=== PATIENT | female | born 1945 | race Caucasian/White ===

== ENCOUNTER 2016-11-23 17:45 | Emergency (ER) | payer MEDICARE ==
[2016-11-23 19:00] VITALS: BP 160/61
--- NOTE | 2016-11-23 19:31 | UC ---
Respiratory Complaint HPI - HPI Summary HPI Summary: The patient comes in today for: 1. Lung congestion: Onset: 4-5 days. Palliative/provocative: Laying back onto the back makes it better. Quality: Back pain is ache. Region: Posterior lower, bilateral back Severity: 3/10 Time: Constant. Associated symptoms: History of asthma and lung nodules: She was told that if she has chest congestion to "go see someone." She saw specialist in [facility] for her lung nodule about July of 2016. She sees Dr. Mckay for her lung nodule. Fever: None. Cough production: Present--thick and yellow. No hemoptysis. Lower posterior back pain: This is not made worse with coughing. Previous treatment: Mucinex D, albuterol puffer and nebulizer. Asthma: She last used her nebulizer (before this time) 2 years ago. Last CXR ;one month ago. Dyspena: None at this time. She wants an antibiotic that she had last time and no CXR at this time. Her antibiotic was cefuroxime 500 mg bid. * - History of Current Complaint Chief Complaint: UCGeneralIllness Stated Complaint: CHEST CONGESTION/BACK PAIN Time Seen by Provider: 11/23/16 19:20 Hx Obtained From: Patient, Family/Sales Correspondence Clerk ?: No - Allergies/Home Medications Allergies/Adverse Reactions: Allergies Allergy/AdvReac Type Severity Reaction Status Date / Time Levofloxacin [From Levaquin] Allergy Intermediate Wheezing Verified 11/23/16 19: 01 Amoxicillin Allergy Mild stomachache Verified 11/23/16 19:01 Ciprofloxacin [From Cipro] Allergy Mild Nausea Verified 11/23/16 19:01 Latex Allergy Mild Rash Verified 11/23/16 19:01 Metronidazole [From Flagyl] Allergy Mild Rash Verified 11/23/16 19:01 Nitrofurantoin Allergy Mild Abdominal Verified 11/23/16 19:01 [From Macrobid] Pain Sulfa Drugs Allergy Unknown Unknown Verified 11/23/16 19:01 Reaction Details Ampicillin Allergy GI Upset Verified 11/23/16 19:01 Azithromycin Allergy See Comment Verified 11/23/16 19:02 Dicyclomine [From Bentyl] Allergy Unknown Verified 11/23/16 19:01 Reaction Details Iodinated Diagnostic Agents Allergy Itching Verified 11/23/16 19:01 Milk Protein Extract Allergy Unknown Verified 11/23/16 19:01 Reaction Details Nabumetone [From Relafen] Allergy Rash Verified 11/23/16 19:01 Oxycodone Allergy GI Upset Verified 11/23/16 19:01 Hydrocodone [From Vicodin] AdvReac Mild Abdominal Verified 11/23/16 19:01 Pain relefen Allergy Mild Rash Uncoded 11/23/16 19:01 Home Medications: Home Medications Albuterol 2.5MG/3ML (0.083%)* [Ventolin 2.5 MG/3 ML NEB.YASHIRA*] 2.5 mg INH Q6H PRN 11/23/16 [History Confirmed 11/23/16] Cyclosporine 0.05% OPHTH (NF) [Restasis 0.05% OPHTH] 1 drop BOTH EYES BID [History Confirmed 11/23/16] Multiple Vitamin [Multi Vitamin] 1 tab PO DAILY 11/23/16 [History Confirmed ] Pseudoephedrine-Guaifenesin [Mucinex D Maximum Strengt 120-1200 mg] 1 tab PO Q12H PRN 11/23/16 [History Confirmed 11/23/16] PMH/Surg Hx/FS Hx/Imm Hx Previously Healthy: No - Dry eyes. Endocrine History Of: Denies: Diabetes, Thyroid Disease, Hyperthyroidism, Hypothyroidism, Dyslipidemia Cardiovascular History Of: Denies: Cardiac Disorders, Hypertension, Pacemaker/ICD, Myocardial Infarction , Congestive Heart Failure, Atrial Fibrillation, Deep Vein Thrombosis, Bleeding Disorders Respiratory History Of: Reports: Asthma, Bronchitis Denies: COPD, Pneumonia, Pulmonary Embolism GI/ History Of: Reports: Gastroesophageal Reflux Denies: Ulcer, Gastrointestinal Bleed, Gall Bladder Disease, Kidney Stones, Diverticulitis, Renal Disease, Urosepsis Neurological History Of: Reports: Migraine - 20 YEARS AGO Denies: TIA, CVA, Dementia, Seizures Psychological History Of: Reports: Depression - DAUGHTER Denies: Anxiety, Bipolar Disorder, Schizophrenia, Post Traumatic Stress Disorder Cancer History Of: Denies: Lung Cancer, Colorectal Cancer, Breast Cancer, Prostate Cancer, Cervical Cancer Other History Of: Negative For: HIV, Hepatitis B, Hepatitis C, Anticoagulant Therapy - Surgical History Surgical History: Yes Surgery Procedure, Year, and Place: hysterectomy 1988 Rt Oopharectomy. TONSILECTOMY, 1950S. NASAL POLYP REMOVED WITH SEPTOPLASTY - Family History Known Family History: Positive: Hypertension Negative: Cardiac Disease, Diabetes - Social History Occupation: Retired Alcohol Use: Occasionally Alcohol Amount: ONE PER MONTH Substance Use Type: None Smoking Status (MU): Former Smoker Amount Used/How Often: PACK A DAY Length of Time of Smoking/Using Tobacco: QUIT 1988 Have You Smoked in the Last Year: No When Did the Patient Quit Smoking/Using Tobacco: 1988 Review of Systems Constitutional: Negative Skin: Negative Eyes: Negative ENT: Negative, Sore Throat - Only with coughing. Respiratory: Cough Cardiovascular: Negative Gastrointestinal: Negative Genitourinary: Negative All Other Systems Reviewed And Are Negative: Yes Physical Exam Triage Information Reviewed: Yes Appearance: Well-Appearing, No Pain Distress, Well-Nourished Vital Signs: Initial Vital Signs Pulse 78 11/23/16 18:49 Resp 20 11/23/16 18:49 BP 160/61 11/23/16 18:49 Pulse Ox 100 11/23/16 18:49 Vital Signs Reviewed: Yes Eyes: Positive: Conjunctiva Clear. Negative: Discharge ENT: Positive: Hearing grossly normal. Negative: Pharyngeal erythema, Nasal congestion, Nasal drainage, TM bulging, TM dull, TM red, Tonsillar swelling, Tonsillar exudate Dental: Negative: Gross Decay/Caries @, Dental Fracture @ Neck: Positive: Supple, Nontender Respiratory: Positive: Lungs clear, No respiratory distress, No accessory muscle use. Negative: Crackles, Wheezing Cardiovascular: Positive: RRR, No Murmur Abdomen Description: Positive: Nontender, No Organomegaly, Soft. Negative: Distended, Guarding Musculoskeletal: Positive: Strength Intact, ROM Intact, No Edema Neurological: Positive: Alert, Muscle Tone Normal Psychological: Positive: Age Appropriate Behavior, Decreased Age Appropriate Behavior Skin: Negative: rashes, breakdown UC Diagnostic Evaluation - Laboratory O2 Sat by Pulse Oximetry: 100 Respiratory Course/Dx - Course Course Of Treatment: Patient was told of her treatment options. Nonetheless, she states that she was told when she has "congestion" to "go see someone as soon as you can." She wants the cefuroxime as her treatment. - Differential Dx/Diagnosis Provider Diagnoses: Bronchitis. Sinusitis. High blood pressure. Discharge - Discharge Plan Condition: Stable Disposition: HOME Patient Education Materials: Acute Bronchitis (ED), Sinusitis (ED) Referrals: Rodney Jones MD [Primary Care Provider] - 1 Week (See your primary care provider early next week to see how you are doing and to have your blood pressure evaluated. )
== END 2016-11-23 20:07 | disposition home or self-care (01) ==
LOC: UCCORT 17:45
DX: J40 Bronchitis, not specified as acute or chronic (principal); J32.9 Chronic sinusitis, unspecified; R03.0 Elevated blood-pressure reading, without diagnosis of hypertension; Z88.1 Allergy status to other antibiotic agents; Z88.5 Allergy status to narcotic agent; Z88.2 Allergy status to sulfonamides; Z87.891 Personal history of nicotine dependence
CPT/HCPCS: 99212; G0463

== ENCOUNTER 2017-08-02 07:07 | Emergency (ER) | payer MEDICARE ==
[2017-08-02 07:21] VITALS: BP 145/67
--- NOTE | 2017-08-02 07:53 | UC ---
Throat Pain/Nasal Jose HPI - HPI Summary HPI Summary: Patient presents to with chief complaint of sinus pressure and nasal congestion. She reports dry intermittent cough, worse last evening. She has a history of asthma, but denies wheezing, chest pain, or shortness of breath. Patient reports worsening symptoms despite mucinex, and inhaler use. She reports using neb treatments 6 times in jose alejandro past 3 days. She denies f/c/sn/v/or abdominal pain or bowel irregularities. She is sp sinus surgery "several years ago". She is a nonsmoker. SHe is using flonase once daily. - History of Current Complaint Chief Complaint: UCRespiratory Stated Complaint: CONGESTION, HISTORY OF ASTHMA Time Seen by Provider: 08/02/17 07:32 Hx Obtained From: Patient - Allergies/Home Medications Allergies/Adverse Reactions: Allergies Allergy/AdvReac Type Severity Reaction Status Date / Time Levofloxacin [From Levaquin] Allergy Intermediate Wheezing Verified 08/02/17 07: 16 Amoxicillin Allergy Mild stomachache Verified 08/02/17 07:16 Ciprofloxacin [From Cipro] Allergy Mild Nausea Verified 08/02/17 07:16 Latex Allergy Mild Rash Verified 08/02/17 07:16 Metronidazole [From Flagyl] Allergy Mild Rash Verified 08/02/17 07:16 Nitrofurantoin Allergy Mild Abdominal Verified 08/02/17 07:16 [From Macrobid] Pain Sulfa Drugs Allergy Unknown Unknown Verified 08/02/17 07:16 Reaction Details Ampicillin Allergy GI Upset Verified 08/02/17 07:16 Azithromycin Allergy See Comment Verified 08/02/17 07:16 Dicyclomine [From Bentyl] Allergy Unknown Verified 08/02/17 07:16 Reaction Details Iodinated Diagnostic Agents Allergy Itching Verified 08/02/17 07:16 Milk Protein Extract Allergy Unknown Verified 08/02/17 07:16 Reaction Details Nabumetone [From Relafen] Allergy Rash Verified 08/02/17 07:16 Oxycodone Allergy GI Upset Verified 08/02/17 07:16 Hydrocodone [From Vicodin] AdvReac Mild Abdominal Verified 08/02/17 07:16 Pain relefen Allergy Mild Rash Uncoded 08/02/17 07:16 Home Medications: Home Medications Fluticasone NASAL SPRAY 50MCG* [Flonase NASAL SPRAY 50MCG*] 2 spray BOTH NARES DAILY 08/02/17 [History Confirmed 08/02/17] PMH/Surg Hx/FS Hx/Imm Hx Previously Healthy: Yes Respiratory History: Asthma Other History Of: Negative For: HIV, Hepatitis B, Hepatitis C, Anticoagulant Therapy - Surgical History Surgical History: Yes Surgery Procedure, Year, and Place: hysterectomy 1988 Rt Oopharectomy. TONSILECTOMY, 1950S. NASAL POLYP REMOVED WITH SEPTOPLASTY - Family History Known Family History: Positive: Hypertension Negative: Cardiac Disease, Diabetes - Social History Alcohol Use: Occasionally Alcohol Amount: ONE PER MONTH Substance Use Type: None Smoking Status (MU): Former Smoker Amount Used/How Often: PACK A DAY Length of Time of Smoking/Using Tobacco: 1 PPD x 20 Years Have You Smoked in the Last Year: No When Did the Patient Quit Smoking/Using Tobacco: 1988 - Immunization History Most Recent Influenza Vaccination: May 2017 Review of Systems Constitutional: Negative Skin: Negative Eyes: Negative ENT: Negative All Other Systems Reviewed And Are Negative: Yes Physical Exam Triage Information Reviewed: Yes Appearance: Well-Appearing Vital Signs: Initial Vital Signs Temp 97.9 F 08/02/17 07:13 Pulse 76 08/02/17 07:13 Resp 16 08/02/17 07:13 BP 145/67 08/02/17 07:13 Pulse Ox 100 08/02/17 07:13 Vital Signs Reviewed: Yes Eyes: Positive: Conjunctiva Clear ENT: Positive: Pharyngeal erythema, Nasal congestion, TMs normal, Hoarse voice, Sinus tenderness - Frontal, maxillary bilaterally, Uvula midline Dental Exam: Normal Neck exam: Normal Neck: Positive: Supple Respiratory: Positive: Chest non-tender, Lungs clear, Normal breath sounds, No respiratory distress, No accessory muscle use Cardiovascular Exam: Normal Abdominal Exam: Normal Abdomen Description: Positive: Soft Musculoskeletal Exam: Normal Skin Exam: Normal Throat Pain/Nasal Course/Dx - Course Assessment/Plan: Acute bacterial sinusitis - Differential Dx/Diagnosis Provider Diagnoses: Acute bacterial sinusitis Discharge - Discharge Plan Condition: Stable Disposition: HOME Prescriptions: ceFUROXime TAB(*) [Ceftin TAB 250 MG(*)] 250 mg PO BID 7 Days #14 tab Patient Education Materials: Sinusitis (ED) Referrals: Rodney Jones MD [Primary Care Provider] - 5 Days Additional Instructions: I have sent medications to your local pharmacy. Please warp picker and take with food and water until completion. Please continue breathing treatments, mucinex as needed, and flonase - but increase to twice daily. Please begin a daily over the counter allergy medication as well until symptoms improve. Please stay hydrated, and follow up with your PCP in 5-7 days. Please return to UC if your symptoms worsen in the next several days despite above treatment plan.
== END 2017-08-02 08:04 | disposition home or self-care (01) ==
LOC: UCCORT 07:07
DX: J01.90 Acute sinusitis, unspecified (principal); J45.909 Unspecified asthma, uncomplicated; Z90.710 Acquired absence of both cervix and uterus; Z90.721 Acquired absence of ovaries, unilateral; Z88.5 Allergy status to narcotic agent; Z88.2 Allergy status to sulfonamides; Z88.1 Allergy status to other antibiotic agents; Z91.041 Radiographic dye allergy status; Z91.040 Latex allergy status; Z87.891 Personal history of nicotine dependence
CPT/HCPCS: 99212; G0463

== ENCOUNTER 2017-12-24 09:10 | Emergency (ER) | payer MEDICARE ==
--- OUTSIDE RECORDS SUMMARY | 2017-12-24 09:25 | XMS REPORT ---
:1945 External Reference #:[id number] Author Organization [facility] Address [address] [address] Phone [phone] Care Team Providers Name Role Phone Rodney Jones III, MD Primary Care Physician Unavailable Payers Type Date Identification Numbers Payment Subscriber Provider Health Maintenance Effective: Policy Number: Medicare Blue Noelle Mayorga Nik[employer] Organization (O) 09/03/2012 [id number] [facility] Group Number: [id number] [address] [address] PayID: [id number] [place] [address] Advance Directives Type Date Description Status Comment Other Directive 12/13/2016 Health Care Proxy Current and Verified Other Directive 12/13/2016 Living Will Current and Verified Problems Date Description Provider Status Onset: 05/04/2011 Asthma without status asthmaticus Rodney Jones M.D. Active Onset: 05/04/2011 Impaired fasting glycaemia Rodney Jones M.D. Active Onset: 05/04/2011 Pure hypercholesterolemia Rodney Jones M.D. Active Onset: 09/29/2011 Left lower quadrant pain Rodney Jones M.D. Active Onset: 03/19/2012 Osteochondropathy Rodney Jones M.D. Active Onset: 08/02/2015 Chronic rhinitis Steve Wilson M.D. Active Onset: 08/02/2015 Chronic maxillary sinusitis Steve Wilson M.D. Active Onset: 08/02/2015 Tinnitus, left ear Steve Wilson M.D. Active Onset: 08/30/2015 Sudden hearing loss Steve Wilson M.D. Active Onset: 08/30/2015 Acute upper respiratory infection, Steve Wilson M.D. Active unspecified Onset: 05/04/2016 Disorder of bone Rodney Jones M.D. Active Onset: 12/07/2017 Peripheral vascular disease Rodney Jones M.D. Active Onset: 05/08/2017 Gastroesophageal reflux disease Rodney Jones M.D. Active Onset: 08/10/2016 Closed fracture of surgical neck of Radha Murphy MD Active humerus Family History Date Family Member(s) Problem(s) Comments General Lung Cancer General Rheumatoid Arthritis Father due to Cancer, Lung () - age 62; (+) smoker. Mother due to Natural Causes () - age 81; (+) CVA in her 30s perioperatively. Siblings 3 Siblings Sister has thyroid problems First Sister due to Cancer, Lung () Social History Type Date Description Comments Marital Status Lives With Occupation Retired Cigarette Use Former Cigarette Smoker 1 ppd; began age 16, quit 1988 ETOH Use Occasionally consumes alcohol Exercise Type/Frequency Exercises regularly Exercise Type/Frequency walks, cardio workouts prior to her L leg pain sx Allergies, Adverse Reactions, Alerts Date Description Reaction Status Severity Comments 09/30/2007 Levaquin active broncho spasms 09/30/2007 Sulfa active 09/30/2007 Latex active rash 09/30/2007 hair dye active 09/30/2007 Macrodantin active 09/30/2007 Flagyl active 05/04/2011 Vicodin active 05/04/2011 Macrobid nausea, stomach pain active 02/19/2014 Amoxicillin active 02/19/2014 Ciprofloxacin active 02/19/2014 Ampicillin Nausea and Vomiting active 05/03/2015 Milk-related Compounds active 05/03/2015 Estrace active 02/01/2016 Oxycodone active 02/01/2016 Dicyclomine active 10/22/2017 NSAIDS active rash 11/26/2017 Nabumetone active Medications Medication Date Status Form Strength Qnty SIG Indications Ordering Provider Atorvastatin 12/07 Active Tablets 10mg 90tab take 1 I73.9 Rodney Serra /2018 s tablet at Karen, bedtime Iqra Ventolin HFA 05/17 Active Aerosol 108(90Bas 18uni Inhale Rodney E. /2014 e) ts Two Puffs Karen, mcg/Act By Mouth M.D. Four Times A Day Aerochamber Plus 04/09 Active Misc 1unit Use as Trav /2014 s directed OSMAN Mak with puffer Nebulizer 08/31 Active Kit 1unit use as J45.909 Trav Compressor/Dualfi s needed OSMAN Mak lter/ for Tubing/Aerosol symptoms T/Mthpiece of sob Nebulizer 08/31 Active Kit 1unit use as J45.909 Trav Kit/Tubing/Mouthp s needed OSMAN Mak iece for symptoms sob Albuterol Sulfate 08/31 Active Nebulizer (2.5mg/3M 10uni use one J45.909 Rodney E. /2013 L) 0.083% ts ampual Karen, via M.D. nebulizer as needed sob Fluticasone 08/11 Active Suspension 50mcg/Act 16uni Instill 1 Steve Propionate ts Ranger In [facility], Each M.D. Nostril Every Morning prn Calcium 500 +D 06/09 Active Tablets 500-400mg 30tab 2 pills a Rodney E. /2013 -Unit s day Iqra Jones Restasis 09/29 Active Emulsion 0.05% 2tray one gtts Rodney E. /2011 s ou bid Iqra Jones Flovent HFA 09/13 Active Aerosol 110mcg/Ac 12uni Inhale Rodney E. /2010 t ts Two Puffs Karen, By Mouth M.D. Twice A Day, Rinse And Gargle After Use Spiriva 02/09 Active Capsules 18mcg 30cap Inhale Rodney E. Handihaler /2007 s The Karen, Contents M.D. Of One Capsule By Mouth Every Morning Probiotic Active Capsules 1 po qd Unknown /0000 Multivitamins 00 Active Tablets 90tab 1 po qd Unknown /0000 s Vitamin D3 Super Active Tablets 2000Unit 1 by Unknown Strength /0000 mouth every day Clopidogrel Active Tablets 75mg once Unknown Bisulfate / daily Pantoprazole Active Tablets DR 40mg once [place], Sodium / daily MD Dougie Aspir-[address] 81mg 1 by Unknown /0000 mouth every day Azithromycin 11/26 Hx Tablets 500mg 5tabs one by J32.0 Steve mouth Rup[place]lia, - once per M.D. Meloxicam 09/25 Hx Tablets 15mg 30tab 1 by s mouth William, - every day M.D. 11/19 Meloxicam 09/24 Hx Tablets 7.5mg 45tab take one s tab twice William, - daily as M.D. 09/25 needed for pain, avoid other nsaids Tramadol HCL 08/04 Hx Tablets 50mg 60tab take 1-2 s tablets [place], - by mouth M.D. 08/13 every hours if needed for pain . Duloxetine HCL 02/[address] 30mg 30cap take 1 M54.89 Rodney Pak Part s capsule Karen, - by mouth M.D. 08/13 morning for 1 week, then 2 tabs daily Tessalon Perlfoster 02/03 Hx Capsules 100mg 20cap 1-2 by Rodney Pak s mouth Karen, - three M.D. 05/07 times day as needed Prednisone 02/03 Hx Tablets 20mg 5tabs 1 by Rodney Pak mouth Karen, - every day M.D. 05/04 Zithromax 08/30 Hx Tablets 500mg 5tabs one by Babatunde.0 Steve mouth one Ruparbertha, - per day M.D. 10/11 Prednisone 08/30 Hx Tablets 20mg 7tabs one by J32.0 Steve mouth [place]lia, - once a M.D. 10/11 day in the morning x7 days Pulmicort 08/02 Hx Suspension 0.5mg/2ML 30uni one J32.0 Steve /2014 ts reespule Rubilly, - per day M.D. 05/07 to add soultion Azithromycin 05/21 Hx Tablets 250mg 6tabs 2 tabs by 465.8 Trav /2014 mouth on Mak, RARE/ENDANGERED SPECIES SPECIALIST - day one 08/02 by 1 tab daily for the last 4 days Methylprednisolon 05/21 Hx Tablets 4mg 21tab take 6 465.8 Trav gold (Simon) s tabs on Obdulio, RARE/ENDANGERED SPECIES SPECIALIST - day 1, 5 08/02 tabs day 2, 4 tabs on day 3, 3 tabs on day 4, 2 tabs on day 5, 1 tab on day 6 Cheratussin ac 05/21 Hx Syrup 100-10mg/ 180un 1 465.8 Trav 5ML its teaspoon Obdulio, RARE/ENDANGERED SPECIES SPECIALIST - every 4-6 08/02 hours mouth as needed for cough Diflucan 01/14 Hx Tablets 100mg 2tabs 2 tablets Rodney Pak x 1 dose Karen, - M.DMonica 08/13 Zithromax 01/04 Hx Tablets 500mg 5tabs one by 473.0 Steve mouth one [place], - per day M.D. 05/03 Diflucan 12/29 Hx Tablets 200mg 1tabs 1 by Rodney Pak mouth x 1 Karen, - M.D. 01/14 Singulair 10/21 Hx Tablets 10mg 30tab 1 by 786.2 Rodney Pak s mouth Karen, - every day M.D. 01/04 Prednisone 08/11 Hx Tablets 10mg 26tab 5 tabs x2 493.92 Karlee s day, 4 Rick, - tabs x N.P. 10/21 2day, tabs x 1 day, 2 tabs x1day, 1 tab x 1day Zithromax 08/03 Hx Tablets 500mg 5tabs 1 every Other day x 5 Ordering - Provider 07/31 Nexium 08/[address] 40mg 1 by Trav mouth Obdulio, RARE/ENDANGERED SPECIES SPECIALIST - every day 07/10 Prednisone 07/28 Hx Tablets 20mg 7tabs 1 by Rodney Pak mouth Karen, - every day M.D. 08/03 Diflucan 06/29 Hx Tablets 200mg 1tabs 1 by Rodney Pak mouth x Karen, - one dose M.D. 10/21 Zithromax 04/27 Hx Tablets 500mg 5tabs one po one per Ruparelia, - day M.D. 04/30 Astepro 04/27 Hx Solution 0.15% 3unit one puff s both Ruparelia, - sides M.D. 07/24 once per day Cyclobenzaprine 03/30 Hx Tablets 10mg 30tab one by Rodney Pak s mouth Karen, - three M.D. 04/30 times a day as needed spasm Luxiq 02/19 Hx Foam 0.12% 50gm as needed Rodney Pak Karen, - M.D. 04/30 Pulmicort 02/02 Hx Suspension 0.5mg/2ML 30uni one 471.0 ts reespule Rubilly, - per day M.D. 01/04 to add to soultion Diflucan 01/31 Hx Tablets 200mg 1tabs 1 dose Iqra Saucedo - 02/19 Prednisone 01/12 Hx Tablets 20mg 10day not 471.0 s taking Ruparbertha, - one by M.DMonica 04/30 mouth once a day in in the morning x10 days Oxycodone-Acetami 12/31 Hx Tablets 5-325mg 30tab take 1 po Steve s q 4 h prn Ruparbertha, - pain M.D. 02/19 Nitrostat 11/19 Hx Tablets Sub 0.4mg 25tab one sl 786.50 Rodney Monica s q5min up Karen, - to 3 M.D. 04/30 doses needed Prednisone 11/10 Hx Tablets 20mg 10day one p.o. 473.0 s once a Ruparelia, - day in M.D. 11/27 a.m. x10 days Diflucan 10/16 Hx Tablets 150mg 1tabs take 1 po Rodney Monica x 1 dose Karen, - M.D. 11/27 Ventolin HFA 09/01 Hx Aerosol 108(90Bas 18uni Inhale Vahid e) ts Two Puffs Mayra Lancaster, - mcg/Act By Mouth M.DMonica,FACP 01/04 Times A Day Azithromycin 03/24 Hx Tablets 250mg 6tabs take 2 tab on Sarita, - day 1 M.D. 09/01 then tab daily x 4 days Premarin 01/08 Hx Cream 0.625mg/G 1unit once a 627.3 Lila M s week for Sarita, - 4-6 wks M.D. 12/16 Flonase 01/01 Hx Suspension 50mcg/Act 16uni Ranger 1 Rodney E. ts Ranger In Karen, - Each M.D. 12/16 Nostril Every Morning Prednisone 12/19 Hx Tablets 20mg 7tabs 1 po qd Rodney EMonica Rosemary Jones.DMonica 02/10 Mucinex Chest 12/10 Hx Tablets 1-2 daily Rodney EMonica & prn Alejandro Jones M.DMonica 11/27 Zithromax Z-Simon 12/10 Hx Tablets 250mg 1Pack as per 466.0 Rodney E. direction Rosemary Jones s M.DMonica 02/10 Benzonatate 12/10 Hx Capsules 100mg 30cap 1-2 tab 466.0 Rodney E. s po tid Karen, - prn M.DMonica 02/19 Premarin 03/05 Hx Cream 0.625mg/G 1unit once a 627.3 Lila M s week for Sarita, - 4-6 wks M.D. 06/03 Amoxicillin/Potas 07/20 Hx Tablets 500-125mg 20tab 1 po bid Rodney Pak sium Clavulanate s Rosemary Jones M.D. 09/29 Diflucan 05/04 Hx Tablets 200mg 1tabs i po x Rodney EMonica one dose Rosemary Jones M.D. 07/20 Keflex 03/27 Hx Capsules 500mg 14cap 1 tab q Vahid /2010 s 12 hrs D. Tonny, - for 7 M.D.,FACP . Claritin-D 12 03/17 Hx Tablets ER 5-120mg 60tab 1 po bid VahidAnne-Marie Randall 12HR s Rosemary Mcguire M.D.,FACP 05/04 Omeprazole 09/[address] 20mg 60cap take one . s capsule Rosemary Jones by mouth Mukesh.Mayra 02/02 twice a day Nexium 07/[address] 20mg 90cap 1 po qd Rodney EMonica s Rosemary Jones M.D. 09/13 Omeprazole 01/[address] 20mg 60cap 1 po qd Rdoney E. s -bid Rosemary Jones M.D. 07/22 Xfaxan 12/09 Hx 20mg. 1 po tid Noel once a MD Dougie - month for 01/04 4 days Tessalon Perlfoster 11/19 Hx Capsules 100mg 30cap 1-2 po Rodeny EMonica s tid prn Rosemary Jones M.D. 12/09 Zithromax Z-Simon 08/05 Hx Tablets 250mg 1Pack as per Rodney Pak Rosemary Rouse M.D. 11/19 Fluticasone 04/27 Hx Suspension 50mcg/Act 1unit 1 spray Rodney EMonica Rosemary Alaniz nostril Iqra 02/19 in Zithromax Z-Simon 12/03 Hx Tablets 250mg 1Pack as per Rodney Pak Rosemary Rouse M.D. 02/05 Ketoconazole 10/30 Hx Shampoo 2% 8oz use 2 x Rodney Pak weekly Rosemary Jones for 4 M.D. with at least 3 days between shampoos, then prn to maintain control Ketoconazole 10/28 Hx Shampoo 2% 4Oz 1 po qd Rodney Pak Rosemary Jones M.D. 10/30 Spiriva 00 Hx Capsules 18mcg 1Mont 1 Rodney EMonica Handihaler /0000 h inhalatio Rosemary Jones n qam Iqra 02/09 Flovent 00/ Hx Aerosol 110mcg/Ac 3unit 2 po puff Rodney E. /0000 t s Rosemary Hudson M.D. 09/13 Flonase /00 Hx Suspension 50mcg/Act 1Bott 1 Rodney E. /0000 le intranRosemary Parnell pujuana to Iqra 04/27 nostril daily Accolate / Hx Tablets 20mg 30tab 1 po qd Rodney E. /0000 s Rosemary Jones M.D. 12/12 Protonix /[address] 40mg 90tab 1 po qd Rodney E. /0000 Rosemary Grover M.D. 01/04 generic ly Albuterol HFA Hx Aerosol 90mcg/Act 1unit 2 po Vahid /0000 s Puffs qid Rosemary Mcguire M.D.,FACP 09/01 Restasis Hx Emulsion 0.05% 3mon One gtts OU bid Physician - Practices 01/04 Xifaxan Hx Tablets 200mg 180ta take 2 Rodney E. / bs tablets Rosemary Jones by mouth Iqra 12/12 times a day Z Pack Hx Tablets 250mg as Unknown /0000 directed. - 03/17 Ceftin / Hx Tablets 500mg 14tab po bid Unknown /0000 s - 05/04 Prednisone Hx Tablets 20mg 10tab 2 po qd Unknown /0000 s - 05/04 Multivitamins / Hx Capsules QS 1 capsule Unknown /0000 crystal;y - 09/29 Mucinex D 00/00 Hx Tablets ER 20tab 1 po bid Unknown /0000 12HR s - 09/29 Ibuprofen 00/00 Hx Capsules 200mg prn Unknown /0000 - 09/29 Finacea Hx Gel 15% 50gm apply Unknown /0000 twice - daily to 04/30 area Astepro 00/ Hx Solution 0.15% 90uni 1 Unknown /0000 ts intranasa - l every Amoxicillin 00/00 Hx Tablets 500mg 30tab 1 po tid Unknown /0000 s for 10 - days 03/19 Ciprofloxacin HCL 00/00 Hx Tablets 500mg 20tab 1 po bid Unknown /0000 s - 12/10 Aspirin 00/[address] 81mg 1 by Unknown /0000 mouth - every day 12/16 Nexium /[address] 40mg 30cap 2 by Unknown /0000 s mouth - every day 06/19 Claritin-D 12 00 Hx Tablets ER 5-120mg 1 by Unknown Hour /0000 12HR mouth - twice a Omeprazole [address] 40mg 30cap 2 by Unknown /0000 s mouth - every day 10/21 Dexilant 00/ Hx 1 po Unknown /0000 daily - 01/04 Carafate Hx Tablets 1gm take one Unknown /0000 (1) - tablet(s) 01/04 by mouth every six (6) hours as needed Omeprazole [address] 40mg 2 by Unknown /0000 mouth - every day 12/07 Mucinex D 00 Hx Tablets ER 120-1200m Unknown /0000 12HR g - 05/07 Vitamin B12 TR Hx Tablets ER 1000mcg 1 by Unknown /0000 mouth - every day 11/05 Aspirin Adult Low Hx Tablets DR 81mg 1 by Unknown Dose /0000 mouth - every day 11/12 Medications Administered in Office Medication Date Status Form Strength Qnty SIG Indications Ordering Provider Technetium TC Administered Injection Jose Luis Busch [id number] Yuridia Gibson M.D., [facility], Per Unit Dose FASNC Up To 40 Millicuries Immunizations CPT Code Status Date Vaccine Lot # [id number] Given 05/08/2017 Influenza Virus Vaccine, Quadrivalent, Split, [id number] Preservative Free 66495 Given 06/19/2016 Influenza Virus Vaccine, Quadrivalent, Split [id number] Virus, [place] [address] Given 06/16/2015 Influenza Virus Vaccine, Quadrivalent, Split, [id number] Preservative Free 81590 Given 05/03/2015 Pneumococcal Conjugate Vaccine 13 Valent For [id number] Intramuscular Use 65172 Given 06/11/2014 Influenza Virus Vaccine, Quadrivalent, Split, [id number] Preservative Free 51244 Given 06/10/2013 Flu Vaccine Split Virus Preservative Free For [id number] Indiv 3Yr Older 46215 Given 08/23/2012 Zoster (Zostavax) [id number] Given 08/06/2012 Fluvirin Im 3Yrs And Older [id number] 30284 Given 03/19/2012 Pneumonia Vaccine [id number] 14572 Given 06/10/2010 Influenza Virus 3Yrs & Over 36819 Given 07/19/2009 Influenza Virus Vaccine, Pandemic Formulation 69152 Given 07/19/2009 Administration Swine Flu Shot 82110 Given 02/06/2008 Tdap - Tetanus/Diptheria/Acellular Pertussis [id number] 29720 Given 09/03/1999 Pneumovax (History By Patient) [id number] 87798 Given 09/03/1997 Td (History By Patient) Vital Signs Date Vital Result Comment 12/17/2017 Height 67 inches 5'7" Heart Rate 80 /min BP Systolic Sitting 132 mmHg BP Diastolic Sitting 64 mmHg Respiratory Rate 14 /min Pain Level 1 12/07/2017 Weight 170.00 lb Heart Rate 83 /min BP Systolic Sitting 128 mmHg 129/76 pt's machine BP Diastolic Sitting 68 mmHg 129/76 pt's machine O2 % BldC Oximetry 97 % 11/26/2017 Height 67 inches 5'7" Weight 169.00 lb Heart Rate 72 /min BP Systolic Sitting 132 mmHg BP Diastolic Sitting 70 mmHg Respiratory Rate 12 /min Pain Level 8 BMI (Body Mass Index) 26.5 kg/m2 09/18/2017 Height 67 inches 5'7" Weight 185.00 lb Heart Rate 71 /min BP Systolic Sitting 141 mmHg BP Diastolic Sitting 74 mmHg Respiratory Rate 14 /min Pain Level 7 BMI (Body Mass Index) 29.0 kg/m2 08/28/2017 Height 67 inches 5'7" Weight 189.00 lb Heart Rate 71 /min BP Systolic Sitting 158 mmHg BP Diastolic Sitting 72 mmHg Respiratory Rate 14 /min BMI (Body Mass Index) 29.6 kg/m2 05/08/2017 Height 67 inches 5'7" Weight 166.25 lb Heart Rate 66 /min BP Systolic Sitting 146 mmHg BP Diastolic Sitting 62 mmHg Body Temperature 98.5 F O2 % BldC Oximetry 98 % BMI (Body Mass Index) 26.0 kg/m2 12/12/2016 Height 66 inches 5'6" Weight 157.00 lb Heart Rate 55 /min BP Systolic 128 mmHg BP Diastolic 58 mmHg Respiratory Rate 16 /min Body Temperature 98.6 F Pain Level 1 BMI (Body Mass Index) 25.3 kg/m2 10/12/2016 Height 66 inches 5'6" Weight 167.00 lb Heart Rate 60 /min Respiratory Rate 16 /min Pain Level 0 BMI (Body Mass Index) 27.0 kg/m2 09/12/2016 Height 66 inches 5'6" Weight 167.00 lb Respiratory Rate 16 /min Pain Level 2 BMI (Body Mass Index) 27.0 kg/m2 08/22/2016 Height 66 inches 5'6" Weight 167.00 lb Heart Rate 60 /min BP Systolic 150 mmHg BP Diastolic 80 mmHg Respiratory Rate 16 /min Pain Level 1 BMI (Body Mass Index) 27.0 kg/m2 08/10/2016 Height 66 inches 5'6" Weight 167.00 lb Heart Rate 64 /min BP Systolic Sitting 144 mmHg BP Diastolic Sitting 70 mmHg Respiratory Rate 16 /min Pain Level 5 BMI (Body Mass Index) 27.0 kg/m2 05/04/2016 Height 66 inches 5'6" Weight 167.25 lb Heart Rate 70 /min BP Systolic 120 mmHg BP Diastolic 60 mmHg Body Temperature 98.1 F O2 % BldC Oximetry 98 % BMI (Body Mass Index) 27.0 kg/m2 02/18/2016 Height 66 inches 5'6" Weight 167.00 lb Heart Rate 72 /min BP Systolic Sitting 106 mmHg BP Diastolic Sitting 70 mmHg Pain Level 5 L leg BMI (Body Mass Index) 27.0 kg/m2 02/01/2016 Weight 169.00 lb Heart Rate 87 /min BP Systolic Sitting 145 mmHg BP Diastolic Sitting 67 mmHg Body Temperature 100.9 F 10/11/2015 Heart Rate 76 /min BP Systolic Sitting 124 mmHg BP Diastolic Sitting 82 mmHg 08/30/2015 Heart Rate 78 /min BP Systolic Sitting 126 mmHg BP Diastolic Sitting 82 mmHg 08/02/2015 Heart Rate 74 /min BP Systolic Sitting 128 mmHg BP Diastolic Sitting 82 mmHg 05/21/2015 Weight 173.00 lb Heart Rate 72 /min BP Systolic Sitting 142 mmHg BP Diastolic Sitting 70 mmHg Respiratory Rate 16 /min Body Temperature 98.4 F O2 % BldC Oximetry 98 % 05/03/2015 Height 66 inches 5'6" Weight 173.25 lb Heart Rate 73 /min BP Systolic Sitting 130 mmHg BP Diastolic Sitting 64 mmHg Body Temperature 97.7 F O2 % BldC Oximetry 98 % BMI (Body Mass Index) 28.0 kg/m2 01/04/2015 Heart Rate 82 /min BP Systolic Sitting 128 mmHg BP Diastolic Sitting 88 mmHg Body Temperature 99.4 F 10/21/2014 Weight 174.00 lb Heart Rate 75 /min BP Systolic Sitting 126 mmHg BP Diastolic Sitting 68 mmHg Respiratory Rate 16 /min Body Temperature 98.0 F O2 % BldC Oximetry 97 % 08/31/2014 Weight 174.00 lb Heart Rate 78 /min BP Systolic Sitting 126 mmHg BP Diastolic Sitting 60 mmHg Body Temperature 97.9 F 08/24/2014 Heart Rate 75 /min 08/11/2014 Weight 173.75 lb Heart Rate 75 /min BP Systolic Sitting 134 mmHg BP Diastolic Sitting 76 mmHg Body Temperature 97.9 F O2 % BldC Oximetry 97 % 08/03/2014 Weight 172.00 lb Heart Rate 69 /min BP Systolic Sitting 141 mmHg BP Diastolic Sitting 77 mmHg Body Temperature 97.7 F O2 % BldC Oximetry 98 % 07/06/2014 Heart Rate 78 /min BP Systolic Sitting 122 mmHg BP Diastolic Sitting 80 mmHg 05/11/2014 Heart Rate 78 /min BP Systolic Sitting 124 mmHg BP Diastolic Sitting 80 mmHg 05/05/2014 Heart Rate 78 /min BP Systolic Sitting 124 mmHg BP Diastolic Sitting 86 mmHg 04/30/2014 Height 67 inches 5'7" Weight 173.00 lb Heart Rate 80 /min BP Systolic Sitting 146 mmHg BP Diastolic Sitting 78 mmHg Body Temperature 98.1 F BMI (Body Mass Index) 27.1 kg/m2 02/19/2014 Weight 177.00 lb Heart Rate 82 /min BP Systolic Sitting 130 mmHg BP Diastolic Sitting 78 mmHg Body Temperature 98.2 F 01/12/2014 Heart Rate 80 /min BP Systolic Sitting 130 mmHg BP Diastolic Sitting 82 mmHg Body Temperature 99.8 F 01/05/2014 Heart Rate 78 /min BP Systolic Sitting 130 mmHg BP Diastolic Sitting 82 mmHg 12/22/2013 Weight 178.00 lb BP Systolic Sitting 110 mmHg BP Diastolic Sitting 60 mmHg 12/16/2013 Height 66.5 inches 5'6.50" Weight 173.50 lb Heart Rate 80 /min BP Systolic Sitting 126 mmHg BP Diastolic Sitting 58 mmHg Body Temperature 98.1 F BMI (Body Mass Index) 27.6 kg/m2 11/19/2013 Height 67.25 inches 5'7.25" Weight 174.00 lb Heart Rate 77 /min BP Systolic Sitting 136 mmHg BP Diastolic Sitting 82 mmHg Body Temperature 98.1 F O2 % BldC Oximetry 97 % BMI (Body Mass Index) 27.0 kg/m2 11/10/2013 Heart Rate 80 /min BP Systolic Sitting 124 mmHg BP Diastolic Sitting 80 mmHg 02/10/2013 Weight 172.00 lb Heart Rate 73 /min BP Systolic Sitting 110 mmHg BP Diastolic Sitting 62 mmHg 12/10/2012 Height 66.5 inches 5'6.50" Weight 172.50 lb Heart Rate 80 /min BP Systolic Sitting 118 mmHg BP Diastolic Sitting 64 mmHg Body Temperature 99.0 F O2 % BldC Oximetry 96 % BMI (Body Mass Index) 27.4 kg/m2 06/03/2012 Height 66.5 inches 5'6.50" Weight 175.00 lb Heart Rate 80 /min BP Systolic Sitting 132 mmHg BP Diastolic Sitting 72 mmHg Body Temperature 98.3 F BMI (Body Mass Index) 27.8 kg/m2 03/19/2012 Height 66.5 inches 5'6.50" Weight 174.75 lb Heart Rate 80 /min BP Systolic Sitting 104 mmHg BP Diastolic Sitting 62 mmHg BMI (Body Mass Index) 27.8 kg/m2 03/05/2012 Height 66.5 inches 5'6.50" Weight 177.00 lb Heart Rate 74 /min BP Systolic Sitting 12 mmHg L BP Diastolic Sitting 80 mmHg L BMI (Body Mass Index) 28.1 kg/m2 09/29/2011 Height 66.5 inches 5'6.50" Weight 173.50 lb Heart Rate 72 /min BP Systolic Sitting 142 mmHg BP Diastolic Sitting 76 mmHg BMI (Body Mass Index) 27.6 kg/m2 07/20/2011 Height 66.5 inches 5'6.50" Weight 174.00 lb Heart Rate 84 /min BP Systolic Sitting 140 mmHg BP Diastolic Sitting 70 mmHg Body Temperature 98.4 F BMI (Body Mass Index) 27.7 kg/m2 05/04/2011 Height 66.5 inches 5'6.50" Weight 170.00 lb Heart Rate 72 /min BP Systolic Sitting 130 mmHg L BP Diastolic Sitting 68 mmHg L BMI (Body Mass Index) 27.0 kg/m2 03/17/2011 Weight 175.00 lb Heart Rate 74 /min BP Systolic Sitting 110 mmHg BP Diastolic Sitting 52 mmHg 01/04/2011 Weight 177.00 lb Heart Rate 92 /min BP Systolic Sitting 132 mmHg BP Diastolic Sitting 80 mmHg 09/13/2010 Weight 181.00 lb Heart Rate 78 /min BP Systolic Sitting 144 mmHg BP Diastolic Sitting 74 mmHg 12/09/2009 Weight 184.00 lb Heart Rate 68 /min BP Systolic Sitting 142 mmHg BP Diastolic Sitting 80 mmHg 08/25/2009 Heart Rate 72 /min BP Systolic Sitting 132 mmHg BP Diastolic Sitting 68 mmHg 06/28/2009 Heart Rate 64 /min BP Systolic Sitting 154 mmHg BP Diastolic Sitting 76 mmHg 11/19/2008 Height 66.5 inches 5'6.50" Weight 179.00 lb Heart Rate 88 /min BP Systolic Sitting 126 mmHg BP Diastolic Sitting 68 mmHg BMI (Body Mass Index) 28.5 kg/m2 08/05/2008 Height 66.5 inches 5'6.50" Weight 182.00 lb Heart Rate 74 /min BP Systolic Sitting 120 mmHg BP Diastolic Sitting 80 mmHg BMI (Body Mass Index) 28.9 kg/m2 04/27/2008 Height 66.5 inches 5'6.50" Weight 184.00 lb Heart Rate 72 /min BP Systolic Sitting 174 mmHg BP Diastolic Sitting 84 mmHg BMI (Body Mass Index) 29.3 kg/m2 02/06/2008 Height 66.5 inches 5'6.50" Heart Rate 80 /min BP Systolic Sitting 122 mmHg BP Diastolic Sitting 74 mmHg 01/30/2008 Height 66.5 inches 5'6.50" Weight 180.00 lb Heart Rate 72 /min BP Systolic Sitting 130 mmHg BP Diastolic Sitting 70 mmHg BMI (Body Mass Index) 28.6 kg/m2 12/04/2007 Height 66.5 inches 5'6.50" Heart Rate 84 /min BP Systolic Sitting 110 mmHg BP Diastolic Sitting 70 mmHg BP Systolic Standing 84 mmHg Body Temperature 99.6 F 10/28/2007 Height 66.5 inches 5'6.50" Weight 177.00 lb Heart Rate 80 /min BP Systolic Sitting 128 mmHg Own Luppxwj=210/82 BP Diastolic Sitting 78 mmHg Own Twruygz=662/82 BMI (Body Mass Index) 28.1 kg/m2 09/30/2007 Height 66.5 inches 5'6.50" Weight 186.00 lb Heart Rate 76 /min BP Systolic Sitting 164 mmHg BP Diastolic Sitting 82 mmHg BMI (Body Mass Index) 29.6 kg/m2 Results Test Date Test Result H/L Range Note Laboratory test 10/04/2017 Cytology Non-Ocean [employer]ishing Guide SEE RESULT 1 finding BELOW Laboratory test 08/28/2017 Nuclear AB (Keshia) By <1:80 2 finding Ifa Igg (Negative) Scleroderma AB 08/28/2017 Scleroderma Ab <0.2 U 3 (SCL70) Laboratory test 08/28/2017 C Reactive Protein 2.52 mg/L < 5.00 4 finding Erythrocyte Sed Rate 10 mm/Hr 0-40 Rheumatoid Factor <15 IU/mL <15 5 Hla B27 08/28/2017 Hla B27 Negative 6 Hla B27 Interp See Comment 7 Celiac Hla 08/28/2017 Hla-Dqa1 SEE BELOW 8 Hla-DQB1 SEE BELOW 9 Celiac Gene Pairs Present? Yes Celiac Gene Interpretation See Comment 10 Laboratory test finding 08/28/2017 Complement C3 108 mg/dL 75 - 175 11 Complement C4 24 mg/dL 14 - 40 12 Complement Total CH50 60 U/mL 30 - 75 13 Immunoglobulin G (Igg) 1060 mg/dL 767 - 1590 14 Creatine Kinase(CK) 51 U/L 10-223 Thyroperoxidase AB 48.63 IU/mL High <9 Vitamin D, 1,25 Dihydroxy 65 pg/mL 18-78 15 Laboratory test finding 08/28/2017 Tumor Necrosis Factor 1.14 pg/mL 0.56- 1.40 16 Ssa/SSB Abs Igg 08/28/2017 SS-A/Ro Antibody <0.2 U 17 SS-B/La Antibody <0.2 U 18 Laboratory test finding 07/11/2017 TSH (Thyroid Stim Horm) 2.38 mcIU/mL 0.34-5.60 Free T4 (Free Thyroxine) 1.02 ng/dL 0.61-1.12 CBC Auto Diff 05/08/2017 White Blood Count 10.9 10^3/uL High 3.5-10.8 Red Blood Count 4.42 10^6/uL 4.0-5.4 Hemoglobin 13.1 g/dL 12.0-16.0 Hematocrit 40 % 35-47 Mean Corpuscular Volume 90 fL 80-97 Mean Corpuscular Hemoglobin 30 pg 27-31 Mean Corpuscular HGB Conc 33 g/dL 31-36 Red Cell Distribution Width 14 % 10.5-15 Platelet Count 203 10^3/uL 150-450 Mean Platelet Volume 9 um3 7.4-10.4 Abs Neutrophils 7.0 10^3/uL 1.5-7.7 Abs Lymphocytes 2.8 10^3/uL 1.0-4.8 Abs Monocytes 0.7 10^3/uL 0-0.8 Abs Eosinophils 0.3 10^3/uL 0-0.6 Abs Basophils 0.1 10^3/uL 0-0.2 Abs Nucleated RBC 0 10^3/uL Granulocyte % 64.2 % 38-83 Lymphocyte % 25.2 % 25-47 Monocyte % 6.3 % 1-9 Eosinophil % 3.2 % 0-6 Basophil % 1.1 % 0-2 Nucleated Red Blood Cells % 0 Iron & Iron Binding Capacity 05/08/2017 Iron 65 g/dL 50-212 Unsaturated Iron Binding 271 g/dL Total Iron Binding Capacity 336 g/dL 250-450 % Iron Saturation 19 % 15-55 Laboratory test finding 05/08/2017 Magnesium 2.1 mg/dL 1.9-2.7 Vitamin B12 And Folate Serum 05/08/2017 Vitamin B12 759 pg/mL 180-914 19 Folic Acid (Folate) > 20.00 ng/mL >3.99 Laboratory test finding 05/08/2017 Hepatitis C Antibody Nonreactive Nonreactive Lipid Profile 05/04/2017 Triglycerides 119 mg/dL 20 (Trig/Chol/HDL) Cholesterol 197 mg/dL 21 HDL Cholesterol 60.9 mg/dL 22 LDL Cholesterol 112 mg/dL 23 Laboratory test finding 05/04/2017 Glucose 102 mg/dL High 70-100 24 Laboratory test finding 04/26/2016 Glucose 83 mg/dL 70-100 Lipid Profile (Trig/Chol/HDL) 04/26/2016 Triglycerides 127 mg/dL 25 Cholesterol 195 mg/dL 26 HDL Cholesterol 55.6 mg/dL 27 LDL Cholesterol 114 mg/dL 28 Laboratory test finding 02/02/2016 Erythrocyte Sed Rate 16 mm/Hr 0-40 Comp Metabolic Panel 02/02/2016 Sodium 136 mmol/L 133-145 Potassium 3.7 mmol/L 3.5-5.0 Chloride 106 mmol/L 101-111 Co2 Carbon Dioxide 23 mmol/L 22-32 Anion Gap 7 mmol/L 2-11 Glucose 119 mg/dL High 70-100 Blood Urea Nitrogen 9 mg/dL 6-24 Creatinine 0.78 mg/dL 0.51-0.95 BUN/Creatinine Ratio 11.5 8-20 Calcium 9.2 mg/dL 8.6-10.3 Total Protein 6.2 g/dL Low 6.4-8.9 Albumin 3.9 g/dL 3.2-5.2 Globulin 2.3 g/dL 2-4 Albumin/Globulin Ratio 1.7 1-3 Total Bilirubin 0.40 mg/dL 0.2-1.0 Alkaline Phosphatase 75 U/L 34-104 Alt 10 U/L 7-52 Ast 16 U/L 13-39 Egfr Non- 72.8 >60 Egfr 93.6 >60 29 CBC Auto Diff 02/02/2016 White Blood Count 8.8 10^3/uL 3.5-10.8 Red Blood Count 4.42 10^6/uL 4.0-5.4 Hemoglobin 12.8 g/dL 12.0-16.0 Hematocrit 39 % 35-47 Mean Corpuscular Volume 89 fL 80-97 Mean Corpuscular Hemoglobin 29 pg 27-31 Mean Corpuscular HGB Conc 33 g/dL 31-36 Red Cell Distribution Width 14 % 10.5-15 Platelet Count 176 10^3/uL 150-450 Mean Platelet Volume 9 um3 7.4-10.4 Abs Neutrophils 5.2 10^3/uL 1.5-7.7 Abs Lymphocytes 2.1 10^3/uL 1.0-4.8 Abs Monocytes 1.1 10^3/uL High 0-0.8 Abs Eosinophils 0.3 10^3/uL 0-0.6 Abs Basophils 0.1 10^3/uL 0-0.2 Abs Nucleated RBC 0.01 10^3/uL Granulocyte % 59.3 % 38-83 Lymphocyte % 24.1 % Low 25-47 Monocyte % 12.3 % High 1-9 Eosinophil % 3.0 % 0-6 Basophil % 1.3 % 0-2 Nucleated Red Blood Cells % 0.1 Urinalysis Profile 02/02/2016 Urine Color Yellow Urine Appearance Clear Urine Specific [place] 1.009 Low 1.010-1.030 Urine pH 6.0 5-9 Urine Urobilinogen Negative Negative Urine Ketones Negative Negative Urine Protein Negative Negative Urine Leukocytes Negative Negative Urine Blood Negative Negative Urine Nitrite Negative Negative Urine Bilirubin Negative Negative Urine Glucose Negative Negative Basic Metabolic Panel 04/27/2015 Sodium 138 mmol/L 133-145 Potassium 4.4 mmol/L 3.5-5.0 Chloride 103 mmol/L 101-111 Co2 Carbon Dioxide 26 mmol/L 22-32 Anion Gap 9 mmol/L 2-11 Glucose 91 mg/dL 70-100 Blood Urea Nitrogen 13 mg/dL 6-24 Creatinine 0.87 mg/dL 0.51-0.95 BUN/Creatinine Ratio 14.9 8-20 Calcium 9.4 mg/dL 8.6-10.3 Egfr Non- 64.4 >60 Egfr 82.8 >60 30 Lipid Profile (Trig/Chol/HDL) 04/27/2015 Triglycerides 140 mg/dL 31 Cholesterol 189 mg/dL 32 HDL Cholesterol 55.9 mg/dL 33 LDL Cholesterol 105 mg/dL 34 Lipid Panel 02/24/2014 Triglycerides 146 mg/dL 35 Cholesterol 193 mg/dL 36 HDL Cholesterol 51.6 mg/dL 37 LDL Cholesterol 112 mg/dL 38 Laboratory test finding 02/24/2014 Glucose 99 mg/dL 70-100 Urine Culture And 02/10/2013 Urine Culture (SEE NOTE) 39 Sensitivities Laboratory test finding 02/10/2013 Affirm Vaginal Dna (SEE NOTE) 40 Probe Ua Routine 02/10/2013 Ua Specific [place] 1.005 Ua PH 7 Ua Color yellow Ua Appera clear Ua WBC trace Ua Protein neg Ua Glucose neg Ua Ketones neg Ua Bilirubin neg Ua Urobilinogen neg Ua Nitrite neg Ua Occult Blood neg Urinalysis 07/06/2012 Urine Color Yellow Urine Appearance Clear Urine Specific [place] 1.008 Low 1.010-1.030 Urine Esterase Trace Negative Urine Nitrate Negative Negative Urine Urobilinogen Negative Negative Urine Protein Negative Negative Urine pH 7.5 5-9 Urine Blood Negative Negative Urine Ketones Negative Negative Urine Bilirubin Negative Negative Urine Glucose Negative Negative Urine Microscopic 07/06/2012 Urine WBC 1+ (<10 /hpf) None Seen Urine RBC None Seen None Seen Urine Epithelial Cells 1+ Squamous /hpf None Seen Bacteria Urine 1+ None Seen CBC Auto Diff 07/06/2012 White Blood Count 9.6 10^3/uL 4.8-10.8 Red Blood Count 4.70 10^6/uL 4.0-5.4 Hemoglobin 14.4 g/dL 12.0-16.0 Hematocrit 43 % 35-47 Mean Corpuscular Volume 91 fL 80-97 Mean Corpuscular Hemoglobin 31 pg 27-31 Mean Corpuscular HGB Conc 34 g/dL 31-36 Red Cell Distribution Width 13 % 10.5-15 Platelet Count 194 10^3/uL 150-450 Mean Platelet Volume 9 um3 7.4-10.4 Abs Neutrophils 5.9 10^3/uL 1.5-7.7 Abs Lymphocytes 2.7 10^3/uL 1.0-4.8 Abs Monocytes 0.6 10^3/uL 0-0.8 Abs Eosinophils 0.3 10^3/uL 0-0.6 Abs Basophils 0.1 10^3/uL 0-0.2 Abs Nucleated RBC 0.01 10^3/uL Granulocyte % 60.9 % 38-83 Lymphocyte % 28.3 % 25-47 Monocyte % 5.9 % 1-9 Eosinophil % 3.6 % 0-6 Basophil % 1.3 % 0-2 Nucleated Red Blood Cells % 0.1 Comp Metabolic Panel 07/06/2012 Sodium 137 mmol/L 133-145 Potassium 4.5 mmol/L 3.5-5.0 Chloride 105 mmol/L 101-111 Co2 Carbon Dioxide 26.0 mmol/L 22-32 Anion Gap 6.0 mmol/L 2-11 Glucose 97 mg/dL 70-100 Blood Urea Nitrogen 13 mg/dL 6-24 Creatinine 0.70 mg/dL 0.50-1.40 BUN/Creatinine Ratio 18.6 8-20 Calcium 9.5 mg/dL 8.1-9.9 Total Protein 7.3 GM/DL 6.2-8.1 Albumin 4.2 GM/DL 3.2-5.2 Globulin 3.1 GM/DL 2-4 Albumin/Globulin Ratio 1.4 1-3 Total Bilirubin 0.8 mg/dL 0.1-1.0 41 Alkaline Phosphatase 85 U/L 30-110 Alt 17 U/L 14-54 Ast 22 U/L 12-42 Egfr Non- 83.5 >60 Egfr 107.3 >60 42 Laboratory test finding 07/06/2012 Amylase 37 U/L 20-120 Lipase 29 U/L 22-51 C Reactive Protein 0.6 mg/dL High Less Than 0.5 Urine Culture & Sensitivi 06/03/2012 Urine Culture (SEE NOTE) 43 Ua Routine 06/03/2012 Ua Specific [place] 1.005 Ua PH 6 Ua Color light yellow Ua Appera clear Ua WBC trace Ua Protein negative Ua Glucose negative Ua Ketones negative Ua Bilirubin negative Ua Urobilinogen negative Ua Nitrite negative Ua Occult Blood negative Laboratory test finding 06/02/2012 Amylase 37 U/L 20-120 44 Lipase 30 U/L 22-51 Liver Function Panel 06/02/2012 Total Protein 6.5 GM/DL 6.2-8.1 Albumin 4.3 GM/DL 3.2-5.2 Globulin 2.2 GM/DL 2-4 Albumin/Globulin Ratio 2.0 1-3 Bilirubin Total 0.9 mg/dL 0.4-1.5 45 Bilirubin Direct 0.1 mg/dL 0.1-0.5 Indirect Bilirubin 0.8 mg/dL 0.3-1.0 46 Alkaline Phosphatase 82 U/L 30-110 Alt (SGPT) 15 U/L 14-54 Ast (Sgot) 21 U/L 12-42 CBC No Diff 06/02/2012 White Blood Count 8.5 CUMM 4.8-10.8 Red Cell Count 4.64 CUMM 4.2-5.4 Hemoglobin 14.2 g/dL 12.0-16.0 Hematocrit 43 % 35-47 Mean Corpuscular Volume 92 um3 79-97 Mean Corpuscular Hemoglob 31 pg 27-31 Mean Corpuscular HGB Cone 33 g/dL 32-36 Redcell Distribution WDTH 13 % 10.5-15 Platelet Count 205 CUMM 150-450 Mean Platelet Volume 9.3 um3 7.4-10.4 Vitamin D, 25 Hydroxy 03/19/2012 25-Hydroxy Vitamin D2 <4.0 ng/mL () 25-Hydroxy Vitamin D3 27 ng/mL () 25-Hydroxy Vitamin D Total 27 ng/mL () 47 Comp Metabolic Panel 02/12/2012 Sodium 135 mmol/L 135-145 Potassium 4.2 mmol/L 3.5-5.0 Chloride 105 mmol/L 101-111 Co2 (Carbon Dioxide) 26.0 mmol/L 22-32 Anion Gap 4.0 mmol/L 2-11 48 Glucose 99 mg/dL 70-100 BUN 12 mg/dL 6-24 Creatinine 0.7 mg/dL 0.50-1.40 One Over Creatinine 1.42 BUN/Creatinine Ratio 17.1 8-20 Calcium 9.2 mg/dL 8.1-9.9 Total Protein 6.1 GM/DL Low 6.2-8.1 Albumin 3.9 GM/DL 3.2-5.2 Globulin 2.2 GM/DL 2-4 Albumin/Globulin Ratio 1.8 1-3 Bilirubin Total 0.7 mg/dL 0.4-1.5 49 Alkaline Phosphatase 83 U/L 30-110 Alt (SGPT) 15 U/L 14-54 Ast (Sgot) 19 U/L 12-42 eGFR Non- 83.5 > 60 eGFR 107.3 > 60 50 Lipid Profile (Trig/Chol/HDL) 02/12/2012 Triglyceride 122 mg/dL 40-200 Cholesterol 186 mg/dL Less Than 200 51 High Density Lipoprotein 50 mg/dL 40-60 52 Cholesterol/HDL Ratio 3.72 AVERAGE 1-4.44 Low Density Lipoprotein 112 mg/dL High Less Than 100 53 Urinalysis W/Microscopic 09/29/2011 Ua Color YELLOW Yellow Appearance-Urine CLEAR Clear Specific [place]-Ur 1.013 1.010-1.030 Esterase-Urine TRACE Negative Nitrite NEGATIVE Negative [id number] NEGATIVE Negative Protein-Urine NEGATIVE Negative PH-Urine 6.0 5-9 Blood-Urine NEGATIVE Negative Ketones-Urine NEGATIVE Negative Bilirubin-Ur NEGATIVE Negative Glucose-Urine NEGATIVE Negative WBC-Urine RARE 0-5 RBC-Urine NONE SEEN 0-2 Epith Cells-Ur NONE SEEN None Comp Metabolic Panel 09/29/2011 Sodium 140 mmol/L 135-145 Potassium 4.4 mmol/L 3.5-5.0 Chloride 106 mmol/L 101-111 Co2 (Carbon Dioxide) 27.0 mmol/L 22-32 Anion Gap 7.0 mmol/L 2-11 54 Glucose 83 mg/dL 70-100 BUN 13 mg/dL 6-24 Creatinine 0.9 mg/dL 0.50-1.40 One Over Creatinine 1.11 BUN/Creatinine Ratio 14.4 8-20 Calcium 9.9 mg/dL 8.1-9.9 Total Protein 6.9 GM/DL 6.2-8.1 Albumin 4.4 GM/DL 3.2-5.2 Globulin 2.5 GM/DL 2-4 Albumin/Globulin Ratio 1.8 1-3 Bilirubin Total 0.9 mg/dL 0.4-1.5 55 Alkaline Phosphatase 85 U/L 30-110 Alt (SGPT) 13 U/L Low 14-54 Ast (Sgot) 22 U/L 12-42 eGFR Non- 62.6 > 60 eGFR 80.6 > 60 56 Laboratory test finding 09/29/2011 Erythrocyte Sed Rate 1 MM/HR 0-40 CBC Auto Diff 09/29/2011 White Blood Count 11.6 CUMM High 4.8-10.8 Red Cell Count 4.63 CUMM 4.2-5.4 Hemoglobin 14.5 g/dL 12.0-16.0 Hematocrit 42 % 35-47 Mean Corpuscular Volume 91 um3 79-97 Mean Corpuscular Hemoglob 31 pg 27-31 Mean Corpuscular HGB Cone 34 g/dL 32-36 Redcell Distribution WDTH 13 % 10.5-15 Platelet Count 198 CUMM 150-450 Mean Platelet Volume 10.1 um3 7.4-10.4 Gran % 57.8 % 38-83 Lymph % 32.4 % 25-47 Mononuclear % 5.3 % 1-9 Eosinophil % 3.7 % 0-6 Basophil % 0.8 % 0-2 Abs Lymphs 3.8 1.0-4.8 Abs Mononuclear 0.6 0-0.8 Absolute Neutrophil Count 6.7 1.5-7.7 Abs Eosinophils 0.4 0-0.6 Abs Basophils 0.1 0-0.2 Culture Urine 03/24/2011 Urine Culture Sensitivi ESCHERICHIA COLI 57 Urine Culture Sensitivi ENTEROBACTER EDDY <SEE NOTE> 58 Sensitivities For Urine Culture 2 03/24/2011 Amikacin <=2 Ciprofloxacin <=0.25 Ceftriaxone >=64 Cefazolin >=64 Nitrofurantoin 128 Gentamicin <=1 Imipenem <=1 Levofloxacin <=0.12 Trimeth-Sulfa <=20 Ceftazidime >=64 Tigecycline 1 Piperacillin/Tazobactam >=128 Piperacillin/Tazobactam KB 16 Ua W/Microscopic 03/24/2011 Ua Color YELLOW Yellow Appearance-Urine CLEAR Clear Specific [place]-Ur 1.006 Low 1.010-1.030 Esterase-Urine NEGATIVE Negative Nitrite NEGATIVE Negative Rpzbcioenlsm-Jn-BWG NEGATIVE Negative Protein-Urine NEGATIVE Negative PH-Urine 5.5 5-9 Blood-Urine NEGATIVE Negative Ketones-Urine NEGATIVE Negative Bilirubin-Ur NEGATIVE Negative Glucose-Urine NEGATIVE Negative WBC-Urine 0-2 0-5 RBC-Urine 0-2 0-2 Epith Cells-Ur FEW None Culture Genital 03/09/2011 Genital Culture ESCHERICHIA COLI 59 Genital Culture NORMAL JANETH 60 Sensitivities For Gen Culture 03/09/2011 Ampicillin 4 Amikacin <=2 Ciprofloxacin <=0.25 Ceftriaxone <=1 Cefazolin <=4 Gentamicin <=1 Imipenem <=1 Levofloxacin <=0.12 Trimeth-Sulfa <=20 Ceftazidime <=1 Tigecycline <=0.5 Piperacillin/Tazobactam KB 27 Urine Culture 03/09/2011 Urine Culture ENTEROBACTERIACE <SEE 61 & Sensitivi Sensitivi NOTE> DR [facility] 08/06/2010 TSH 1.65 MIU/ML 0.34-5.6 Panel 0 Comp Metabolic 08/06/2010 Sodium 137 mmol/L 135-145 Panel Potassium 4.3 mmol/L 3.5-5.0 Chloride 106 mmol/L 101-111 Co2 (Carbon Dioxide) 23.0 mmol/L 22-32 Anion Gap 8.0 mmol/L 2-11 62 Glucose 102 mg/dL High 70-100 63 BUN 14 mg/dL 6-24 Creatinine 0.70 mg/dL 0.50-1.40 One Over Creatinine 1.40 BUN/Creatinine Ratio 20.0 8-20 Calcium 9.3 mg/dL 8.1-9.9 Total Protein 6.4 GM/DL 6.2-8.1 Albumin 4.2 GM/DL 3.2-5.2 Globulin 2.2 GM/DL 2-4 Albumin/Globulin Ratio 1.9 1-3 Bilirubin Total 0.8 mg/dL 0.4-1.5 64 Alkaline Phosphatase 86 U/L 30-110 Alt (SGPT) 18 U/L 14-54 Ast (Sgot) 21 U/L 12-42 eGFR Non- 89.3 > 60 eGFR 108.0 > 60 65 Lipid Profile (Trig/Chol/HDL) 08/06/2010 Triglyceride 151 mg/dL 40-200 Cholesterol 217 mg/dL High Less Than 200 66 High Density Lipoprotein 48 mg/dL 40-60 67 Cholesterol/HDL Ratio 4.52 AVERAGE High 1-4.44 Low Density Lipoprotein 139 mg/dL High Less Than 100 68 CBC With Electronic Diff 08/06/2010 White Blood Count 11.3 CUMM High 4.8- 10.8 Red Cell Count 4.73 CUMM 4.2-5.4 Hemoglobin 14.5 g/dL 12.0-16.0 Hematocrit 43 % 35-47 Mean Corpuscular Volume 90 um3 79-97 Mean Corpuscular Hemoglob 31 pg 27-31 Mean Corpuscular HGB Cone 34 g/dL 32-36 Redcell Distribution WDTH 14 % 10.5-15 Platelet Count 212 CUMM 150-450 Mean Platelet Volume 8.3 um3 7.4-10.4 69 Manual Differential 08/06/2010 Polysegmented Neutrophil 64 % 38-83 Lymphocyte 24 % Low 25-47 Monocyte 10 % 0-13 Basophil 1 % 0-2 Atypical Lymph 1 % 0-6 Absolute Neutrophil Count 7.2 RBC Morphology NORMAL Surgical Pathology 10/20/2008 Surgical Pathology <SEE 70 NOTE> Laboratory test 06/15/2008 Clotest N^NEGATIVE^EDDY finding Basic Metabolic 06/08/2008 Sodium 140 mmol/L 135-145 Panel Potassium 3.8 mmol/L 3.5-5.0 Chloride 109 mmol/L 101-111 Co2 (Carbon Dioxide) 24.0 mmol/L 22-32 Anion Gap 7.0 mmol/L 2-11 71 Glucose 91 mg/dL 70-100 72 BUN 14 mg/dL 6-24 Creatinine 0.9 mg/dL 0.5-1.4 One Over Creatinine 1.11 BUN/Creatinine Ratio 15.6 8-20 Calcium 9.6 mg/dL 8.1-9.9 73 CBC With Electronic Diff 11/30/2007 White Blood Count 8.6 CUMM 4.8-10.8 Abs Basophils 0.1 0-0.2 Abs Eosinophils 0.4 0-0.6 Absolute Neutrophil Count 5.0 1.5-7.7 Abs Lymphs 2.5 1.0-4.8 Abs Mononuclear 0.7 0-0.8 Basophil % 0.8 % 0-2 Hematocrit 41 % 35-47 Hemoglobin 14.1 g/dL 12.0-16.0 Eosinophil % 4.1 % 0-6 Gran % 58.4 % 38-83 Lymph % 29.1 % 20-45 Mean Corpuscular HGB Cone 34 g/dL 32-36 Mean Corpuscular Hemoglob 30 pg 27-31 Mean Corpuscular Volume 87 um3 79-97 Mean Platelet Volume 9.6 um3 7.4-10.4 Mononuclear % 7.6 % 1-9 Platelet Count 157 CUMM 150-450 Red Cell Count 4.72 CUMM 4.2-5.4 Redcell Distribution WDTH 13 % 10.5-15 Comp Metabolic Panel 11/30/2007 One Over Creatinine 1.25 Anion Gap 0 mmol/L Low 2-11 74 Albumin/Globulin Ratio 1.3 1-3 Albumin 3.8 GM/DL 3.2-5.2 Alkaline Phosphatase 95 U/L 30-110 Alt (SGPT) 21 U/L 14-54 Ast (Sgot) 25 U/L 12-42 BUN 15 mg/dL 6-24 Calcium 8.7 mg/dL 8.7-10.2 Chloride 114 mmol/L High 101-111 Co2 (Carbon Dioxide) 23.0 mmol/L 22-32 Globulin 2.9 GM/DL 2-4 Glucose 98 mg/dL 70-105 Potassium 4.4 mmol/L 3.5-5.0 Sodium 137 mmol/L 135-145 Bilirubin Total 0.6 mg/dL 0.4-1.5 Total Protein 6.7 GM/DL 6.2-8.1 BUN/Creatinine Ratio 18.8 8-20 Creatinine 0.8 mg/dL 0.5-1.4 Laboratory test finding 11/30/2007 TSH 1.53 MIU/ML 0.34-5.60 Lipid Profile 11/30/2007 Cholesterol/HDL Ratio 4.26 AVERAGE 1-4.44 (Trig/Chol/HDL) Cholesterol 196 mg/dL Less Than 200 75 Triglyceride 100 mg/dL 40-200 High Density Lipoprotein 46 mg/dL 40-60 76 Low Density Lipoprotein 130 mg/dL High Less Than 100 77 1 SEE RESULT BELOW Name: NOELLE EL : [address]: Riaz Beckford MD Acct: [id number] Unit: [id number] AGE: 72 Location: THYROID Re10/04/17 SEX: F Status: REG REF SPEC: [id number] NIYA: 10/04/[address]: Riaz Beckford MD REQ: [id number] RECD: 10/04/17 STATUS: JF LORENZO DR: Elías Cerda MD _ ORDERED: FNA-IMG GUID BX, CYTO ADEQ-1ST P FINAL DIAGNOSIS Thyroid, left, ultrasound-guided fine needle aspiration: --Benign thyroid nodule- colloid/hyperplastic type (Citronelle Class II). The specimen demonstrates moderate watery colloid, a moderate amount of benign appearing follicular epithelium arranged in uniform sheets, medium sized follicles and only occasional small groups. No features of papillary carcinoma are seen. In this clinical setting the risk of malignancy is less than 3%. Clinical management of this thyroid nodule should be based on clinical and radiographic features as well as the above. THYROID LEFT - US GUIDED FINE NEEDLE ASPIRATION CLINICAL HISTORY Left thyroid nodule 1.1 x 0.7 x 0.9cm IMMEDIATE INTERPRETATION Pass 1-adequate CONTINUED ON NEXT PAGE * ML=Testing performed at Main Lab DEPARTMENT OF PATHOLOGY, [address] [place] [address] Maximo Lainez M.D. Director [facility] # [id number] RUN DATE: 10/04/17 [facility] LAB LIVE PAGE 2 Patient: NOELLE EL [id number] (Continued) GROSS DESCRIPTION (Continued) GROSS DESCRIPTION 1 - alcohol fixed slide(s) 1- passes Signed (signature on file) Chante Canada MD 09/20 0952 END OF REPORT * ML=Testing performed at Main Lab DEPARTMENT OF PATHOLOGY, [address] [place] [address] Maximo Lainez M.D. Director [facility] # [id number] 2 <1:80 (Negative) REFERENCE VALUE <1:80 (Negative) Test Performed by: [facility] - [address] [address] 3 REFERENCE VALUE <1.0 (Negative) Test Performed by: [facility] [place] [address] 4 Acute inflammation: >10.00 5 Test Performed by: [facility] [place] [address] 6 REFERENCE VALUE Not Applicable 7 RESULT: HLA-B27 antigen was not detected. ADDITIONAL INFORMATION Method: Flow Cytometry Performing Laboratory CLIA# [id number] Test Performed by: [facility] - [place] [id number] RESULT: 03,05:01 REFERENCE VALUE Not Applicable 9 RESULT: 02:01,03:01 DQ Serologic Equivalent: 2,7 REFERENCE VALUE Not Applicable 10 These genes are permissive for celiac disease. The absence of HLA celiac permissive genes would make the presence of celiac disease unlikely. However, these genes can also be present in the normal population. ADDITIONAL INFORMATION Method: Molecular typing of HLA antigens performed using reverse SSOP and/or SSP methods, reported as serological equivalents and low to medium resolution molecular values. Performing Laboratory CLIA# [id number] Test Performed by: [place] [address] 11 Test Performed by: [place] [id number] Test Performed by: [facility] - [address] [address] 13 Test Performed by: [facility] - [address] [address] 14 Test Performed by: [facility] - [address] [address] 15 ADDITIONAL INFORMATION This test was developed and its performance characteristics determined by [facility] in a manner consistent with CLIA requirements. This test has not been cleared or approved by the U.S. Food and Drug Administration. Test Performed by: [facility] - [place] [id number] [place] [address] 16 TNF-alpha is not to be used as a diagnostic procedure without confirmation of the diagnosis by another established product or procedure. The reference range is intended to be used for blood samples only. Reference ranges for body fluids other than blood have not been established. This test was performed using a kit that has not been cleared or approved by the FDA. The analytical performance characteristics of this test have been determined by [facility]: turn off the lights [facility]. This test should not be used for diagnosis without confirmation by other medically established means. Test Performed by: [employer]: turn off the lights/[facility] [address] [place] [address] 17 REFERENCE VALUE <1.0 (Negative) 18 REFERENCE VALUE <1.0 (Negative) Test Performed by: [facility] - [address] [address] 19 Normal Range 180 to 914 Indeterminate Range 145 to 180 Deficient Range <145 20 Desirable <150 Borderline high 150-199 High 200-499 Very High >500 21 Desirable <200 Borderline high 200-239 High >239 22 Low <40 Desirable: 40-60 High: >60 23 Desirable: <100 mg/dL Near Optimal: 100-129 mg/dL Borderline High: 130-159 mg/dL High: 160-189 mg/dL Very High: >189 mg/dL 24 FASTING 10 HOUR 25 Desirable <150 Borderline high 150-199 High 200-499 Very High >500 26 Desirable <200 Borderline high 200-239 High >239 27 Low <40 Desirable: 40-60 High: >60 28 Desirable: <100 mg/dL Near Optimal: 100-129 mg/dL Borderline High: 130-159 mg/dL High: 160-189 mg/dL Very High: >189 mg/dL 29 Because ethnic data is not always readily available, this report includes an eGFR for both -Americans and non- Americans. The National Kidney Disease Education Program (NKDEP) does not endorse the use of the MDRD equation for patients that are not between the ages of 18 and 70, are , have extremes of body size, muscle mass, or nutritional status, or are non- or non-. According to the National Kidney Foundation, irrespective of diagnosis, the stage of the disease is based on the level of kidney function: Stage Description GFR(mL/min/1.73 m(2)) 1 Kidney damage with normal or decreased GFR 90 2 Kidney damage with mild decrease in GFR 60-89 3 Moderate decrease in GFR 30-59 4 Severe decrease in GFR 15-29 5 Kidney failure <15 (or dialysis) 30 Because ethnic data is not always readily available, this report includes an eGFR for both -Americans and non- Americans. The National Kidney Disease Education Program (NKDEP) does not endorse the use of the MDRD equation for patients that are not between the ages of 18 and 70, are , have extremes of body size, muscle mass, or nutritional status, or are non- or non-. According to the National Kidney Foundation, irrespective of diagnosis, the stage of the disease is based on the level of kidney function: Stage Description GFR(mL/min/1.73 m(2)) 1 Kidney damage with normal or decreased GFR 90 2 Kidney damage with mild decrease in GFR 60-89 3 Moderate decrease in GFR 30-59 4 Severe decrease in GFR 15-29 5 Kidney failure <15 (or dialysis) 31 Desirable <150 Borderline high 150-199 High 200-499 Very High >500 32 Desirable <200 Borderline high 200-239 High >239 33 Low <40 Desirable: 40-60 High: >60 34 Desirable: <100 mg/dL Near Optimal: 100-129 mg/dL Borderline High: 130-159 mg/dL High: 160-189 mg/dL Very High: >189 mg/dL 35 Desirable <150 Borderline high 150-199 High 200-499 Very High >500 36 Desirable <200 Borderline high 200-239 High >239 37 Low <40 Desirable: 40-60 High: >60 38 Desirable <100 Near Optimal 100-129 Borderline high 130-159 High 160-189 Very High >189 39 RUN DATE: 02/12/13 [facility] LAB LIVE PAGE 1 RUN TIME: [address] [place] [id number] Specimen Inquiry Name: NOELLE EL : [address]: Lila Stein MD Acct: [id number] Unit: [id number] AGE: 68 Location: [facility] Re02/10/13 SEX: F Status: REG REF SPEC: [id number] NIYA: 02/10/13-1235 [facility] DR: Lila Stein MD REQ: [id number] RECD: 02/10/13 STATUS: COMP _ SOURCE: URINE SPDESC: ORDERED: Urine Culture QUERIES: Medent Number [id number] Procedure Result Verified Site Urine Culture Final 02/12/13- 920 ML Organism 1 NORMAL JANETH [place] Count 25-50,000 (Moderate) CFU/ML END OF REPORT * ML=Testing performed at Main Lab DEPARTMENT OF PATHOLOGY, [facility] [employer] [place], [place] [address] Maximo Lainez M.D. Director [facility] Permit #[id number] RUN DATE: 02/11/13 [facility] LAB LIVE PAGE 1 RUN TIME: 1022 [facility] [employer] [place], [place] [address] Specimen Inquiry Name: NOELLE EL : [address]: Lila Stein MD Acct: [id number] Unit: [id number] AGE: 68 Location: [facility] Re02/10/13 SEX: F Status: REG REF SPEC: [id number] NIYA: 02/10/13-[address]: Lila Stein MD REQ: [id number] RECD: 02/10/13 STATUS: COMP _ SOURCE: VAGINAL SPDESC: ORDERED: Affirm QUERIES: Medent Number [id number] Procedure Result Verified Site Affirm Vaginal DNA Probe Final 02/11/13- 1022 ML Trichomonas Negative Gardnerella Negative Criss Negative The presence of G. vaginalis, although suggestive, is not diagnostic for bacterial vaginosis. Results should be interpreted in conjunction with other clinical and laboratory data available. Women with vaginal discharge should be evaluated for risk factors of cervicitis and pelvic inflammatory disease, toxic shock syndrome (S.aureus), and if present, evaluated for organisms not included in this assay such as N. gonorrhoeae, C. trachomatis, Mobiluncus, Mycoplasma and/or Prevotella. Mixed infections may occur. The performance of this test on patient specimens collected during or immediately after antimicrobial therapy is unknown. The presence or absence of Criss species, G. vaginalis or T. vaginalis cannot be used as a test for therapeutic success or failure. END OF REPORT * ML=Testing performed at Main Lab DEPARTMENT OF PATHOLOGY, [address] [place] [address] Maximo Lainez M.D. Director [facility] Permit #[id number] 41 A metabolite of Naproxen, O-desmethylnaproxen, has been shown to interfere with the Jendrassik-Kimberly method for measuring total bilirubin. Samples from patients who have taken Naproxen have shown spurious elevation in total bilirubin levels. 42 Because ethnic data is not always readily available, this report includes an eGFR for both -Americans and non- Americans. The National Kidney Disease Education Program (NKDEP) does not endorse the use of the MDRD equation for patients that are not between the ages of 18 and 70, are , have extremes of body size, muscle mass, or nutritional status, or are non- or non-. According to the National Kidney Foundation, irrespective of diagnosis, the stage of the disease is based on the level of kidney function: Stage Description GFR(mL/min/1.73 m(2)) 1 Kidney damage with normal or decreased GFR 90 2 Kidney damage with mild decrease in GFR 60-89 3 Moderate decrease in GFR 30-59 4 Severe decrease in GFR 15-29 5 Kidney failure <15 (or dialysis) 43 RUN DATE: 06/05/12 [facility] LAB LIVE PAGE 1 RUN TIME: 1482 7[address] [place], [place] [address] Specimen Inquiry Name: NOELLE EL : [address]: Rodney Jones III, MD Acct: [id number] Unit: [id number] AGE: 67 Location: [facility] Re06/03/12 SEX: F Status: REG REF SPEC: [id number] NIYA: 06/03/[address]: Rodney Jones III, MD REQ: [id number] RECD: 06/03/12 STATUS: COMP _ SOURCE: URINE SPDESC: ORDERED: Urine Culture QUERIES: Medent Number [id number] Procedure Result Verified Site Urine Culture Final 06/05/12- 1147 ML No Growth Day 2 (<1,000 CFU/mL) END OF REPORT * ML=Testing performed at Main Lab DEPARTMENT OF PATHOLOGY, [address] [place] [address] Maximo Lainez M.D. Director [facility] Permit #[id number] PLEASE NOTE NEW REFERENCE RANGE. 45 A metabolite of Naproxen, O-desmethylnaproxen, has been shown to interfere with the Jendrassik-Kimberly method for measuring total bilirubin. Samples from patients who have taken Naproxen have shown spurious elevation in total bilirubin levels. 46 Please note updated reference range, effective 03/24/10 47 -- REFERENCE VALUE -- 25-HYDROXY D TOTAL (D2+D3) Optimum levels in the normal population are 25-80 Test Performed by: [address] [address] Car Dropper: Oswaldo Farias III, M.D. 48 Anion gap measurement may be of limited value in the presence of any alkalosis, especially in a combined acid base disorder. . 49 A metabolite of Naproxen, O-desmethylnaproxen, has been shown to interfere with the Jendrassik-Kimberly method for measuring total bilirubin. Samples from patients who have taken Naproxen have shown spurious elevation in total bilirubin levels. 50 Because ethnic data is not always readily available, this report includes an eGFR for both -Americans and non- Americans. The National Kidney Disease Education Program (NKDEP) does not endorse the use of the MDRD equation for patients that are not between the ages of 18 and 70, are , have extremes of body size, muscle mass, or nutritional status, or are non- or non-. According to the National Kidney Foundation, irrespective of diagnosis, the stage of the disease is based on the level of kidney function: Stage Description GFR(mL/min/1.73 m(2)) 1 Kidney damage with normal or decreased GFR 90 2 Kidney damage with mild decrease in GFR 60-89 3 Moderate decrease in GFR 30-59 4 Severe decrease in GFR 15-29 5 Kidney failure <15 (or dialysis) 51 CHOLESTEROL INTERPRETATION: Desirable: Less than 200 MG/DL Borderline-High Risk: 200-239 MG/DL High-Risk: 240 MG/DL and over 52 HDL INTERPRETATION: Undesirable: High Risk: Less than 40 MG/DL Desirable: Low Risk: Greater than 60 MG/DL 53 LDL INTERPRETATION: Low Risk Optimal Level: LDL Less than 100 MG/DL Near or Above Optimal: LDL 100-129 MG/DL Borderline High Risk: LDL 130-159 MG/DL High Risk: LDL 160-189 MG/DL Very High Risk: LDL Greater than 189 MG/DL 54 Anion gap measurement may be of limited value in the presence of any alkalosis, especially in a combined acid base disorder. . 55 A metabolite of Naproxen, O-desmethylnaproxen, has been shown to interfere with the Jendrassik-Kimberly method for measuring total bilirubin. Samples from patients who have taken Naproxen have shown spurious elevation in total bilirubin levels. 56 Because ethnic data is not always readily available, this report includes an eGFR for both -Americans and non- Americans. The National Kidney Disease Education Program (NKDEP) does not endorse the use of the MDRD equation for patients that are not between the ages of 18 and 70, are , have extremes of body size, muscle mass, or nutritional status, or are non- or non-. According to the National Kidney Foundation, irrespective of diagnosis, the stage of the disease is based on the level of kidney function: Stage Description GFR(mL/min/1.73 m(2)) 1 Kidney damage with normal or decreased GFR 90 2 Kidney damage with mild decrease in GFR 60-89 3 Moderate decrease in GFR 30-59 4 Severe decrease in GFR 15-29 5 Kidney failure <15 (or dialysis) 57 CORRECTED RESULT! WRONG RESULT WAS E.COLI VERBAL TO ASAD PEREZ/ELFEGO BY LRU at 1150 on 03/27/11. 58 ENTEROBACTER CLOACAE 50^25-50,000 ORGANISMS/ML (MODERATE)^CCU 59 F^FEW^QTY 60 F^FEW^QTY 61 ENTEROBACTERIACEAE 10^1-10,000 ORGANISMS/ML (FEW)^CCU Small quantity of enterobacteriaciae typically suggestive of fecal contamination. Suggest resubmission. Isolates will be saved for one week. Please call the Microbiology Laboratory if further identification and/or susceptibility testing is needed. 62 Anion gap measurement may be of limited value in the presence of any alkalosis, especially in a combined acid base disorder. . 63 Note change in reference range as of 04/23/08. The change was based on recommendations from the Citizen Of [place] Diabetes Association. 64 A metabolite of Naproxen, O-desmethylnaproxen, has been shown to interfere with the Jendrassik-Kimberly method for measuring total bilirubin. Samples from patients who have taken Naproxen have shown spurious elevation in total bilirubin levels. 65 Because ethnic data is not always readily available, this report includes an eGFR for both -Americans and non- Americans. The National Kidney Disease Education Program (NKDEP) does not endorse the use of the MDRD equation for patients that are not between the ages of 18 and 70, are , have extremes of body size, muscle mass, or nutritional status, or are non- or non-. According to the National Kidney Foundation, irrespective of diagnosis, the stage of the disease is based on the level of kidney function: Stage Description GFR(mL/min/1.73 m(2)) 1 Kidney damage with normal or decreased GFR 90 2 Kidney damage with mild decrease in GFR 60-89 3 Moderate decrease in GFR 30-59 4 Severe decrease in GFR 15-29 5 Kidney failure <15 (or dialysis) 66 CHOLESTEROL INTERPRETATION: Desirable: Less than 200 MG/DL Borderline-High Risk: 200-239 MG/DL High-Risk: 240 MG/DL and over 67 HDL INTERPRETATION: Undesirable: High Risk: Less than 40 MG/DL Desirable: Low Risk: Greater than 60 MG/DL 68 LDL INTERPRETATION: Low Risk Optimal Level: LDL Less than 100 MG/DL Near or Above Optimal: LDL 100-129 MG/DL Borderline High Risk: LDL 130-159 MG/DL High Risk: LDL 160-189 MG/DL Very High Risk: LDL Greater than 189 MG/DL 69 Basophilia % 70 ---- RUN DATE: 10/22/08 [facility] NMI LIVE PAGE 1 RUN TIME: 1215 Specimen Inquiry RUN USER: INTERFACE -- Name: NOELLE EL Status: REG REF Re10/20/08 Age/Sex: 63/F Unit#: [id number] Location: [facility] : [birth year] -- Specimen: [id number] Spec Date: 10/20/[address]: Dougie gould MD Spec Type: SURGICAL P Received: 10/21/08 Copies to: Rodney Jones III, MD SPECIMEN BIOPSY COLON POLYP AT 70 CM. HISTORY CLINICAL INFORMATION: Abdominal pain, right side pain, diarrhea; screenin g GROSS DESCRIPTION The specimen is received in formalin labelled Noelle El, Biopsy Colon Polyp at 70 cm., and consists of a linares, soft tissue fragment measuring 0.4 x 0.3 x 0.2 cm. Submitted entirely, one cassette. DIAGNOSIS Colon, 70 cm., biopsy: A) Tubular adenoma. B) No high grade dysplasia or malignancy identified. Signed Electronically by: MAXIMO LAINEZ MD 10/22/08 1215 -- -- DEPARTMENT OF PATHOLOGY, [address] [place] [address] [facility] Permit #[id number] Maximo Lainez M.D. Director Senia Gomez M.D. Director Of Psychiatry Dir roland -- 71 Anion gap measurement may be of limited value in the presence of any alkalosis, especially in a combined acid base disorder. . 72 Note change in reference range as of 04/23/08. The change was based on recommendations from the Citizen Of [place] Diabetes Association. 73 Please note change in reference range effective 08 . 74 Anion gap measurement may be of limited value in the presence of any alkalosis, especially in a combined acid base disorder. . 75 CHOLESTEROL INTERPRETATION: Desirable: Less than 200 MG/DL Borderline-High Risk: 200-239 MG/DL High-Risk: 240 MG/DL and over 76 HDL INTERPRETATION: Undesirable: High Risk: Less than 40 MG/DL Desirable: Low Risk: Greater than 60 MG/DL 77 LDL INTERPRETATION: Low Risk Optimal Level: LDL Less than 100 MG/DL Near or Above Optimal: LDL 100-129 MG/DL Borderline High Risk: LDL 130-159 MG/DL High Risk: LDL 160-189 MG/DL Very High Risk: LDL Greater than 189 MG/DL Procedures Date CPT Code Description Status Comment 07/03/2017 Mammogram Completed 08/10/2016 84351 Closed trtmt prox humeral fx Completed 06/13/2016 Bone Mineral Density Test Completed 06/12/2016 Mammogram Completed 08/30/2015 69715 Nasal Endoscopy, Diagnostic Completed 08/02/2015 24452 Tympanometry Completed 06/09/2015 Mammogram Completed 08/11/2014 74292 Pulmonary Completed Function><Bronchodil 06/08/2014 Colonoscopy Completed 06/08/2014 Bone Mineral Density Test Completed 06/08/2014 Mammogram Completed 05/05/2014 37742 Nasal Endoscopy, Diagnostic Completed 04/06/2014 60493 Nasal Endoscopy, Diagnostic Completed 01/12/2014 30424 Nasal Endoscopy, Diagnostic Completed 12/31/2013 35066 N/Endoscopy/Max Antrostomy Completed 12/31/2013 23884 Nasal Completed Endoscopy/Ethmoidectomy/Total 11/28/2013 63392 Stress Test Completed 11/28/2013 66245 Myocardial Perfusion Imaging Completed Tomographic (Spect) Multiple Studies 11/22/2013 Colonoscopy Completed 11/19/2013 77084 EKG Tracing & Completed Interpretation 03/08/2012 Mammogram Completed 03/08/2012 Bone Mineral Density Test Completed 03/24/2011 Mammogram Completed 10/22/2008 Colonoscopy Completed 09/03/2001 Bone Mineral Density Test Completed normal ( has had DJD of back) Encounters Type Date Location Provider CPT E/M Dx Office Visit 11/26/2017 1:45p [facility], 05170 J31.0 [facility] J32.0 Office Visit 09/18/2017 1:40p [facility] Elías Thomas, 14866 M54.5 [facility] Iqra E06.1 I70.212 M16.9 Office Visit 08/28/2017 10:00a [facility] Elías Thomas, 40856 H91.90 Of Elfego Escalona M54.5 M25.559 H93.13 R20.8 M79.1 M54.2 Office Visit 05/08/2017 10:40a [facility] Internal Medicine Rodney Jones 14345 Z00.00 - Oli Escalona J45.909 K21.9 E78.00 M85.9 M54.5 Z11.59 R91.8 Z23 Office Visit 12/12/2016 11:00a [place] [address] S42.212D Of [facility] Office Visit 08/22/2016 2:20p [facility] Internal Medicine Rodney Jones 39128 S42.212D - Oli Escalona R91.8 Office Visit 02/18/2016 9:40a [facility] Internal Medicine Rodney Jones 50619 M54.2 - Inocencia Escalona M54.89 M54.5 Office Visit 02/01/2016 4:20p [facility] Internal Medicine Rodney Jones 08434 J06.9 - Inocencia Escalona Office Visit 10/11/2015 2:45p [facility] 63688 [facility] 08/30/2015 2:00p [facility], 37134 J31.0 [facility] H93.12 J32.0 J06.9 J45.909 H91.22 Office Visit 08/02/2015 2:15p [facility], 48564 J31.0 [facility] H93.12 J32.0 Office Visit 05/21/2015 11:30a [facility] [place] [address] 465.8 [place] 491.21 Office Visit 01/04/2015 2:00p [facility], 53207 473.0 [facility] 477.9 471.0 Office Visit 10/21/2014 11:00a [facility] Internal Medicine Rodney Jones, 34776 786.2 - [facility] Office Visit 08/31/2014 2:00p [facility] [place] [address] 493.90 - [place] Office Visit 08/24/2014 3:00p [facility], 15262 493.92 [facility] 477.9 Office Visit 08/11/2014 10:40a [facility] Internal Medicine Karlee Cabrera, N.P. 04030 493.92 - [place] 381.81 Office Visit 08/03/2014 1:30p [facility] [place] [address] 493.92 - [place] Office Visit 07/06/2014 2:45p [facility], 47415 478.0 [facility] 477.9 Office Visit 05/25/2014 3:15p [facility], 03352 478.0 [facility] 477.9 473.0 Office Visit 05/11/2014 3:15p [facility], 48967 477.9 [facility] 473.0 471.0 Office Visit 04/06/2014 1:15p [facility], 72864 473.0 [facility] 471.0 473.2 478.0 Office Visit 02/19/2014 9:40a [facility] Internal Medicine Rodney Jones, 84867 719.45 - [place] M.D. Office Visit 02/02/2014 2:00p [facility], 82608 473.0 [facility] 471.0 Office Visit 01/05/2014 2:00p [facility], 62214 473.0 [facility] 473.2 Office Visit 12/22/2013 2:15p [facility], 28535 473.0 [facility] 473.2 Office Visit 12/16/2013 9:20a [facility] Internal Medicine Rodney Jones, 56796 786.50 - [place] M.D. Office Visit 11/19/2013 11:00a [facility] Internal Medicine Rodney Jones, 94070 V72.84 - [place] M.D. 786.50 Office Visit 11/10/2013 2:45p [facility], 79608 473.0 [facility] 473.2 Office Visit 02/10/2013 12:10p [facility] Internal Medicine Lila Stein M.D. 72568 788.1 - [place] 627.3 789.09 Office Visit 12/10/2012 1:20p [facility] Internal Medicine Rodney Jones, 36671 466.0 - [place] M.D. Office Visit 06/03/2012 1:00p [facility] Internal Medicine Rodney Jones, 16415 789.01 - [place] M.D. Office Visit 03/19/2012 9:40a [facility] Internal Medicine Rodney Jones, 51921 733.90 - [place] M.DMonica 493.90 V03.82 Office Visit 03/18/2012 9:45a [facility], 13594 473.0 [facility] 472.0 473.2 Office Visit 03/11/2012 11:30a [facility], 61666 473.0 [facility] 472.0 Office Visit 03/05/2012 9:00a [facility] Assistant Internal Medicine Lila Stein, 25983 V72.31 - Inocencia Escalona 493.90 473.0 781.91 627.3 611.9 v70.0 Office Visit 09/29/2011 11:20a Religious Assistant Internal Medicine [facility], 08216 789.04 - Inocencia Escalona Office Visit 07/20/2011 3:40p DO Not Use Religious Assistant At [facility], 31044 473.0 [facility] M.D. Office Visit 05/04/2011 2:20p DO Not Use Religious Assistant At [facility], 92146 493.90 [place] M.DMonica 790.21 272.0 616.10 Office Visit 03/17/2011 4:15p DO Not Use Religious Assistant At [facility] 43620 599.0 [place] V76.10 388.30 Office Visit 01/04/2011 9:40a DO Not Use [facility] Assistant At [facility], 66668 382.9 [place] M.D. Office Visit 09/13/2010 1:00p DO Not Use [facility] Assistant At [facility], 10411 472.0 [place] M.D. 493.90 530.81 796.2 272.0 790.21 Office Visit 12/09/2009 9:20a DO Not Use Religious Assistant At [facility], 87330 472.0 [place] M.D. 530.81 493.90 Office Visit 08/25/2009 1:45p DO Not Use Religious Assistant At [facility], 65648 388.70 [place] M.D. Office Visit 06/28/2009 10:45a DO Not Use Religious Assistant At [facility], 81069 465.9 [place] M.D. Office Visit 11/19/2008 2:15p [facility], 17378 465.9 [facility] M.D. Office Visit 08/05/2008 3:00p [facility], 46902 465.9 [facility] M.D. Office Visit 04/27/2008 10:30a [facility], 43191 789.00 [facility] M.D. 796.2 530.81 Office Visit 02/06/2008 11:15a [facility], 40861 923.21 [facility] M.D. Office Visit 01/30/2008 3:00p [facility], 10061 380.22 [facility] M.D. 465.9 Office Visit 12/04/2007 3:00p [facility], 03137 461.9 [facility] M.D. Office Visit 10/28/2007 3:15p [facility], 29225 796.2 [facility] M.D. Office Visit 09/30/2007 3:00p [facility], 49302 493.90 [facility] M.D. 796.2 530.81 Plan of Care Future Appointment(s):06/18/2018 9:40 am - Elías Thomas M.D. at [facility]05/22/2018 2:20 pm - Rodney Jones M.D. at [facility] Internal Medicine - Ikjeldsmv13/16/2018 - Elías Thomas M.D.I73.9 Peripheral vascular disease, grhdwpyznjnC97.9 Osteoarthritis of hip, unspecifiedFollow up:Follow up in 6-9 months or sooner if needed
--- OUTSIDE RECORDS SUMMARY | 2017-12-24 09:26 | XMS REPORT ---
:1945 External Reference #:[id number] Author Organization [facility] Address [address] [address] Phone [phone] Care Team Providers Name Role Phone Rodney Jones III, MD Primary Care Physician Unavailable Payers Type Date Identification Numbers Payment Subscriber Provider Health Maintenance Effective: Policy Number: Medicare Blue Noelle Mayorga Nikko Organization (O) 09/03/2012 [id number] o Group Number: [id number] [address] [address] PayID: [id number] SHERIN Manjarrez [address] Medigap Part B Onset: 07/28/2016 Policy Number: [place] [employer] Jose Heaton [id number] Group Name: Homeowners Ins [address] PayID: [id number] [place] [address] Health Maintenance Effective: Policy Number: [facility] Medicare Noelle Mayorga Nikko Organization (O) 09/03/2010 [id number] Solutions Expires: 09/02/2011 Group Number: [id number] [address] [address] PayID: [id number] [place] [address] Health Maintenance Effective: [facility] Noelle M Nikko Organization (O) 02/22/2007 [id number] Expires: 10/03/2009 PayID: [id number] [address] [address] SHERIN Manjarrez [id number] Commercial Expires: 09/02/2010 Policy Number: Sam Prog/Todays Noelle Mukesh El [id number] Options PayID: [id number] [address] [address] Attn: [place] [address] Health Maintenance Effective: Policy Number: Medicare Sandeep El Organization (O) 09/03/2011 [id number] Ppo Expires: 09/02/2012 PayID: [id number] [address] [address] SHERIN Manjarrez [address] Advance Directives Type Date Description Status Comment [...] of bone Rodney Jones M.D. Active Onset: 05/08/2017 Gastroesophageal [...] () Social History Type Date Description Comments Lives With Occupation Retired Cigarette Use Former Cigarette Smoker 1 ppd; began age 16, quit 1988 ETOH Use Occasionally consumes alcohol Smoking Patient is a former smoker Quit 1988 Smoking She started at age 16-1988 Exercise Type/Frequency Exercises regularly Exercise Type/Frequency walks, cardio workouts Allergies, Adverse Reactions, Alerts Date Description Reaction [...] Tablets 10mg 90tab take 1 I73.9 Rodney E. Calcium /2017 s tablet at Karen, bedtime M.D. Ventolin HFA 05/17 Active Aerosol 108(90Bas 18uni Inhale Rodney E. /2014 e) ts Two Puffs Karen, mcg/Act By Mouth M.D. Four Times A Day Aerochamber Plus 04/09 Active Misc 1unit Use as Trav /2014 s directed OSMAN Mak with puffer Nebulizer 08/31 Active Kit 1unit use as J45.909 Trav Compressor/Dualfi s needed OSMAN Mak lter/' for Tubing/Aerosol symptoms T/Mthpiece of sob Nebulizer 08/31 Active Kit 1unit use as J45.909 Trav Kit/Tubing/Mouthp /2013 s needed OSMAN Mak iece for symptoms sob Albuterol Sulfate 08/31 Active Nebulizer (2.5mg/3M 10uni use one J45.909 Rodney E. /2013 L) 0.083% ts ampual Karen, via M.D. nebulizer as needed sob Fluticasone 08/11 Active Suspension 50mcg/Act 16uni Instill 1 Steve Propionate ts [place] In [place], Each M.D. Nostril Every Morning prn Calcium 500 +D 06/09 Active Tablets 500-400mg 30tab 2 pills a Rodney Pak -Unit s day Iqra Jones Restasis 09/29 Active Emulsion 0.05% 2tray one gtts Rodney Pak s ou bid Iqra Jones Flovent HFA 09/13 Active Aerosol 110mcg/Ac 12uni Inhale Rodney E. t ts Two Puffs Karen, By Mouth M.D. Twice A Day, Rinse And Gargle After Use Spiriva 02/09 Active Capsules 18mcg 30cap Inhale Rodney EMonica Handihaler s The Karen, Contents M.D. Of One Capsule By Mouth Every Morning Probiotic Active Capsules 1 po qd Unknown /0000 Multivitamins Active Tablets 90tab 1 po qd Unknown /0000 s Vitamin D3 Super Active Tablets 2000Unit 1 by Unknown Strength /0000 mouth every day Clopidogrel Active Tablets 75mg once Unknown Bisulfate /0000 daily Pantoprazole Active Tablets DR 40mg once [place], Sodium /0000 daily MD Dougie Azithromycin 11/26 Hx Tablets 500mg 5tabs one by J32.0 Steve mouth [facility], - once per M.D. Meloxicam 09/25 Hx Tablets 15mg 30tab 1 by s mouth William, - every day M.D. 11/19 Meloxicam 09/24 Hx Tablets 7.5mg 45tab take one s tab twice William, - daily as M.D. 09/25 for pain, avoid other nsaids Tramadol HCL 08/04 Hx Tablets 50mg 60tab take 1-2 s tablets [place], - by mouth M.D. 08/13 every hours if needed for pain . Duloxetine HCL 02/[address] 30mg 30cap take 1 M54.89 Monica Part s capsule Karen, - by mouth M.D. 08/13 morning for 1 week, then 2 tabs daily Tessalon Perles 02/03 Hx Capsules 100mg 20cap 1-2 by Rodney Pak s mouth Karen, - three M.D. 05/07 times day as needed Prednisone 02/03 Hx Tablets 20mg 5tabs 1 by Rodney Pak mouth Karen, - every day M.D. 05/04 Zithromax 08/30 Hx Tablets 500mg 5tabs one by J32.0 Steve mouth one [place], - per day M.D. 10/11 Prednisone 08/30 Hx Tablets 20mg 7tabs one by J32.0 Steve mouth [place], - once a M.D. 10/11 day in the morning x7 days Pulmicort 08/02 Hx Suspension 0.5mg/2ML 30uni one Rosa M32.0 Steve ts reespule Steve, - per day M.D. 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 08/13 Zithromax 01/04 Hx Tablets 500mg 5tabs one by 473.0 Steve mouth one Ruparbertha, - per day M.D. 05/03 Diflucan 12/29 [...] Capsules DR 40mg 1 by Trav mouth Mka, HOT CELL TECHNICIAN - every day 07/10 Prednisone 07/28 Hx Tablets 20mg 7tabs 1 by Rodney Pak mouth Karen, - every day M.D. 08/03 Diflucan 06/29 Hx Tablets 200mg 1tabs 1 by Rodney Pak mouth x Karen, - one dose M.D. 10/21 Zithromax 04/27 Hx Tablets 500mg 5tabs one po one per [facility], - day M.D. 04/30 Astepro 04/27 Hx Solution 0.15% 3unit one puff [facility] sides M.[facility]. 07/24 once per day Cyclobenzaprine 03/30 Hx Tablets 10mg 30tab one by Rodney Pak s mouth Karen, - three M.D. 04/30 times day as needed spasm Luxiq 02/19 Hx Foam 0.12% 50gm as needed Rodney Pak Karen, - M.D. 04/30 Pulmicort 02/02 Hx Suspension 0.5mg/2ML 30uni one 471.0 ts reespule Rubilly, - per day M.D. 01/04 to add soultion Diflucan 01/31 Hx Tablets 200mg 1tabs 1 dose Endo, M.D. - 02/19 Prednisone 01/12 Hx Tablets 20mg 10day not 471.0 s taking [place], - one by Iqra 04/30 once a day in in the morning x10 days Oxycodone-Acetami 12/31 Hx Tablets 5-325mg 30tab take 1 po Steve nop s q 4 h prn Steve, - pain M.D. 02/19 Nitrostat 11/19 Hx Tablets Sub 0.4mg 25tab one sl 786.50 Rodney E. s q5min up Karen, - to 3 M.D. 04/30 doses needed Prednisone 11/10 Hx Tablets 20mg 10day one p.o. 473.0 Steve s once a [place], - day in M.D. 11/27 a.m. x1 days Diflucan 10/16 Hx Tablets 150mg 1tabs take 1 po Rodney E. x 1 dose Karen - Mukesh.DMonica 11/27 Ventolin HFA 09/01 Hx Aerosol 108(90Bas 18uni Inhale Vahid e) ts Two Puffs Mayra Lancaster, - mcg/Act By Mouth M.DMonica,FACP 01/04 Times A Day Azithromycin 03/24 Hx Tablets 250mg 6tabs take 2 tab on Stein, - day 1 M.D. 09/01 then tab daily x 4 days Premarin 01/08 Hx Cream 0.625mg/G 1unit once a 627.3 Lila M s week for Stein, - 4-6 wks M.D. 12/16 Flonase 01/01 Hx Suspension 50mcg/Act 16uni [place] 1 Rodney E. ts [place] In Karen, - Each M.D. 12/16 Nostril Every Morning Prednisone 12/19 Hx Tablets 20mg 7tabs 1 po qd Rodney E. Rosemary Jones M.DMonica 02/10 Mucinex Chest 12/10 Hx Tablets 1-2 daily Rodney E. & prn Alejandro Jones - M.DMonica 11/27 Zithromax Z-Simon 12/10 Hx Tablets 250mg 1Pack as per 466.0 Rodney E. Rosemary Rouse M.D. 02/10 Benzonatate 12/10 Hx Capsules 100mg 30cap 1-2 tab 466.0 Rodney E. s po tid Rosemary Jones M.D. 02/19 Premarin 03/05 Hx Cream 0.625mg/G 1unit once a 627.3 Lila /2011 M s week for Sarita, - 4-6 wks MKyle 06/03 Amoxicillin/Potas 07/20 Hx Tablets 500-125mg 20tab 1 po bid Rodney Pak sium Clavulanate Rosemary Rodriguez M.D. 09/29 Diflucan 05/04 Hx Tablets 200mg 1tabs i po x Rodney EMonica one dose Rosemary Jones M.D. 07/20 Keflex 03/27 Hx Capsules 500mg 14cap 1 tab q Vahid s 12 hrs Rosemary Mcguire for 7 MKyle,FAC . Claritin-D 12 03/17 Hx Tablets ER 5-120mg 60tab 1 po bid Vahid 12HR s Rosemary Mcguire M.D.,FAC 05/04 Omeprazole 09/[address] 20mg 60cap take one . s Rosemary Lund by mouth M.Mayra 02/02 twice a day Nexium 07/[address] 20mg 90cap 1 po qd Rodney Pak Rosemary Rodriguez M.D. 09/13 Omeprazole 01/[address] 20mg 60cap 1 po qd Rodney EMonica s -bid Rosemary Jones M.D. 07/22 Xfaxan 12/09 Hx 20mg. 1 po tid Noel, once a MD Dougie - month for 01/04 4 days /2009 Tessalon Perles 11/19 Hx Capsules 100mg 30cap 1-2 po Rodney Pak s tid prn Rosemary Jones M.D. 12/09 Zithromax Z-Simon 08/05 Hx Tablets 250mg 1Pack as per Rodney Pak Rosemary Rouse M.D. 11/19 Fluticasone 04/27 Hx Suspension 50mcg/Act 1unit 1 spray Rodney EMonica s meka Jones, - nostril M.Mayra 02/19 in Zithromax Z-Simon 12/03 Hx Tablets 250mg 1Pack as per . direction Karen - s M.DMonica 02/05 Ketoconazole 10/30 Hx Shampoo 2% 8oz use 2 x Rodney E. weekly Karen, - for 4 M.DMonica with at least 3 days between shampoos, then prn to maintain control Ketoconazole 10/28 Hx Shampoo 2% 4Oz 1 po qd Rodney Rosemary Jones M.D. 10/30 Spiriva Hx Capsules 18mcg 1Mont 1 Rodney E. Handihaler / h inhalatio Rosemary Jones n qam Iqra 02/09 Flovent Hx Aerosol 110mcg/Ac 3unit 2 po puff Rodney E. / t s qd Rosemary Jones M.D. 09/13 Flonase Hx Suspension 50mcg/Act 1Bott 1 Rodney E. / le intranasa Karen, - l puff to M.Mayra 04/27 nostril daily Accolate Hx Tablets 20mg 30tab 1 po qd Rodney E. / s Rosemary Jones M.D. 12/[address] 40mg 90tab 1 po qd Rodney E. / Rosemary Grover M.D. 01/04 generic ly Albuterol HFA Hx Aerosol 90mcg/Act 1unit 2 po Vahid /0000 s Puffs qid Mayra Lancaster - prn Iqra,FACP 09/01 Restasis Hx Emulsion 0.05% 3mon One gtts Other /0000 OU bid Physician - Practices 01/04 Xifaxan Hx Tablets 200mg 180ta take 2 Rodney E. / bs tablets Karen, - by mouth M.DMonica 12/12 times a day Z Pack Hx Tablets 250mg as Unknown /0000 directed. - 03/17 Ceftin 00/ Hx Tablets 500mg 14tab po bid Unknown /0000 s - 05/04 Prednisone 00/ Hx Tablets 20mg 10tab 2 po qd Unknown /0000 s - 05/04 Multivitamins / Hx Capsules QS 1 capsule Unknown /0000 crystal;y - 09/29 Mucinex D 00/00 Hx Tablets ER 20tab 1 po bid Unknown /0000 12HR s - 09/29 Ibuprofen / Hx Capsules 200mg prn Unknown /0000 - 09/29 Finacea Hx Gel 15% 50gm apply Unknown /0000 twice - daily to 04/30 area Astepro Hx Solution 0.15% 90uni 1 Unknown /0000 ts intranasa - l every Amoxicillin / Hx Tablets 500mg 30tab 1 po tid Unknown /0000 s for 10 - days 03/19 Ciprofloxacin HCL 00/ Hx Tablets 500mg 20tab 1 po bid Unknown /0000 s - 12/10 Aspirin 00/[address] 81mg 1 by Unknown /0000 mouth - every day 12/16 Nexium /[address] 40mg 30cap 2 by Unknown /0000 s mouth - every day 06/19 Claritin-D 12 00 Hx Tablets ER 5-120mg 1 by Unknown Hour /0000 12HR mouth - twice a Omeprazole /[address] 40mg 30cap 2 by Unknown /0000 s mouth - every day 10/21 Dexilant 00/00 Hx 1 po Unknown /0000 daily - 01/04 Carafate 00/00 Hx Tablets 1gm take one Unknown /0000 (1) - tablet(s) 01/04 by mouth every six (6) hours as needed Omeprazole 00/[address] 40mg 2 by Unknown /0000 mouth - every day 12/07 Mucinex D 00/00 Hx Tablets ER 120-1200m Unknown /0000 12HR g - 05/07 Vitamin B12 TR 00 Hx Tablets ER 1000mcg 1 by Unknown /0000 mouth - every day 11/05 Aspirin Adult Low Hx Tablets DR 81mg 1 by Unknown Dose /0000 mouth - every day 11/12 Medications Administered in Office Medication Date Status Form Strength Qnty SIG Indications Ordering Provider Technetium TC Administered Injection Jose Luis Busch 99M 014 Yuridia Gibson M.D., [facility], Per Unit Dose FASNC Up To 40 Millicuries Immunizations CPT Code Status Date Vaccine Lot # [id number] Given 05/08/2017 Influenza Virus Vaccine, Quadrivalent, Split, [id number] Preservative Free 47994 Given 06/19/2016 Influenza Virus Vaccine, Quadrivalent, Split [id number] Virus, [place] Use 32866 Given 06/16/2015 Influenza Virus Vaccine, Quadrivalent, Split, [id number] Preservative Free 81224 Given 05/03/2015 Pneumococcal Conjugate Vaccine 13 Valent For [id number] Intramuscular Use 55130 Given 06/11/2014 Influenza Virus Vaccine, Quadrivalent, Split, [id number] Preservative Free 93859 Given 06/10/2013 Flu Vaccine Split Virus Preservative Free For [id number] Indiv 3Yr Older 32597 Given 08/23/2012 Zoster (Zostavax) [id number] Q2037 Given 08/06/2012 Fluvirin Im 3Yrs And Older [id number] 49729 Given 03/19/2012 Pneumonia Vaccine [id number] 19614 Given 06/10/2010 Influenza Virus 3Yrs & Over 99394 Given 07/19/2009 Influenza Virus Vaccine, Pandemic Formulation 19451 Given 07/19/2009 Administration Swine Flu Shot 69350 Given 02/06/2008 Tdap - Tetanus/Diptheria/Acellular Pertussis [id number] 38490 Given 09/03/1999 Pneumovax (History By Patient) 138iu 50933 Given 09/03/1997 Td (History By Patient) Vital Signs Date Vital Result Comment 12/07/2017 Weight 170.00 lb Heart Rate 83 [...] /min BP Systolic Sitting 128 mmHg Own Nllggff=668/82 BP Diastolic Sitting 78 mmHg Own Xfkplbn=251/82 BMI (Body Mass Index) 28.1 kg/m2 09/30/2007 Height 66.5 inches 5'6.50" Weight 186.00 lb Heart Rate 76 /min BP Systolic Sitting 164 mmHg BP Diastolic Sitting 82 mmHg BMI (Body Mass Index) 29.6 kg/m2 Results Test Date Test Result H/L Range Note Laboratory test 10/04/2017 Cytology Non-Procedures Analyst SEE RESULT 1 finding BELOW Laboratory test [...] Color Yellow Urine Appearance Clear Urine Specific [place] 1.009 Low 1.010-1.030 Urine pH 6.0 5-9 [...] 40 Probe Ua Routine 02/10/2013 Ua Specific [place] 1.005 Ua PH 7 Ua Color yellow Ua Appera clear Ua WBC trace Ua Protein neg Ua Glucose neg Ua Ketones neg Ua Bilirubin neg Ua Urobilinogen neg Ua Nitrite neg Ua Occult Blood neg Urinalysis 07/06/2012 Urine Color Yellow Urine Appearance Clear Urine Specific [place] 1.008 Low 1.010-1.030 Urine Esterase Trace Negative [...] NOTE) 43 Ua Routine 06/03/2012 Ua Specific [place] 1.005 Ua PH 6 Ua Color light [...] Color YELLOW Yellow Appearance-Urine CLEAR Clear Specific [place]-Ur 1.013 1.010-1.030 Esterase-Urine TRACE Negative Nitrite NEGATIVE Negative Wvdhinajoawx-Ed-DWG NEGATIVE Negative Protein-Urine NEGATIVE Negative PH-Urine 6.0 [...] Color YELLOW Yellow Appearance-Urine CLEAR Clear Specific [place]-Ur 1.006 Low 1.010-1.030 Esterase-Urine NEGATIVE Negative Nitrite NEGATIVE Negative Gwpohmkawjzq-Gm-EKC NEGATIVE Negative Protein-Urine NEGATIVE Negative PH-Urine 5.5 [...] [address]: Riaz Beckford MD Acct: [id number] Unit: [id number] AGE: 72 Location: THYROID Re10/04/17 SEX: F Status: REG REF SPEC: [id number] NIYA: 10/04/[address] [facility] [address]: Riaz Beckford MD REQ: [id number] RECD: 10/04/17 STATUS: JF LORENZO DR: Elías Cerda MD _ ORDERED: FNA-IMG GUID BX, CYTO ADEQ-1ST P FINAL DIAGNOSIS Thyroid, left, ultrasound-guided fine needle aspiration: --Benign thyroid nodule- colloid/hyperplastic type ([place] Class II). The specimen demonstrates moderate watery [...] performed at Main Lab DEPARTMENT OF PATHOLOGY, [address] [place] [address] Maximo Lainez M.D. Director [facility] # [id number] RUN DATE: 10/04/17 [facility] LAB LIVE PAGE 2 Patient: NOELLE EL [id number] (Continued) GROSS DESCRIPTION (Continued) GROSS DESCRIPTION 1 - alcohol fixed slide(s) 1- passes Signed (signature on file) Chanet Canada MD 09/20 0952 END OF REPORT * ML=Testing performed at Main Lab DEPARTMENT OF PATHOLOGY, [address] [place] [address] Maximo Lainez M.D. Director [facility] # [id number] 2 <1:80 (Negative) REFERENCE VALUE <1:80 (Negative) Test Performed by: [place] [address] 3 REFERENCE VALUE <1.0 (Negative) Test Performed by: [place] [address] 4 Acute inflammation: >10.00 5 Test Performed by: [place] [address] 6 REFERENCE VALUE Not Applicable 7 RESULT: HLA-B27 antigen was not detected. ADDITIONAL INFORMATION Method: Flow Cytometry Performing Laboratory CLIA# [id number] Test Performed by: [place] [address] 8 RESULT: 03,05:01 REFERENCE VALUE Not Applicable [...] medium resolution molecular values. Performing Laboratory CLIA# [id number] Test Performed by: [place] [address] 11 Test Performed by: [place] [address] 12 Test Performed by: [place] [address] 13 Test Performed by: [place] [address] 14 Test Performed by: [place] [address] 15 ADDITIONAL INFORMATION This test was developed and its performance characteristics determined by [facility] in a manner consistent with CLIA requirements. This test has not been cleared or approved by the U.S. Food and Drug Administration. Test Performed by: [facility] [address] [place] [address] 16 TNF-alpha is not to be used [...] of this test have been determined by [facility]. This test should not be used for diagnosis without confirmation by other medically established means. Test Performed by: [facility] [place] [address] [place] [address] 17 REFERENCE VALUE <1.0 (Negative) 18 REFERENCE VALUE <1.0 (Negative) Test Performed by: [address] [address] 19 Normal Range 180 to 914 Indeterminate [...] Very High >189 39 RUN DATE: 02/12/13 [facility] LAB LIVE PAGE 1 RUN TIME: [address] [place] [address] Specimen Inquiry Name: NOELLE EL : [address]: Lila Stein MD Acct: [id number] Unit: [id number] AGE: 68 Location: [facility] Re02/10/13 SEX: F Status: REG REF SPEC: [id number] NIYA: 02/10/13-[address] [facility] [address]: Lila Stein MD REQ: [id number] RECD: 02/10/13 STATUS: COMP _ SOURCE: URINE SPDESC: ORDERED: Urine Culture QUERIES: Medent Number [id number] Procedure Result Verified Site Urine Culture Final 02/12/13- 920 ML Organism 1 NORMAL JANETH [place] Count 25-50,000 (Moderate) CFU/ML END OF REPORT * ML=Testing performed at Main Lab DEPARTMENT OF PATHOLOGY, [facility] [place], [place] [address] Maximo Lainez M.D. Director [facility] Permit #[id number] RUN DATE: 02/11/13 [facility] LAB LIVE PAGE 1 RUN TIME: 1022 [facility] [place], [place] [address] Specimen Inquiry Name: NOELLE EL : [address]: Lila Stein MD Acct: [id number] Unit: [id number] AGE: 68 Location: [facility] Re02/10/13 SEX: F Status: REG REF SPEC: [id number] NIYA: 02/10/13-[address] [facility] [address]: Lila Stein MD REQ: [id number] RECD: 02/10/131606 STATUS: COMP _ SOURCE: VAGINAL [facility]: ORDERED: Affirm QUERIES: Medent Number [id number] Procedure Result Verified Site Affirm Vaginal DNA [...] performed at Main Lab DEPARTMENT OF PATHOLOGY, [address] [place] [address] Maximo Lainez M.D. Director [facility] Permit #[id number] 41 A metabolite of Naproxen, O-desmethylnaproxen, has been shown to interfere with the Jendrassik-Stover method for measuring total bilirubin. Samples from [...] <15 (or dialysis) 43 RUN DATE: 06/05/12 [facility] LAB LIVE PAGE 1 RUN TIME: [address] [place], [place] [address] Specimen Inquiry Name: NOELLE EL : [address]: Rodney Jones III, MD Acct: [id number] Unit: [id number] AGE: 67 Location: [facility] Re06/03/12 SEX: F Status: REG REF SPEC: [id number] NIYA: 06/03/[address]: Rodney Jones III, MD: [id number] RECD: 06/03/12 STATUS: COMP _ SOURCE: URINE SPDESC: ORDERED: Urine Culture QUERIES: Medent Number [id number] Procedure Result Verified Site Urine Culture Final 06/05/12- 1147 ML No Growth Day 2 (<1,000 CFU/mL) END OF REPORT * ML=Testing performed at Main Lab DEPARTMENT OF PATHOLOGY, [address] [place] [address] Maximo Lainez M.D. Director [facility] Permit #[id number] 44 PLEASE NOTE NEW REFERENCE RANGE. 45 A metabolite of Naproxen, O-desmethylnaproxen, has been shown to interfere with the Jendrassik-Stover method for measuring total bilirubin. Samples from patients who have taken Naproxen have shown spurious elevation in total bilirubin levels. 46 Please note updated reference range, effective 03/24/10 47 -- REFERENCE VALUE -- 25-HYDROXY D TOTAL (D2+D3) Optimum levels in the normal population are 25-80 Test Performed by: [place] [address] Development Rep: Oswaldo Farias III, M.D. 48 Anion gap measurement may be of limited value in the presence of any alkalosis, especially in a combined acid base disorder. . 49 A metabolite of Naproxen, O-desmethylnaproxen, has been shown to interfere with the Jendrassik-Stover method for measuring total bilirubin. Samples from [...] has been shown to interfere with the Jendrassik-Stover method for measuring total bilirubin. Samples from [...] Note change in reference range as of 08/21/08. The change was based on recommendations from the [place] [employer]. 64 A metabolite of Naproxen, O-desmethylnaproxen, has been shown to interfere with the Jendrassik-Stover method for measuring total bilirubin. Samples from [...] Basophilia % 70 ---- RUN DATE: 10/22/08 [facility] NMI LIVE PAGE 1 RUN TIME: 1215 Specimen Inquiry RUN USER: INTERFACE -- Name: NOELLE EL [facility]#: [id number] Status: REG REF Re10/20/08 Age/Sex: 63/F Unit#: [id number] Location: [address] [place] [address]. : 45 -- Specimen: [id number] [facility] Spec Date: 10/20/[address]: Dougie gould MD Spec Type: SURGICAL P Received: 10/21/088077 Copies to: Rodney Jones III, MD SPECIMEN BIOPSY COLON POLYP AT 70 CM. HISTORY CLINICAL INFORMATION: Abdominal pain, right side pain, diarrhea; screenin g GROSS DESCRIPTION The specimen is received in formalin labelled Noelle MukeshMonica El, Biopsy Colon Polyp at 70 cm., and consists of a linares, soft tissue fragment measuring 0.4 x 0.3 x 0.2 cm. Submitted entirely, one cassette. DIAGNOSIS Colon, 70 cm., biopsy: A) Tubular adenoma. B) No high grade dysplasia or malignancy identified. Signed Electronically by: MAXIMO LAINEZ MD 10/22/08 1215 -- -- DEPARTMENT OF PATHOLOGY, [address] [place] [address] [facility] Permit #[id number] Maximo Lainez M.D. Director Senia Gomez M.D. Private Equity Associate Dir roland -- 71 Anion gap measurement may be of limited value in the presence of any alkalosis, especially in a combined acid base disorder. . 72 Note change in reference range as of 04/23/08. The change was based on recommendations from the [place] [employer]. 73 Please note change in [...] Description Status Comment 07/03/2017 Mammogram Completed 08/10/2016 44337 Closed trtmt prox humeral fx Completed 06/13/2016 Bone Mineral Density Test Completed 06/12/2016 Mammogram Completed 08/30/2015 08671 Nasal Endoscopy, Diagnostic Completed 08/02/2015 39398 Tympanometry Completed 06/09/2015 Mammogram Completed 08/11/2014 10372 Pulmonary Completed Function><Bronchodil 06/08/2014 Colonoscopy Completed 06/08/2014 Bone Mineral Density Test Completed 06/08/2014 Mammogram Completed 05/05/2014 37449 Nasal Endoscopy, Diagnostic Completed 04/06/2014 89914 Nasal Endoscopy, Diagnostic Completed 01/12/2014 28970 Nasal Endoscopy, Diagnostic Completed 12/31/2013 34173 N/Endoscopy/Max Antrostomy Completed 12/31/2013 03108 Nasal Completed Endoscopy/Ethmoidectomy/Total 11/28/2013 62507 Stress Test Completed 11/28/2013 36978 Myocardial Perfusion Imaging Completed Tomographic (Spect) Multiple Studies 11/22/2013 Colonoscopy Completed 11/19/2013 26582 EKG Tracing & Completed Interpretation 03/08/2012 Mammogram Completed 03/08/2012 Bone Mineral Density Test Completed 03/24/2011 Mammogram Completed 10/22/2008 Colonoscopy Completed 09/03/2001 Bone Mineral Density Test Completed normal ( has had DJD of back) Encounters Type Date Location Provider CPT E/M Dx Office Visit 11/26/2017 1:45p [facility] 31482 J31.0 C[facility] At [facility] J32.0 Office Visit 09/18/2017 1:40p [facility], 26633 M54.5 Elfego Escalona E06.1 I70.212 M16.9 Office Visit 08/28/2017 10:00a [facility] El[facility] Thomas, 34051 H91.90 Of Elfego Escalona M54.5 M25.559 H93.13 R20.8 M79.1 M54.2 Office Visit 05/08/2017 10:40a [facility] Internal Medicine Rodney Jones, 89337 Z00.00 - Oli Escalona J45.909 K21.9 E78.00 M85.9 M54.5 Z11.59 R91.8 Z23 Office Visit 12/12/2016 11:00[place] [address] S42.212D Of C.M.A. Office Visit 08/22/2016 2:20p [facility] Internal Medicine Rodney Jones, 46309 S42.212D - Arrowfelix Escalona R91.8 Office Visit 02/18/2016 9:40a [facility] Internal Medicine Rodney Jones, 81505 M54.2 - Inocencia Escalona M54.89 M54.5 Office Visit 02/01/2016 4:20p [facility] Internal Medicine Rodney Jones, 82077 J06.9 - Inocencia Escalona Office Visit 10/11/2015 2:45p [facility] Steve Wilson, 06632 J31.0 At [facility] J32.0 Office Visit 08/30/2015 2:00p [facility] Of Steve Manciathaddeusbertha, 57120 J31.0 C.M.A. At [facility] H93.12 J32.0 J06.9 J45.909 H91.22 Office Visit 08/02/2015 2:15p [facility] Steve Manciathaddeusbertha, 21645 J31.0 C.M.A. At [facility] H93.12 J32.0 Office Visit 05/21/2015 11:30a [facility] [place] [address] 465.8 [place] 491.21 Office Visit 01/04/2015 2:00p [facility] Of Stevedeuce Hearnbertha, 05087 473.0 C.M.A. At [facility] 477.9 471.0 Office Visit 10/21/2014 11:00a [facility] Internal Medicine Rodney Jones, 63906 786.2 [facility]2014 2:00p [facility] [place] [address] 493.90 - [place] Office Visit 08/24/2014 3:00p [facility] Steve Manciathaddeusbertha, 73180 493.92 C.M.A. At [facility] 477.9 Office Visit 08/11/2014 10:40a [facility] Internal Medicine Karlee Cabrera, N.P. 60384 493.92 - [place] 381.81 Office Visit 08/03/2014 1:30p [facility] Internal Medicine Trav Mak, OSMAN 55968 493.92 - [place] Office Visit 07/06/2014 2:45p [facility] Steve Wilson, 02657 478.0 C.M[facility]A. At [facility] 477.9 Office Visit 05/25/2014 3:15p [facility] Steve Wilson, 19343 478.0 C.M[facility]A. At [facility] 477.9 473.0 Office Visit 05/11/2014 3:15p [facility] Steve Wilson, 16789 477.9 C[facility] At [facility] 473.0 471.0 Office Visit 04/06/2014 1:15p [facility] Steve Wilson, 40891 473.0 C[facility] At [facility] 471.0 473.2 478.0 Office Visit 02/19/2014 9:40a [facility] Internal Medicine Rodney Jones, 25692 719.45 - [place] M.DMonica Office Visit 02/02/2014 2:00p [facility] Steve Wilson, 58161 473.0 C[facility] At [facility] 471.0 Office Visit 01/05/2014 2:00p [facility] Steve Wilson, 21678 473.0 C.M[facility]A. At [facility] 473.2 Office Visit 12/22/2013 2:15p [facility] Steve Wilson, 21050 473.0 C[facility] At [facility] 473.2 Office Visit 12/16/2013 9:20a [facility] Internal Medicine Rodney Jones, 79249 786.50 - [place] M.DMonica Office Visit 11/19/2013 11:00a [facility] Internal Medicine Rodney Jones, 87027 V72.84 - [place] M.DMonica 786.50 Office Visit 11/10/2013 2:45p [facility] Steve Wilson, 79286 473.0 C.M[facility]A. At [facility] 473.2 Office Visit 02/10/2013 12:10p [facility] Internal Medicine Lila Stein M.D. 65092 788.1 - [place] 627.3 789.09 Office Visit 12/10/2012 1:20p [facility] Internal Medicine Rodney Jones, 31725 466.0 - Inocencia Escalona Office Visit 06/03/2012 1:00p [facility] Internal Medicine Rodney Jones, 51340 789.01 - Inocencia Mayorga.Mayra Office Visit 03/19/2012 9:40a [facility] Internal Medicine Rodney Jones, 02090 733.90 - Inocencia Escalona 493.90 V03.82 Office Visit 03/18/2012 9:45a [facility] Steve Wilson, 53332 473.0 C[facility] At [facility] 472.0 473.2 Office Visit 03/11/2012 11:30a [facility] Steve Wilson, 47245 473.0 C.M[facility]A. At [facility] 472.0 Office Visit 03/05/2012 9:00a [facility] Internal Medicine Lilalola Stein, 65834 V72.31 - [place] 493.90 473.0 781.91 627.3 611.9 v70.0 Office Visit 09/29/2011 11:20a [facility] Internal Medicine Rodney Jones, 87240 789.04 - Inocencia Escalona Office Visit 07/20/2011 3:40p DO Not Use Transplant Case Manager At Rodney Jones 58207 473.0 Erin Mayorga.Mayra Office Visit 05/04/2011 2:20p DO Not Use Transplant Case Manager At Rodney Jones, 40010 493.90 Byroncal Mayorga.Mayra 790.21 272.0 616.10 Office Visit 03/17/2011 4:15p DO Not Use Transplant Case Manager At Karleebeverley Cabrera, N.P. 93108 599.0 Byroncal V76.10 388.30 Office Visit 01/04/2011 9:40a DO Not Use Transplant Case Manager At [facility], 45001 382.9 [facility].D. Office Visit 09/13/2010 1:00p DO Not Use Transplant Case Manager At [facility], 76111 472.0 [facility].D. 493.90 530.81 796.2 272.0 790.21 Office Visit 12/09/2009 9:20a DO Not Use Transplant Case Manager At [facility], 72403 472.0 [facility].D 530.81 493.90 Office Visit 08/25/2009 1:45p DO Not Use Transplant Case Manager At [facility], 77356 388.70 [facility].D. Office Visit 06/28/2009 10:45a DO Not Use Transplant Case Manager At [facility], 23077 465.9 [facility].D. Office Visit 11/19/2008 2:15p [facility], 31680 465.9 [facility] M.D. Office Visit 08/05/2008 3:00p [facility], 52253 465.9 [facility] M.D. Office Visit 04/27/2008 10:30a [facility], 45391 789.00 [facility].D. 796.2 530.81 Office Visit 02/06/2008 11:15a [facility], 37880 923.21 [facility] M.D. Office Visit 01/30/2008 3:00p [facility], 13823 380.22 [facility] M.D. 465.9 Office Visit 12/04/2007 3:00p [facility], 58367 461.9 [facility] M.D. Office Visit 10/28/2007 3:15p [facility], 01043 796.2 [facility] M.D. Office Visit 09/30/2007 3:00p [facility], 56237 493.90 [facility] M.D. 796.2 530.81 Plan of Care Future Appointment(s):05/22/2018 2:20 pm - Rodney Jones M.D. at [facility] Internal Medicine - [email or web address]/09/2018 11:40 am - Rodney Jones M.D. at [facility] Internal Medicine - [email or web address]/16/2018 10:20 am - Elías Thomas M.D. at [facility]12/07/2017 - Rodney Jones M.D.I73.9 Peripheral vascular disease, unspecifiedNew Medication:Atorvastatin Calcium 10 mgNew Labs: Lipid Profile (Trig/Chol/HDL)Ast (Sgot)AltComments:? elevated BPs noted with pt' s recent hospital eval, but no mention in discharge summary. BP today ok; lifestyle Rx advised along with occ home BP checks. Pt's cardiac risk score in statin Rx range but pt previously declined drug Rx. In view of her knoen peripheral vascualr disease, Rx again discussed and advised. Pt agrees to begin Rx; Atorvastatin 10 mg daily sent in. Recheck labs after 6-8 weeks of Rx.Follow up:wellness exam in May or prn
[2017-12-24 09:31] VITALS: BP 148/72
--- NOTE | 2017-12-24 09:56 | ED ---
Lower Extremity - HPI Summary HPI Summary: 72 yr old female with the complaint of right great toe redness over area she has trimmed nail. redness better now, but she is complaining of pain in the right groin area post entry of her femoral artery for angioplasty on the left leg. This was done at [facility] earlier this month. She complains of pain to the right groin and into right thigh and right calf area. Moderate intensity. - History of Current Complaint Chief Complaint: UCLowerExtremity Stated Complaint: RIGHT BIG TOE COMPLAINT Time Seen by Provider: 12/24/17 09:32 Pain Intensity: 4 - Allergies/Home Medications Allergies/Adverse Reactions: Allergies Allergy/AdvReac Type Severity Reaction Status Date / Time acetaminophen [From Vicodin] Allergy Abdominal Verified 12/24/17 09:39 Pain amoxicillin Allergy Stomach Verified 12/24/17 09:39 Cramps ampicillin Allergy GI Upset Verified 12/24/17 09:39 azithromycin Allergy Unknown Verified 12/24/17 09:39 Reaction Details ciprofloxacin [From Cipro] Allergy Nausea Verified 12/24/17 09:39 dicyclomine Allergy Unknown Verified 12/24/17 09:39 Reaction Details hydrocodone [From Vicodin] Allergy Abdominal Verified 12/24/17 09:39 Pain Iodinated Contrast- Oral and Allergy Itching Verified 12/24/17 09:39 IV Dye latex Allergy Rash Verified 12/24/17 09:39 levofloxacin [From Levaquin] Allergy Wheezing Verified 12/24/17 09:39 metronidazole [From Flagyl] Allergy Rash Verified 12/24/17 09:39 nabumetone Allergy Rash Verified 12/24/17 09:39 nitrofurantoin Allergy Abdominal Verified 12/24/17 09:39 [From Macrobid] Pain oxycodone Allergy GI Upset Verified 12/24/17 09:39 Sulfa (Sulfonamide Allergy Unknown Verified 12/24/17 09:39 Antibiotics) Reaction Details Home Medications: Home Medications Aspirin EC TAB* [Ecotrin EC Low Dose 81 MG*] 81 mg PO DAILY 12/24/17 [History Confirmed 12/24/17] Clopidogrel TAB* [Plavix TAB*] 75 mg PO DAILY 12/24/17 [History Confirmed ] Pantoprazole TAB (NF) [Protonix TAB (NF)] 40 mg PO DAILY 12/24/17 [History Confirmed 12/24/17] PMH/Surg Hx/FS Hx/Imm Hx Endocrine/Hematology History: Denies: Hx Anticoagulant Therapy, Hx Diabetes, Hx Thyroid Disease, Hx Anemia Cardiovascular History: Reports: Hx Rheumatic Fever - A CHILD Denies: Hx Congestive Heart Failure, Hx Deep Vein Thrombosis, Hx Hypertension , Hx Myocardial Infarction, Hx Pacemaker/ICD, Other Cardiovascular Problems/ Disorders Respiratory History: Reports: Hx Asthma Denies: Hx Chronic Obstructive Pulmonary Disease (COPD), Hx Lung Cancer, Hx Pneumonia, Hx Pulmonary Embolism GI History: Reports: Hx Gastroesophageal Reflux Disease - POSSIBLE, Hx Irritable Bowel Denies: Hx Gall Bladder Disease, Hx Gastrointestinal Bleed, Hx Jaundice, Hx Ulcer, Hx Urosepsis History: Denies: Hx Dialysis, Hx Kidney Stones, Hx Renal Disease Musculoskeletal History: Denies: Hx Osteoporosis, Hx Scoliosis Sensory History: Denies: Hx Contacts or Glasses, Hx Hearing Aid Opthamlomology History: Denies: Hx Contacts or Glasses Neurological History: Reports: Hx Migraine - 20 YEARS AGO Denies: Hx Dementia, Hx Headaches, Hx Seizures, Hx Transient Ischemic Attacks (TIA) Psychiatric History: Reports: Hx Depression - DAUGHTER Denies: Hx Anxiety, Hx Panic Disorder, Hx Schizophrenia, Hx Bipolar Disorder - Cancer History Hx Chemotherapy: No Hx Radiation Therapy: No - Surgical History Surgery Procedure, Year, and Place: hysterectomy 1988 Rt Oopharectomy. TONSILECTOMY, 1950S. NASAL POLYP REMOVED WITH SEPTOPLASTY. vascular surgery Hx Anesthesia Reactions: No Infectious Disease History: No Infectious Disease History: Denies: Traveled Outside the [place] in Last 30 Days - Family History Known Family History: Positive: Hypertension Negative: Cardiac Disease, Diabetes - Social History Alcohol Use: Occasionally Alcohol Amount: ONE PER MONTH Substance Use Type: Reports: None Smoking Status (MU): Former Smoker Amount Used/How Often: PACK A DAY Length of Time of Smoking/Using Tobacco: 1 PPD x 20 Years Have You Smoked in the Last Year: No Review of Systems Constitutional: Negative Eyes: Negative Positive: Other - right leg pain All Other Systems Reviewed And Are Negative: Yes Physical Exam Triage Information Reviewed: Yes Vital Signs On Initial Exam: Initial Vitals Temp Pulse Resp BP Pulse Ox 97.8 F 65 20 148/72 99 12/24/17 09:22 12/24/17 09:22 12/24/17 09:22 12/24/17 09:22 12/24/17 09:22 Vital Signs Reviewed: Yes Appearance: Positive: Well-Appearing, No Pain Distress Skin: Positive: Warm, Skin Color Reflects Adequate Perfusion Head/Face: Positive: Normal Head/Face Inspection Eyes: Positive: EOMI ENT: Positive: Normal ENT inspection, Pharynx normal Neck: Positive: Nontender Respiratory/Lung Sounds: Positive: Clear to Auscultation, Breath Sounds Present Cardiovascular: Positive: RRR. Negative: Murmur Abdomen Description: Positive: Nontender Musculoskeletal: Positive: Other - she has intact DP pulses symmetric both lower extremities. PT pulses are present but not as strong as the DP pulses in her feet. There is no redness to the right great toe. She has no obvious swelling of the right leg or groin compared to the left side. Neurological: Positive: Sensory/Motor Intact, Alert, Oriented to Person Place, Time, CN Intact II-III Psychiatric: Positive: Normal - Pam Coma Scale Best Eye Response: 4 - Spontaneous Best Motor Response: 6 - Obeys Commands Best Verbal Response: 5 - Oriented Coma Scale Total: 15 Diagnostics - Vital Signs Vital Signs Temp Pulse Resp BP Pulse Ox 12/24/17 09:22 97.8 F 65 20 148/72 99 - Laboratory Lab Statement: Any lab studies that have been ordered have been reviewed, and results considered in the medical decision making process. - Additional Comments Diagnostic Additional Comments: The venous doppler of the right leg read as neg by radiology; the arterial study for pseudoaneursym also negative per radiology. Lower Extremity Course/Dx - Course Course Of Treatment: 72 yr old without evidence of infection to the right leg, no redness, no paronychia and with negative US studies will DC to home, and recommend she follow up with her podiatry appointment she already has, and also her vascular surgeon at [email or web address] this week. - Diagnoses Provider Diagnoses: Right leg pain Discharge - Sign-Out/Discharge Documenting (check all that apply): Discharge/Admit/Transfer - Discharge Plan Condition: Good Disposition: HOME Patient Education Materials: Hypertension (ED), Leg Pain (ED) Referrals: Rodney Jones MD [Primary Care Provider] - 1 Day Additional Instructions: Please be sure to follow up with [facility] [[email or web address] Vascular surgery as soon as possible this week for reevaluation. - Billing Disposition and Condition Condition: GOOD Disposition: HOME
--- NOTE | 2017-12-24 10:17 | RAD ---
HISTORY: Status post right groin catheterization COMPARISONS: None relevant TECHNIQUE: Multiple transverse and longitudinal ultrasound images were obtained of the right lower extremity from the level of the common femoral vein inferiorly through to the infrapopliteal veins using grayscale, color Doppler, and spectral Doppler imaging with and without compression and with augmentation. Comparison images were obtained of the contralateral common femoral vein. FINDINGS: VEINS: The venous system of the right lower extremity is compressible throughout its course, with normal flow on color Doppler imaging and normal response to augmentation on spectral Doppler imaging. SOFT TISSUES: Unremarkable. OTHER FINDINGS: None. IMPRESSION: NO RIGHT LOWER EXTREMITY DEEP VEIN THROMBOSIS
--- NOTE | 2017-12-24 10:22 | RAD ---
Indication: Post cardiac catheterization December 04, 2017. Assess for RIGHT groin pseudoaneurysm. Comparison: RIGHT lower extremity venous Doppler of the same date. October 31, 2017 CT angiogram runoff. Technique: Ultrasound with Doppler RIGHT common femoral, profunda femoral, and proximal and mid segments of the superficial femoral arteries as well as the corresponding veins. Report: Patent RIGHT common femoral, profunda femoral, and proximal and mid segments of the superficial femoral artery documented. Pain, femoral, profunda femoral, great saphenous at the saphenous femoral junction, and proximal segment of the superficial femoral vein documented. Normal venous waveforms throughout without arterialization to suggest AV fistula. Normal augmentation documented at the visualized venous segments. No pseudoaneurysm or loculated perivascular hematoma evident. IMPRESSION: 1. Negative for RIGHT groin pseudoaneurysm. 2. Negative for loculated hematoma. 3. Negative for regional arterial or venous occlusion/ thrombosis.
== END 2017-12-24 11:28 | disposition home or self-care (01) ==
LOC: UCCORT 09:10
DX: M79.604 Pain in right leg (principal); Z98.62 Peripheral vascular angioplasty status; Z87.891 Personal history of nicotine dependence; Z88.5 Allergy status to narcotic agent; Z88.2 Allergy status to sulfonamides; Z88.8 Allergy status to other drugs, medicaments and biological substances; Z88.6 Allergy status to analgesic agent; Z88.3 Allergy status to other anti-infective agents; Z91.041 Radiographic dye allergy status
CPT/HCPCS: 99212; G0463

== ENCOUNTER 2018-03-11 13:26 | Emergency (ER) | payer MEDICARE ==
[2018-03-11 13:37] VITALS: BP 147/59
--- OUTSIDE RECORDS SUMMARY | 2018-03-11 13:46 | XMS REPORT ---
:1945 External Reference #:[id number] Author Organization [facility] Address [address] [place] [address] Phone [phone] Care Team Providers Name Role Phone Rodney Jones III, MD Primary Care Physician Unavailable Payers Type Date Identification Numbers Payment Subscriber Provider Health Maintenance Effective: Policy Number: Medicare Blue Noelle Mayorga [employer] Organization (O) 09/03/2012 [id number] o Group Number: [id number] [address] [address] PayID: [id number] [place] [address] Advance Directives Type Date Description Status Comment [...] Form Strength Qnty SIG Indications Ordering Provider Cefuroxime Axetil 02/20 Active Tablets 250mg 20tab 1 by R51 Rodney Pak /Luiza s mouth Karen, twice a M.D. day for 10 days Pravachol 02/01 Active Tablets 20mg 30tab 1 tablet Rodney E. s by mouth Karen, once M.D. daily at bedtime(s tart qod for a month and then increase to daily if no issues) Ventolin HFA 05/17 Active Aerosol 108(90Bas 18uni Inhale Rodney E. e) ts Two Puffs Karen, mcg/Act By Mouth M.D. Four Times A Day Aerochamber Plus 04/09 Active Misc 1unit Use as Trav /2014 s directed OSMAN Mak with puffer Nebulizer 08/31 Active Kit 1unit use as J45.909 Trav Compressor/Dualfi s needed OSMAN Mak lt/ for Tubing/Aerosol symptoms T/Mthpiece of sob Nebulizer 08/31 Active Kit 1unit use as J45.909 Trav Kit/Tubing/Mouthp s needed OSMAN Mak iece for symptoms sob Albuterol Sulfate 08/31 Active Nebulizer (2.5mg/3M 10uni use one J45.909 Rodney E. L) 0.083% ts ampual Karen, via M.D. nebulizer as needed sob Fluticasone 08/11 Active Suspension 50mcg/Act 16uni Instill 1 Steve Propionate ts Alpine In [facility], Each M.D. Nostril Every Morning prn Calcium 500 +D 06/09 Active Tablets 500-400mg 30tab 2 pills a Rodney E. -Unit s day Iqra Jones Restasis 09/29 Active Emulsion 0.05% 2tray one gtts Rodney E. s ou bid Iqra Jones Flovent HFA 09/13 Active Aerosol 110mcg/Ac 12uni Inhale Rodney E. t ts Two Puffs Karen, By Mouth M.D. Twice A Day, Rinse And Gargle After Use Spiriva 02/09 Active Capsules 18mcg 30cap Inhale Rodney E. Handihale s The Karen, Contents M.D. Of One Capsule By Mouth Every Morning Probiotic Active Capsules 1 po qd Unknown / Multivitamins Active Tablets 90tab 1 po qd Unknown / s Vitamin D3 Super Active Tablets 2000Unit 1 by Unknown Strength /0000 mouth every day Pantoprazole Active Tablets DR 40mg once Zeferinoberg, Sodium /0000 daily MD Dougie Aspir-[address] 81mg 1 by Unknown /0000 mouth every day Atorvastatin 12/07 Hx Tablets 10mg 90tab take 1 I73.9 Rodney Pak s tablet at Karen, - bedtime M.D. 02/01 Azithromycin 11/26 Hx Tablets 500mg 5tabs one by J32.0 Steve mouth Ruparelia, - once per M.D. Meloxicam 09/25 Hx Tablets 15mg 30tab 1 by Elías s mouth William, - every day M.D. 11/19 Meloxicam 09/24 Hx Tablets 7.5mg 45tab take one s tab twice William, - daily as M.D. 09/25 for pain, avoid other nsaids Tramadol HCL 08/04 Hx Tablets 50mg 60tab take 1-2 s tablets [place], - by mouth M.D. 08/13 every hours [...] 08/30 Hx Tablets 20mg 7tabs one by Babatunde.0 Steve mouth Ruparelia, - once a M.D. 10/11 day in the morning x7 days Pulmicort 08/02 Hx Suspension 0.5mg/2ML 30uni one J32.0 ts reespule Steve, - per day M.D. 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 08/13 Zithromax 01/04 Hx Tablets 500mg 5tabs one by 473.0 Steve mouth one Steve, - per day M.D. 05/03 Diflucan 12/29 Hx Tablets 200mg 1tabs 1 by Rodney Pak mouth x 1 Karen - M.D. 01/14 Singulair 10/21 Hx Tablets 10mg 30tab 1 by 786.2 Rodney Pak s mouth Karen, - every day M.D. 01/04 Prednisone 08/11 Hx Tablets 10mg 26tab 5 tabs x2 493.92 Karlee /2013 s day, 4 Rick, - tabs x N.P. 10/21 2day, tabs x 1 day, 2 tabs x1day, 1 tab x 1day Zithromax 08/03 Hx Tablets 500mg 5tabs 1 every Other day x 5 Ordering - Provider 07/31 Nexium 08/[address] 40mg 1 by Trav mouth Obdulio, DRIVER/MERCHANDISER - every day 07/10 Prednisone 11/25 Hx Tablets 20mg 7tabs 1 by Rodney [...] 02/19 Hx Foam 0.12% 50gm as needed Rodnye Pak Karen, - M.D. 04/30 Pulmicort 02/02 Hx Suspension 0.5mg/2ML 30uni one 471.0 ts reespule [facility], - per day M.D. 01/04 to add soultion Diflucan 01/31 Hx Tablets 200mg 1tabs 1 dose Endo, M.D. - 02/19 Prednisone 01/12 Hx Tablets 20mg 10day not 471.0 s taking Ruparelia, - one by M.DMonica 04/30 once a day in in the morning x10 days Oxycodone-Acetami 12/31 Hx Tablets 5-325mg 30tab take 1 po Steve nop s q 4 h prn Ruparelia, - pain M.D. 02/19 Nitrostat 11/19 Hx [...] Rodney E. x 1 dose Karen - M.DMonica 11/27 Ventolin HFA 09/01 Hx Aerosol 108(90Bas 18uni Inhale e) ts Two Puffs Mayra Lancaster, - mcg/Act By Mouth M.Mayra,FACP 01/04 Times A Day Azithromycin 03/24 Hx Tablets 250mg 6tabs take 2 tab on Sarita, - day 1 M.D. 09/01 then tab daily x 4 days Premarin 01/08 Hx Cream 0.625mg/G 1unit once a 627.3 Lila s week for Sarita, - 4-6 wks M.D. 12/16 Flonase 01/01 Hx Suspension 50mcg/Act 16uni Alpine 1 Rodney E. ts Alpine In Karen, - Each M.DMonica 12/16 Nostril Every Morning Prednisone 12/19 Hx Tablets 20mg 7tabs 1 po qd Rodney E. /2012 Rosemary Jones M.DMonica 02/10 Mucinex Chest 12/10 Hx Tablets 1-2 daily Rodney Pak Congestion & Cold prn Rosemary Jones M.DMonica 11/27 Zithromax Z-Simon 12/10 Hx Tablets 250mg 1Pack as per 466.0 Rodney E. /2012 direction Karen - s M.DMonica 02/10 Benzonatate 12/10 Hx Capsules 100mg 30cap 1-2 tab 466.0 Rodney E. /2012 s po tid Karen, - prn M.DMonica 02/19 Premarin 03/05 Hx Cream 0.625mg/G 1unit once a 627.3 Lila M s week for Stein, - 4-6 wks M.D. 06/03 Amoxicillin/Potas 07/20 Hx Tablets 500-125mg 20tab 1 po bid Rodney EMonica sium Clavulanate /2010 s Rosemary Jones.DMonica 09/29 Diflucan 05/04 Hx Tablets 200mg 1tabs i po x Rodney E. /2011 one dose Rosemary Jones M.D. 07/20 Keflex 03/27 Hx Capsules 500mg 14cap 1 tab q s 12 hrs Mayra Lancaster, Rosemary for 7 M.DMonica,[facility] 05/04 days Claritin-D 12 03/17 Hx Tablets ER 5-120mg 60tab 1 po bid 12HR s Rosemary Mcguire M.D.,[facility] 05/04 Omeprazole 09/[address] 20mg 60cap take one s capsule Rosemary Jones by mouth M.Mayra 02/02 twice a day Nexium 07/[address] 20mg 90cap 1 po qd Rodney EMonica s Rosemary Jones M.D. 09/13 Omeprazole 01/[address] 20mg 60cap 1 po qd Rodney EMonica s -bid Rosemary Jones M.D. 07/22 Xfaxan 12/09 Hx 20mg. 1 po tid Noel once a MD Dougie - month for 01/04 4 days Tessalon Perles 11/19 Hx Capsules 100mg 30cap 1-2 po Rodney EMonica s tid prn Rosemary Jones M.D. 12/09 Zithromax Z-Simon 08/05 Hx Tablets 250mg 1Pack as per Rodney EMonica Rosemary Rouse M.D. 11/19 Fluticasone 04/27 Hx Suspension 50mcg/Act 1unit 1 spray Rodney EMonica s Rosemary Melvin nostril Iqra 02/19 in Zithromax Z-Simon 12/03 Hx Tablets 250mg 1Pack as per Rodney EMonica Rosemary Rouse M.D. 02/05 Ketoconazole 10/30 Hx Shampoo 2% 8oz use 2 x Rodney E. weekly Rosemary Jones for 4 M.D. , with at least 3 days between shampoos, then prn to maintain control Ketoconazole 10/28 Hx Shampoo 2% 4Oz 1 po qd Rodney E. Rosemary Jones M.D. 10/30 Spiriva Hx Capsules 18mcg 1Mont 1 Rodney E. Handihaler h inhalatio Rosemary Jones n qam Iqra 02/09 Flovent 00 Hx Aerosol 110mcg/Ac 3unit 2 po puff Rodney E. t s Rosemary Hudson M.D. 09/13 Flonase Hx Suspension 50mcg/Act 1Bott 1 Rodney E. le intranasa Rosemary Jones l puff to Iqra 04/27 nostril daily Accolate Hx Tablets 20mg 30tab 1 po qd Rodney E. / s Rosemary Jones M.D. 12/[address] 40mg 90tab 1 po qd Rodney E. / Rosemary Grover M.D. 01/04 ly Albuterol HFA Hx Aerosol 90mcg/Act 1unit 2 po Vahid s Puffs qid Rosemary Mcguiren Iqra,FACP 09/01 Restasis Hx Emulsion 0.05% 3mon One gtts OU bid Physician - Practices 01/04 Xifaxan Hx Tablets 200mg 180ta take 2 Rodney E. bs tablets Rosemary Jones by mouth Mukesh.Mayra 12/12 times a day Z Pack Hx Tablets 250mg as Unknown / directed. - 03/17 Ceftin Hx Tablets 500mg 14tab po bid Unknown /0000 s - 05/04 Prednisone Hx Tablets 20mg 10tab 2 po qd Unknown / s - 05/04 Multivitamins Hx Capsules QS 1 capsule Unknown / crystal;y - 09/29 Mucinex D Hx Tablets ER 20tab 1 po bid Unknown /0000 12HR s - 09/29 Ibuprofen 00 Hx Capsules 200mg prn Unknown /0000 - [...] /0000 mouth - every day 12/16 Nexium 00/[address] 40mg 30cap 2 by Unknown /0000 s mouth - every day 06/19 Claritin-D 12 00 Hx Tablets ER 5-120mg 1 by Unknown Hour /0000 12HR mouth - twice a Omeprazole 00/[address] 40mg 30cap 2 by [...] - every day 11/05 Aspirin Adult Low [address] 81mg 1 by Unknown Dose /0000 mouth - every day 11/12 Clopidogrel 00 Hx Tablets 75mg once Unknown Bisulfate /0000 daily - 02/19 Medications Administered in Office Medication Date Status Form Strength Qnty SIG Indications Ordering Provider Technetium TC Administered Injection Jose Luis Busch 99M 014 [facility] Gibson [facility] Per Unit Dose FASNC Up To 40 Millicuries Immunizations CPT Code Status Date Vaccine Lot # [id number] Given 05/08/2017 Influenza Virus Vaccine, Quadrivalent, Split, [id number] Preservative Free 58826 Given 06/19/2016 Influenza Virus Vaccine, Quadrivalent, Split [id number] Virus, [place] Use 9[address] Given 06/16/2015 Influenza Virus Vaccine, Quadrivalent, Split, [id number] Preservative Free 28604 Given 05/03/2015 Pneumococcal Conjugate Vaccine 13 Valent For [id number] Intramuscular Use 37732 Given 06/11/2014 Influenza Virus Vaccine, Quadrivalent, Split, [id number] Preservative Free 53224 Given 06/10/2013 Flu Vaccine Split Virus Preservative Free For [id number] Indiv 3Yr Older 51945 Given 08/23/2012 Zoster (Zostavax) [id number] Q2037 Given 08/06/2012 Fluvirin Im 3Yrs And Older [id number] 34337 Given 03/19/2012 Pneumonia Vaccine [id number] 95022 Given 06/10/2010 Influenza Virus 3Yrs & Over 06697 Given 07/19/2009 Influenza Virus Vaccine, Pandemic Formulation 14633 Given 07/19/2009 Administration Swine Flu Shot 99305 Given 02/06/2008 Tdap - Tetanus/Diptheria/Acellular Pertussis [id number] 17759 Given 09/03/1999 Pneumovax (History By Patient) 138iu 85497 Given 09/03/1997 Td (History By Patient) Vital Signs Date Vital Result Comment 02/20/2018 Height 67 inches 5'7" Weight 170.00 lb Heart Rate 68 /min BP Systolic Sitting 140 mmHg BP Diastolic Sitting 70 mmHg Body Temperature 98.3 F O2 % BldC Oximetry 97 % BMI (Body Mass Index) 26.6 kg/m2 12/17/2017 Height 67 inches 5'7" Heart Rate [...] /min BP Systolic Sitting 128 mmHg Own Cykkebd=630/82 BP Diastolic Sitting 78 mmHg Own Oztobov=235/82 BMI (Body Mass Index) 28.1 kg/m2 09/30/2007 Height 66.5 inches 5'6.50" Weight 186.00 lb Heart Rate 76 /min BP Systolic Sitting 164 mmHg BP Diastolic Sitting 82 mmHg BMI (Body Mass Index) 29.6 kg/m2 Results Test Date Test Result H/L Range Note Laboratory test 10/04/2017 Cytology Non-Emergency Management System Director SEE RESULT BELOW 1 finding Laboratory test 08/28/2017 Nuclear AB (Keshia) By <1:80 (Negative) 2 finding Ifa Igg Scleroderma AB 08/28/2017 Scleroderma Ab <0.2 U [...] Color Yellow Urine Appearance Clear Urine Specific [employer] 1.009 Low 1.010-1.030 Urine pH 6.0 5-9 [...] 40 Probe Ua Routine 02/10/2013 Ua Specific [employer] 1.005 Ua PH 7 Ua Color yellow Ua Appera clear Ua WBC trace Ua Protein neg Ua Glucose neg Ua Ketones neg Ua Bilirubin neg Ua Urobilinogen neg Ua Nitrite neg Ua Occult Blood neg Urinalysis 07/06/2012 Urine Color Yellow Urine Appearance Clear Urine Specific [employer] 1.008 Low 1.010-1.030 Urine Esterase Trace Negative [...] NOTE) 43 Ua Routine 06/03/2012 Ua Specific [employer] 1.005 Ua PH 6 Ua Color light [...] Color YELLOW Yellow Appearance-Urine CLEAR Clear Specific [employer]-Ur 1.013 1.010-1.030 Esterase-Urine TRACE Negative Nitrite NEGATIVE Negative Yqzcpcmlqxrs-Sd-ALL NEGATIVE Negative Protein-Urine NEGATIVE Negative PH-Urine 6.0 [...] Color YELLOW Yellow Appearance-Urine CLEAR Clear Specific [employer]-Ur 1.006 Low 1.010-1.030 Esterase-Urine NEGATIVE Negative Nitrite NEGATIVE Negative Lonibsfvzqtf-Pz-POF NEGATIVE Negative Protein-Urine NEGATIVE Negative PH-Urine 5.5 [...] Tigecycline <=0.5 Piperacillin/Tazobactam KB 27 Urine Culture & 03/09/2011 Urine Culture ENTEROBACTERIACE <SEE 61 Sensitivi Sensitivi NOTE> [facility] 08/06/2010 [...] [address]: Riaz Beckford MD Acct: [id number] Unit: [id number] AGE: 72 Location: THYROID Re10/04/17 SEX: F Status: REG REF SPEC: [id number] NIYA: 10/04/[address]: Riaz Beckford MD REQ: [id number] RECD: 10/04/17 STATUS: JF LORENZO DR: Elías Cerda MD _ ORDERED: FNA-IMG GUID BX, CYTO ADEQ-1ST P FINAL DIAGNOSIS Thyroid, left, ultrasound-guided fine needle aspiration: --Benign thyroid nodule- colloid/hyperplastic type ([place] Class II). The specimen demonstrates moderate watery [...] performed at Main Lab DEPARTMENT OF PATHOLOGY, [address] [place] [address] Maximo Lainez M.D. Director [facility] # [id number] RUN DATE: 10/04/17 [facility] LAB LIVE PAGE 2 Patient: NOELLE EL Mukesh [id number] (Continued) GROSS DESCRIPTION (Continued) GROSS DESCRIPTION 1 - alcohol fixed slide(s) 1- passes Signed (signature on file) Chante Canada MD 09/20 0952 END OF REPORT * ML=Testing performed at Main Lab DEPARTMENT OF PATHOLOGY, [address] [place] [address] Maximo Lainez M.D. Director [facility] # [id number] 2 <1:80 (Negative) REFERENCE VALUE <1:80 (Negative) Test Performed by: [address] [address] 3 REFERENCE VALUE <1.0 (Negative) Test Performed by: [address] [address] 4 Acute inflammation: >10.00 5 Test Performed by: [address] [address] 6 REFERENCE VALUE Not Applicable 7 RESULT: HLA-B27 antigen was not detected. ADDITIONAL INFORMATION Method: Flow Cytometry Performing Laboratory CLIA# [id number] Test Performed by: [address] [address] 8 RESULT: 03,05:01 REFERENCE VALUE Not Applicable [...] medium resolution molecular values. Performing Laboratory CLIA# [id number] Test Performed by: [facility] - [address] [address] 11 Test Performed by: [place] [address] 12 Test Performed by: [facility] - [address] [address] 13 Test Performed by: [place] [address] 14 Test Performed by: [place] [address] 15 ADDITIONAL INFORMATION This test was developed and its performance characteristics determined by [facility] in a manner consistent with CLIA requirements. This test has not been cleared or approved by the U.S. Food and Drug Administration. Test Performed by: [address] [place] [address] 16 TNF-alpha is not to be used [...] of this test have been determined by [facility]. This test should not be used for diagnosis without confirmation by other medically established means. Test Performed by: [facility] [address] [place] [address] 17 REFERENCE VALUE <1.0 (Negative) 18 REFERENCE VALUE <1.0 (Negative) Test Performed by: [address] [address] 19 Normal Range 180 to 914 Indeterminate [...] Very High >189 39 RUN DATE: 02/12/13 [facility] LAB LIVE PAGE 1 RUN TIME: [address] [place] [address] Specimen Inquiry Name: NOELLE EL : [address]: Lila Stein MD Acct: [id number] Unit: [id number] AGE: 68 Location: [facility] Re02/10/13 SEX: F Status: REG REF SPEC: [id number] NIYA: 02/10/13-[address] [facility] [address]: Lila Stein MD REQ: [id number] RECD: 02/10/131606 STATUS: COMP _ SOURCE: URINE SPDESC: ORDERED: Urine Culture QUERIES: Medent Number [id number] Procedure Result Verified Site Urine Culture Final 02/12/13- 920 ML Organism 1 NORMAL JANETH Stewart Count 25-50,000 (Moderate) CFU/ML END OF REPORT * ML=Testing performed at Main Lab DEPARTMENT OF PATHOLOGY, [facility] [address] [place], [place] [address] Maximo Lainez M.D. Director [facility] Permit #[id number] RUN DATE: 02/11/13 [facility] LAB LIVE PAGE 1 RUN TIME: [address] [place], [place] [address] Specimen Inquiry Name: NOELLE EL Mukesh : [address]: Lila Stein MD Acct: [id number] Unit: [id number] AGE: 68 Location: [facility] Re02/10/13 SEX: F Status: REG REF SPEC: [id number] NIYA: 02/10/13-[address] [facility] [address]: Lila Stein MD REQ: [id number] RECD: 02/10/13 STATUS: COMP _ SOURCE: VAGINAL SPDESC: ORDERED: Affirm QUERIES: Medent Number [id number] Procedure Result Verified Site Affirm Vaginal DNA [...] performed at Main Lab DEPARTMENT OF PATHOLOGY, [address] [place] [address] Maximo Lainez M.D. Director [facility] Permit #[id number] 41 A metabolite of Naproxen, O-desmethylnaproxen, has [...] <15 (or dialysis) 43 RUN DATE: 06/05/12 [facility] LAB LIVE PAGE 1 RUN TIME: [address] [place], [place] [address] Specimen Inquiry Name: NOELLE EL : [address]: Rodney Jones III, MD Acct: [id number] Unit: [id number] AGE: 67 Location: [facility] Re06/03/12 SEX: F Status: REG REF SPEC: [id number] NIYA: 06/03/[address] [facility] [address]: Rodney Jones III, MD REQ: [id number] RECD: 06/03/12 STATUS: COMP _ SOURCE: URINE SPDESC: ORDERED: Urine Culture QUERIES: Medent Number [id number] Procedure Result Verified Site Urine Culture Final 06/05/12- 1147 ML No Growth Day 2 (<1,000 CFU/mL) END OF REPORT * ML=Testing performed at Main Lab DEPARTMENT OF PATHOLOGY, [address] [place] [address] Maximo Lainez M.D. Director [facility] Permit #[id number] 44 PLEASE NOTE NEW REFERENCE RANGE. 45 [...] normal population are 25-80 Test Performed by: [place] [address] Crew Member: Oswaldo Farias III, M.D. 48 Anion gap measurement may be of limited value in the presence of any alkalosis, especially in a combined acid base disorder. . 49 A metabolite of Naproxen, O-desmethylnaproxen, has been shown to interfere with the [place] method for measuring total bilirubin. Samples from [...] has been shown to interfere with the [place] method for measuring total bilirubin. Samples from [...] change was based on recommendations from the [employer]. 64 A metabolite of Naproxen, O-desmethylnaproxen, has been shown to interfere with the [place] method for measuring total bilirubin. Samples from [...] Basophilia % 70 ---- RUN DATE: 10/22/08 [facility] NMI LIVE PAGE 1 RUN TIME: 1215 Specimen Inquiry RUN USER: INTERFACE -- Name: NOELLE EL Status: REG REF Re10/20/08 Age/Sex: 63/F Unit#: [id number] Location[facility] : 45 -- Specimen: [id number] [id number] Spec Date: 10/20/[address]: Dougie gould MD Spec Type: SURGICAL P Received: 10/21/0807 Copies to: Rodney Jones III, MD SPECIMEN [...] 10/22/08 1215 -- -- DEPARTMENT OF PATHOLOGY, [address] [place] [address] [facility] Permit #[id number] Maximo Lainez M.D. Director Senia Gomez M.D. Motor Vehicle Representative roland -- 71 Anion gap measurement may be of limited value in the presence of any alkalosis, especially in a combined acid base disorder. . 72 Note change in reference range as of 04/23/08. The change was based on recommendations from the [employer]. 73 Please note change in [...] Procedures Date CPT Code Description Status Comment 12/24/2017 Diabetic Foot Exam Completed 12/18/2017 Diabetic Foot Exam Completed 07/03/2017 Mammogram Completed 08/10/2016 69847 Closed trtmt prox humeral fx Completed 06/13/2016 Bone Mineral Density Test Completed 06/12/2016 Mammogram Completed 08/30/2015 06334 Nasal Endoscopy, Diagnostic Completed 08/02/2015 11898 Tympanometry Completed 06/09/2015 Mammogram Completed 08/11/2014 66729 Pulmonary Function><Bronchodil Completed 06/08/2014 Colonoscopy Completed 06/08/2014 Mammogram Completed 06/08/2014 Bone Mineral Density Test Completed 05/05/2014 18216 Nasal Endoscopy, Diagnostic Completed 04/06/2014 98103 Nasal Endoscopy, Diagnostic Completed 01/12/2014 67771 Nasal Endoscopy, Diagnostic Completed 12/31/2013 75678 Nasal Completed Endoscopy/Ethmoidectomy/Total 12/31/2013 25146 N/Endoscopy/Max Antrostomy Completed 11/28/2013 42704 Myocardial Perfusion Imaging Completed Tomographic (Spect) Multiple Studies 11/28/2013 35669 Stress Test Completed 11/22/2013 Colonoscopy Completed 11/19/2013 52330 EKG Tracing & Interpretation Completed 03/08/2012 Bone Mineral Density Test Completed 03/08/2012 Mammogram Completed 03/24/2011 Mammogram Completed 10/22/2008 Colonoscopy Completed 09/03/2001 Bone Mineral Density Test Completed normal ( has had DJD of back) Encounters Type Date Location Provider CPT E/M Dx Office Visit 12/17/2017 Rheumatology Services Elías Thomas M.D. 92292 I73.9 10:20a Of Elfego M16.9 Office Visit 12/07/2017 10:00a [facility] Internal Medicine Rodney Jones, 09145 I73.9 - Oli Escalona Office Visit 11/26/2017 1:45p [facility]va Wilson[facility] [address] [facility] 09/18/2017 1:40p Rheumatology Services Of Elías Thomas, 63922 M54.5 Elfego Escalona E06.1 I70.212 M16.9 Office Visit 08/28/2017 10:00a Rheumatology Services Elías Thomas, 723[address] H91.90 Of Elfego Escalona M54.5 M25.559 H93.13 R20.8 M79.1 M54.2 Office Visit 05/08/2017 10:40a [facility] Internal Medicine Rodney Jones, 21695 Z00.00 - Oli Escalona J45.909 K21.9 E78.00 M85.9 M54.5 Z11.59 R91.8 Z23 Office Visit 12/12/2016 11:00a [place] [address] S42.212D Of Genoveva Office Visit 08/22/2016 2:20p [facility] Internal Medicine Rodney Jones 51581 S42.212D - Oli Escalona R91.8 Office Visit 02/18/2016 9:40a [facility] Internal Ronaldo Jones 40515 M54.2 - Inocencia Escalona M54.89 M54.5 Office Visit 02/01/2016 4:20p [facility] Internal Ronaldo Jones 85143 J06.9 - Inocencia Escalona Office Visit 10/11/2015 2:45p [facility] Steve Wilson, 7[address] J31.0 AT [facility] J32.0 Office Visit 08/30/2015 2:00p [facility] Services Of Steve Wilson, 22832 J31.0 [facility] H93.12 J32.0 J06.9 J45.909 H91.22 Office Visit 08/02/2015 2:15p [facility] Of Steve Wilson, 66826 J31.0 [facility] H93.12 J32.0 Office Visit 05/21/2015 11:30a [facility] [place] [address] 465.8 [place] 491.21 Office Visit 01/04/2015 2:00p [facility] Services Of Steve Wilson, 77223 473.0 [facility] 477.9 471.0 Office Visit 10/21/2014 11:00a [facility] Internal Medicine Rodney Jones, 19895 786.2 - [facility]. Office Visit 08/31/2014 2:00p [facility] Internal Medicine Trav Mak, OSMAN 15175 493.90 - [place] Office Visit 08/24/2014 3:00p [facility] Of Steve Wilson, 92454 493.92 [facility] 477.9 Office Visit 08/11/2014 10:40a [facility] Internal Medicine Karlee Cabrera, N.P. 06489 493.92 - [place] 381.81 Office Visit 08/03/2014 1:30p [facility] [place] [address] 493.92 - [place] Office Visit 07/06/2014 2:45p [facility] Of Steve Wilson, 08451 478.0 [facility] 477.9 Office Visit 05/25/2014 3:15p [facility] Of Steve Wilson, 36269 478.0 [facility] 477.9 473.0 Office Visit 05/11/2014 3:15p [facility] Of Steve Wilson, 78124 477.9 [facility] 473.0 471.0 Office Visit 04/06/2014 1:15p ENT Services Of tSeve Wilson, 31281 473.0 [facility] 471.0 473.2 478.0 Office Visit 02/19/2014 9:40a [facility] Rodney Jones, 73977 719.45 - [place] M.D. Office Visit 02/02/2014 2:00p [facility], 73089 473.0 C.M.A. AT [facility] 471.0 Office Visit 01/05/2014 2:00p [facility], 65057 473.0 C.M.A. AT [facility] 473.2 Office Visit 12/22/2013 2:15p [facility], 13507 473.0 C.M.A. AT [facility] 473.2 Office Visit 12/16/2013 9:20a [facility] Rodney Jones, 10757 786.50 - [place] M.DMonica Office Visit 11/19/2013 11:00a [facility] Rodney Jones, 52628 V72.84 - [place] M.DMonica 786.50 Office Visit 11/10/2013 2:45p [facility], 71264 473.0 C.M.A. AT [facility] 473.2 Office Visit 02/10/2013 12:10p [facility] Lila Stein M.D. 41290 788.1 - [place] 627.3 789.09 Office Visit 12/10/2012 1:20p [facility] Rodney Jones, 14120 466.0 - [place] M.DMonica Office Visit 06/03/2012 1:00p [facility] Rodney Jones, 49759 789.01 - [place] M.Mayra Office Visit 03/19/2012 9:40a [facility] Rodney Jones, 31626 733.90 - [facility].Mayra 493.90 V03.82 Office Visit 03/18/2012 9:45a [facility], 45793 473.0 C.M.A. AT [facility] 472.0 473.2 Office Visit 03/11/2012 11:30a [facility], 93043 473.0 C.M.A. AT [facility] 472.0 Office Visit 03/05/2012 9:00a [facility] Lila Stein, 53641 V72.31 - [facility].Mayra 493.90 473.0 781.91 627.3 611.9 v70.0 Office Visit 09/29/2011 11:20a [facility] Rodney Monica Karen, 82182 789.04 - Inoc[place] Escalona Office Visit 07/20/2011 3:40p DO Not Use [facility], 86022 473.0 [place] M.D. Office Visit 05/04/2011 2:20p DO Not Use [facility], 72930 493.90 [place] M.DMonica 790.21 272.0 616.10 Office Visit 03/17/2011 4:15p DO Not Use [facility] Special[facility] AT [facility] 47463 599.0 [facility] V76.10 388.30 Office Visit 01/04/2011 9:40a DO Not Use [facility], 35730 382.9 [place] M.D. Office Visit 09/13/2010 1:00p DO Not Use [facility], 75003 472.0 [place] M.D. 493.90 530.81 796.2 272.0 790.21 Office Visit 12/09/2009 9:20a DO Not Use [facility], 79119 472.0 [place] M.D. 530.81 493.90 Office Visit 08/25/2009 1:45p DO Not Use [facility], 25907 388.70 [place] M.D. Office Visit 06/28/2009 10:45a DO Not Use [facility], 36020 465.9 [facility] M.D. Office Visit 11/19/2008 2:15p [facility], 97829 465.9 [facility].D. Office Visit 08/05/2008 3:00p [facility], 22093 465.9 [facility] M.D. Office Visit 04/27/2008 10:30a [facility], 26604 789.00 [facility].D. 796.2 530.81 Office Visit 02/06/2008 11:15a [facility], 99093 923.21 [facility].D. Office Visit 01/30/2008 3:00p [facility], 28511 380.22 [facility].D. 465.9 Office Visit 12/04/2007 3:00p [facility], 23142 461.9 [facility].D. Office Visit 10/28/2007 3:15p [facility], 67082 796.2 [facility].D. Office Visit 09/30/2007 3:00p [facility], 22115 493.90 [facility].D. 796.2 530.81 Plan of Care Future Appointment(s):06/18/2018 9:40 am - Elías Thomas M.D. at [facility]05/22/2018 2:20 pm - Rodney Jones M.D. at [facility] - Zjrvjpqnd12/20/2018 - Rodney Jones M.D.R51 HeadacheNew Medication:Cefuroxime Axetil 250 mgR41.82 Altered mental status, unspecified
--- NOTE | 2018-03-11 15:35 | ED ---
Lower Extremity - HPI Summary HPI Summary: Patient 73-year-old female presenting to the ED with a complaint of right lateral malleolar pain, swelling and redness over the past week. She states she contused the ankle approximately 2 weeks ago, however the pain is been worsening and now has developed redness and swelling. There is no warmth to the area. She also endorses radiation of the pain from the lateral malleolus up the lateral side of the lower extremity. Denies any knee pain. Recent arterial study due to atherosclerosis in the lower extremities today which showed normal HERVE. She denies any fevers, sweats, chills. States she is feeling otherwise well. Symptoms are aggravated with plantarflexion and dorsiflexion as well as ambulation. Symptoms are completely alleviated with rest and elevation. No history of gout. Endorses a good diet. Nonsmoker. - History of Current Complaint Chief Complaint: EDExtremityLower Stated Complaint: RT ANKLE INJURY Time Seen by Provider: 03/11/18 14:53 Hx Obtained From: Patient Mechanism Of Injury: Blunt Trauma Onset of Pain: Days Onset/Duration: Weeks Severity Initially: Moderate Severity Currently: Moderate Pain Intensity: 7 Pain Scale Used: 0-10 Numeric Timing: Constant Location: Is Discrete @ - LEFT LATERAL ANKLE PAIN Associated Signs And Symptoms: Positive: Redness Aggravating Factor(s): Standing, Ambulation Alleviating Factor(s): Rest Able to Bear Weight: Yes - Risk Factors Gout Risk Factors: Age Over 40, Peripherial Vascular Disease DVT Risk Factors: Negative Septic Arthritis Risk Factor: Negative - Allergies/Home Medications Allergies/Adverse Reactions: Allergies Allergy/AdvReac Type Severity Reaction Status Date / Time azithromycin Allergy Unknown Verified 03/11/18 13:35 Reaction Details dicyclomine Allergy Unknown Verified 03/11/18 13:35 Reaction Details Iodinated Contrast- Oral and Allergy Itching Verified 03/11/18 13:35 IV Dye latex Allergy Rash Verified 03/11/18 13:35 levofloxacin [From Levaquin] Allergy Wheezing Verified 03/11/18 13:35 metronidazole [From Flagyl] Allergy Rash Verified 03/11/18 13:35 milk Allergy Shortness Verified 03/11/18 13:37 of Breath nabumetone Allergy Rash Verified 03/11/18 13:35 Sulfa (Sulfonamide Allergy Unknown Verified 03/11/18 13:35 Antibiotics) Reaction Details amoxicillin AdvReac Stomach Verified 03/11/18 13:35 Cramps ampicillin AdvReac GI Upset Verified 03/11/18 13:35 ciprofloxacin [From Cipro] AdvReac Nausea Verified 03/11/18 13:35 hydrocodone [From Vicodin] AdvReac Abdominal Verified 03/11/18 13:35 Pain nitrofurantoin AdvReac Abdominal Verified 03/11/18 13:35 [From Macrobid] Pain oxycodone AdvReac GI Upset Verified 03/11/18 13:35 relefin Allergy Rash Uncoded 03/11/18 13:37 PMH/Surg Hx/FS Hx/Imm Hx Previously Healthy: Yes Endocrine/Hematology History: Denies: Hx Anticoagulant Therapy, Hx Diabetes, Hx Thyroid Disease, Hx Anemia Cardiovascular History: Reports: Hx Rheumatic Fever - A CHILD Denies: Hx Congestive Heart Failure, Hx Deep Vein Thrombosis, Hx Hypertension , Hx Myocardial Infarction, Hx Pacemaker/ICD, Other Cardiovascular Problems/ Disorders Respiratory History: Reports: Hx Asthma Denies: Hx Chronic Obstructive Pulmonary Disease (COPD), Hx Lung Cancer, Hx Pneumonia, Hx Pulmonary Embolism GI History: Reports: Hx Gastroesophageal Reflux Disease - POSSIBLE, Hx Irritable Bowel Denies: Hx Gall Bladder Disease, Hx Gastrointestinal Bleed, Hx Jaundice, Hx Ulcer, Hx Urosepsis History: Denies: Hx Dialysis, Hx Kidney Stones, Hx Renal Disease Musculoskeletal History: Denies: Hx Osteoporosis, Hx Scoliosis Sensory History: Denies: Hx Contacts or Glasses, Hx Hearing Aid Opthamlomology History: Denies: Hx Contacts or Glasses Neurological History: Reports: Hx Migraine - 20 YEARS AGO Denies: Hx Dementia, Hx Headaches, Hx Seizures, Hx Transient Ischemic Attacks (TIA) Psychiatric History: Reports: Hx Depression - DAUGHTER Denies: Hx Anxiety, Hx Panic Disorder, Hx Schizophrenia, Hx Bipolar Disorder - Cancer History Hx Chemotherapy: No Hx Radiation Therapy: No - Surgical History Surgery Procedure, Year, and Place: hysterectomy 1988 Rt Oopharectomy. TONSILECTOMY, 1950S. NASAL POLYP REMOVED WITH SEPTOPLASTY. vascular surgery Hx Anesthesia Reactions: No - Immunization History Hx Pertussis Vaccination: No Immunizations Up to Date: Unable to Obtain/Confirm Infectious Disease History: No Infectious Disease History: Denies: Traveled Outside the [place] in Last 30 Days - Family History Known Family History: Positive: Hypertension Negative: Cardiac Disease, Diabetes - Social History Occupation: Unemployed, Retired Lives: With Family Alcohol Use: Occasionally Alcohol Amount: ONE PER MONTH Hx Substance Use: No Substance Use Type: Reports: None Hx Tobacco Use: Yes Smoking Status (MU): Former Smoker Amount Used/How Often: PACK A DAY Length of Time of Smoking/Using Tobacco: 1 PPD x 20 Years Have You Smoked in the Last Year: No Review of Systems Constitutional: Negative Negative: Fever, Chills, Fatigue, Skin Diaphoresis Negative: Palpitations, Chest Pain Negative: Shortness Of Breath, Cough Gastrointestinal: Negative Negative: Abdominal Pain, Vomiting, Diarrhea, Nausea Positive: Arthralgia Positive: Other - erythema and swelling without warmth Neurological: Negative All Other Systems Reviewed And Are Negative: Yes Physical Exam Triage Information Reviewed: Yes Vital Signs On Initial Exam: Initial Vitals Temp Pulse Resp BP Pulse Ox 98.0 F 79 19 147/59 97 03/11/18 13:31 03/11/18 13:31 03/11/18 13:31 03/11/18 13:31 03/11/18 13:31 Vital Signs Reviewed: Yes Appearance: Positive: Well-Appearing, Well-Nourished Skin: Positive: Skin Color Reflects Adequate Perfusion Head/Face: Positive: Normal Head/Face Inspection Eyes: Positive: EOMI, ISIDORO, Conjunctiva Clear Neck: Positive: Nontender, No Lymphadenopathy Respiratory/Lung Sounds: Positive: Clear to Auscultation, Breath Sounds Present Cardiovascular: Positive: RRR, Pulses are Symmetrical in both Upper and Lower Extremities Musculoskeletal: Positive: Pain @ - left lateral ankle pain - worse with movement, better with rest Neurological: Positive: Speech Normal Psychiatric: Positive: Normal, Affect/Mood Appropriate Diagnostics - Vital Signs Vital Signs Temp Pulse Resp BP Pulse Ox 03/11/18 13:31 98.0 F 79 19 147/59 97 - Laboratory Result Diagrams: 03/11/18 15:37 Lab Statement: Any lab studies that have been ordered have been reviewed, and results considered in the medical decision making process. Lower Extremity Course/Dx - Course Course Of Treatment: On physical examination there is slight swelling, erythema with no warmth to the right lateral malleolus. She remains ambulatory, however with plantarflexion, dorsiflexion and ambulation, symptoms worsen. She is asymptomatic when extremity is elevated and at rest. Labs obtained to assess for any signs of infection. WBC 12.1. Other labs are unremarkable. X-ray obtained which shows some mild soft tissue swelling to the lateral side. Likely tendinitis/tendinopathy, however unable to eliminate infection at this time. Higher risk with atherosclerotic disease. Patient will be placed on antibiotic Keflex. She is allergic to penicillins, however she is allergic to multiple antibiotics and I discussed this with patient. Due to allergic reaction being a GI upset, we will attempt to try Keflex as her first line for and abx. She will also keep the extremity elevated with some ice. She understands to return for any worsening or changing symptoms. Return percussions were explained to the patient. - Diagnoses Differential Diagnosis/HQI/PQRI: Positive: Fracture (Closed), Infection, Sprain , Strain, Tendonitis Provider Diagnoses: Ankle injury Discharge - Sign-Out/Discharge Documenting (check all that apply): Discharge/Admit/Transfer - Discharge Plan Condition: Stable Disposition: HOME Prescriptions: Cephalexin CAP* [Keflex CAP*] 500 mg PO TID #21 cap MDD 4 Patient Education Materials: Cellulitis (ED) Referrals: Rodney Jones MD [Primary Care Provider] - Additional Instructions: Keflex three times daily x 7 days Ibuprofen 600mg three times daily Ice Elevate Try to stay off the foot as much as possible If any symptoms should become worse - follow up with your PCP or return to the ED - Billing Disposition and Condition Condition: STABLE Disposition: Home
--- NOTE | 2018-03-11 15:40 | RAD ---
INDICATION: Right ankle injury COMPARISON: None TECHNIQUE: AP, lateral, and oblique views were obtained. FINDINGS: There is no acute bony change. The ankle mortise is intact There is minor lateral soft tissue swelling.. IMPRESSION: MILD LATERAL SOFT TISSUE SWELLING.
[2018-03-11 15:49] LABS: ABS Basophils 0.1 10^3/ul (0-0.2); ABS Eosinophils 0.4 10^3/ul (0-0.6); ABS Monocytes 0.8 10^3/ul (0-0.8); ABS Neutrophils 7.8 10^3/ul (1.5-7.7); ABS Nucleated RBC 0 10^3/ul; Eosinophil % 2.9 % (0-6); Hematocrit 40 % (35-47); Hemoglobin 13.4 g/dl (12.0-16.0); Lymphocyte % 24.6 % (25-47); Mean Corpuscular HGB Conc 33 g/dl (31-36); Mean Corpuscular Hemoglobin 29 pg (27-31); Mean Corpuscular Volume 88 fL (80-97); Mean Platelet Volume 8.4 um3 (7.4-10.4); Nucleated Red Blood Cells % 0.1; Platelet Count 204 10^3/ul (150-450); Red Blood Count 4.55 10^6/ul (4.00-5.40); Red Cell Distribution Width 14 % (10.5-15); White Blood Count 12.1 10^3/ul (3.5-10.8)
== END 2018-03-11 16:28 | disposition home or self-care (01) ==
LOC: ED 13:26
DX: S99.911A Unspecified injury of right ankle, initial encounter (principal); X58.XXXA Exposure to other specified factors, initial encounter; Y92.9 Unspecified place or not applicable; Z87.891 Personal history of nicotine dependence; Z88.3 Allergy status to other anti-infective agents; Z88.5 Allergy status to narcotic agent; Z88.2 Allergy status to sulfonamides; Z91.041 Radiographic dye allergy status; Z88.8 Allergy status to other drugs, medicaments and biological substances
CPT/HCPCS: 36415; 85025; 86140; 99282

== ENCOUNTER 2018-06-13 08:54 | Emergency (ER) | payer MEDICARE ==
--- NOTE | 2018-06-13 09:27 | ED ---
Abdominal Pain/Female - HPI Summary HPI Summary: This patient is a 73 year old F presenting to [facility] accompanied by her with a chief complaint of bloody diarrhea since yesterday. Patient reports RUQ abdominal pain that wraps to back and epigastrium for the past three weeks. Pain is rated 7/10 in severity, upon triage. Patient states she saw her PCP, Dr. Jones, on 05/22/18 and had an abdominal XR performed that revealed constipation. She states she was prescribed laxatives which helped. She states she took laxatives again yesterday because she was constipated again. Patient denies recent travel and diet changes. Patient denies rashes. Pt states R sided ABD sx started after the pt changed from omeprazole to Prilosec, which occurred to prepare the pt for vascular surgery. Pt has f/u with Dr. Plunkett multiple times after her surgery. Pt was unable to obtain an appointment this time and so came to the ED. - History of Current Complaint Chief Complaint: EDAbdPain Stated Complaint: BLOOD IN STOOL/ABD PAIN Time Seen by Provider: 06/13/18 09:13 Hx Obtained From: Patient Onset/Duration: Lasting Weeks, Worse Since - yesterday Timing: Constant Pain Intensity: 7 Pain Scale Used: 0-10 Numeric Location: Discrete At: RUQ, Epigastric Radiates: Yes Radiates to: Back Alleviating Factor(s): Nothing Associated Signs and Symptoms: Positive: Constipation, Blood in Stool, Diarrhea Allergies/Adverse Reactions: Allergies Allergy/AdvReac Type Severity Reaction Status Date / Time azithromycin Allergy Unknown Verified 03/26/18 10:02 Reaction Details dicyclomine Allergy Unknown Verified 03/26/18 10:02 Reaction Details Iodinated Contrast- Oral and Allergy Itching Verified 03/26/18 10:02 IV Dye latex Allergy Rash Verified 03/26/18 10:02 levofloxacin [From Levaquin] Allergy Wheezing Verified 03/26/18 10:02 metronidazole [From Flagyl] Allergy Rash Verified 03/26/18 10:02 milk Allergy Shortness Verified 03/26/18 10:02 of Breath nabumetone Allergy Rash Verified 03/26/18 10:02 Sulfa (Sulfonamide Allergy Unknown Verified 03/26/18 10:02 Antibiotics) Reaction Details amoxicillin AdvReac Stomach Verified 03/26/18 10:02 Cramps ampicillin AdvReac GI Upset Verified 03/26/18 10:02 ciprofloxacin [From Cipro] AdvReac Nausea Verified 03/26/18 10:02 hydrocodone [From Vicodin] AdvReac Abdominal Verified 03/26/18 10:02 Pain nitrofurantoin AdvReac Abdominal Verified 03/26/18 10:02 [From Macrobid] Pain oxycodone AdvReac GI Upset Verified 03/26/18 10:02 relefin Allergy Rash Uncoded 03/26/18 10:02 PMH/Surg Hx/FS Hx/Imm Hx Endocrine/Hematology History: Denies: Hx Anticoagulant Therapy, Hx Diabetes, Hx Thyroid Disease, Hx Anemia Cardiovascular History: Reports: Hx Rheumatic Fever - A CHILD Denies: Hx Congestive Heart Failure, Hx Deep Vein Thrombosis, Hx Hypertension , Hx Myocardial Infarction, Hx Pacemaker/ICD, Other Cardiovascular Problems/ Disorders Respiratory History: Reports: Hx Asthma Denies: Hx Chronic Obstructive Pulmonary Disease (COPD), Hx Lung Cancer, Hx Pneumonia, Hx Pulmonary Embolism GI History: Reports: Hx Gastroesophageal Reflux Disease - POSSIBLE, Hx Irritable Bowel Denies: Hx Gall Bladder Disease, Hx Gastrointestinal Bleed, Hx Jaundice, Hx Ulcer, Hx Urosepsis History: Denies: Hx Dialysis, Hx Kidney Stones, Hx Renal Disease Musculoskeletal History: Denies: Hx Osteoporosis, Hx Scoliosis Sensory History: Denies: Hx Contacts or Glasses, Hx Hearing Aid Opthamlomology History: Denies: Hx Contacts or Glasses Neurological History: Reports: Hx Migraine - 20 YEARS AGO Denies: Hx Dementia, Hx Headaches, Hx Seizures, Hx Transient Ischemic Attacks (TIA) Psychiatric History: Reports: Hx Depression - DAUGHTER Denies: Hx Anxiety, Hx Panic Disorder, Hx Schizophrenia, Hx Bipolar Disorder - Cancer History Hx Chemotherapy: No Hx Radiation Therapy: No - Surgical History Surgery Procedure, Year, and Place: hysterectomy 1988. Rt Oopherectomy. TONSILECTOMY, 1950S. NASAL POLYP REMOVED WITH SEPTOPLASTY. RIGHT LEG VASCULAR SURGERY AT [facility] (NO STENTS) BALLOONING ONLY Hx Anesthesia Reactions: No Infectious Disease History: No Infectious Disease History: Denies: Traveled Outside the [place] in Last 30 Days - Family History Known Family History: Positive: Hypertension Negative: Cardiac Disease, Diabetes - Social History Alcohol Use: Occasionally Alcohol Amount: ONE PER MONTH Hx Substance Use: No Substance Use Type: Reports: None Hx Tobacco Use: Yes Smoking Status (MU): Former Smoker Amount Used/How Often: PACK A DAY Length of Time of Smoking/Using Tobacco: 1 PPD x 20 Years Have You Smoked in the Last Year: No Review of Systems Negative: Fever Positive: Abdominal Pain, Diarrhea, Other - bloody stool Positive: no symptoms reported Negative: Rash All Other Systems Reviewed And Are Negative: Yes Physical Exam - Summary Physical Exam Summary: VITAL SIGNS: Reviewed. GENERAL: Patient is a well-developed and nourished female who is lying comfortable in the stretcher. Patient is not in any acute respiratory distress. HEAD AND FACE: Normocephalic and atraumatic. EYES: PERRLA, EOMI x 2, No injected conjunctiva. EARS: Hearing grossly intact. Ear canals and tympanic membranes are WNL. MOUTH: Oropharynx within normal limits. NECK: Supple, trachea is midline, no adenopathy, no JVD. CHEST: Symmetric, no tenderness at palpation LUNGS: Clear to auscultation bilaterally. No wheezing or crackles. CVS: RRR, S1 and S2 present, no murmurs or gallops appreciated. ABDOMEN: Soft, with RUQ tederness. No signs of distention. Positive bowel sounds. Guarding, no rebound. No masses palpated. No abdominal bruit or pulsations. EXTREMITIES: FROM in all major joints, no edema, no cyanosis or clubbing. NEURO: Alert and oriented x 3. No acute neurological deficits. Speech is normal. SKIN: Dry and warm RECTAL: no hemorrhoids, good sphincter tone, no melena or gross blood Triage Information Reviewed: Yes Vital Signs On Initial Exam: Initial Vitals Temp Pulse Resp BP Pulse Ox 98.2 F 70 17 158/58 99 06/13/18 09:05 06/13/18 09:05 06/13/18 09:05 06/13/18 09:05 06/13/18 09:05 Vital Signs Reviewed: Yes Diagnostics - Vital Signs Vital Signs Temp Pulse Resp BP Pulse Ox 06/13/18 09:05 98.2 F 70 17 158/58 99 - Laboratory Result Diagrams: 06/13/18 09:48 06/13/18 09:48 Lab Statement: Any lab studies that have been ordered have been reviewed, and results considered in the medical decision making process. - CT ABD/PEL CT CT Interpretation Completed By: Radiologist - No evidence of obstructive uropathy is noted. Atherosclerotic aorta is noted. Diverticulosis without definite evidence of diverticulitis. No hernias are noted. ED PHYSICIAN REVIEWS AND AGREES. 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 Gallbladder polyps 0.6 cm or smaller have extremely low risk of malignancy and typically do not warrant follow up. On occasion polyps may actually represent small gallstones adherent to the gallbladder wall at surgery. ED Physician reviews and agrees. - EKG 1 EKG Interpretation: SR @ [address] elevations Re-Evaluation - Re-Evaluation 1 Re-Evaluation Time: 14:00 Change: Improved - Discuss d/c plans Abdominal Pain Fem Course/Dx - Course Course Of Treatment: This patient is a 73 year old F presenting to [facility] accompanied by her with a chief complaint of bloody diarrhea since yesterday. Patient reports RUQ abdominal pain that wraps to back and epigastrium for the past three weeks. Pain is rated 7/10 in severity, upon triage. Patient states she saw her PCP, Dr. Jones, on 05/22/18 and had an abdominal XR performed that revealed constipation. She states she was prescribed laxatives which helped. She states she took laxatives again yesterday because she was constipated again. Patient denies recent travel and diet changes. Patient denies rashes. Blood work without any significant abnormality except for creatinine 1.1, and glucose of 104. Right upper quadrant ultrasound impression: 0.4 cm profanely cholesterol polyp with cholesterolosis. Gallbladder polyp 0.6 centimeters or is more have extremely low risk for malignancy and TB did not want follow-up. On occasion this may actually represent small gallstones adherent to the gallbladder at surgery. Since the ultrasound didnt show any pathology I perform an abdominopelvic CT. The impression is no evidence of obstructive uropathy is noted. Atherosclerotic Holter is noted. Diverticulosis without diverticulitis. No hernias noted. At this point the patient reports that she is feeling better not worse. She also reports that problem started for a couple weeks ago when she was changed from omeprazole to Protonix. The patient has been taking omeprazole for 3 years and because she had vascular surgery the needed to change her to Protonix. Patient has seen Dr. Cohen from GI but unfortunately has not resolved her pain. Since all the test results returned within normal limits I decided to do d-dimer. He came back to be 246. Therefore is borderline. The patient is not tachycardic or hypoxic so I have low suspicion for a PE. At this point I discussed all the findings and test results with the patient and she reports that she rather follow-up with Dr. Cohen in the next couple days. Patient is hemodynamically stable alert oriented 3. - Diagnoses Differential Diagnosis: Positive: Appendicitis, Bowel Obstruction, Constipation , Diverticulitis, Gall Bladder Disease, Irritable Bowel Syndrome, Renal Colic, Urinary Tract Infection Provider Diagnoses: Right sided abdominal pain Discharge - Sign-Out/Discharge Documenting (check all that apply): Patient Departure - Discharge Plan Condition: Stable Disposition: HOME Patient Education Materials: Abdominal Pain (ED) Referrals: Dougie Cohen MD [Medical Doctor] - 4 Days (PLEASE F/U IN 3-5 DAYS) Additional Instructions: RETURN TO THE ED FOR WORSENING SYMPTOMS - Billing Disposition and Condition Condition: STABLE Disposition: Home - Attestation Statements Document Initiated by Scribe: Yes Documenting Scribe: Sheila Adams Provider For Whom Marti is Documenting (Include Credential): Pedro Stevens MD Scribe Attestation: I, Sheila Adams, scribed for Pedro Stevens MD on 06/13/18 at 1753. Scribe Documentation Reviewed: Yes Provider Attestation: The documentation as recorded by the scribe, Sheila Adams accurately reflects the service I personally performed and the decisions made by me, Pedro Stevens MD
--- OUTSIDE RECORDS SUMMARY | 2018-06-13 09:53 | XMS REPORT ---
:1945 External Reference #:[id number] Author Organization [facility] Address [address] [place] [address] [place] [address] Phone [phone] Care Team Providers Name Role Phone Rodney Jones III, MD Primary Care Physician Unavailable Payers Type Date Identification Numbers Payment Subscriber Provider Health Maintenance Effective: Policy Number: Medicare Blue Noelle Mayorga [employer] Organization (O) 09/03/2012 [id number] o Group Number: [id number] [address] [address] PayID: [id number] [place] [address] Advance Directives Type Date Description Status Comment [...] of bone Rodney Jones M.D. Active Onset: 03/20/2018 Stress fracture of ankle Edil Frye MD Active Onset: 12/07/2017 Peripheral vascular disease Rodney [...] alcohol Smoking Patient is a former smoker quit in 1988 Exercise Type/Frequency Exercises regularly Exercise Type/Frequency walks, [...] Form Strength Qnty SIG Indications Ordering Provider Ventolin HFA 05/17 Active Aerosol 108(90Bas 18uni Inhale Rodney Pak /2014 e) ts Two Puffs Karen, mcg/Act By Mouth M.D. Four Times A Day Aerochamber Plus 04/09 Active Misc 1unit Use as Trav /2014 s directed OSMAN Mak with puffer Nebulizer 08/31 Active Kit 1unit use as J45.909 Trav Compressor/Dualfi /2013 s needed OSMAN Mak lter/' for Tubing/Aerosol [...] 50mcg/Act 16uni Instill 1 Steve Propionate ts [place] [facility], Each M.D. 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 03/19 day 10 days Pravachol 02/01 Hx Tablets 20mg 30tab 1 tablet Rodney Pak s by mouth Karen, - once M.D. 05/21 daily at bedtime(s tart qod for a month and then increase to daily if no issues) Atorvastatin 12/07 Hx Tablets 10mg 90tab take [...] Tablets 50mg 60tab take 1-2 s tablets Tavares, - by mouth M.D. 08/13 every hours [...] Hx Tablets 20mg 7tabs one by J32.0 mouth Ruparelia, - once a M.D. 10/11 day in in the morning x7 days Pulmicort 08/02 Hx Suspension 0.5mg/2ML 30uni one J32.0 ts reespule Rup[place]lia, - per day M.D. 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 - day one 08/02 followed by 1 tab daily for the last 4 days Methylprednisolon 05/21 Hx Tablets 4mg 21tab take 6 465.8 Trav gold (Simon) s tabs on Mak, [employer]ERSON[employer]EL GENERALIST MANAGER - day 1, 5 08/02 tabs on day 2, 4 tabs on day 3, 3 tabs on day 4, 2 tabs on day 5, 1 tab on day 6 Cheratussin ac 05/21 Hx Syrup 100-10mg/ 180un 1 465.8 5ML its teaspoon Mak, PERSONNEL GENERALIST MANAGER - every 4-6 08/02 hours mouth as [...] 08/03 Hx Tablets 500mg 5tabs 1 every day x 5 Ordering - Provider 07/31 Nexium 08/[address] 40mg 1 by Trav mouth Mak, PERSONNEL GENERALIST MANAGER - every day 07/10 Prednisone 07/28 Hx Tablets 20mg 7tabs 1 by Rodney Pak mouth Karen, - every day M.D. 08/03 Diflucan 06/29 Hx Tablets 200mg 1tabs 1 by Rodney Pak mouth x Karen, - one dose M.D. 10/21 Zithromax 04/27 Hx Tablets 500mg 5tabs one po one per Steve, - day M.D. 04/30 Astepro 04/27 Hx Solution 0.15% 3unit one puff s both Steve, - sides M.DMonica 07/24 once per day Cyclobenzaprine 03/30 Hx Tablets 10mg 30tab one by Rodney Pak s mouth Karen, - three M.D. 04/30 times day as needed spasm Luxiq 02/19 Hx Foam 0.12% 50gm as needed Rodney Pak Karen, - M.D. 04/30 Pulmicort 02/02 Hx Suspension 0.5mg/2ML 30uni one 471.0 ts reespule Steve, - per day M.D. 01/04 to add soultion Diflucan 01/31 Hx Tablets 200mg 1tabs 1 dose Endo, M.D. - 02/19 Prednisone 01/12 Hx Tablets 20mg 10day not 471.0 s taking Rubilly, - one by M.DMonica 04/30 once a day in in the morning x10 days Oxycodone-Acetami 12/31 Hx Tablets 5-325mg 30tab take 1 po Steve s q 4 h prn Steve, - pain M.DMonica 02/19 Nitrostat 11/19 Hx Tablets Sub 0.4mg 25tab one sl 786.50 Rodney E. s q5min up Karen, - to 3 M.D. 04/30 doses needed Prednisone 11/10 Hx Tablets 20mg 10day one p.o. 473.0 Steve s once a Ruparelia, - day in M.D. 11/27 a.m. x10 days Diflucan 10/16 Hx Tablets 150mg 1tabs take 1 po Rodney E. x 1 dose Karen, - M.D. 11/27 [...] 12/16 Flonase 01/01 Hx Suspension 50mcg/Act 16uni [place] 1 . ts [place] Karen, - Each M.D. 12/16 Nostril Every Morning Prednisone 12/19 Hx Tablets 20mg 7tabs 1 po qd Rodney E. /2012 Rosemary Jones M.DMonica 02/10 Mucinex Chest 12/10 Hx Tablets 1-2 daily Rodney E. Congestion & Cold prn Rosemary Jones M.D. 11/27 Zithromax Z-Simon 12/10 Hx Tablets 250mg 1Pack as per 466.0 Rodney E. direction Karen - s M.D. 02/10 Benzonatate 12/10 Hx Capsules 100mg 30cap 1-2 tab 466.0 Rodney E. s po tid Karen, - prn M.D. 02/19 Premarin 03/05 Hx Cream 0.625mg/G 1unit once a 627.3 Lila M s week for Sarita, - 4-6 wks MKyle 06/03 Amoxicillin/Potas 07/20 Hx Tablets 500-125mg 20tab 1 po bid Rodney Pak sium Clavulanate Rosemary Rodriguez M.D. 09/29 Diflucan 05/04 Hx Tablets 200mg 1tabs i po x one dose Rosemary Jones M.D. 07/20 Keflex 03/27 Hx Capsules 500mg 14cap 1 tab q s 12 hrs Rosemary Mcguire 7 Iqra,[facility] 05/04 days. Claritin-D 12 03/17 Hx Tablets ER 5-120mg 60tab 1 po bid Vahid 12HR s Rosemary Mcguire M.D.,[facility] 05/04 Omeprazole 09/[address] 20mg 60cap take one Rodney EMonica s capsule Rosemary Jones by mouth Iqra 02/02 twice a day Nexium 07/[address] 20mg 90cap 1 po qd Rodney Pak Rosemary Rodriguez M.D. 09/13 Omeprazole 01/[address] 20mg 60cap 1 po qd Rodney EMonica s -bid Rosemary Jones M.D. 07/22 Xfaxan 12/09 Hx 20mg. 1 po tid Noel once a MD Dougie - month for 01/04 4 days Tessalon Estephanie 11/19 Hx Capsules 100mg 30cap 1-2 po Rodeny EMonica s tid prn Rosemary Jones M.D. 12/09 Zithromax Z-Simon 08/05 Hx Tablets 250mg 1Pack as per Rodney EMonica Rosemary Rouse M.D. 11/19 Fluticasone 04/27 Hx Suspension 50mcg/Act 1unit 1 spray Rodney Pak Rosemary Alaniz M.D. 02/19 in Zithromax Z-Simon 12/03 Hx Tablets 250mg 1Pack as per Rodney EMonica Rosemary Rouse M.D. 02/05 Ketoconazole 10/30 Hx Shampoo 2% 8oz use 2 x Rodney EMonica weekly Karen, - for 4 M.DMonica with at least 3 days between shampoos, then prn to maintain control Ketoconazole 10/28 Hx Shampoo 2% 4Oz 1 po qd Rodney E Rosemary Jones M.D. 10/30 Spiriva Hx Capsules 18mcg 1Mont 1 Rodney E. Handihaler / h inhalatio Karen, - n qam Iqra 02/09 Flovent Hx Aerosol 110mcg/Ac 3unit 2 po puff Rodney E. / t s qd Rosemary Jones M.D. 09/13 Flonase Hx Suspension 50mcg/Act 1Bott 1 Rodney E. / le intranasa Karen, - l puff to Mukesh.Mayra 04/27 nostril daily Accolate Hx Tablets 20mg 30tab 1 po qd Rodney E. / s Rosemary Jones M.D. 12/[address] 40mg 90tab 1 po qd Rodney E. / s Rosemary Hilliard M.D. 01/04 ly Albuterol HFA Hx Aerosol 90mcg/Act 1unit 2 po Vahid / s Puffs harpald Mayra Lancaster, - prn M.Mayra,FACP 09/01 Restasis Hx Emulsion 0.05% 3mon One gtts Other OU bid Physician - Practices 01/04 Xifaxan Hx Tablets 200mg 180ta take 2 Rodney E. bs tablets Karen, - by mouth M.DMonica 12/12 times a day Z Pack Hx Tablets 250mg as Unknown / directed. - 03/17 Ceftin Hx Tablets 500mg 14tab po bid Unknown / s - 05/04 Prednisone Hx Tablets 20mg 10tab 2 po qd Unknown / s - 05/04 Multivitamins 00/00 Hx Capsules QS 1 capsule Unknown /0000 crystal;y - 09/29 Mucinex D 00/00 Hx Tablets ER 20tab 1 po bid Unknown /0000 12HR s - 09/29 Ibuprofen 00/ Hx Capsules 200mg prn Unknown /0000 - 09/29 Finacea Hx Gel 15% 50gm apply Unknown /0000 twice - daily to 04/30 area Astepro Hx Solution 0.15% 90uni 1 Unknown /0000 ts intranasa - l every Amoxicillin / Hx Tablets 500mg 30tab 1 po tid Unknown /0000 s for 10 - days 03/19 Ciprofloxacin HCL Hx Tablets 500mg 20tab 1 po bid Unknown /0000 s - 12/10 Aspirin 00/ Hx Tablets DR 81mg 1 by Unknown /0000 mouth - every day 12/16 Nexium / Hx Capsules DR 40mg 30cap 2 by Unknown /0000 s mouth - every day 06/19 Claritin-D 12 Hx Tablets ER 5-120mg 1 by Unknown Hour /0000 12HR mouth - twice a Omeprazole Hx Capsules DR 40mg 30cap 2 by Unknown /0000 s mouth - every day 10/21 Dexilant 00/00 Hx 1 po Unknown /0000 daily - 01/04 Carafate Hx Tablets 1gm take one Unknown /0000 (1) - tablet(s) 01/04 by mouth every six (6) hours as needed Omeprazole Hx Capsules DR 40mg 2 by Unknown /0000 mouth - every day 12/07 Mucinex D 0000 Hx Tablets ER 120-1200m Unknown /0000 12HR g - 05/07 Vitamin B12 TR 00 Hx Tablets ER 1000mcg 1 by Unknown /0000 mouth - every day 11/05 Aspirin Adult Low [address] 81mg 1 by Unknown Dose /0000 mouth - every day 11/12 Clopidogrel 00 Hx Tablets 75mg once Unknown Bisulfate /0000 daily - 02/19 Pantoprazole 00/[address] 40mg once Jian Cohen /0000 daily MD Dougie - 03/15 Keflex Hx Capsules 500mg take 1 Unknown /0000 tab by - mouth 3 05/21 times a day Ibuprofen Hx Tablets 600mg three Unknown /0000 times a - day 05/21 Medications Administered in Office Medication Date Status Form Strength Qnty SIG Indications Ordering Provider Technetium TC Administered Injection Jose Luis Busch [id number] 014 Yuridia Gibson M.D., [facility], Per Unit Dose FASNC Up To 40 Millicuries Immunizations CPT Code Status Date Vaccine Reaction Lot # [id number] Given 05/22/2018 Tetanus And Diptheria (Td) For Pt. tolerated well. [id number] Adult Use Preservative Free 37690 Given 05/22/2018 Influenza Virus Vaccine, [id number] Quadrivalent, Split, Preservative Free 68207 Given 05/08/2017 Influenza Virus Vaccine, [id number] Quadrivalent, Split, Preservative Free 71454 Given 06/19/2016 Influenza Virus Vaccine, [id number] Quadrivalent, Split Virus, [place] Use [address] Given 06/16/2015 Influenza Virus Vaccine, [id number] Quadrivalent, Split, Preservative Free 19416 Given 05/03/2015 Pneumococcal Conjugate Vaccine [id number] Valent For Intramuscular Use 77633 Given 06/11/2014 Influenza Virus Vaccine, [id number] Quadrivalent, Split, Preservative Free 50883 Given 06/10/2013 Flu Vaccine Split Virus [id number] Preservative Free For Indiv 3Yr Older 50489 Given 08/23/2012 Zoster (Zostavax) [id number] Q2037 Given 08/06/2012 Fluvirin Im 3Yrs And Older [id number] 14753 Given 03/19/2012 Pneumonia Vaccine [id number] 47626 Given 06/10/2010 Influenza Virus 3Yrs & Over 27682 Given 07/19/2009 Influenza Virus Vaccine, Pandemic Formulation 27645 Given 07/19/2009 Administration Swine Flu Shot 50473 Given 02/06/2008 Tdap - [id number] Tetanus/Diptheria/Acellular Pertussis 52159 Given 09/03/1999 Pneumovax (History By Patient) [id number] 98670 Given 09/03/1997 Td (History By Patient) Vital Signs Date Vital Result Comment 05/22/2018 Height 66 inches 5'6" Weight 169.00 lb Heart Rate 76 /min BP Systolic Sitting 132 mmHg BP Diastolic Sitting 60 mmHg O2 % BldC Oximetry 97 % BMI (Body Mass Index) 27.3 kg/m2 05/13/2018 Height 66 inches 5'6" Weight 165.00 lb Heart Rate 71 /min Respiratory Rate 16 /min Body Temperature 98.6 F Pain Level 0 BMI (Body Mass Index) 26.6 kg/m2 04/01/2018 Height 67 inches 5'7" Weight 170.00 lb Heart Rate 72 /min Respiratory Rate 16 /min Body Temperature 98.1 F Pain Level 2 BMI (Body Mass Index) 26.6 kg/m2 03/20/2018 Height 67 inches 5'7" Weight 170.00 lb BP Systolic 122 mmHg BP Diastolic 64 mmHg Respiratory Rate 17 /min Pain Level 7 BMI (Body Mass Index) 26.6 kg/m2 03/15/2018 Height 67 inches 5'7" Weight 171.50 lb Heart Rate 81 /min BP Systolic 126 mmHg BP Diastolic 60 mmHg Body Temperature 98.2 F O2 % BldC Oximetry 98 % BMI (Body Mass Index) 26.9 kg/m2 02/20/2018 Height 67 inches 5'7" Weight 170.00 [...] /min BP Systolic Sitting 128 mmHg Own Fekjboa=225/82 BP Diastolic Sitting 78 mmHg Own Qwxdleo=219/82 BMI (Body Mass Index) 28.1 kg/m2 09/30/2007 Height 66.5 inches 5'6.50" Weight 186.00 lb Heart Rate 76 /min BP Systolic Sitting 164 mmHg BP Diastolic Sitting 82 mmHg BMI (Body Mass Index) 29.6 kg/m2 Results Test Date Test Result H/L Range Note Lipid Profile (Trig/Chol/HDL) 05/17/2018 Triglycerides 98 mg/dL 1 Cholesterol 200 mg/dL 2 HDL Cholesterol 64.5 mg/dL 3 LDL Cholesterol 116 mg/dL 4 Laboratory test finding 05/17/2018 Ast (Sgot) 16 U/L 13-39 Alt (SGPT) 10 U/L 7-52 Laboratory test finding 03/11/2018 C Reactive Protein 2.26 mg/L <8.01 Laboratory test finding 10/04/2017 Cytology Non-Groover Operator SEE RESULT BELOW 5 Laboratory test finding 08/28/2017 C Reactive Protein 2.52 mg/L < 5.00 6 Erythrocyte Sed Rate 10 mm/Hr 0-40 Rheumatoid Factor <15 IU/mL <15 7 Hla B27 08/28/2017 Hla B27 Negative 8 Hla B27 Interp See Comment 9 Celiac Hla 08/28/2017 Hla-Dqa1 SEE BELOW 10 Hla-DQB1 SEE BELOW 11 Celiac Gene Pairs Present? Yes Celiac Gene Interpretation See Comment 12 Laboratory test finding 08/28/2017 Complement C3 108 mg/dL 75 - 175 13 Complement C4 24 mg/dL 14 - 40 14 Complement Total CH50 60 U/mL 30 - 75 15 Immunoglobulin G (Igg) 1060 mg/dL 767 - 1590 16 Creatine Kinase(CK) 51 U/L 10-223 Thyroperoxidase AB 48.63 IU/mL High <9 Vitamin D, 1,25 Dihydroxy 65 pg/mL 18-78 17 Ssa/SSB Abs Igg 08/28/2017 SS-A/Ro Antibody <0.2 U 18 SS-B/La Antibody <0.2 U 19 Laboratory test 08/28/2017 Tumor Necrosis Factor 1.14 pg/mL 0.56-1.40 20 finding Scleroderma AB (SCL70) 08/28/2017 Scleroderma Ab <0.2 U 21 Laboratory test 08/28/2017 Nuclear AB (Keshia) By <1:80 22 finding Ifa Igg (Negative) Laboratory test 07/11/2017 TSH (Thyroid Stim 2.38 mcIU/mL 0.34-5.60 finding Horm) Free T4 (Free Thyroxine) 1.02 ng/dL 0.61-1.12 [...] Serum 05/08/2017 Vitamin B12 759 pg/mL 180-914 23 Folic Acid (Folate) > 20.00 ng/mL >3.99 Laboratory test finding 05/08/2017 Hepatitis C Antibody Nonreactive Nonreactive Lipid Profile 05/04/2017 Triglycerides 119 mg/dL 24 (Trig/Chol/HDL) Cholesterol 197 mg/dL 25 HDL Cholesterol 60.9 mg/dL 26 LDL Cholesterol 112 mg/dL 27 Laboratory test finding 05/04/2017 Glucose 102 mg/dL High 70-100 28 Lipid Profile (Trig/Chol/HDL) 04/26/2016 Triglycerides 127 mg/dL 29 Cholesterol 195 mg/dL 30 HDL Cholesterol 55.6 mg/dL 31 LDL Cholesterol 114 mg/dL 32 Laboratory test finding 04/26/2016 Glucose 83 mg/dL 70-100 Laboratory test finding 02/02/2016 Erythrocyte Sed Rate 16 mm/Hr 0-40 Urinalysis Profile 02/02/2016 Urine Color Yellow Urine Appearance Clear Urine Specific [place] 1.009 Low 1.010-1.030 Urine pH 6.0 5-9 Urine Urobilinogen Negative Negative Urine Ketones Negative Negative Urine Protein Negative Negative Urine Leukocytes Negative Negative Urine Blood Negative Negative Urine Nitrite Negative Negative Urine Bilirubin Negative Negative Urine Glucose Negative Negative CBC Auto Diff 02/02/2016 White Blood Count [...] Blood Cells % 0.1 Comp Metabolic Panel 02/02/2016 Sodium 136 mmol/L [...] Egfr Non- 72.8 >60 Egfr 93.6 >60 33 Lipid Profile (Trig/Chol/HDL) 04/27/2015 Triglycerides 140 mg/dL 34 Cholesterol 189 mg/dL 35 HDL Cholesterol 55.9 mg/dL 36 LDL Cholesterol 105 mg/dL 37 Basic Metabolic Panel 04/27/2015 Sodium 138 mmol/L 133-145 Potassium 4.4 mmol/L 3.5-5.0 Chloride 103 mmol/L 101-111 Co2 Carbon Dioxide 26 mmol/L 22-32 Anion Gap 9 mmol/L 2-11 Glucose 91 mg/dL 70-100 Blood Urea Nitrogen 13 mg/dL 6-24 Creatinine 0.87 mg/dL 0.51-0.95 BUN/Creatinine Ratio 14.9 8-20 Calcium 9.4 mg/dL 8.6-10.3 Egfr Non- 64.4 >60 Egfr 82.8 >60 38 Lipid Panel 02/24/2014 Triglycerides 146 mg/dL 39 Cholesterol 193 mg/dL 40 HDL Cholesterol 51.6 mg/dL 41 LDL Cholesterol 112 mg/dL 42 Laboratory test finding 02/24/2014 Glucose 99 mg/dL 70-100 Ua Routine 02/10/2013 Ua Specific [place] 1.005 Ua PH 7 Ua Color yellow Ua Appera clear Ua WBC trace Ua Protein neg Ua Glucose neg Ua Ketones neg Ua Bilirubin neg Ua Urobilinogen neg Ua Nitrite neg Ua Occult Blood neg Laboratory test finding 02/10/2013 Affirm Vaginal Dna (SEE NOTE) 43 Probe Urine Culture And 02/10/2013 Urine Culture (SEE NOTE) 44 Sensitivities Laboratory test finding 07/06/2012 Amylase 37 U/L 20-120 Lipase 29 U/L 22-51 C Reactive Protein 0.6 mg/dL High Less Than 0.5 Comp Metabolic Panel 07/06/2012 Sodium 137 mmol/L [...] 1.4 1-3 Total Bilirubin 0.8 mg/dL 0.1-1.0 45 Alkaline Phosphatase 85 U/L 30-110 Alt 17 U/L 14-54 Ast 22 U/L 12-42 Egfr Non- 83.5 >60 Egfr 107.3 >60 46 CBC Auto Diff 07/06/2012 White Blood Count [...] 0-2 Nucleated Red Blood Cells % 0.1 Urine Microscopic 07/06/2012 Urine WBC 1+ (<10 /hpf) None Seen Urine RBC None Seen None Seen Urine Epithelial Cells 1+ Squamous /hpf None Seen Bacteria Urine 1+ None Seen Urinalysis 07/06/2012 Urine Color Yellow Urine Appearance Clear Urine Specific [place] 1.008 Low 1.010-1.030 Urine Esterase Trace Negative Urine Nitrate Negative Negative Urine Urobilinogen Negative Negative Urine Protein Negative Negative Urine pH 7.5 5-9 Urine Blood Negative Negative Urine Ketones Negative Negative Urine Bilirubin Negative Negative Urine Glucose Negative Negative Urine Culture & Sensitivi 06/03/2012 Urine Culture (SEE NOTE) 47 Ua Routine 06/03/2012 Ua Specific [place] 1.005 Ua PH 6 Ua Color light yellow Ua Appera clear Ua WBC trace Ua Protein negative Ua Glucose negative Ua Ketones negative Ua Bilirubin negative Ua Urobilinogen negative Ua Nitrite negative Ua Occult Blood negative Laboratory test finding 06/02/2012 Amylase 37 U/L 20-120 48 Lipase 30 U/L 22-51 Liver Function Panel 06/02/2012 Total Protein 6.5 GM/DL 6.2-8.1 Albumin 4.3 GM/DL 3.2-5.2 Globulin 2.2 GM/DL 2-4 Albumin/Globulin Ratio 2.0 1-3 Bilirubin Total 0.9 mg/dL 0.4-1.5 49 Bilirubin Direct 0.1 mg/dL 0.1-0.5 Indirect Bilirubin 0.8 mg/dL 0.3-1.0 50 Alkaline Phosphatase 82 U/L 30-110 Alt (SGPT) [...] 25-Hydroxy Vitamin D Total 27 ng/mL () 51 Comp Metabolic Panel 02/12/2012 Sodium 135 mmol/L 135-145 Potassium 4.2 mmol/L 3.5-5.0 Chloride 105 mmol/L 101-111 Co2 (Carbon Dioxide) 26.0 mmol/L 22-32 Anion Gap 4.0 mmol/L 2-11 52 Glucose 99 mg/dL 70-100 BUN 12 mg/dL 6-24 Creatinine 0.7 mg/dL 0.50-1.40 One Over Creatinine 1.42 BUN/Creatinine Ratio 17.1 8-20 Calcium 9.2 mg/dL 8.1-9.9 Total Protein 6.1 GM/DL Low 6.2-8.1 Albumin 3.9 GM/DL 3.2-5.2 Globulin 2.2 GM/DL 2-4 Albumin/Globulin Ratio 1.8 1-3 Bilirubin Total 0.7 mg/dL 0.4-1.5 53 Alkaline Phosphatase 83 U/L 30-110 Alt (SGPT) 15 U/L 14-54 Ast (Sgot) 19 U/L 12-42 eGFR Non- 83.5 > 60 eGFR 107.3 > 60 54 Lipid Profile (Trig/Chol/HDL) 02/12/2012 Triglyceride 122 mg/dL 40-200 Cholesterol 186 mg/dL Less Than 200 55 High Density Lipoprotein 50 mg/dL 40-60 56 Cholesterol/HDL Ratio 3.72 AVERAGE 1-4.44 Low Density Lipoprotein 112 mg/dL High Less Than 100 57 Urinalysis W/Microscopic 09/29/2011 Ua Color YELLOW Yellow Appearance-Urine CLEAR Clear Specific [place]-Ur 1.013 1.010-1.030 Esterase-Urine TRACE Negative Nitrite NEGATIVE Negative Fqrxvyjgekzz-Oz-QXL NEGATIVE Negative Protein-Urine NEGATIVE Negative PH-Urine 6.0 5-9 Blood-Urine NEGATIVE Negative Ketones-Urine NEGATIVE Negative Bilirubin-Ur NEGATIVE Negative Glucose-Urine NEGATIVE Negative WBC-Urine RARE 0-5 RBC-Urine NONE SEEN 0-2 Epith Cells-Ur NONE SEEN None Comp Metabolic Panel 09/29/2011 Sodium 140 mmol/L 135-145 Potassium 4.4 mmol/L 3.5-5.0 Chloride 106 mmol/L 101-111 Co2 (Carbon Dioxide) 27.0 mmol/L 22-32 Anion Gap 7.0 mmol/L 2-11 58 Glucose 83 mg/dL 70-100 BUN 13 mg/dL 6-24 Creatinine 0.9 mg/dL 0.50-1.40 One Over Creatinine 1.11 BUN/Creatinine Ratio 14.4 8-20 Calcium 9.9 mg/dL 8.1-9.9 Total Protein 6.9 GM/DL 6.2-8.1 Albumin 4.4 GM/DL 3.2-5.2 Globulin 2.5 GM/DL 2-4 Albumin/Globulin Ratio 1.8 1-3 Bilirubin Total 0.9 mg/dL 0.4-1.5 59 Alkaline Phosphatase 85 U/L 30-110 Alt (SGPT) 13 U/L Low 14-54 Ast (Sgot) 22 U/L 12-42 eGFR Non- 62.6 > 60 eGFR 80.6 > 60 60 CBC Auto Diff 09/29/2011 White Blood Count [...] Eosinophils 0.4 0-0.6 Abs Basophils 0.1 0-0.2 Laboratory test finding 09/29/2011 Erythrocyte Sed Rate 1 MM/HR 0-40 Sensitivities For Urine Culture 2 03/24/2011 Amikacin <=2 Ciprofloxacin <=0.25 Ceftriaxone >=64 Cefazolin >=64 Nitrofurantoin 128 Gentamicin <=1 Imipenem <=1 Levofloxacin <=0.12 Trimeth-Sulfa <=20 Ceftazidime >=64 Tigecycline 1 Piperacillin/Tazobactam >=128 Piperacillin/Tazobactam KB 16 Culture Urine 03/24/2011 Urine Culture Sensitivi ESCHERICHIA COLI 61 Urine Culture Sensitivi ENTEROBACTER EDDY <SEE NOTE> 62 Ua W/Microscopic 03/24/2011 Ua Color YELLOW Yellow Appearance-Urine CLEAR Clear Specific [place]-Ur 1.006 Low 1.010-1.030 Esterase-Urine NEGATIVE Negative Nitrite NEGATIVE Negative [id number] NEGATIVE Negative Protein-Urine NEGATIVE Negative PH-Urine 5.5 5-9 Blood-Urine NEGATIVE Negative Ketones-Urine NEGATIVE Negative Bilirubin-Ur NEGATIVE Negative Glucose-Urine NEGATIVE Negative WBC-Urine 0-2 0-5 RBC-Urine 0-2 0-2 Epith Cells-Ur FEW None Urine Culture & 03/09/2011 Urine Culture ENTEROBACTERIACE <SEE 63 Sensitivi Sensitivi NOTE> Sensitivities For Gen 03/09/2011 Ampicillin 4 Culture Amikacin <=2 Ciprofloxacin <=0.25 Ceftriaxone <=1 Cefazolin <=4 Gentamicin <=1 Imipenem <=1 Levofloxacin <=0.12 Trimeth-Sulfa <=20 Ceftazidime <=1 Tigecycline <=0.5 Piperacillin/Tazobactam KB 27 Culture Genital 03/09/2011 Genital Culture ESCHERICHIA COLI 64 Genital Culture NORMAL JANETH 65 Manual Differential 08/06/2010 Polysegmented Neutrophil 64 % 38-83 Lymphocyte 24 % Low 25-47 Monocyte 10 % 0-13 Basophil 1 % 0-2 Atypical Lymph 1 % 0-6 Absolute Neutrophil Count 7.2 RBC Morphology NORMAL CBC With Electronic Diff 08/06/2010 White Blood Count 11.3 CUMM High 4.8- 10.8 Red Cell Count 4.73 CUMM 4.2-5.4 Hemoglobin 14.5 g/dL 12.0-16.0 Hematocrit 43 % 35-47 Mean Corpuscular Volume 90 um3 79-97 Mean Corpuscular Hemoglob 31 pg 27-31 Mean Corpuscular HGB Cone 34 g/dL 32-36 Redcell Distribution WDTH 14 % 10.5-15 Platelet Count 212 CUMM 150-450 Mean Platelet Volume 8.3 um3 7.4-10.4 66 Lipid Profile (Trig/Chol/HDL) 08/06/2010 Triglyceride 151 mg/dL 40-200 Cholesterol 217 mg/dL High Less Than 200 67 High Density Lipoprotein 48 mg/dL 40-60 68 Cholesterol/HDL Ratio 4.52 AVERAGE High 1-4.44 Low Density Lipoprotein 139 mg/dL High Less Than 100 69 Comp Metabolic Panel 08/06/2010 Sodium 137 mmol/L 135-145 Potassium 4.3 mmol/L 3.5-5.0 Chloride 106 mmol/L 101-111 Co2 (Carbon Dioxide) 23.0 mmol/L 22-32 Anion Gap 8.0 mmol/L 2-11 70 Glucose 102 mg/dL High 70-100 71 BUN 14 mg/dL 6-24 Creatinine 0.70 mg/dL 0.50-1.40 One Over Creatinine 1.40 BUN/Creatinine Ratio 20.0 8-20 Calcium 9.3 mg/dL 8.1-9.9 Total Protein 6.4 GM/DL 6.2-8.1 Albumin 4.2 GM/DL 3.2-5.2 Globulin 2.2 GM/DL 2-4 Albumin/Globulin Ratio 1.9 1-3 Bilirubin Total 0.8 mg/dL 0.4-1.5 72 Alkaline Phosphatase 86 U/L 30-110 Alt (SGPT) 18 U/L 14-54 Ast (Sgot) 21 U/L 12-42 eGFR Non- 89.3 > 60 eGFR 108.0 > [address] Jones's Lab Panel 08/06/2010 TSH 1.65 MIU/ML 0.34-5.60 Surgical Pathology 10/20/2008 Surgical Pathology 74 <SEE NOTE> Laboratory test 06/15/2008 Clotest N^NEGATIVE^EDDY finding Basic Metabolic Panel 06/08/2008 Sodium 140 mmol/L 135-145 Potassium 3.8 mmol/L 3.5-5.0 Chloride 109 mmol/L 101-111 Co2 (Carbon Dioxide) 24.0 mmol/L 22-32 Anion Gap 7.0 mmol/L 2-11 75 Glucose 91 mg/dL 70-100 76 BUN 14 mg/dL 6-24 Creatinine 0.9 mg/dL 0.5-1.4 One Over Creatinine 1.11 BUN/Creatinine Ratio 15.6 8-20 Calcium 9.6 mg/dL 8.1-9.9 77 CBC With Electronic Diff 11/30/2007 White Blood [...] 1.25 Anion Gap 0 mmol/L Low 2-11 78 Albumin/Globulin Ratio 1.3 1-3 Albumin 3.8 GM/DL [...] Ratio 18.8 8-20 Creatinine 0.8 mg/dL 0.5-1.4 Lipid Profile 11/30/2007 Cholesterol/HDL Ratio 4.26 AVERAGE 1-4.44 (Trig/Chol/HDL) Cholesterol 196 mg/dL Less Than 200 79 Triglyceride 100 mg/dL 40-200 High Density Lipoprotein 46 mg/dL 40-60 80 Low Density Lipoprotein 130 mg/dL High Less Than 100 81 Laboratory test finding 11/30/2007 TSH 1.53 MIU/ML 0.34-5.60 1 Desirable: <150 Borderline High: 150-199 High: 200-499 Very High: >500 2 Desirable: <200 Borderline High: 200-239 High: >239 3 Low: <40 Desirable: 40-60 High: >60 4 Desirable: <100 Near Optimal: 100-129 Borderline High: 130-159 High: 160-189 Very High: >189 5 SEE RESULT BELOW Name: NOELLE EL : [address]: Riaz Beckford MD Acct: [id number] Unit: [id number] AGE: 72 Location: THYROID Re10/04/17 SEX: F Status: REG REF SPEC: [id number] NIYA: 10/04/[address] [facility] [address]: Riaz Beckford MD REQ: [id number] RECD: 10/04/17 STATUS: JF LORENZO DR: Elías Cerda MD _ ORDERED: FNA-IMG GUID BX, CYTO ADEQ-1ST P FINAL DIAGNOSIS Thyroid, left, ultrasound-guided fine needle aspiration: --Benign thyroid nodule- colloid/hyperplastic type ([place] Class II). The specimen demonstrates moderate watery [...] performed at Main Lab DEPARTMENT OF PATHOLOGY, [address] [place] [address] Maximo Lainez M.D. Director [facility] # [id number] RUN DATE: 10/04/17 [facility] LAB LIVE PAGE 2 Patient: NOELLE EL [id number] (Continued) GROSS DESCRIPTION (Continued) GROSS DESCRIPTION 1 - alcohol fixed slide(s) 1- passes Signed (signature on file) Chante Canada MD 09/20 0952 END OF REPORT * ML=Testing performed at Main [facility] DEPARTMENT OF PATHOLOGY, [address] [place] [address] Maximo Lainez M.D. Director [facility] # [id number] 6 Acute inflammation: >10.00 7 Test Performed by: [place] [id number] REFERENCE VALUE Not Applicable 9 RESULT: HLA-B27 antigen was not detected. ADDITIONAL INFORMATION Method: Flow Cytometry Performing Laboratory CLIA# [id number] Test Performed by: [address] [address] 10 RESULT: 03,05:01 REFERENCE VALUE Not Applicable 11 RESULT: 02:01,03:01 DQ Serologic Equivalent: 2,7 REFERENCE VALUE Not Applicable 12 These genes are permissive for celiac disease. The absence of HLA celiac permissive genes would make the presence of celiac disease unlikely. However, these genes can also be present in the normal population. ADDITIONAL INFORMATION Method: Molecular typing of HLA antigens performed using reverse SSOP and/or SSP methods, reported as serological equivalents and low to medium resolution molecular values. Performing Laboratory CLIA# [id number] Test Performed by: [address] [address] 13 Test Performed by: [facility] - [address] [address] 14 Test Performed by: [facility] - [address] [address] 15 Test Performed by: [facility] - [address] [address] 16 Test Performed by: [facility] - [address] [address] 17 ADDITIONAL INFORMATION This test was developed and its performance characteristics determined by [facility] in a manner consistent with CLIA requirements. This test has not been cleared or approved by the U.S. Food and Drug Administration. Test Performed by: [facility] - [facility] [address] [place] [address] 18 REFERENCE VALUE <1.0 (Negative) 19 REFERENCE VALUE <1.0 (Negative) Test Performed by: [facility] - [address] [address] 20 TNF-alpha is not to be used as [...] of this test have been determined by [facility]. This test should not be used for diagnosis without confirmation by other medically established means. Test Performed by: [employer] [address] [facility] [place] [address] 21 REFERENCE VALUE <1.0 (Negative) Test Performed by: [address] [address] 22 <1:80 (Negative) REFERENCE VALUE <1:80 (Negative) Test Performed by: [address] [address] 23 Normal Range 180 to 914 Indeterminate Range 145 to 180 Deficient Range <145 24 Desirable <150 Borderline high 150-199 High 200-499 Very High >500 25 Desirable <200 Borderline high 200-239 High >239 26 Low <40 Desirable: 40-60 High: >60 27 Desirable: <100 mg/dL Near Optimal: 100-129 mg/dL Borderline High: 130-159 mg/dL High: 160-189 mg/dL Very High: >189 mg/dL 28 FASTING 10 HOUR 29 Desirable <150 Borderline high 150-199 High 200-499 Very High >500 30 Desirable <200 Borderline high 200-239 High >239 31 Low <40 Desirable: 40-60 High: >60 32 Desirable: <100 mg/dL Near Optimal: 100-129 mg/dL Borderline High: 130-159 mg/dL High: 160-189 mg/dL Very High: >189 mg/dL 33 Because ethnic data is not always readily [...] 15-29 5 Kidney failure <15 (or dialysis) 34 Desirable <150 Borderline high 150-199 High 200-499 Very High >500 35 Desirable <200 Borderline high 200-239 High >239 36 Low <40 Desirable: 40-60 High: >60 37 Desirable: <100 mg/dL Near Optimal: 100-129 mg/dL Borderline High: 130-159 mg/dL High: 160-189 mg/dL Very High: >189 mg/dL 38 Because ethnic data is not always readily [...] 15-29 5 Kidney failure <15 (or dialysis) 39 Desirable <150 Borderline high 150-199 High 200-499 Very High >500 40 Desirable <200 Borderline high 200-239 High >239 41 Low <40 Desirable: 40-60 High: >60 42 Desirable <100 Near Optimal 100-129 Borderline high 130-159 High 160-189 Very High >189 43 RUN DATE: 02/11/13 [facility] LAB LIVE PAGE 1 RUN TIME: 0[address] [place], [place] [address] Specimen Inquiry Name: NOELLE EL : [address]: Lila Stein MD Acct: [id number] Unit: [id number] AGE: 68 Location: [facility] Re02/10/13 SEX: F Status: REG REF SPEC: [id number] NIYA: 02/10/13-[address] [facility] [address]: Lila Stein MD REQ: [id number] RECD: 02/10/13 STATUS: COMP _ SOURCE: VAGINAL SPDESC: ORDERED: Affirm QUERIES: Medent Number [id number] Procedure Result Verified Site Affirm Vaginal DNA [...] performed at Main Lab DEPARTMENT OF PATHOLOGY, [facility] [address] [place], [place] [address] Maximo Lainez M.D. Director [facility] Permit #[id number] RUN DATE: 02/12/13 [facility] LAB LIVE PAGE 1 RUN TIME: 920 [facility] [employer] [place], [place] [address] Specimen Inquiry Name: NOELLE EL : [address]: Lila Stein MD Acct: [id number] Unit: [id number] AGE: 68 Location: [facility] Re02/10/13 SEX: F Status: REG REF SPEC: [id number] NIYA: 02/10/13-[address] [facility] [address]: Lila Stein MD REQ: [id number] RECD: 02/10/13 STATUS: COMP _ SOURCE: URINE SPDESC: ORDERED: Urine Culture QUERIES: Medent Number [id number] Procedure Result Verified Site Urine Culture Final 02/12/13- 920 ML Organism 1 NORMAL JANETH Ripley Count 25-50,000 (Moderate) CFU/ML END OF REPORT * ML=Testing performed at Main Lab DEPARTMENT OF PATHOLOGY, [address] [place] [address] Maximo Lainez M.D. Director [facility] Permit #[id number] 45 A metabolite of Naproxen, O-desmethylnaproxen, has been shown to interfere with the [place]avel[place] method for measuring total bilirubin. Samples from patients who have taken Naproxen have shown spurious elevation in total bilirubin levels. 46 Because ethnic data is not always readily [...] 15-29 5 Kidney failure <15 (or dialysis) 47 RUN DATE: 06/05/12 [facility] LAB LIVE PAGE 1 RUN TIME: [address] [place], [place] [address] Specimen Inquiry Name: NIKKONOELLE M : [address] Acct: [id number] Unit: [id number] AGE: 67 Location: [facility] Re06/03/12 SEX: F Status: REG REF SPEC: [id number] NIYA: 06/03/12-[address]: Rodney Jones III, MD REQ: [id number] RECD: 06/03/12 STATUS: COMP _ SOURCE: URINE SPDESC: ORDERED: Urine Culture QUERIES: Medent Number [id number] Procedure Result Verified Site Urine Culture Final 06/05/12- 1147 ML No Growth Day 2 (<1,000 CFU/mL) END OF REPORT * ML=Testing performed at Main Lab DEPARTMENT OF PATHOLOGY, [address] [place] [address] Maximo Lainez M.D. Director [facility] Permit #[id number] PLEASE NOTE NEW REFERENCE RANGE. 49 A metabolite of Naproxen, O-desmethylnaproxen, has been shown to interfere with the Jendrassik-Kimberly method for measuring total bilirubin. Samples from patients who have taken Naproxen have shown spurious elevation in total bilirubin levels. 50 Please note updated reference range, effective 03/24/10 51 -- REFERENCE VALUE -- 25-HYDROXY D TOTAL (D2+D3) Optimum levels in the normal population are 25-80 Test Performed by: [facility] [address] [address] Neck Band Setter: Oswaldo Farias III, M.D. 52 Anion gap measurement may be of limited value in the presence of any alkalosis, especially in a combined acid base disorder. . 53 A metabolite of Naproxen, O-desmethylnaproxen, has been shown to interfere with the Jendrassik-Kimberly method for measuring total bilirubin. Samples from patients who have taken Naproxen have shown spurious elevation in total bilirubin levels. 54 Because ethnic data is not always readily [...] 15-29 5 Kidney failure <15 (or dialysis) 55 CHOLESTEROL INTERPRETATION: Desirable: Less than 200 MG/DL Borderline-High Risk: 200-239 MG/DL High-Risk: 240 MG/DL and over 56 HDL INTERPRETATION: Undesirable: High Risk: Less than 40 MG/DL Desirable: Low Risk: Greater than 60 MG/DL 57 LDL INTERPRETATION: Low Risk Optimal Level: LDL Less than 100 MG/DL Near or Above Optimal: LDL 100-129 MG/DL Borderline High Risk: LDL 130-159 MG/DL High Risk: LDL 160-189 MG/DL Very High Risk: LDL Greater than 189 MG/DL 58 Anion gap measurement may be of limited value in the presence of any alkalosis, especially in a combined acid base disorder. . 59 A metabolite of Naproxen, O-desmethylnaproxen, has been shown to interfere with the Jendrassik-Kimberly method for measuring total bilirubin. Samples from patients who have taken Naproxen have shown spurious elevation in total bilirubin levels. 60 Because ethnic data is not always readily [...] 15-29 5 Kidney failure <15 (or dialysis) 61 CORRECTED RESULT! WRONG RESULT WAS E.COLI VERBAL TO ASAD PEREZ/ELFEGO BY LRU at 1150 on 03/27/11. 62 ENTEROBACTER CLOACAE 50^25-50,000 ORGANISMS/ML (MODERATE)^CCU 63 ENTEROBACTERIACEAE 10^1-10,000 ORGANISMS/ML (FEW)^CCU Small quantity of enterobacteriaciae typically suggestive of fecal contamination. Suggest resubmission. Isolates will be saved for one week. Please call the Microbiology Laboratory if further identification and/or susceptibility testing is needed. 64 F^FEW^QTY 65 F^FEW^QTY 66 Basophilia % 67 CHOLESTEROL INTERPRETATION: Desirable: Less than 200 MG/DL Borderline-High Risk: 200-239 MG/DL High-Risk: 240 MG/DL and over 68 HDL INTERPRETATION: Undesirable: High Risk: Less than 40 MG/DL Desirable: Low Risk: Greater than 60 MG/DL 69 LDL INTERPRETATION: Low Risk Optimal Level: LDL Less than 100 MG/DL Near or Above Optimal: LDL 100-129 MG/DL Borderline High Risk: LDL 130-159 MG/DL High Risk: LDL 160-189 MG/DL Very High Risk: LDL Greater than 189 MG/DL 70 Anion gap measurement may be of limited value in the presence of any alkalosis, especially in a combined acid base disorder. . 71 Note change in reference range as of 04/23/08. The change was based on recommendations from the [place] [employer]. 72 A metabolite of Naproxen, O-desmethylnaproxen, has been shown to interfere with the Jendrassik-Waveland method for measuring total bilirubin. Samples from patients who have taken Naproxen have shown spurious elevation in total bilirubin levels. 73 Because ethnic data is not always readily [...] 15-29 5 Kidney failure <15 (or dialysis) 74 ---- RUN DATE: 10/22/08 [facility] NMI LIVE PAGE 1 RUN TIME: 1215 Specimen Inquiry RUN USER: INTERFACE -- Name: NOELLE EL Status: REG REF Re10/20/08 Age/Sex: 63/F Unit#: [id number] Location: [address] [place] [address]. : [birth year] -- Specimen: [id number] Spec Date: 10/20/[address]: Dougie gould [...] 10/22/08 1215 -- -- DEPARTMENT OF PATHOLOGY, [address] [place] [address] [facility] Permit #[id number] Maximo Lainez M.D. Director Senia Gomez [employer] Custodian Dir roland -- 75 Anion gap measurement may be of limited value in the presence of any alkalosis, especially in a combined acid base disorder. . 76 Note change in reference range as of 04/23/08. The change was based on recommendations from the [place] [employer]. 77 Please note change in reference range effective 08 . 78 Anion gap measurement may be of limited value in the presence of any alkalosis, especially in a combined acid base disorder. . 79 CHOLESTEROL INTERPRETATION: Desirable: Less than 200 MG/DL Borderline-High Risk: 200-239 MG/DL High-Risk: 240 MG/DL and over 80 HDL INTERPRETATION: Undesirable: High Risk: Less than 40 MG/DL Desirable: Low Risk: Greater than 60 MG/DL 81 LDL INTERPRETATION: Low Risk Optimal Level: LDL Less than 100 MG/DL Near or Above Optimal: LDL 100-129 MG/DL Borderline High Risk: LDL 130-159 MG/DL High Risk: LDL 160-189 MG/DL Very High Risk: LDL Greater than 189 MG/DL Procedures Date CPT Code Description Status Comment 12/24/2017 Diabetic Foot Exam Completed 12/18/2017 Diabetic Foot Exam Completed 07/03/2017 Mammogram Completed 08/10/2016 63862 Closed trtmt prox humeral fx Completed 06/13/2016 Bone Mineral Density Test Completed 06/12/2016 Mammogram Completed 08/30/2015 27312 Nasal Endoscopy, Diagnostic Completed 08/02/2015 90849 Tympanometry Completed 06/09/2015 Mammogram Completed 08/11/2014 84491 Pulmonary Function><Bronchodil Completed 06/08/2014 Colonoscopy Completed 06/08/2014 Mammogram Completed 06/08/2014 Bone Mineral Density Test Completed 05/05/2014 99810 Nasal Endoscopy, Diagnostic Completed 04/06/2014 72189 Nasal Endoscopy, Diagnostic Completed 01/12/2014 03024 Nasal Endoscopy, Diagnostic Completed 12/31/2013 17093 Nasal Completed Endoscopy/Ethmoidectomy/Total 12/31/2013 60030 N/Endoscopy/Max Antrostomy Completed 11/28/2013 21809 Myocardial Perfusion Imaging Completed Tomographic (Spect) Multiple Studies 11/28/2013 94771 Stress Test Completed 11/22/2013 Colonoscopy Completed 11/19/2013 92312 EKG Tracing & Interpretation Completed 03/08/2012 Bone Mineral Density Test Completed 03/08/2012 Mammogram Completed 03/24/2011 Mammogram Completed 10/22/2008 Colonoscopy Completed 09/03/2001 Bone Mineral Density Test Completed normal ( has had DJD of back) Encounters Type Date Location Provider CPT E/M Dx Office Visit 04/01/2018 [place] [address] M84.371A 11:30a [facility] W22.8xxA Office Visit 03/20/2018 2:30p [place] [address] M84.371A [facility] Office Visit 03/15/2018 3:00p [facility] [place] [address] L03.115 [facility] Office Visit 02/20/2018 2:00p [facility] Internal Rodney Jones, 217[address] R51 [facility] Oli Escalona R41.82 Office Visit 12/17/2017 10:20a [facility] Of Elías Thomas, 59905 I73.9 Elfego Escalona M16.9 Office Visit 12/07/2017 10:00a [facility] Internal Medicine Rodney Jones, 03126 I73.9 - Oli Escalona Office Visit 11/26/2017 1:45p [facility] Of [facility] Wilson, [address] J31.0 AT Hima Escalona J32.0 Office Visit 09/18/2017 1:40p [facility] Of Elías Thomas, 22975 M54.5 Elfego Escalona E06.1 I70.212 M16.9 Office Visit 08/28/2017 10:00a [facility] Services Elías Thomas, 12153 H91.90 Of [facility] Mukesh.Mayra M54.5 M25.559 H93.13 R20.8 M79.1 M54.2 Office Visit 05/08/2017 10:40a [facility] Internal Medicine Rodney Jones, 11567 Z00.00 - Oli Escalona J45.909 K21.9 E78.00 M85.9 M54.5 Z11.59 R91.8 Z23 Office Visit 12/12/2016 11:00a [place] [address] S42.212D Of [facility] Office Visit 08/22/2016 2:20p [facility] Internal Medicine Rodney Jones, [address]28 S42.212D - Oli Escalona R91.8 Office Visit 02/18/2016 9:40a [facility] Internal Medicine Rodney Jones, 48508 M54.2 - Inocencia Escalona M54.89 M54.5 Office Visit 02/01/2016 4:20p [facility] Internal Medicine Rodney Jones, 83831 J06.9 - Inocencia Escalona Office Visit 10/11/2015 2:45p ENT Services Of C.M.AMonica Wilson, 88001 J31.0 AT [facility] J32.0 Office Visit 08/30/2015 2:00p [facility] Services Of Steve Wilson, 40933 J31.0 C.M.A. AT [facility] H93.12 J32.0 J06.9 J45.909 H91.22 Office Visit 08/02/2015 2:15p [facility] Of Steve Wilson, [address]31 J31.0 C.M.A. AT [facility] H93.12 J32.0 Office Visit 05/21/2015 11:30a [facility] [place] [address] 465.8 [place] 491.21 Office Visit 01/04/2015 2:00p [facility] Of Steve Wilson, 64554 473.0 C.M.A. AT Howard M.D. 477.9 471.0 Office Visit 10/21/2014 11:00a [facility] Internal Medicine Rodney Jones, 92026 786.2 - [place] M.D. Office Visit 08/31/2014 2:00p [facility] Internal Medicine Trav Mak, OSMAN 78031 493.90 - [place] Office Visit 08/24/2014 3:00p [facility] Services Of Steve Wilson, 07808 493.92 C.M.A. AT [facility] 477.9 Office Visit 08/11/2014 10:40a [facility] Internal Medicine Karlee Cabrera, N.P. 79269 493.92 - [place] 381.81 Office Visit 08/03/2014 1:30p [facility] Internal Medicine Trav Mak, OSMAN 12928 493.92 - [place] Office Visit 07/06/2014 2:45p [facility] Of Steve Wilson, 06934 478.0 C.M.A. AT [facility] 477.9 Office Visit 05/25/2014 3:15p ENT Services Of Steve Hearnelia, 98215 478.0 C.M.A. AT [facility] 477.9 473.0 Office Visit 05/11/2014 3:15p [facility] Of Steve Hearnelia, 20615 477.9 C.M.A. AT [facility] 473.0 471.0 Office Visit 04/06/2014 1:15p [facility] Of Steve Wilson, 77716 473.0 C.M.A. AT [facility] 471.0 473.2 478.0 Office Visit 02/19/2014 9:40a [facility] Internal Medicine Rodney Jones, 18693 719.45 - [place] M.D. Office Visit 02/02/2014 2:00p [facility] Services Of Steve Hearnelia, 10453 473.0 C.M.A. AT [facility] 471.0 Office Visit 01/05/2014 2:00p [facility] Of Steve Wilson, 83845 473.0 C.M.A. AT [facility] 473.2 Office Visit 12/22/2013 2:15p [facility] Of Steve Wilson, 00839 473.0 C.M[facility]A. AT [facility] 473.2 Office Visit 12/16/2013 9:20a [facility] Internal Medicine Rodney Jones, 40930 786.50 - [place] M.D. Office Visit 11/19/2013 11:00a [facility] Internal Medicine Rodney Jones, 55698 V72.84 - [place] Mukesh.Mayra 786.50 Office Visit 11/10/2013 2:45p [facility] Of Steve Wilson, 32314 473.0 [facility] 473.2 Office Visit 02/10/2013 12:10p [facility] Internal Medicine Lila Stein M.D. 96542 788.1 - [place] 627.3 789.09 Office Visit 12/10/2012 1:20p [facility] Internal Medicine Rodney Jones, 23545 466.0 - [place] MKyle Office Visit 06/03/2012 1:00p [facility] Internal Medicine Rodney Jones, 48517 789.01 - [place] M.DMonica Office Visit 03/19/2012 9:40a [facility] Internal Ronaldo Jones, 75409 733.90 - Inocencia Escalona 493.90 V03.82 Office Visit 03/18/2012 9:45a [facility] Of Steve Wilson, 16460 473.0 C.M.A. AT [facility] 472.0 473.2 Office Visit 03/11/2012 11:30a [facility] Of Steve Wilson, 14737 473.0 [facility] 472.0 Office Visit 03/05/2012 9:00a [facility] Internal Medicine Lila Stein 93180 V72.31 - [place] Mukesh.Mayra 493.90 473.0 781.91 627.3 611.9 v70.0 Office Visit 09/29/2011 11:20a [facility] Internal Medicine Rdoney Jones, 38080 789.04 - [place] Iqra Office Visit 07/20/2011 3:40p DO Not Use [employer] AT [facility], 61362 473.0 [facility] M.D. Office Visit 05/04/2011 2:20p DO Not Use [employer] AT [facility], 26085 493.90 [facility].D. 790.21 272.0 616.10 Office Visit 03/17/2011 4:15p DO Not Use [employer] AT [facility] N.[facility]. 20872 599.0 [facility] V76.10 388.30 Office Visit 01/04/2011 9:40a DO Not Use [employer] AT [facility], 97356 382.9 [facility] M.D. Office Visit 09/13/2010 1:00p DO Not Use [employer] AT [facility], 86694 472.0 [facility] M.D. 493.90 530.81 796.2 272.0 790.21 Office Visit 12/09/2009 9:20a DO Not Use [employer] AT [facility], 89546 472.0 [facility].D. 530.81 493.90 Office Visit 08/25/2009 1:45p DO Not Use [employer] AT [facility], 20477 388.70 [facility] M.D. Office Visit 06/28/2009 10:45a DO Not Use [employer] AT [facility], 15076 465.9 [facility].D. Office Visit 11/19/2008 2:15p [facility] AT [facility], 10109 465.9 [facility].D. Office Visit 08/05/2008 3:00p [facility] AT [facility], 08687 465.9 [facility] M.D. Office Visit 04/27/2008 10:30a [facility] AT [facility], 68747 789.00 [facility].D. 796.2 530.81 Office Visit 02/06/2008 11:15a [facility] AT [facility], 87009 923.21 [facility].D. Office Visit 01/30/2008 3:00p [facility] AT [facility], 22728 380.22 [place] M.D. 465.9 Office Visit 12/04/2007 3:00p [facility] AT Rodney Mellisa Jones, 39123 461.9 [facility] M.D. Office Visit 10/28/2007 3:15p [facility] AT Rodney Mellisa Jones, 97344 796.2 [facility] M.D. Office Visit 09/30/2007 3:00p [facility] AT [facility] Mellisa Karen, 44402 493.90 [facility].D. 796.2 530.81 Plan of Care Future Appointment(s):05/23/2019 9:20 am - Rodney Jones M.D. at [facility] Internal Medicine - Gjluojpja14/12/2018 1:30 pm - Edil Frye MD at [facility] Of M.A.06/18/2018 9:40 am - Elías Thomas M.D. at [facility] Of [facility]05/22/2018 - Rodney Jones M.D.Z00.00 Encntr for general adult medical exam w/o abnormal findingsComments:Tetanus and flu shots today; discussed the new shingles vaccine. (+) dental, eye exams. Colon examcurrent.Immunizations/Injections:Influenza Virus Vaccine, Quadrivalent, Split, Preservative FreeZ23 Encounter for immunizationImmunizations/Injections: Influenza Virus Vaccine, Quadrivalent, Split, Preservative FreeE78.00 Pure hypercholesterolemia, unspecifiedComments:Diet Rx only at present; pt has an Rx for Pravastatin, but never strted it. Hold Rx for now with her new abd pain sx , but statin Rx advised at some point with her known peripheral arterial osinebkP23.9 Peripheral vascular disease, unspecifiedComments:No claudication sx ; repeat HERVE test and vasc surgery recheck pending. Off Clopidogrel now, but on low dose ASA. (+) new c/o epigastric/upper abd pain sx, but no N/V, melena, or rectal bleeding. Further GI testing advsied for her pain sxR10.13 Epigastric painNew Labs:CBC Auto DiffC Reactive ProteinErythrocyte Sed RateNew Xrays:Abdomen/KUB 1 VWComments:New epigastric/upper abd pain sx ove the past few months with rather marked upper abd tenderness on exam. Pt on high dose Omeprazole all along and sx still present. Colon exam ok in 2013. Additional labs and stool occult blood test advised. Continue Omeprazole, prn antacids. ER eval advised if acutely increased pains opdsjW79.9 Gastro-esophageal reflux disease without esophagitisNew Labs:MagnesiumVitamin B12 And Folate SerumComments:No heartburn sx with Rx, but (+) new abd pain sx as above. Check labs, fecal occult blood test. Discussed GI re-eval. EGD done in 2013 with (+ ) visible Lawson;s changes, but biopsy report not in chart. No repeat EGDs planned at this timeZ12.31 Encntr screen mammogram for malignant neoplasm of breastNew Xrays:MG Screening BrlzwwbnnT76.9 Disorder of bone density and structure, unspecifiedNew Xrays:Dexa Bone Dens Axial Skeleton (Hips, Pelvis, Spine)
[2018-06-13 10:05] LABS: ABS Basophils 0.1 10^3/ul (0-0.2); ABS Eosinophils 0.3 10^3/ul (0-0.6); ABS Lymphocytes 2.2 10^3/ul (1.0-4.8); ABS Monocytes 0.8 10^3/ul (0-0.8); ABS Neutrophils 6.2 10^3/ul (1.5-7.7); ABS Nucleated RBC 0 10^3/ul; Eosinophil % 2.9 % (0-6); Hematocrit 39 % (35-47); Hemoglobin 12.8 g/dl (12.0-16.0); Lymphocyte % 22.6 % (25-47); Mean Corpuscular HGB Conc 33 g/dl (31-36); Mean Corpuscular Hemoglobin 29 pg (27-31); Mean Corpuscular Volume 89 fL (80-97); Mean Platelet Volume 8.4 um3 (7.4-10.4); Nucleated Red Blood Cells % 0; Platelet Count 209 10^3/ul (150-450); Red Blood Count 4.36 10^6/ul (4.00-5.40); Red Cell Distribution Width 14 % (10.5-15); White Blood Count 9.6 10^3/ul (3.5-10.8)
[2018-06-13 10:24] LABS: EGFR Non-African American 48.7 (>60)
--- NOTE | 2018-06-13 11:37 | RAD ---
Indication: RIGHT upper quadrant pain. Comparison: October 31, 2017 CT. Technique: RIGHT upper quadrant ultrasound. Report: Appropriate direction flow documented in the portal and hepatic veins. 15.8 cm liver is normal in in echogenicity. Negative for focal hepatic lesions. Negative for intrahepatic biliary dilatation. 4.0 mm common bile duct. Adequately distended gallbladder with normal 1.5 mm wall is remarkable for a nonmobile 0.4 cm echogenic nodule along the anterior wall near the neck with ring down artifact. No definitive gallstones evident. Negative for pericholecystic fluid. Negative for sonographic Gayle's sign. Conspicuity of the pancreas is limited due to body habitus and bowel gas without gross abnormality. Negative for ascites. 11.0 cm RIGHT kidney is unremarkable. IMPRESSION: #. 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 Gallbladder polyps 0.6 cm or smaller have extremely low risk of malignancy and typically do not warrant follow up. On occasion polyps may actually represent small gallstones adherent to the gallbladder wall at surgery.
--- NOTE | 2018-06-13 12:41 | RAD ---
Indication: Abdominal pain. CT of the abdomen and pelvis was performed without oral or IV contrast administration. Coronal and sagittal reconstructed images were obtained. The lung bases demonstrate no pleural fluid, nodules or masses. Heart is of normal size without evidence of pericardial effusion. The liver is normal in size. There are no focal lesions or intrahepatic duct dilatation noted. The pancreas demonstrates no mass or pancreatic duct dilatation. The common duct is not dilated. No adrenal masses are noted. The spleen is normal in size. The kidneys demonstrate no hydronephrosis in either kidney. Atherosclerotic aorta is noted. CT of the pelvis demonstrates normal appendix. No dilated loops of bowel are noted. The colon is filled with stool. There is diverticulosis without definite evidence of diverticulitis. The urinary bladder is unremarkable. No hernias are noted. Patient status post hysterectomy. No free fluid is noted in the pelvis. IMPRESSION: No evidence of obstructive uropathy is noted. Atherosclerotic aorta is noted. Diverticulosis without definite evidence of diverticulitis. No hernias are noted.
[2018-06-13 14:11] VITALS: BP 164/87
== END 2018-06-13 14:13 | disposition home or self-care (01) ==
LOC: ED 08:54
DX: R10.11 Right upper quadrant pain (principal)
CPT/HCPCS: 36415; 74176; 76705; 80053; 82150; 82272; 82550; 83605; 83690; 83735; 83880; 84484; 85025; 85379; 86140; 93005; 99282

== ENCOUNTER 2018-06-19 07:50 | Emergency (ER) | payer MEDICARE ==
--- OUTSIDE RECORDS SUMMARY | 2018-06-19 08:03 | XMS REPORT ---
:1945 External Reference #:[id number] Author Organization [facility] Address [address] [place] [place] [address] Phone [phone] Care Team Providers Name Role Phone Rodney Jones III, MD Primary Care Physician Unavailable Payers Type Date Identification Numbers Payment Subscriber Provider Health Maintenance Effective: Policy Number: Medicare Blue Noelle Mayorga [employer] Organization (O) 09/03/2012 [id number] o Group Number: [id number] [address] [address] PayID: [id number] [place] [address] Advance Directives Type Date Description Status Comment [...] Form Strength Qnty SIG Indications Ordering Provider Aspercreme 06/18 Active Cream 4% 6unit apply M79.643 Elías W/Lidocaine /2017 s twice William, daily to M.DMonica the painful joints as needed Ventolin HFA 05/17 Active Aerosol 108(90Bas 18uni [...] 50mcg/Act 16uni Instill 1 Steve Propionate ts Nash In [facility], Each M.D. Nostril [...] Inhale Rodney E. Handihaler /2007 s The Karen Contents Mukesh.DMonica Of One Capsule By Mouth Every Morning Probiotic Active Capsules 1 po qd Unknown /0000 Multivitamins 0000 Active Tablets 90tab 1 po qd Unknown /0000 s Vitamin D3 Super Active Tablets 2000Unit 1 by Unknown Strength /0000 mouth every day Omeprazole Active Capsules DR 40mg 1 by Unknown /0000 mouth twice daily Clindamycin HCL 03/15 Hx Capsules 300mg 40cap one L03.115 Chuck s capsule OSMAN Hemphill - by mouth 03/25 every hours for 10 days Cefuroxime Axetil 02/20 Hx Tablets 250mg 20tab 1 by R51 Rodney Pak s mouth Karen, - twice a M.D. 03/19 day 10 days Pravachol 02/01 Hx Tablets 20mg 30tab 1 tablet Rodney Gold s by mouth Karen, - once M.D. 05/21 daily at bedtime(s tart qod for a month and then increase to daily if no issues) Atorvastatin 12/07 Hx Tablets 10mg 90tab take 1 I73.9 Rodney Gold s tablet at Karen, - bedtime M.D. [...] Tablets 50mg 60tab take 1-2 s tablets Alpha, - by mouth M.D. 08/13 every hours if needed for pain . Duloxetine HCL 02/[address] 30mg 30cap take 1 M54.89 Rodney Gold Part s capsule Karen, - by mouth M.D. 08/13 morning for 1 week, then 2 tabs daily Tessalon Perles 02/03 Hx Capsules 100mg 20cap 1-2 by Rodney Pak s mouth Karen, - three M.D. 05/07 times a day as needed Prednisone 02/03 Hx Tablets [...] Hx Suspension 0.5mg/2ML 30uni one J32.0 Steve ts reespule Ruparelia, - per day M.D. 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 07/24 once per day [...] taking Ruparbertha, - one by M.DMonica 04/30 once a [...] Hx Tablets 150mg 1tabs take 1 po E. x 1 dose Karen, - M.D. [...] 12/16 Flonase 01/01 Hx Suspension 50mcg/Act 16uni Nash 1 . ts Nash In Karen, - Each M.D. 12/16 Nostril Every Morning Prednisone 12/19 Hx Tablets 20mg 7tabs 1 po qd Rodney E. Karen - M.D. 02/10 Mucinex Chest 12/10 Hx Tablets 1-2 [...] 627.3 Lila /2011 M s week for Stein, - 4-6 wks MKyle 06/03 Amoxicillin/Potas 07/20 Hx Tablets 500-125mg 20tab 1 po bid Rodney E. sium Clavulanate s Rosemary Jones M.D. 09/29 Diflucan 05/04 Hx Tablets 200mg 1tabs i po x . one dose Rosemary Jones M.D. 07/20 Keflex 03/27 Hx Capsules 500mg 14cap 1 tab q Vahid s 12 hrs DRosemary Cristina for 7 MKyle,[facility] Claritin-D 03/17 Hx Tablets ER 5-120mg 60tab 1 po bid Vahid 12HR s Rosemary Mcguire M.D.,[facility] 05/04 Omeprazole 09/[address] 20mg 60cap take one . s capsule Rosemary Jones by mouth Iqra 02/02 twice a day Nexium 07/[address] 20mg 90cap 1 po qd Rodney E. Rosemary Rodriguez M.D. 09/13 Omeprazole 01/[address] 20mg 60cap 1 po qd Rodney E. s -bid Rosemary Jones M.D. 07/22 Xfaxan 12/09 Hx 20mg. 1 po tid Noel, once a MD Dougie - month for 01/04 4 days Tessalon Estephanie 11/19 Hx Capsules 100mg 30cap 1-2 po Rodney E. s tid prn Rosemary Jones M.D. 12/09 Zithromax Z-Simon 08/05 Hx Tablets 250mg 1Pack as per Rodney EMonica direction Rosemary Jones M.D. 11/19 Fluticasone 04/27 Hx Suspension 50mcg/Act 1unit 1 spray Rodney EMonica s Rosemary Melvin nostril Iqra 02/19 in Zithromax Z-Simon 12/03 Hx Tablets 250mg 1Pack as per Rodney Pak direction Rosemary Jones M.D. 02/05 Ketoconazole 10/30 Hx Shampoo 2% 8oz use 2 x Rodney Pak weekly Karen, - for 4 M.DMonica with at least 3 days between shampoos, then prn to maintain control Ketoconazole 10/28 Hx Shampoo 2% 4Oz 1 po qd Rodney Gold Rosemary Jones M.D. 10/30 Spiriva Hx Capsules 18mcg 1Mont 1 Rodney Pak Handihaler / h inhalatio Karen, Rosemary n qam Iqra 02/09 Flovent Hx Aerosol 110mcg/Ac 3unit 2 po puff Rodney E. / t s Rosemary Hudson M.D. 09/13 Flonase Hx Suspension 50mcg/Act 1Bott 1 Rodney E. le intranasa Rosemary Jones l puff to Mukesh.Mayra 04/27 nostril daily Accolate Hx Tablets 20mg 30tab 1 po qd Rodney E. / s Rosemary Jones M.D. 12/[address] 40mg 90tab 1 po qd Rodney E. / s Rosemary Hilliard M.D. 01/04 ly Albuterol HFA Hx Aerosol 90mcg/Act 1unit 2 po Vahid / s Puffs oleksandr Lancaster, - prn M.Mayra,FACP 09/01 Restasis Hx Emulsion 0.05% 3mon One gtts Other /0000 OU bid Physician - Practices 01/04 Xifaxan Hx Tablets 200mg 180ta take 2 Rodney E. / bs tablets Karen, Rosemary by mouth M.DMonica 12/12 times a day Z Pack Hx Tablets 250mg as Unknown /0000 directed. - 03/17 Ceftin Hx Tablets 500mg 14tab po bid Unknown / s - 05/04 Prednisone 00/00 Hx Tablets 20mg 10tab 2 po qd Unknown /0000 s - 05/04 Multivitamins 00/00 Hx Capsules [...] for 10 - days 03/19 Ciprofloxacin HCL / Hx Tablets 500mg 20tab 1 po bid [...] po Unknown /0000 daily - 01/04 Carafate 00 Hx Tablets 1gm take one Unknown /0000 [...] - every day 11/05 Aspirin Adult Low 00/ Hx Tablets DR 81mg 1 by Unknown Dose /0000 mouth - every day 11/12 Clopidogrel 00/00 Hx Tablets 75mg once Unknown Bisulfate /0000 daily - 02/19 Pantoprazole 00/[address] 40mg once [place], Sodium /0000 daily MD Dougie - 03/15 Aspir-[address] 81mg 1 by Unknown /0000 mouth - every day 06/18 Keflex Hx Capsules 500mg take 1 Unknown /0000 tab by - mouth 3 05/21 times day Ibuprofen Hx Tablets 600mg three Unknown /0000 times a - day 05/21 Medications Administered in Office Medication Date Status Form Strength Qnty SIG Indications Ordering Provider Technetium TC Administered Injection Jose uLis Busch 99M 014 Yuridia Gibson M.D., [facility], Per Unit Dose FASNC Up To 40 Millicuries Immunizations CPT Code Status Date Vaccine Reaction Lot # [id number] Given 05/22/2018 Tetanus And Diptheria (Td) For Pt. tolerated well. [id number] Adult Use Preservative Free 37557 Given 05/22/2018 Influenza Virus Vaccine, [id number] Quadrivalent, Split, Preservative Free 18384 Given 05/08/2017 Influenza Virus Vaccine, [id number] Quadrivalent, Split, Preservative Free 86248 Given 06/19/2016 Influenza Virus Vaccine, [id number] Quadrivalent, [place] Virus[place] [address] Given 06/16/2015 Influenza Virus Vaccine, [id number] Quadrivalent, Split, Preservative Free 19067 Given 05/03/2015 Pneumococcal Conjugate Vaccine [id number] Valent For Intramuscular Use 92448 Given 06/11/2014 Influenza Virus Vaccine, [id number] Quadrivalent, Split, Preservative Free 49356 Given 06/10/2013 Flu Vaccine Split Virus [id number] Preservative Free For Indiv 3Yr Older 04753 Given 08/23/2012 Zoster (Zostavax) [id number] Q2037 Given 08/06/2012 Fluvirin Im 3Yrs And Older [id number] 68923 Given 03/19/2012 Pneumonia Vaccine [id number] 67697 Given 06/10/2010 Influenza Virus 3Yrs & Over 00336 Given 07/19/2009 Influenza Virus Vaccine, Pandemic Formulation 09253 Given 07/19/2009 Administration Swine Flu Shot 21101 Given 02/06/2008 Tdap - [id number] Tetanus/Diptheria/Acellular Pertussis 87289 Given 09/03/1999 Pneumovax (History By Patient) [id number] 00724 Given 09/03/1997 Td (History By Patient) Vital Signs Date Vital Result Comment 06/18/2018 Height 66 inches 5'6" Weight 168.00 lb Heart Rate 82 /min BP Systolic Sitting 136 mmHg BP Diastolic Sitting 68 mmHg Body Temperature 98.5 F Pain Level 7 O2 % BldC Oximetry 97 % BMI (Body Mass Index) 27.1 kg/m2 05/22/2018 Height 66 inches 5'6" Weight 169.00 [...] /min BP Systolic Sitting 128 mmHg Own Rmzqbte=410/82 BP Diastolic Sitting 78 mmHg Own Svaizeq=311/82 BMI (Body Mass Index) 28.1 kg/m2 09/30/2007 Height 66.5 inches 5'6.50" Weight 186.00 lb Heart Rate 76 /min BP Systolic Sitting 164 mmHg BP Diastolic Sitting 82 mmHg BMI (Body Mass Index) 29.6 kg/m2 Results Test Date Test Result H/L Range Note Laboratory test 06/13/2018 D Dimer Quantitative 246 ng/mL High Less Than 230 1 finding CBC Auto Diff 06/13/2018 White Blood Count 9.6 10^3/uL 3.5-10.8 Red Blood Count 4.36 10^6/uL 4.00-5.40 Hemoglobin 12.8 g/dL 12.0-16.0 Hematocrit 39 % 35-47 Mean Corpuscular Volume 89 fL 80-97 Mean Corpuscular Hemoglobin 29 pg 27-31 Mean Corpuscular HGB Conc 33 g/dL 31-36 Red Cell Distribution Width 14 % 10.5-15 Platelet Count 209 10^3/uL 150-450 Mean Platelet Volume 8.4 um3 7.4-10.4 Abs Neutrophils 6.2 10^3/uL 1.5-7.7 Abs Lymphocytes 2.2 10^3/uL 1.0-4.8 Abs Monocytes 0.8 10^3/uL 0-0.8 Abs Eosinophils 0.3 10^3/uL 0-0.6 Abs Basophils 0.1 10^3/uL 0-0.2 Abs Nucleated RBC 0 10^3/uL Granulocyte % 64.8 % 38-83 Lymphocyte % 22.6 % Low 25-47 Monocyte % 8.4 % High 0-7 Eosinophil % 2.9 % 0-6 Basophil % 1.3 % 0-2 Nucleated Red Blood Cells % 0 Laboratory test finding 06/13/2018 B-Type Natriuretic Peptide BNP 33 pg/mL 2 Lactic Acid 0.9 mmol/L 0.5-2.0 3 Comp Metabolic Panel 06/13/2018 Sodium 138 mmol/L 135-145 Potassium 4.2 mmol/L 3.5-5.0 Chloride 108 mmol/L 101-111 Co2 Carbon Dioxide 24 mmol/L 22-32 Anion Gap 6 mmol/L 2-11 Calcium 9.5 mg/dL 8.6-10.3 Albumin 3.9 g/dL 3.2-5.2 Total Bilirubin 0.50 mg/dL 0.2-1.0 Glucose 104 mg/dL High 70-100 Blood Urea Nitrogen 13 mg/dL 6-24 Creatinine 1.10 mg/dL High 0.51-0.95 BUN/Creatinine Ratio 11.8 8-20 Total Protein 6.3 g/dL Low 6.4-8.9 Globulin 2.4 g/dL 2-4 Albumin/Globulin Ratio 1.6 1-3 Alkaline Phosphatase 80 U/L 34-104 Alt 9 U/L 7-52 Ast 16 U/L 13-39 Egfr Non- 48.7 >60 Egfr 58.9 >60 4 Laboratory test finding 06/13/2018 Magnesium 2.1 mg/dL 1.9-2.7 Amylase 24 U/L Low 29-103 Lipase 19 U/L 11.0-82.0 Creatine Kinase(CK) 43 U/L 10-223 C Reactive Protein 3.79 mg/L <8.01 Troponin-I (TnI) 0.00 ng/mL <0.04 Laboratory test finding 05/30/2018 Erythrocyte Sed Rate 15 mm/Hr 0-40 Occult Blood,Stool (3 Spec) 05/29/2018 Occult Blood - Stool Negative Laboratory test finding 05/24/2018 C Reactive Protein 5.94 mg/L <8.01 Magnesium 2.3 mg/dL 1.9-2.7 Vitamin B12 And Folate Serum 05/24/2018 Vitamin B12 550 pg/mL 180-914 5 Folic Acid (Folate) > 20.00 ng/mL >3.99 Lipid Profile (Trig/Chol/HDL) 05/17/2018 Triglycerides 98 mg/dL 6 Cholesterol 200 mg/dL 7 HDL Cholesterol 64.5 mg/dL 8 LDL Cholesterol 116 mg/dL 9 Laboratory test finding 05/17/2018 Ast (Sgot) 16 U/L 13-39 Alt (SGPT) 10 U/L 7-52 Laboratory test finding 03/11/2018 C Reactive Protein 2.26 mg/L <8.01 Laboratory test finding 10/04/2017 Cytology Non-Verification Manager SEE RESULT BELOW 10 Laboratory test finding 08/28/2017 C Reactive Protein 2.52 mg/L < 5.00 11 Erythrocyte Sed Rate 10 mm/Hr 0-40 Rheumatoid Factor <15 IU/mL <15 12 Hla B27 08/28/2017 Hla B27 Negative 13 Hla B27 Interp See Comment 14 Celiac Hla 08/28/2017 Hla-Dqa1 SEE BELOW 15 Hla-DQB1 SEE BELOW 16 Celiac Gene Pairs Present? Yes Celiac Gene Interpretation See Comment 17 Laboratory test finding 08/28/2017 Complement C3 108 mg/dL 75 - 175 18 Complement C4 24 mg/dL 14 - 40 19 Complement Total CH50 60 U/mL 30 - 75 20 Immunoglobulin G (Igg) 1060 mg/dL 767 - 1590 21 Creatine Kinase(CK) 51 U/L 10-223 Thyroperoxidase AB 48.63 IU/mL High <9 Vitamin D, 1,25 Dihydroxy 65 pg/mL 18-78 22 Ssa/SSB Abs Igg 08/28/2017 SS-A/Ro Antibody <0.2 U 23 SS-B/La Antibody <0.2 U 24 Laboratory test 08/28/2017 Tumor Necrosis Factor 1.14 pg/mL 0.56-1.40 25 finding Scleroderma AB (SCL70) 08/28/2017 Scleroderma Ab <0.2 U 26 Laboratory test 08/28/2017 Nuclear AB (Keshia) By <1:80 27 finding Ifa Igg (Negative) Laboratory test 07/11/2017 [...] Serum 05/08/2017 Vitamin B12 759 pg/mL 180-914 28 Folic Acid (Folate) > 20.00 ng/mL >3.99 Laboratory test 05/08/2017 Hepatitis C Antibody Nonreactive Nonreactive finding Laboratory test 05/04/2017 Glucose 102 mg/dL High 70-100 29 finding Lipid Profile 05/04/2017 Triglycerides 119 mg/dL 30 (Trig/Chol/HDL) Cholesterol 197 mg/dL 31 HDL Cholesterol 60.9 mg/dL 32 LDL Cholesterol 112 mg/dL 33 Lipid Profile (Trig/Chol/HDL) 04/26/2016 Triglycerides 127 mg/dL 34 Cholesterol 195 mg/dL 35 HDL Cholesterol 55.6 mg/dL 36 LDL Cholesterol 114 mg/dL 37 Laboratory test finding 04/26/2016 Glucose 83 mg/dL [...] Egfr Non- 72.8 >60 Egfr 93.6 >60 38 CBC Auto Diff 02/02/2016 White Blood Count [...] Color Yellow Urine Appearance Clear Urine Specific [place] 1.009 Low 1.010-1.030 Urine pH 6.0 5-9 Urine Urobilinogen Negative Negative Urine Ketones Negative Negative Urine Protein Negative Negative Urine Leukocytes Negative Negative Urine Blood Negative Negative Urine Nitrite Negative Negative Urine Bilirubin Negative Negative Urine Glucose Negative Negative Lipid Profile (Trig/Chol/HDL) 04/27/2015 Triglycerides 140 mg/dL 39 Cholesterol 189 mg/dL 40 HDL Cholesterol 55.9 mg/dL 41 LDL Cholesterol 105 mg/dL 42 Basic Metabolic Panel 04/27/2015 Sodium 138 mmol/L 133-145 Potassium 4.4 mmol/L 3.5-5.0 Chloride 103 mmol/L 101-111 Co2 Carbon Dioxide 26 mmol/L 22-32 Anion Gap 9 mmol/L 2-11 Glucose 91 mg/dL 70-100 Blood Urea Nitrogen 13 mg/dL 6-24 Creatinine 0.87 mg/dL 0.51-0.95 BUN/Creatinine Ratio 14.9 8-20 Calcium 9.4 mg/dL 8.6-10.3 Egfr Non- 64.4 >60 Egfr 82.8 >60 43 Lipid Panel 02/24/2014 Triglycerides 146 mg/dL 44 Cholesterol 193 mg/dL 45 HDL Cholesterol 51.6 mg/dL 46 LDL Cholesterol 112 mg/dL 47 Laboratory test finding 02/24/2014 Glucose 99 mg/dL 70-100 Ua Routine 02/10/2013 Ua Specific [place] 1.005 Ua PH 7 Ua Color yellow Ua Appera clear Ua WBC trace Ua Protein neg Ua Glucose neg Ua Ketones neg Ua Bilirubin neg Ua Urobilinogen neg Ua Nitrite neg Ua Occult Blood neg Laboratory test finding 02/10/2013 Affirm Vaginal Dna (SEE NOTE) 48 Probe Urine Culture And 02/10/2013 Urine Culture (SEE NOTE) 49 Sensitivities Laboratory test finding 07/06/2012 Amylase 37 [...] 1.4 1-3 Total Bilirubin 0.8 mg/dL 0.1-1.0 50 Alkaline Phosphatase 85 U/L 30-110 Alt 17 U/L 14-54 Ast 22 U/L 12-42 Egfr Non- 83.5 >60 Egfr 107.3 >60 51 CBC Auto Diff 07/06/2012 White Blood Count [...] Color Yellow Urine Appearance Clear Urine Specific [place] 1.008 Low 1.010-1.030 Urine Esterase Trace Negative Urine Nitrate Negative Negative Urine Urobilinogen Negative Negative Urine Protein Negative Negative Urine pH 7.5 5-9 Urine Blood Negative Negative Urine Ketones Negative Negative Urine Bilirubin Negative Negative Urine Glucose Negative Negative Urine Culture & Sensitivi 06/03/2012 Urine Culture (SEE NOTE) 52 Ua Routine 06/03/2012 Ua Specific [place] 1.005 Ua PH 6 Ua Color light yellow Ua Appera clear Ua WBC trace Ua Protein negative Ua Glucose negative Ua Ketones negative Ua Bilirubin negative Ua Urobilinogen negative Ua Nitrite negative Ua Occult Blood negative Laboratory test finding 06/02/2012 Amylase 37 U/L 20-120 53 Lipase 30 U/L 22-51 Liver Function Panel 06/02/2012 Total Protein 6.5 GM/DL 6.2-8.1 Albumin 4.3 GM/DL 3.2-5.2 Globulin 2.2 GM/DL 2-4 Albumin/Globulin Ratio 2.0 1-3 Bilirubin Total 0.9 mg/dL 0.4-1.5 54 Bilirubin Direct 0.1 mg/dL 0.1-0.5 Indirect Bilirubin 0.8 mg/dL 0.3-1.0 55 Alkaline Phosphatase 82 U/L 30-110 Alt (SGPT) [...] 25-Hydroxy Vitamin D Total 27 ng/mL () 56 Comp Metabolic Panel 02/12/2012 Sodium 135 mmol/L 135-145 Potassium 4.2 mmol/L 3.5-5.0 Chloride 105 mmol/L 101-111 Co2 (Carbon Dioxide) 26.0 mmol/L 22-32 Anion Gap 4.0 mmol/L 2-11 57 Glucose 99 mg/dL 70-100 BUN 12 mg/dL 6-24 Creatinine 0.7 mg/dL 0.50-1.40 One Over Creatinine 1.42 BUN/Creatinine Ratio 17.1 8-20 Calcium 9.2 mg/dL 8.1-9.9 Total Protein 6.1 GM/DL Low 6.2-8.1 Albumin 3.9 GM/DL 3.2-5.2 Globulin 2.2 GM/DL 2-4 Albumin/Globulin Ratio 1.8 1-3 Bilirubin Total 0.7 mg/dL 0.4-1.5 58 Alkaline Phosphatase 83 U/L 30-110 Alt (SGPT) 15 U/L 14-54 Ast (Sgot) 19 U/L 12-42 eGFR Non- 83.5 > 60 eGFR 107.3 > 60 59 Lipid Profile (Trig/Chol/HDL) 02/12/2012 Triglyceride 122 mg/dL 40-200 Cholesterol 186 mg/dL Less Than 200 60 High Density Lipoprotein 50 mg/dL 40-60 61 Cholesterol/HDL Ratio 3.72 AVERAGE 1-4.44 Low Density Lipoprotein 112 mg/dL High Less Than 100 62 Urinalysis W/Microscopic 09/29/2011 Ua Color YELLOW Yellow Appearance-Urine CLEAR Clear Specific [place]-Ur 1.013 1.010-1.030 Esterase-Urine TRACE Negative Nitrite NEGATIVE Negative Onwsthaxzzhb-Hk-BCS NEGATIVE Negative Protein-Urine NEGATIVE Negative PH-Urine 6.0 5-9 Blood-Urine NEGATIVE Negative Ketones-Urine NEGATIVE Negative Bilirubin-Ur NEGATIVE Negative Glucose-Urine NEGATIVE Negative WBC-Urine RARE 0-5 RBC-Urine NONE SEEN 0-2 Epith Cells-Ur NONE SEEN None Comp Metabolic Panel 09/29/2011 Sodium 140 mmol/L 135-145 Potassium 4.4 mmol/L 3.5-5.0 Chloride 106 mmol/L 101-111 Co2 (Carbon Dioxide) 27.0 mmol/L 22-32 Anion Gap 7.0 mmol/L 2-11 63 Glucose 83 mg/dL 70-100 BUN 13 mg/dL 6-24 Creatinine 0.9 mg/dL 0.50-1.40 One Over Creatinine 1.11 BUN/Creatinine Ratio 14.4 8-20 Calcium 9.9 mg/dL 8.1-9.9 Total Protein 6.9 GM/DL 6.2-8.1 Albumin 4.4 GM/DL 3.2-5.2 Globulin 2.5 GM/DL 2-4 Albumin/Globulin Ratio 1.8 1-3 Bilirubin Total 0.9 mg/dL 0.4-1.5 64 Alkaline Phosphatase 85 U/L 30-110 Alt (SGPT) 13 U/L Low 14-54 Ast (Sgot) 22 U/L 12-42 eGFR Non- 62.6 > 60 eGFR 80.6 > 60 65 CBC Auto Diff 09/29/2011 White Blood Count [...] Color YELLOW Yellow Appearance-Urine CLEAR Clear Specific [place]-Ur 1.006 Low 1.010-1.030 Esterase-Urine NEGATIVE Negative Nitrite NEGATIVE Negative Tkcjdnrxduso-We-UNJ NEGATIVE Negative Protein-Urine NEGATIVE Negative PH-Urine 5.5 5-9 Blood-Urine NEGATIVE Negative Ketones-Urine NEGATIVE Negative Bilirubin-Ur NEGATIVE Negative Glucose-Urine NEGATIVE Negative WBC-Urine 0-2 0-5 RBC-Urine 0-2 0-2 Epith Cells-Ur FEW None Culture Urine 03/24/2011 Urine Culture Sensitivi ESCHERICHIA COLI 66 Urine Culture Sensitivi ENTEROBACTER EDDY <SEE NOTE> 67 Culture Genital 03/09/2011 Genital Culture ESCHERICHIA COLI 68 Genital Culture NORMAL JANETH 69 Sensitivities For Gen Culture 03/09/2011 Ampicillin 4 Amikacin <=2 Ciprofloxacin <=0.25 Ceftriaxone <=1 Cefazolin <=4 Gentamicin <=1 Imipenem <=1 Levofloxacin <=0.12 Trimeth-Sulfa <=20 Ceftazidime <=1 Tigecycline <=0.5 Piperacillin/Tazobactam KB 27 Urine Culture & 03/09/2011 Urine Culture ENTEROBACTERIACE <SEE 70 Sensitivi Sensitivi NOTE> [facility] 08/06/2010 TSH 1.65 MIU/ML 0.34-5.6 Panel 0 Comp Metabolic 08/06/2010 Sodium 137 mmol/L 135-145 Panel Potassium 4.3 mmol/L 3.5-5.0 Chloride 106 mmol/L 101-111 Co2 (Carbon Dioxide) 23.0 mmol/L 22-32 Anion Gap 8.0 mmol/L 2-11 71 Glucose 102 mg/dL High 70-100 72 BUN 14 mg/dL 6-24 Creatinine 0.70 mg/dL 0.50-1.40 One Over Creatinine 1.40 BUN/Creatinine Ratio 20.0 8-20 Calcium 9.3 mg/dL 8.1-9.9 Total Protein 6.4 GM/DL 6.2-8.1 Albumin 4.2 GM/DL 3.2-5.2 Globulin 2.2 GM/DL 2-4 Albumin/Globulin Ratio 1.9 1-3 Bilirubin Total 0.8 mg/dL 0.4-1.5 73 Alkaline Phosphatase 86 U/L 30-110 Alt (SGPT) 18 U/L 14-54 Ast (Sgot) 21 U/L 12-42 eGFR Non- 89.3 > 60 eGFR 108.0 > 60 74 Lipid Profile (Trig/Chol/HDL) 08/06/2010 Triglyceride 151 mg/dL 40-200 Cholesterol 217 mg/dL High Less Than 200 75 High Density Lipoprotein 48 mg/dL 40-60 76 Cholesterol/HDL Ratio 4.52 AVERAGE High 1-4.44 Low Density Lipoprotein 139 mg/dL High Less Than 100 77 CBC With Electronic Diff 08/06/2010 White Blood Count 11.3 CUMM High 4.8- 10.8 Red Cell Count 4.73 CUMM 4.2-5.4 Hemoglobin 14.5 g/dL 12.0-16.0 Hematocrit 43 % 35-47 Mean Corpuscular Volume 90 um3 79-97 Mean Corpuscular Hemoglob 31 pg 27-31 Mean Corpuscular HGB Cone 34 g/dL 32-36 Redcell Distribution WDTH 14 % 10.5-15 Platelet Count 212 CUMM 150-450 Mean Platelet Volume 8.3 um3 7.4-10.4 78 Manual Differential 08/06/2010 Polysegmented Neutrophil 64 % 38-83 Lymphocyte 24 % Low 25-47 Monocyte 10 % 0-13 Basophil 1 % 0-2 Atypical Lymph 1 % 0-6 Absolute Neutrophil Count 7.2 RBC Morphology NORMAL Surgical Pathology 10/20/2008 Surgical Pathology <SEE 79 NOTE> Laboratory test 06/15/2008 Clotest N^NEGATIVE^EDDY finding Basic Metabolic 06/08/2008 Sodium 140 mmol/L 135-145 Panel Potassium 3.8 mmol/L 3.5-5.0 Chloride 109 mmol/L 101-111 Co2 (Carbon Dioxide) 24.0 mmol/L 22-32 Anion Gap 7.0 mmol/L 2-11 80 Glucose 91 mg/dL 70-100 81 BUN 14 mg/dL 6-24 Creatinine 0.9 mg/dL 0.5-1.4 One Over Creatinine 1.11 BUN/Creatinine Ratio 15.6 8-20 Calcium 9.6 mg/dL 8.1-9.9 82 Laboratory test finding 11/30/2007 TSH 1.53 MIU/ML 0.34-5.60 Lipid Profile 11/30/2007 Cholesterol/HDL Ratio 4.26 AVERAGE 1-4.44 (Trig/Chol/HDL) Cholesterol 196 mg/dL Less Than 200 83 Triglyceride 100 mg/dL 40-200 High Density Lipoprotein 46 mg/dL 40-60 84 Low Density Lipoprotein 130 mg/dL High Less Than 100 85 Comp Metabolic Panel 11/30/2007 One Over Creatinine 1.25 Anion Gap 0 mmol/L Low 2-11 86 Albumin/Globulin Ratio 1.3 1-3 Albumin 3.8 GM/DL [...] Ratio 18.8 8-20 Creatinine 0.8 mg/dL 0.5-1.4 CBC With Electronic Diff 11/30/2007 White Blood [...] 4.2-5.4 Redcell Distribution WDTH 13 % 10.5-15 1 Please note: The following may produce a false positive D Dimer test: - Rheumatoid factor greater than 60 IU/ml - Plasma hemoglobin greater than 0.05 gm/dl - Bilirubin greater than 50 mg/dl - Lipids greater than 1000 mg/dl - FDP greater than 20 ug/ml 2 >100 to <200 pg/mL: likely compensated congestive heart failure (CHF) 200 to 400 pg/mL: likely moderate CHF >400 pg/mL: likely moderate to severe CHF 3 [place] Severe Sepsis and Septic Shock Management Bundle Measure requires all lactic acids initially measuring >2.0 mmol/L be repeated. 4 Because ethnic data is not always readily [...] 15-29 5 Kidney failure <15 (or dialysis) 5 Normal Range 180 to 914 Indeterminate Range 145 to 180 Deficient Range <145 6 Desirable: <150 Borderline High: 150-199 High: 200-499 Very High: >500 7 Desirable: <200 Borderline High: 200-239 High: >239 8 Low: <40 Desirable: 40-60 High: >60 9 Desirable: <100 Near Optimal: 100-129 Borderline High: 130-159 High: 160-189 Very High: >189 10 SEE RESULT BELOW Name: NOELLE EL : [address]: Riaz Beckford MD Acct: [id number] Unit: [id number] AGE: 72 Location: THYROID Re10/04/17 SEX: F Status: REG REF SPEC: [id number] NIYA: 10/04/[address] [facility] [address]: Riaz Beckford MD REQ: [id number] RECD: 10/04/17 STATUS: JF LORENZO DR: Elías Cerda MD _ ORDERED: FNA-IMG GUID BX, CYTO ADEQ-1ST P FINAL DIAGNOSIS Thyroid, left, ultrasound-guided fine needle aspiration: --Benign thyroid nodule- colloid/hyperplastic type (Gibson Class II). The specimen demonstrates moderate watery [...] performed at Main Lab DEPARTMENT OF PATHOLOGY, [address] [place] [address] Maximo Lainez M.D. Director [facility] # [id number] RUN DATE: 10/04/17 [facility] LAB LIVE PAGE 2 Patient: NOELLE EL [id number] (Continued) GROSS DESCRIPTION (Continued) GROSS DESCRIPTION 1 - alcohol fixed slide(s) 1- passes Signed (signature on file) Chante Canada MD 09/20 0952 END OF REPORT * ML=Testing performed at Main Lab DEPARTMENT OF PATHOLOGY, [address] [place] [address] Maximo Lainez M.D. Director [facility] # [id number] 11 Acute inflammation: >10.00 12 Test Performed by: [facility] [address] [id number] REFERENCE VALUE Not Applicable 14 RESULT: HLA-B27 antigen was not detected. ADDITIONAL INFORMATION Method: Flow Cytometry Performing Laboratory CLIA# [id number] Test Performed by: [address] [id number] RESULT: 03,05:01 REFERENCE VALUE Not Applicable 16 RESULT: 02:01,03:01 DQ Serologic Equivalent: 2,7 REFERENCE VALUE Not Applicable 17 These genes are permissive for celiac disease. The absence of HLA celiac permissive genes would make the presence of celiac disease unlikely. However, these genes can also be present in the normal population. ADDITIONAL INFORMATION Method: Molecular typing of HLA antigens performed using reverse SSOP and/or SSP methods, reported as serological equivalents and low to medium resolution molecular values. Performing Laboratory CLIA# [id number] Test Performed by: [place] [address] 18 Test Performed by: [place] [address] 19 Test Performed by: [place] [address] 20 Test Performed by: [place] [address] 21 Test Performed by: [address] [address] 22 ADDITIONAL INFORMATION This test was developed and its performance characteristics determined by [facility] in a manner consistent with CLIA requirements. This test has not been cleared or approved by the U.S. Food and Drug Administration. Test Performed by: [facility] [address] [place] [address] 23 REFERENCE VALUE <1.0 (Negative) 24 REFERENCE VALUE <1.0 (Negative) Test Performed by: [address] [address] 25 TNF-alpha is not to be used as [...] of this test have been determined by [facility]. This test should not be used for diagnosis without confirmation by other medically established means. Test Performed by: [facility] [id number] [place] [address], [place] [address] 26 REFERENCE VALUE <1.0 (Negative) Test Performed by: [address] [address] 27 <1:80 (Negative) REFERENCE VALUE <1:80 (Negative) Test Performed by: [address] [address] 28 Normal Range 180 to 914 Indeterminate Range 145 to 180 Deficient Range <145 29 FASTING 10 HOUR 30 Desirable <150 Borderline high 150-199 High 200-499 Very High >500 31 Desirable <200 Borderline high 200-239 High >239 32 Low <40 Desirable: 40-60 High: >60 33 Desirable: <100 mg/dL Near Optimal: 100-129 mg/dL Borderline High: 130-159 mg/dL High: 160-189 mg/dL Very High: >189 mg/dL 34 Desirable <150 Borderline high 150-199 High [...] Low <40 Desirable: 40-60 High: >60 42 Desirable: <100 mg/dL Near Optimal: 100-129 mg/dL Borderline High: 130-159 mg/dL High: 160-189 mg/dL Very High: >189 mg/dL 43 Because ethnic data is not always readily [...] 15-29 5 Kidney failure <15 (or dialysis) 44 Desirable <150 Borderline high 150-199 High 200-499 Very High >500 45 Desirable <200 Borderline high 200-239 High >239 46 Low <40 Desirable: 40-60 High: >60 47 Desirable <100 Near Optimal 100-129 Borderline high 130-159 High 160-189 Very High >189 48 RUN DATE: 02/11/13 [facility] LAB LIVE PAGE 1 RUN TIME: [address] [place], [place] [address] Specimen Inquiry Name: NOELLE EL : [address]: Lila Stein MD Acct: [id number] Unit: [id number] AGE: 68 Location: [facility] Re02/10/13 SEX: F Status: REG REF SPEC: [id number] NIYA: 02/10/13-[address] [facility] [address]: Lila Stein MD REQ: [id number] RECD: 02/10/13 STATUS: COMP _ SOURCE: VAGINAL SPDESC: ORDERED: Affirm QUERIES: Medent Number [id number] Procedure Result Verified Site Affirm Vaginal DNA [...] performed at Main Lab DEPARTMENT OF PATHOLOGY, [facility] [employer] [place], [place] [address] Maximo Lainez M.D. Director [facility] Permit #[id number] RUN DATE: 02/12/13 [facility] LAB LIVE PAGE 1 RUN TIME: 920 [facility] [employer] [place], [place] [address] Specimen Inquiry Name: NOELLE EL : [address]: Lila Stein MD Acct: [id number] Unit: [id number] AGE: 68 Location: [facility] Re02/10/13 SEX: F Status: REG REF SPEC: [id number] NIYA: 02/10/13-[address] [facility] [address]: Lila Stein MD REQ: [id number] RECD: 02/10/13 STATUS: COMP _ SOURCE: URINE SPDESC: ORDERED: Urine Culture QUERIES: Medent Number [id number] Procedure Result Verified Site Urine Culture Final 02/12/13- 920 ML Organism 1 NORMAL JANETH [place] Count 25-50,000 (Moderate) CFU/ML END OF REPORT * ML=Testing performed at Main Lab DEPARTMENT OF PATHOLOGY, [facility] [employer] [place], [place] [address] Maximo Lainez M.D. Director [facility] Permit #[id number] 50 A metabolite of Naproxen, O-desmethylnaproxen, has been shown to interfere with the [place]-Northridge method for measuring total bilirubin. Samples from patients who have taken Naproxen have shown spurious elevation in total bilirubin levels. 51 Because ethnic data is not always readily [...] 15-29 5 Kidney failure <15 (or dialysis) 52 RUN DATE: 06/05/12 [facility] LAB LIVE PAGE 1 RUN TIME: [address] [employer] [place], [place] [address] Specimen Inquiry Name: NOELLE EL : [address]: Rodney Jones III, MD Acct: [id number] Unit: [id number] AGE: 67 Location: [facility] Re06/03/12 SEX: F Status: REG REF SPEC: [id number] NIYA: 06/03/[address]: Rodney Jones III, MD REQ: [id number] RECD: 06/03/12 STATUS: COMP _ SOURCE: URINE SPDESC: ORDERED: Urine Culture QUERIES: Medent Number [id number] Procedure Result Verified Site Urine Culture Final 06/05/12- 1147 ML No Growth Day 2 (<1,000 CFU/mL) END OF REPORT * ML=Testing performed at Main Lab DEPARTMENT OF PATHOLOGY, [address] [place] [address] Maximo Lainez M.D. Director [facility] Permit #[id number] 53 PLEASE NOTE NEW REFERENCE RANGE. 54 A metabolite of Naproxen, O-desmethylnaproxen, has been shown to interfere with the Jendrassik-Kimberly method for measuring total bilirubin. Samples from patients who have taken Naproxen have shown spurious elevation in total bilirubin levels. 55 Please note updated reference range, effective 03/24/10 56 -- REFERENCE VALUE -- 25-HYDROXY D TOTAL (D2+D3) Optimum levels in the normal population are 25-80 Test Performed by: [place] [address] Non Destructive Testing Engineer: Oswaldo Farias III, M.D. 57 Anion gap measurement may be of limited value in the presence of any alkalosis, especially in a combined acid base disorder. . 58 A metabolite of Naproxen, O-desmethylnaproxen, has been shown to interfere with the Jendrassik-Kimberly method for measuring total bilirubin. Samples from patients who have taken Naproxen have shown spurious elevation in total bilirubin levels. 59 Because ethnic data is not always readily [...] 15-29 5 Kidney failure <15 (or dialysis) 60 CHOLESTEROL INTERPRETATION: Desirable: Less than 200 MG/DL Borderline-High Risk: 200-239 MG/DL High-Risk: 240 MG/DL and over 61 HDL INTERPRETATION: Undesirable: High Risk: Less than 40 MG/DL Desirable: Low Risk: Greater than 60 MG/DL 62 LDL INTERPRETATION: Low Risk Optimal Level: LDL Less than 100 MG/DL Near or Above Optimal: LDL 100-129 MG/DL Borderline High Risk: LDL 130-159 MG/DL High Risk: LDL 160-189 MG/DL Very High Risk: LDL Greater than 189 MG/DL 63 Anion gap measurement may be of limited value in the presence of any alkalosis, especially in a combined acid base disorder. . 64 A metabolite of Naproxen, O-desmethylnaproxen, has [...] 5 Kidney failure <15 (or dialysis) 66 CORRECTED RESULT! WRONG RESULT WAS E.COLI VERBAL TO ASAD PEREZ/ELFEGO BY LRU at 1150 on 03/27/11. 67 ENTEROBACTER CLOACAE 50^25-50,000 ORGANISMS/ML (MODERATE)^CCU 68 F^FEW^QTY 69 F^FEW^QTY 70 ENTEROBACTERIACEAE 10^1-10,000 ORGANISMS/ML (FEW)^CCU Small quantity of enterobacteriaciae typically suggestive of fecal contamination. Suggest resubmission. Isolates will be saved for one week. Please call the Microbiology Laboratory if further identification and/or susceptibility testing is needed. 71 Anion gap measurement may be of limited value in the presence of any alkalosis, especially in a combined acid base disorder. . 72 Note change in reference range as of 04/23/08. The change was based on recommendations from the [employer] [employer]. 73 A metabolite of Naproxen, O-desmethylnaproxen, has been shown to interfere with the Jendrassik-Northridge method for measuring total bilirubin. Samples from patients who have taken Naproxen have shown spurious elevation in total bilirubin levels. 74 Because ethnic data is not always readily [...] 15-29 5 Kidney failure <15 (or dialysis) 75 CHOLESTEROL INTERPRETATION: Desirable: Less than 200 [...] High Risk: LDL Greater than 189 MG/DL 78 Basophilia % 79 ---- RUN DATE: 10/22/08 [facility] NMI LIVE PAGE 1 RUN TIME: 1215 Specimen Inquiry RUN USER: INTERFACE -- Name: NOELLE EL [facility]#: [id number] Status: REG REF Re10/20/08 Age/Sex: 63/F Unit#: [id number] Location: [address] [place] [address]. : 45 -- Specimen: [id number] SOUT Spec Date: 10/20/[address]: Dougie [...] Signed Electronically by: MAXIMO LAINEZ MD 10/22/08 1219 -- -- DEPARTMENT OF PATHOLOGY, [address] [place] [address] [facility] Permit #[id number] Maximo Lainez M.D. Director Senia Gomez M.D. Finance Vice President Dir roland -- 80 Anion gap measurement may be of limited value in the presence of any alkalosis, especially in a combined acid base disorder. . 81 Note change in reference range as of 04/23/08. The change was based on recommendations from the [employer] [employer]. 82 Please note change in reference range effective 08 . 83 CHOLESTEROL INTERPRETATION: Desirable: Less than 200 MG/DL Borderline-High Risk: 200-239 MG/DL High-Risk: 240 MG/DL and over 84 HDL INTERPRETATION: Undesirable: High Risk: Less than 40 MG/DL Desirable: Low Risk: Greater than 60 MG/DL 85 LDL INTERPRETATION: Low Risk Optimal Level: LDL Less than 100 MG/DL Near or Above Optimal: LDL 100-129 MG/DL Borderline High Risk: LDL 130-159 MG/DL High Risk: LDL 160-189 MG/DL Very High Risk: LDL Greater than 189 MG/DL 86 Anion gap measurement may be of limited value in the presence of any alkalosis, especially in a combined acid base disorder. . Procedures Date CPT Code Description Status Comment 12/24/2017 Diabetic Foot Exam Completed 12/18/2017 Diabetic Foot Exam Completed 07/03/2017 Mammogram Completed 08/10/2016 21341 Closed trtmt prox humeral fx Completed 06/13/2016 Bone Mineral Density Test Completed 06/12/2016 Mammogram Completed 08/30/2015 31247 Nasal Endoscopy, Diagnostic Completed 08/02/2015 18804 Tympanometry Completed 06/09/2015 Mammogram Completed 08/11/2014 32643 Pulmonary Function><Bronchodil Completed 06/08/2014 Colonoscopy Completed 06/08/2014 Mammogram Completed 06/08/2014 Bone Mineral Density Test Completed 05/05/2014 11690 Nasal Endoscopy, Diagnostic Completed 04/06/2014 29393 Nasal Endoscopy, Diagnostic Completed 01/12/2014 55463 Nasal Endoscopy, Diagnostic Completed 12/31/2013 67982 Nasal Completed Endoscopy/Ethmoidectomy/Total 12/31/2013 54134 N/Endoscopy/Max Antrostomy Completed 11/28/2013 15299 Myocardial Perfusion Imaging Completed Tomographic (Spect) Multiple Studies 11/28/2013 25963 Stress Test Completed 11/22/2013 Colonoscopy Completed 11/19/2013 68693 EKG Tracing & Interpretation Completed 03/08/2012 Bone Mineral Density Test Completed 03/08/2012 Mammogram Completed 03/24/2011 Mammogram Completed 10/22/2008 Colonoscopy Completed 09/03/2001 Bone Mineral Density Test Completed normal ( has had DJD of back) Encounters Type Date Location Provider CPT E/M Dx Office Visit 05/13/2018 [place] [address] M84.371D 10:00a [facility] Office Visit 04/01/2018 [place] [address] M84.371A 11:30a [facility] W22.8xxA Office Visit 03/20/2018 2:30p [place] [address] M84.371A [facility] Office Visit 03/15/2018 3:00p [facility] Chuck JobyOSMAN 57997 L03.115 Ronaldo Pro Office Visit 02/20/2018 2:00p [facility] [address] Internal Rodney Jones, [address] R51 Medicine Oli Escalona R41.82 Office Visit 12/17/2017 10:20a [facility] Of Elías Avilador, 33526 I73.9 Elfego Escalona M16.9 Office Visit 12/07/2017 10:00a [facility] [address] Internal Medicine Rodney Jones, [address] I73.9 - Oli Escalona Office Visit 11/26/2017 1:45p ENT Services Of Zenaida.M.Cheryl Wilson, [address] J31.0 AT [place] J32.0 Office Visit 09/18/2017 1:40p [facility] Of Elías Thomas, [address] M54.5 [facility] [address] Mukesh.Mayra E06.1 I70.212 M16.9 Office Visit 08/28/2017 10:00a Rheumatology Services Elías William, [address] H91.90 Of [facility] [address] Mukesh.Mayra M54.5 M25.559 H93.13 R20.8 M79.1 M54.2 Office Visit 05/08/2017 10:40a [facility] [address] Internal Medicine Rodney Jones, [address] Z00.00 - Oli Escalona J45.909 K21.9 E78.00 M85.9 M54.5 Z11.59 R91.8 Z23 Office Visit 12/12/2016 11:00a [place] [address] S42.212D Of C.M.AMonica Office Visit 08/22/2016 2:20p [facility] [address] Internal Medicine Rodney Jones, [address] S42.212D - Oli Escalona R91.8 Office Visit 02/18/2016 9:40a [facility] [address] Internal Medicine Rodney Jones [address] M54.2 - Inocencia Escalona M54.89 M54.5 Office Visit 02/01/2016 4:20p [facility] [address] Internal Medicine Rodney Jones, [address] J06.9 - Inocencia Escalona Office Visit 10/11/2015 2:45p [facility] Steve Wilson, 25247 J31.0 AT [facility] J32.0 Office Visit 08/30/2015 2:00p [facility] Services Of Steve Wilson, 55158 J31.0 C[facility] AT [facility] H93.12 J32.0 J06.9 J45.909 H91.22 Office Visit 08/02/2015 2:15p [facility] Of Steve Wilson, 45727 J31.0 [facility] AT [facility] H93.12 J32.0 Office Visit 05/21/2015 11:30a [facility] [address] [place] [address] 465.8 [place] 491.21 Office Visit 01/04/2015 2:00p [facility] Services Of Steve Wilson, 84473 473.0 [facility] AT [facility] 477.9 471.0 Office Visit 10/21/2014 11:00a [facility] [address] Internal Medicine Rodney Jones, [address] 786.2 - [facility]. Office Visit 08/31/2014 2:00p [facility] [address] [place] [address] 493.90 - [place] Office Visit 08/24/2014 3:00p [facility] Of Steve Wilson, 32207 493.92 [facility] 477.9 Office Visit 08/11/2014 10:40a [facility] [address] Internal Medicine Karlee Cabrera, N.PMonica 950[address] 493.92 - [place] 381.81 Office Visit 08/03/2014 1:30p [facility] [address] [place] [address] 493.92 - [place] Office Visit 07/06/2014 2:45p [facility] Of Steve Wilson, 31328 478.0 C[facility] 477.9 Office Visit 05/25/2014 3:15p [facility] Of Steve Wilson, 27605 478.0 C[facility] 477.9 473.0 Office Visit 05/11/2014 3:15p [facility] Of Steve Wilson, 58251 477.9 [facility] 473.0 471.0 Office Visit 04/06/2014 1:15p [facility] Of Steve Wilson, 13343 473.0 [facility] 471.0 473.2 478.0 Office Visit 02/19/2014 9:40a [facility] [address] Internal Medicine Rodney Jones, [address]28[address] 719.45 - [place] M.D. Office Visit 02/02/2014 2:00p [facility] Of Steve Wilson, 52804 473.0 C[facility] 471.0 Office Visit 01/05/2014 2:00p [facility] Of Steve Wilson, 31106 473.0 C.[facility] 473.2 Office Visit 12/22/2013 2:15p [facility] Of Steve Wilson, 71732 473.0 C[facility] 473.2 Office Visit 12/16/2013 9:20a [facility] [address] Internal Medicine Rodney Jones, 21020 786.50 - [place] M.D. Office Visit 11/19/2013 11:00a [facility] [address] Internal Medicine Rodney Jones, 95374 V72.84 - [place] M.DMonica 786.50 Office Visit 11/10/2013 2:45p [facility] Of Steve Wilson, 40767 473.0 C[facility] 473.2 Office Visit 02/10/2013 12:10p [facility] [address] Internal Medicine Lila Stein M.D. 30956 788.1 - [place] 627.3 789.09 Office Visit 12/10/2012 1:20p [facility] [address] Internal Medicine Rodney Jones, 69446 466.0 - [place] M.D. Office Visit 06/03/2012 1:00p [facility] [address] Internal Medicine Rodney Jones, 24373 789.01 - [place] M.DMonica Office Visit 03/19/2012 9:40a [facility] [address] Internal Medicine Rodney Pak Karen, 16156 733.90 - [place] M.Mayra 493.90 V03.82 Office Visit 03/18/2012 9:45a [facility] [address] 473.0 C[facility] 472.0 473.2 Office Visit 03/11/2012 11:30a [facility], [address] 473.0 C.M[facility]A. AT [facility] 472.0 Office Visit 03/05/2012 9:00a [facility] [address] Internal Medicine Lila Stein, 25663 V72.31 - [place] Mukesh.Mayra 493.90 473.0 781.91 627.3 611.9 v70.0 Office Visit 09/29/2011 11:20a [facility] [address] Internal Medicine Rodney Jones, 47455 789.04 - Inocencia Escalona Office Visit 07/20/2011 3:40p DO Not Use [facility] AT [facility], [address] 473.0 [place] M.DMonica Office Visit 05/04/2011 2:20p DO Not Use [employer] AT [facility], 58356 493.90 [place] M.Mayra 790.21 272.0 616.10 Office Visit 03/17/2011 4:15p DO Not Use [employer] AT [facility] 10087 599.0 [facility] V76.10 388.30 Office Visit 01/04/2011 9:40a DO Not Use [employer] AT [facility], 80791 382.9 [place] M.D. Office Visit 09/13/2010 1:00p DO Not Use [employer] AT [facility], 11149 472.0 [place] M.DMonica 493.90 530.81 796.2 272.0 790.21 Office Visit 12/09/2009 9:20a DO Not Use [employer] AT [facility], [address]4217 472.0 [place] M.DMonica 530.81 493.90 Office Visit 08/25/2009 1:45p DO Not Use [employer] AT [facility], 26520 388.70 [facility].D. Office Visit 06/28/2009 10:45a DO Not Use [employer] AT [facility], 16272 465.9 [facility].D. Office Visit 11/19/2008 2:15p [facility] AT [facility], 38645 465.9 [facility] M.D. Office Visit 08/05/2008 3:00p [facility] AT [facility], 67270 465.9 [facility] M.D. Office Visit 04/27/2008 10:30a [facility] AT [facility], 13219 789.00 [facility].D. 796.2 530.81 Office Visit 02/06/2008 11:15a [facility] AT [facility], 43369 923.21 [facility].D. Office Visit 01/30/2008 3:00p [facility] AT [facility], 46538 380.22 [facility].D. 465.9 Office Visit 12/04/2007 3:00p [facility] AT [facility], 44808 461.9 [facility] M.D. Office Visit 10/28/2007 3:15p [facility] AT [facility], 32275 796.2 [facility] M.D. Office Visit 09/30/2007 3:00p [facility] AT [facility], 25872 493.90 [facility].D. 796.2 530.81 Plan of Care Future Appointment(s):05/23/2019 9:20 am - Rodney Jones M.D. at [facility] [address] Internal Medicine - Ghndjddcl36/16/2018 - Elías Thomas M.D.M70.62 Trochanteric bursitis, left hipFollow up:Follow up in 3 to 4 months or sooner if eaijblP49.643 Pain in unspecified handNew Medication:Aspercreme W/Lidocaine 4 %
[2018-06-19 08:10] VITALS: BP 140/62
--- NOTE | 2018-06-19 08:29 | UC ---
Throat Pain/Nasal Jose HPI - HPI Summary HPI Summary: Patient presents to urgent care reporting head congestion and cold last week. Patient states on Sunday developed facial pressure. Patient states right greater than left. Patient with a history of recurrent sinusitis and states this feels similar. Patient also reports pressure in her right ear. Patient's been using Mucinex D and Flonase with little improvement. Patient denies nausea vomiting. Patient reports fevers and chills but no documented temperature. Patient has had surgery of her sinuses by Dr. Wilson a few years ago. Pt's medications reviewed this visit - History of Current Complaint Chief Complaint: UCRespiratory Stated Complaint: SINUS COMPLAINT Time Seen by Provider: 06/19/18 08:25 Hx Obtained From: Patient ?: No Onset/Duration: Gradual Onset Severity: Severe Pain Intensity: 8 - Allergies/Home Medications Allergies/Adverse Reactions: Allergies Allergy/AdvReac Type Severity Reaction Status Date / Time azithromycin Allergy Unknown Verified 06/19/18 08:06 Reaction Details dicyclomine Allergy Unknown Verified 06/19/18 08:06 Reaction Details Iodinated Contrast- Oral and Allergy Itching Verified 06/19/18 08:06 IV Dye latex Allergy Rash Verified 06/19/18 08:06 levofloxacin [From Levaquin] Allergy Wheezing Verified 06/19/18 08:06 metronidazole [From Flagyl] Allergy Rash Verified 06/19/18 08:06 milk Allergy Shortness Verified 06/19/18 08:06 of Breath nabumetone Allergy Rash Verified 06/19/18 08:06 Sulfa (Sulfonamide Allergy Unknown Verified 06/19/18 08:06 Antibiotics) Reaction Details amoxicillin AdvReac Stomach Verified 06/19/18 08:06 Cramps ampicillin AdvReac GI Upset Verified 06/19/18 08:06 ciprofloxacin [From Cipro] AdvReac Nausea Verified 06/19/18 08:06 hydrocodone [From Vicodin] AdvReac Abdominal Verified 06/19/18 08:06 Pain nitrofurantoin AdvReac Abdominal Verified 06/19/18 08:06 [From Macrobid] Pain oxycodone AdvReac GI Upset Verified 06/19/18 08:06 relefin Allergy Rash Uncoded 06/19/18 08:06 PMH/Surg Hx/FS Hx/Imm Hx Previously Healthy: Yes - recurrent sinusitis Other History Of: Negative For: HIV, Hepatitis B, Hepatitis C, Anticoagulant Therapy - Surgical History Surgical History: Yes Surgery Procedure, Year, and Place: hysterectomy 1988. Rt Oopherectomy. TONSILECTOMY, 1950S. NASAL POLYP REMOVED WITH SEPTOPLASTY. RIGHT LEG VASCULAR SURGERY AT [facility] (NO STENTS) BALLOONING ONLY - Family History Known Family History: Positive: Hypertension Negative: Cardiac Disease, Diabetes - Social History Occupation: Retired Lives: With Family Alcohol Use: Occasionally Alcohol Amount: ONE PER MONTH Substance Use Type: None Smoking Status (MU): Former Smoker Type: Cigarettes Amount Used/How Often: PACK A DAY Length of Time of Smoking/Using Tobacco: 1 PPD x 20 Years Have You Smoked in the Last Year: No When Did the Patient Quit Smoking/Using Tobacco: ~1968 - Immunization History Most Recent Influenza Vaccination: May 2017 Review of Systems Constitutional: Negative ENT: Nasal Discharge, Sinus Congestion, Sinus Pain/Tenderness All Other Systems Reviewed And Are Negative: Yes Physical Exam - Summary Physical Exam Summary: Vital Signs Reviewed: Yes A+Ox3, no distress Eyes: Conjunctiva Clear, ISIDORO. EOM intact and full ENT: Hearing grossly normal scant fluid right ear, tm wnl turbinates inflammed and boggy, + PND, + TTP right max uvula midline, no exudate, no erythema Neck: Positive: Supple Respiratory: Positive: No respiratory distress, No accessory muscle use + CTA throughout no w/r Cardiovascular: RRR nl s1, s2 no m/r CBT <2 sec abd soft + BS nt/nd no guarding, no distension Musculoskeletal Exam: TERRY x 4 without difficulty Strength Intact, ROM Intact Neurological: Positive: Alert, + sensation throughout Psychological: Positive: Normal Response To Family Skin: Positive: no rash, no ecchymosis Triage Information Reviewed: Yes Vital Signs: Initial Vital Signs Temp 98.5 F 06/19/18 08:03 Pulse 76 06/19/18 08:03 Resp 18 06/19/18 08:03 BP 140/62 06/19/18 08:03 Pulse Ox 98 06/19/18 08:03 Throat Pain/Nasal Course/Dx - Course Course Of Treatment: Patient presents with progressive sinus pressure right greater than left. Patient with history of sinusitis refer her to infection. Patient does have Flonase and use for a couple days. Patient's been using Mucinex D with mild improvement. Patient's blood pressure was mildly elevated discussed with her precautions with Mucinex D recommended follow up PCP. Patient clinically has sinusitis. We'll give a prescription for Z-Simon. Encourage Flonase. Discussed with patient humidified and secretion precaution. Patient comfortable in agreement with plan. - Differential Dx/Diagnosis Provider Diagnoses: rhinosinusitis Discharge - Sign-Out/Discharge Documenting (check all that apply): Patient Departure All imaging exams completed and their final reports reviewed: No Studies - Discharge Plan Condition: Stable Disposition: HOME Prescriptions: Azithromycin TAB* [Zithromax TAB (Z-SIMON) 250 mg #6 tabs] 2 tab PO .TODAY, THEN 1 DAILY #1 simon Patient Education Materials: Rhinosinusitis (ED) Referrals: Rodney Jones MD [Primary Care Provider] - Additional Instructions: - Stay well hydrated. Drink plenty of non-alcoholic, non-caffinated beverages. - Alternate ibuprofen (Advil, Motrin) 600mg and Tylenol every 3 hours for pain or fever. Take with food. Do NOT take for more than 4-5 days. - These infections are spread by secretions - do NOT share eating or drinking utensils - clean items you share with other people such as cell phones, computer mouse, TV remote, computer tablets,etc. Once you have been antibiotics for 2 days, change your toothbrush and your pillowcase. - get plenty of restful sleep - humidify the air in the room where you sleep - boil water, run a hot steam shower, vaporizer, cups of water by heat register - okay to take over the counter decongestant and cough medication - use nasal spray as previously prescribed - contact your doctor or return with questions or concerns - Billing Disposition and Condition Condition: STABLE Disposition: Home
== END 2018-06-19 08:48 | disposition home or self-care (01) ==
LOC: UCCORT 07:50
DX: J32.9 Chronic sinusitis, unspecified (principal); E73.9 Lactose intolerance, unspecified; Z87.891 Personal history of nicotine dependence; Z88.1 Allergy status to other antibiotic agents; Z91.041 Radiographic dye allergy status; Z91.040 Latex allergy status; Z88.8 Allergy status to other drugs, medicaments and biological substances; Z88.5 Allergy status to narcotic agent
CPT/HCPCS: 99212; G0463

== ENCOUNTER 2018-10-06 07:52 | Emergency (ER) | payer MEDICARE ==
--- OUTSIDE RECORDS SUMMARY | 2018-10-06 08:01 | XMS REPORT | Continuity of Care Document ---
:1945 External Reference #:[id number] Author Name Jackie Johnson Care Team Providers Name Role Phone Rodney Jones III, MD Primary Care Physician Unavailable Payers Type Date Identification Numbers Payment Provider Subscriber Effective: Policy Number: [id number] Medicare Blue Ppo Noelle Mukesh El 2012 Group Number: [id number] [address] [id number] PayID: [id number] SHERIN Manjarrez [id number] Policy Number: [id number] Medicare D - Drug Plan Noelle Mayorga Nikko PayID: [id number] Advance Directives Type Date Description Status Comment [...] of bone Rodney Jones M.D. Active Onset: 08/10/2016 Closed fracture of surgical neck of Radha Murphy MD Active humerus Onset: 05/08/2017 Gastroesophageal reflux disease Rodney Jones M.D. Active Onset: 12/07/2017 Peripheral vascular disease Rodney Jones M.D. Active Onset: 03/20/2018 Stress fracture of ankle Edil Frye MD Active Family History Date Family Member(s) Problem(s) Comments General Lung Cancer General Rheumatoid Arthritis Father due to Cancer, Lung () - age 62; (+) smoker. Mother due to Natural Causes () - age 81; (+) CVA in her 30s perioperatively. Siblings 3 Siblings Sister has thyroid problems First Sister due to Cancer, Lung () Social History Type Date Description Comments Sex Unknown Marital Status Lives With Occupation Retired Tobacco Use Start: Unknown End: Former Cigarette Smoker 1 ppd; began age 16, Unknown quit 1988 ETOH Use Occasionally consumes alcohol Tobacco Use Start: Unknown End: Patient is a former quit in 1988 Unknown smoker Smoking Status Reviewed: 09/12/18 Patient is a former quit in 1988 smoker Exercise Exercises regularly Type/Frequency Exercise walks, cardio workouts prior to her L leg Type/Frequency pain sx Allergies, Adverse Reactions, Alerts Date Description Reaction Status Severity Comments 09/30/2007 Levaquin Active broncho spasms 09/30/2007 Sulfa Active 09/30/2007 Latex Active rash 09/30/2007 hair dye Active 09/30/2007 Macrodantin Active 09/30/2007 Flagyl Active 05/04/2011 Vicodin Active 05/04/2011 Macrobid nausea, stomach pain Active 02/19/2014 Amoxicillin Active 02/19/2014 Ciprofloxacin Active 02/19/2014 Ampicillin Nausea and Vomiting Active 05/03/2015 Milk-related Compounds Active 05/03/2015 Estrace Active 02/01/2016 Oxycodone Active 02/01/2016 Dicyclomine Active 10/22/2017 NSAIDS Active rash 11/26/2017 Nabumetone Active Medications Medication Date Status Form Strength Qnty SIG Indications Ordering Provider Medrol 10/29 Active TBPK 4mg 21uni take as ts directed William, until M.D. finished as a medrol dose pack Aspercreme 06/18 Active Cream 4% 6unit apply M79.643 Elías W/Lidocaine s twice William, daily to M.D. the painful joints as needed Ventolin HFA [...] 50mcg/Act 16uni Instill 1 Steve Propionate ts [place] In [facility], Each M.D. Nostril Every Morning Calcium 500 +D 06/09 Active Tablets 500-400mg [...] Capsules 18mcg 30cap Inhale Rodney E. Handihaler s The Karen, Contents M.D. Of [...] Tablets 50mg 60tab take 1-2 s tablets [place], - by mouth M.D. 08/13 every hours [...] 0.5mg/2ML 30uni one J32.0 Steve ts reespule Steve, - per day M.D. 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, [employer] - day one 08/02 followed by 1 tab daily for the last 4 days Methylprednisolon 05/21 Hx Tablets 4mg 21tab take 6 465.8 Trav gold (Simon) s tabs on Mak, [employer] SYSTEM [employer] - day 1, 5 08/02 tabs day 2, 4 tabs on day 3, 3 tabs on day 4, 2 tabs on day 5, 1 tab on day 6 Cheratussin ac 05/21 Hx Syrup 100-10mg/ 180un 1 465.8 5ML its teaspoon Mak, [employer] SYSTEM [employer] - every 4-6 08/02 hours mouth as needed for cough Diflucan 01/14 Hx Tablets 100mg 2tabs 2 tablets Rodney Pak x 1 dose Karen, - M.D. 08/13 Zithromax 01/04 Hx Tablets 500mg 5tabs one by 473.0 Steve mouth one Rubilly, - per day M.D. 05/03 Diflucan 12/29 [...] DR 40mg 1 by Trav mouth Mak, [employer] SYSTEM [employer] - every day 07/10 Prednisone 07/28 Hx Tablets 20mg 7tabs 1 by Rodney Pak rick Jones, - every day M.D. 08/03 Diflucan 06/29 Hx Tablets 200mg 1tabs 1 by Rodney Pak rick x Karen, - one dose M.D. 10/21 Zithromax 04/27 Hx Tablets 500mg 5tabs one po one per [facility], - day M.D. 04/30 Astepro 04/27 Hx [...] 471.0 s taking Ruparbertha, - one by Iqra 04/30 once a [...] Rodney E. x 1 dose Karen - M.D. 11/27 Ventolin HFA 09/01 Hx Aerosol 108(90Bas 18uni Inhale Vahid e) ts Two Puffs Mayra Lancaster, - mcg/Act By Mouth M.D.,FACP 01/04 Times A Day Azithromycin 03/24 Hx Tablets 250mg 6tabs take 2 tab on Sarita, - day 1 M.D. 09/01 then tab daily x 4 days Premarin 01/08 Hx Cream 0.625mg/G 1unit once a 627.3 Lila /2012 M s week for Sarita, - 4-6 wks M.D. 12/16 Flonase 01/01 Hx Suspension 50mcg/Act 16uni [place] 1 Rodney E. ts [place] Karen, - Each M.D. 12/16 Nostril Every Morning Prednisone 12/19 Hx Tablets 20mg 7tabs 1 po qd Rodney E. /2012 Rosemary Jones M.DMonica 02/10 Mucinex Chest 12/10 Hx Tablets 1-2 daily Rodney E. Congestion & Cold prn Rosemary Jones M.DMonica 11/27 Zithromax Z-Simon 12/10 Hx Tablets 250mg 1Pack as per 466.0 Rodney EMonica direction Rosemary Jones MKyle 02/10 Benzonatate 12/10 Hx Capsules 100mg 30cap 1-2 tab 466.0 Rodney E. s po tid Rosemary Jones M.D. 02/19 Premarin 03/05 Hx Cream 0.625mg/G 1unit once a 627.3 Lila /2011 M s week for Stein, - 4-6 wks M.DMonica 06/03 Amoxicillin/Potas 07/20 Hx Tablets 500-125mg 20tab 1 po bid Rodney Pak sium Clavulanate s Rosemary Jones M.D. 09/29 Diflucan 05/04 Hx Tablets 200mg 1tabs i po x Rodney Gold. one dose Rosemary Jones M.D. 07/20 Keflex 03/27 Hx Capsules 500mg 14cap 1 tab q Vahid s 12 hrs Rosemary Mcguire for 7 MKyle,FACP . Claritin-D 12 03/17 Hx Tablets ER 5-120mg 60tab 1 po bid Vahid 12HR s Rosemary Mcguire M.D.,FACP 05/04 Omeprazole 09/[address] 20mg 60cap take one Rodney E. s capsule Rosemary Jones by mouth M.Mayra 02/02 twice a day Nexium 07/[address] 20mg 90cap 1 po qd Rodney EMonica Rosemary Rodriguez M.D. 09/13 Omeprazole 01/04 Hx [...] per Rodney Pak direction Rosemary Jones M.D. 11/19 Fluticasone 04/27 Hx Suspension 50mcg/Act 1unit 1 spray Rodney EMonica s meka Jones, - nostril M.DMonica 02/19 in Zithromax Z-Simon 12/03 Hx Tablets 250mg 1Pack as per . direction Rosemary Jones M.DMonica 02/05 Ketoconazole 10/30 Hx Shampoo 2% 8oz use 2 x weekly Rosemary Jones for 4 M.D. with at least 3 days between shampoos, then prn to maintain control Ketoconazole 10/28 Hx Shampoo 2% 4Oz 1 po qd Rosemary Jones.Mayra 10/30 Spiriva Hx Capsules 18mcg 1Mont 1 Rodney E. Handihaler / h inhalatio Rosemary Jones n qam Mukesh.Mayra 02/09 Flovent Hx Aerosol 110mcg/Ac 3unit 2 po puff Rodney E. / t s qd Rosemary Jones M.D. 09/13 Flonase Hx Suspension 50mcg/Act 1Bott 1 Rodney E. / le intranasa Rosemary Jones l puff to M.DMonica 04/27 nostril daily Accolate Hx Tablets 20mg 30tab 1 po qd Rodney E. /0000 Rosemary Rodriguez M.D. 12/[address] 40mg 90tab 1 po qd Rodney E. / Rosemary Grover M.D. 01/04 generic ly Albuterol HFA Hx Aerosol 90mcg/Act 1unit 2 po Vahid /0000 s Puffs qid Mayra Lancaster, - prn M.Mayra,FACP 09/01 Restasis Hx Emulsion 0.05% 3mon One gtts Other / OU bid Physician - Practices 01/04 Xifaxan Hx Tablets 200mg 180ta take 2 Rodney E. /0000 bs tablets Rosemary Joens by mouth M.D. 12/12 times a day Z Pack / Hx Tablets 250mg as Unknown /0000 directed. [...] /0000 (1) - tablet(s) 01/04 by mouth /2014 every six (6) hours as needed Omeprazole 00/[address] 40mg 2 by Unknown /0000 mouth - every day 12/07 Mucinex D 00/00 Hx Tablets ER 120-1200m Unknown /0000 12HR g - 05/07 Vitamin B12 TR 00/00 Hx Tablets ER 1000mcg 1 by Unknown /0000 mouth - every day 11/05 Aspirin Adult Low 00/[address] 81mg 1 by Unknown Dose /0000 mouth - every day 11/12 Clopidogrel Hx Tablets 75mg once Unknown Bisulfate /0000 daily - 02/19 Pantoprazole [address] 40mg once [place], Sodium [...] Form Strength Qnty SIG Indications Ordering Provider Triamcinolone 06/18/ Administered Injection Elías (Kenalog) 2017 Iqra Thomas Technetium TC 11/28/ Administered Injection Jose Luis Busch 99M Tetrofosmin, 2013 Arthur, Per Unit Dose Up M.D., To 40 FACC, Millicuries FASVT Immunizations CPT Code Status Date Vaccine Reaction Lot # [id number] Given 05/22/2018 Tetanus And Diptheria (Td) For Pt. tolerated well. [id number] Adult Use Preservative Free 41630 Given 05/22/2018 Influenza Virus Vaccine, [id number] Quadrivalent, Split, Preservative Free 73564 Given 05/08/2017 Influenza Virus Vaccine, [id number] Quadrivalent, Split, Preservative Free 92074 Given 06/19/2016 Influenza Virus Vaccine, [id number] Quadrivalent, Split Virus, [place] Use 85074 Given 06/16/2015 Influenza Virus Vaccine, [id number] Quadrivalent, Split, Preservative Free 35184 Given 05/03/2015 Pneumococcal Conjugate Vaccine [id number] 13 Valent For Intramuscular Use 97143 Given 06/11/2014 Influenza Virus Vaccine, [id number] Quadrivalent, Split, Preservative Free 64512 Given 06/10/2013 Flu Vaccine Split Virus [id number] Preservative Free For Indiv 3Yr Older 45965 Given 08/23/2012 Zoster (Zostavax) [id number] Q2037 Given 08/06/2012 Fluvirin Im 3Yrs And Older [id number] 51238 Given 03/19/2012 Pneumonia Vaccine [id number] 15204 Given 06/10/2010 Influenza Virus 3Yrs & Over 41408 Given 07/19/2009 Influenza Virus Vaccine, Pandemic Formulation 58970 Given 07/19/2009 Administration Swine Flu Shot 08875 Given 02/06/2008 Tdap - [id number] Tetanus/Diptheria/Acellular Pertussis 00597 Given 09/03/1999 Pneumovax (History By Patient) [id number] 72525 Given 09/03/1997 Td (History By Patient) Vital Signs Date Vital Result Comment 09/12/2018 10:25am Height 66 inches 5'6" Weight 166.50 lb Heart Rate 71 /min BP Systolic 156 mmHg BP Diastolic 74 mmHg Body Temperature 97.8 F O2 % BldC Oximetry 98 % BMI (Body Mass Index) 26.9 kg/m2 06/18/2018 9:41am Height 66 inches 5'6" Weight 168.00 lb Heart Rate 82 /min BP Systolic Sitting 136 mmHg BP Diastolic Sitting 68 mmHg Body Temperature 98.5 F Pain Level 7 O2 % BldC Oximetry 97 % BMI (Body Mass Index) 27.1 kg/m2 05/22/2018 2:23pm Height 66 inches 5'6" Weight 169.00 lb Heart Rate 76 /min BP Systolic Sitting 132 mmHg BP Diastolic Sitting 60 mmHg O2 % BldC Oximetry 97 % BMI (Body Mass Index) 27.3 kg/m2 05/13/2018 10:15am Height 66 inches 5'6" Weight 165.00 lb Heart Rate 71 /min Respiratory Rate 16 /min Body Temperature 98.6 F Pain Level 0 BMI (Body Mass Index) 26.6 kg/m2 04/01/2018 11:07am Height 67 inches 5'7" Weight 170.00 lb Heart Rate 72 /min Respiratory Rate 16 /min Body Temperature 98.1 F Pain Level 2 BMI (Body Mass Index) 26.6 kg/m2 03/20/2018 2:34pm Height 67 inches 5'7" Weight 170.00 lb BP Systolic 122 mmHg BP Diastolic 64 mmHg Respiratory Rate 17 /min Pain Level 7 BMI (Body Mass Index) 26.6 kg/m2 03/15/2018 2:55pm Height 67 inches 5'7" Weight 171.50 lb Heart Rate 81 /min BP Systolic 126 mmHg BP Diastolic 60 mmHg Body Temperature 98.2 F O2 % BldC Oximetry 98 % BMI (Body Mass Index) 26.9 kg/m2 02/20/2018 1:59pm Height 67 inches 5'7" Weight 170.00 lb Heart Rate 68 /min BP Systolic Sitting 140 mmHg BP Diastolic Sitting 70 mmHg Body Temperature 98.3 F O2 % BldC Oximetry 97 % BMI (Body Mass Index) 26.6 kg/m2 12/17/2017 11:08am Height 67 inches 5'7" Heart Rate 80 /min BP Systolic Sitting 132 mmHg BP Diastolic Sitting 64 mmHg Respiratory Rate 14 /min Pain Level 1 12/07/2017 9:53am Weight 170.00 lb Heart Rate 83 /min BP Systolic Sitting 128 mmHg 129/76 pt's machine BP Diastolic Sitting 68 mmHg 129/76 pt's machine O2 % BldC Oximetry 97 % 11/26/2017 1:43pm Height 67 inches 5'7" Weight 169.00 lb Heart Rate 72 /min BP Systolic Sitting 132 mmHg BP Diastolic Sitting 70 mmHg Respiratory Rate 12 /min Pain Level 8 BMI (Body Mass Index) 26.5 kg/m2 09/18/2017 1:53pm Height 67 inches 5'7" Weight 185.00 lb Heart Rate 71 /min BP Systolic Sitting 141 mmHg BP Diastolic Sitting 74 mmHg Respiratory Rate 14 /min Pain Level 7 BMI (Body Mass Index) 29.0 kg/m2 08/28/2017 9:55am Height 67 inches 5'7" Weight 189.00 lb Heart Rate 71 /min BP Systolic Sitting 158 mmHg BP Diastolic Sitting 72 mmHg Respiratory Rate 14 /min BMI (Body Mass Index) 29.6 kg/m2 05/08/2017 11:13am Height 67 inches 5'7" Weight 166.25 lb Heart Rate 66 /min BP Systolic Sitting 146 mmHg BP Diastolic Sitting 62 mmHg Body Temperature 98.5 F O2 % BldC Oximetry 98 % BMI (Body Mass Index) 26.0 kg/m2 12/12/2016 11:30am Height 66 inches 5'6" Weight 157.00 lb Heart Rate 55 /min BP Systolic 128 mmHg BP Diastolic 58 mmHg Respiratory Rate 16 /min Body Temperature 98.6 F Pain Level 1 BMI (Body Mass Index) 25.3 kg/m2 10/12/2016 1:04pm Height 66 inches 5'6" Weight 167.00 lb Heart Rate 60 /min Respiratory Rate 16 /min Pain Level 0 BMI (Body Mass Index) 27.0 kg/m2 09/12/2016 2:23pm Height 66 inches 5'6" Weight 167.00 lb Respiratory Rate 16 /min Pain Level 2 BMI (Body Mass Index) 27.0 kg/m2 08/22/2016 10:14am Height 66 inches 5'6" Weight 167.00 lb Heart Rate 60 /min BP Systolic 150 mmHg BP Diastolic 80 mmHg Respiratory Rate 16 /min Pain Level 1 BMI (Body Mass Index) 27.0 kg/m2 08/10/2016 3:11pm Height 66 inches 5'6" Weight 167.00 lb Heart Rate 64 /min BP Systolic Sitting 144 mmHg BP Diastolic Sitting 70 mmHg Respiratory Rate 16 /min Pain Level 5 BMI (Body Mass Index) 27.0 kg/m2 05/04/2016 9:27am Height 66 inches 5'6" Weight 167.25 lb Heart Rate 70 /min BP Systolic 120 mmHg BP Diastolic 60 mmHg Body Temperature 98.1 F O2 % BldC Oximetry 98 % BMI (Body Mass Index) 27.0 kg/m2 02/18/2016 9:36am Height 66 inches 5'6" Weight 167.00 lb Heart Rate 72 /min BP Systolic Sitting 106 mmHg BP Diastolic Sitting 70 mmHg Pain Level 5 L leg BMI (Body Mass Index) 27.0 kg/m2 02/01/2016 4:19pm Weight 169.00 lb Heart Rate 87 /min BP Systolic Sitting 145 mmHg BP Diastolic Sitting 67 mmHg Body Temperature 100.9 F 10/11/2015 2:47pm Heart Rate 76 /min BP Systolic Sitting 124 mmHg BP Diastolic Sitting 82 mmHg 08/30/2015 1:45pm Heart Rate 78 /min BP Systolic Sitting 126 mmHg BP Diastolic Sitting 82 mmHg 08/02/2015 2:13pm Heart Rate 74 /min BP Systolic Sitting 128 mmHg BP Diastolic Sitting 82 mmHg 05/21/2015 11:57am Weight 173.00 lb Heart Rate 72 /min BP Systolic Sitting 142 mmHg BP Diastolic Sitting 70 mmHg Respiratory Rate 16 /min Body Temperature 98.4 F O2 % BldC Oximetry 98 % 05/03/2015 9:04am Height 66 inches 5'6" Weight 173.25 lb Heart Rate 73 /min BP Systolic Sitting 130 mmHg BP Diastolic Sitting 64 mmHg Body Temperature 97.7 F O2 % BldC Oximetry 98 % BMI (Body Mass Index) 28.0 kg/m2 01/04/2015 2:04pm Heart Rate 82 /min BP Systolic Sitting 128 mmHg BP Diastolic Sitting 88 mmHg Body Temperature 99.4 F 10/21/2014 11:13am Weight 174.00 lb Heart Rate 75 /min BP Systolic Sitting 126 mmHg BP Diastolic Sitting 68 mmHg Respiratory Rate 16 /min Body Temperature 98.0 F O2 % BldC Oximetry 97 % 08/31/2014 2:00pm Weight 174.00 lb Heart Rate 78 /min BP Systolic Sitting 126 mmHg BP Diastolic Sitting 60 mmHg Body Temperature 97.9 F 08/24/2014 2:58pm Heart Rate 75 /min 08/11/2014 10:44am Weight 173.75 lb Heart Rate 75 /min BP Systolic Sitting 134 mmHg BP Diastolic Sitting 76 mmHg Body Temperature 97.9 F O2 % BldC Oximetry 97 % 08/03/2014 1:21pm Weight 172.00 lb Heart Rate 69 /min BP Systolic Sitting 141 mmHg BP Diastolic Sitting 77 mmHg Body Temperature 97.7 F O2 % BldC Oximetry 98 % 07/06/2014 2:51pm Heart Rate 78 /min BP Systolic Sitting 122 mmHg BP Diastolic Sitting 80 mmHg 05/11/2014 3:06pm Heart Rate 78 /min BP Systolic Sitting 124 mmHg BP Diastolic Sitting 80 mmHg 05/05/2014 1:29pm Heart Rate 78 /min BP Systolic Sitting 124 mmHg BP Diastolic Sitting 86 mmHg 04/30/2014 2:46pm Height 67 inches 5'7" Weight 173.00 lb Heart Rate 80 /min BP Systolic Sitting 146 mmHg BP Diastolic Sitting 78 mmHg Body Temperature 98.1 F BMI (Body Mass Index) 27.1 kg/m2 02/19/2014 9:11am Weight 177.00 lb Heart Rate 82 /min BP Systolic Sitting 130 mmHg BP Diastolic Sitting 78 mmHg Body Temperature 98.2 F 01/12/2014 2:42pm Heart Rate 80 /min BP Systolic Sitting 130 mmHg BP Diastolic Sitting 82 mmHg Body Temperature 99.8 F 01/05/2014 1:59pm Heart Rate 78 /min BP Systolic Sitting 130 mmHg BP Diastolic Sitting 82 mmHg 12/22/2013 2:14pm Weight 178.00 lb BP Systolic Sitting 110 mmHg BP Diastolic Sitting 60 mmHg 12/16/2013 9:20am Height 66.5 inches 5'6.50" Weight 173.50 lb Heart Rate 80 /min BP Systolic Sitting 126 mmHg BP Diastolic Sitting 58 mmHg Body Temperature 98.1 F BMI (Body Mass Index) 27.6 kg/m2 11/19/2013 10:53am Height 67.25 inches 5'7.25" Weight 174.00 lb Heart Rate 77 /min BP Systolic Sitting 136 mmHg BP Diastolic Sitting 82 mmHg Body Temperature 98.1 F O2 % BldC Oximetry 97 % BMI (Body Mass Index) 27.0 kg/m2 11/10/2013 2:55pm Heart Rate 80 /min BP Systolic Sitting 124 mmHg BP Diastolic Sitting 80 mmHg 02/10/2013 12:00pm Weight 172.00 lb Heart Rate 73 /min BP Systolic Sitting 110 mmHg BP Diastolic Sitting 62 mmHg 12/10/2012 1:20pm Height 66.5 inches 5'6.50" Weight 172.50 lb Heart Rate 80 /min BP Systolic Sitting 118 mmHg BP Diastolic Sitting 64 mmHg Body Temperature 99.0 F O2 % BldC Oximetry 96 % BMI (Body Mass Index) 27.4 kg/m2 06/03/2012 12:54pm Height 66.5 inches 5'6.50" Weight 175.00 lb Heart Rate 80 /min BP Systolic Sitting 132 mmHg BP Diastolic Sitting 72 mmHg Body Temperature 98.3 F BMI (Body Mass Index) 27.8 kg/m2 03/19/2012 9:57am Height 66.5 inches 5'6.50" Weight 174.75 lb Heart Rate 80 /min BP Systolic Sitting 104 mmHg BP Diastolic Sitting 62 mmHg BMI (Body Mass Index) 27.8 kg/m2 03/05/2012 8:46am Height 66.5 inches 5'6.50" Weight 177.00 lb Heart Rate 74 /min BP Systolic Sitting 12 mmHg L BP Diastolic Sitting 80 mmHg L BMI (Body Mass Index) 28.1 kg/m2 09/29/2011 11:46am Height 66.5 inches 5'6.50" Weight 173.50 lb Heart Rate 72 /min BP Systolic Sitting 142 mmHg BP Diastolic Sitting 76 mmHg BMI (Body Mass Index) 27.6 kg/m2 07/20/2011 3:49pm Height 66.5 inches 5'6.50" Weight 174.00 lb Heart Rate 84 /min BP Systolic Sitting 140 mmHg BP Diastolic Sitting 70 mmHg Body Temperature 98.4 F BMI (Body Mass Index) 27.7 kg/m2 05/04/2011 2:05pm Height 66.5 inches 5'6.50" Weight 170.00 lb Heart Rate 72 /min BP Systolic Sitting 130 mmHg L BP Diastolic Sitting 68 mmHg L BMI (Body Mass Index) 27.0 kg/m2 03/17/2011 4:09pm Weight 175.00 lb Heart Rate 74 /min BP Systolic Sitting 110 mmHg BP Diastolic Sitting 52 mmHg 01/04/2011 9:52am Weight 177.00 lb Heart Rate 92 /min BP Systolic Sitting 132 mmHg BP Diastolic Sitting 80 mmHg 09/13/2010 1:02pm Weight 181.00 lb Heart Rate 78 /min BP Systolic Sitting 144 mmHg BP Diastolic Sitting 74 mmHg 12/09/2009 9:26am Weight 184.00 lb Heart Rate 68 /min BP Systolic Sitting 142 mmHg BP Diastolic Sitting 80 mmHg 08/25/2009 1:55pm Heart Rate 72 /min BP Systolic Sitting 132 mmHg BP Diastolic Sitting 68 mmHg 06/28/2009 11:35am Heart Rate 64 /min BP Systolic Sitting 154 mmHg BP Diastolic Sitting 76 mmHg 11/19/2008 1:57pm Height 66.5 inches 5'6.50" Weight 179.00 lb Heart Rate 88 /min BP Systolic Sitting 126 mmHg BP Diastolic Sitting 68 mmHg BMI (Body Mass Index) 28.5 kg/m2 08/05/2008 3:07pm Height 66.5 inches 5'6.50" Weight 182.00 lb Heart Rate 74 /min BP Systolic Sitting 120 mmHg BP Diastolic Sitting 80 mmHg BMI (Body Mass Index) 28.9 kg/m2 04/27/2008 10:40am Height 66.5 inches 5'6.50" Weight 184.00 lb Heart Rate 72 /min BP Systolic Sitting 174 mmHg BP Diastolic Sitting 84 mmHg BMI (Body Mass Index) 29.3 kg/m2 02/06/2008 11:13am Height 66.5 inches 5'6.50" Heart Rate 80 /min BP Systolic Sitting 122 mmHg BP Diastolic Sitting 74 mmHg 01/30/2008 3:11pm Height 66.5 inches 5'6.50" Weight 180.00 lb Heart Rate 72 /min BP Systolic Sitting 130 mmHg BP Diastolic Sitting 70 mmHg BMI (Body Mass Index) 28.6 kg/m2 12/04/2007 3:53pm Height 66.5 inches 5'6.50" Heart Rate 84 /min BP Systolic Sitting 110 mmHg BP Diastolic Sitting 70 mmHg BP Systolic Standing 84 mmHg Body Temperature 99.6 F 10/28/2007 3:05pm Height 66.5 inches 5'6.50" Weight 177.00 lb Heart Rate 80 /min BP Systolic Sitting 128 mmHg Own Yxianyl=088/82 BP Diastolic Sitting 78 mmHg Own Sufvynx=964/82 BMI (Body Mass Index) 28.1 kg/m2 09/30/2007 3:49pm Height 66.5 inches 5'6.50" Weight 186.00 lb Heart Rate 76 /min BP Systolic Sitting 164 mmHg BP Diastolic Sitting 82 mmHg BMI (Body Mass Index) 29.6 kg/m2 Results Test Date Facility Test Result H/L Range Note Laboratory test [facility] Surgical SEE RESULT 1 , 2 finding [address] [place] [address] [phone] Xray [facility] Hand Left 3+ VWS <pending> [address] [place] [address] [phone] Laboratory test [facility] D Dimer 246 ng/mL High Less Than 3 finding [address] Quantitative [address] [place] [address] [phone] CBC Auto Diff [facility] White Blood Count 9.6 10^3/ uL N 3.5-10.[address] [place] [address] [phone] Red Blood Count 4.36 10^6/uL N 4.00-5.40 Hemoglobin 12.8 g/dL N 12.0-16.0 Hematocrit 39 % N 35-47 Mean Corpuscular Volume 89 fL N 80-97 Mean Corpuscular Hemoglobin 29 pg N 27-31 Mean Corpuscular HGB Conc 33 g/dL N 31-36 Red Cell Distribution Width 14 % N 10.5-15 Platelet Count 209 10^3/uL N 150-450 Mean Platelet Volume 8.4 um3 N 7.4-10.4 Abs Neutrophils 6.2 10^3/uL N 1.5-7.7 Abs Lymphocytes 2.2 10^3/uL N 1.0-4.8 Abs Monocytes 0.8 10^3/uL N 0-0.8 Abs Eosinophils 0.3 10^3/uL N 0-0.6 Abs Basophils 0.1 10^3/uL N 0-0.2 Abs Nucleated RBC 0 10^3/uL Granulocyte % 64.8 % N 38-83 Lymphocyte % 22.6 % Low 25-47 Monocyte % 8.4 % High 0-7 Eosinophil % 2.9 % N 0-6 Basophil % 1.3 % N 0-2 Nucleated Red Blood Cells % 0 Laboratory test 06/13/2018 [facility] B-Type Natriuretic 33 pg/ mL [address] [place] [address] [phone] Lactic Acid 0.9 mmol/L N 0.5-2.0 5 Comp Metabolic Panel 06/13/2018 [facility] Sodium 138 mmol/L N 135-[address] [place] [address] [phone] Potassium 4.2 mmol/L N 3.5-5.0 Chloride 108 mmol/L N 101-111 Co2 Carbon Dioxide 24 mmol/L N 22-32 Anion Gap 6 mmol/L N 2-11 Calcium 9.5 mg/dL N 8.6-10.3 Albumin 3.9 g/dL N 3.2-5.2 Total Bilirubin 0.50 mg/dL N 0.2-1.0 Glucose 104 mg/dL High 70-100 Blood Urea Nitrogen 13 mg/dL N 6-24 Creatinine 1.10 mg/dL High 0.51-0.95 BUN/Creatinine Ratio 11.8 N 8-20 Total Protein 6.3 g/dL Low 6.4-8.9 Globulin 2.4 g/dL N 2-4 Albumin/Globulin Ratio 1.6 N 1-3 Alkaline Phosphatase 80 U/L N 34-104 Alt 9 U/L N 7-52 Ast 16 U/L N 13-39 Egfr Non- 48.7 >60 Egfr 58.9 >60 6 Laboratory test 06/13/2018 [facility] Magnesium 2.1 mg/dL N 1.9-2.[address] [place] [address] [phone] Amylase 24 U/L Low 29-103 Lipase 19 U/L N 11.0-82.0 Creatine Kinase(CK) 43 U/L N 10-223 C Reactive Protein 3.79 mg/L N <8.01 Troponin-I (TnI) 0.00 ng/mL <0.04 Laboratory test 05/30/2018 [facility] Erythrocyte Sed 15 mm/Hr N 0-[address] [place] [address] [phone] Occult 05/29/2018 [facility] Occult Blood - Negative Blood,Stool (3 Stool Spec) Laboratory test 05/24/2018 [facility] C Reactive 5.94 mg/L N < 8.[address] [place] [address] [phone] Magnesium 2.3 mg/dL N 1.9-2.7 Vitamin B12 And 05/24/2018 [facility] Vitamin B12 550 pg/mL N 180-914 7 Folate Serum [address] [place] [address] [phone] Folic Acid (Folate) > 20.00 ng/mL >3.99 Lipid Profile 05/17/2018 [facility] Triglycerides 98 mg/dL 8 (Trig/Chol/HDL) [address] [place] [address] [phone] Cholesterol 200 mg/dL 9 HDL Cholesterol 64.5 mg/dL 10 LDL Cholesterol 116 mg/dL 11 Laboratory test finding 05/17/2018 [facility] Ast (Sgot) 16 U/L N 13-[address] [place] [address] [phone] Alt (SGPT) 10 U/L N 7-52 Laboratory test 03/11/2018 [facility] C Reactive 2.26 mg/L N < 8.[address] [place] [address] [phone] Laboratory test 10/04/2017 [facility] Cytology SEE RESULT [address] [employer] [place] [address] [phone] Laboratory test 08/28/2017 [facility] C Reactive 2.52 mg/L N < 5.00 [address] [place] [address] [phone] Erythrocyte Sed Rate 10 mm/Hr N 0-40 Rheumatoid Factor <15 IU/mL <15 14 Hla B27 08/28/2017 [facility] Hla B27 Negative [address] [place] [address] [phone] Hla B27 Interp See Comment 16 Celiac Hla 08/28/2017 [facility] Hla-Dqa1 SEE BELOW [address] [place] [address] [phone] Hla-DQB1 SEE BELOW 18 Celiac Gene Pairs Present? Yes Celiac Gene Interpretation See Comment 19 Laboratory test 08/28/2017 [facility] Complement C3 108 mg/dL 75 - [address] [place] [address] [phone] Complement C4 24 mg/dL 14 - 40 21 Complement Total CH50 60 U/mL 30 - 75 22 Immunoglobulin G (Igg) 1060 mg/dL 767 - 1590 23 Creatine Kinase(CK) 51 U/L N 10-223 Thyroperoxidase AB 48.63 IU/mL High <9 Vitamin D, 1,25 Dihydroxy 65 pg/mL 18-78 24 Ssa/SSB Abs Igg 08/28/2017 [facility] SS-A/Ro Antibody <0.[address] [place] [address] [phone] SS-B/La Antibody <0.2 U 26 Laboratory test 08/28/2017 [facility] Tumor Necrosis 1.14 0.56-1.40 27 finding [facility] Factor pg/[place] [address] [phone] Scleroderma AB 08/28/2017 [facility] Scleroderma Ab <0.2 U 28 (SCL70) [address] [place] [address] [phone] Laboratory test 08/28/2017 [facility] Nuclear AB <1:80 29 finding [facility] (Keshia) By [place] ([place] [address] Igg ) [phone] Laboratory test 07/11/2017 [facility] TSH (Thyroid 2.38 N 0.34 -5.60 finding [facility] Stim Horm) mcIU/[place] [address] [phone] Free T4 (Free Thyroxine) 1.02 ng/dL N 0.61-1.12 CBC Auto 05/08/2017 [facility] White Blood 10.9 10^3/uL High 3.5-10.[address] [place] [address] [phone] Red Blood Count 4.42 10^6/uL N 4.0-5.4 Hemoglobin 13.1 g/dL N 12.0-16.0 Hematocrit 40 % N 35-47 Mean Corpuscular Volume 90 fL N 80-97 Mean Corpuscular Hemoglobin 30 pg N 27-31 Mean Corpuscular HGB Conc 33 g/dL N 31-36 Red Cell Distribution Width 14 % N 10.5-15 Platelet Count 203 10^3/uL N 150-450 Mean Platelet Volume 9 um3 N 7.4-10.4 Abs Neutrophils 7.0 10^3/uL N 1.5-7.7 Abs Lymphocytes 2.8 10^3/uL N 1.0-4.8 Abs Monocytes 0.7 10^3/uL N 0-0.8 Abs Eosinophils 0.3 10^3/uL N 0-0.6 Abs Basophils 0.1 10^3/uL N 0-0.2 Abs Nucleated RBC 0 10^3/uL N Granulocyte % 64.2 % N 38-83 Lymphocyte % 25.2 % N 25-47 Monocyte % 6.3 % N 1-9 Eosinophil % 3.2 % N 0-6 Basophil % 1.1 % N 0-2 Nucleated Red Blood Cells % 0 N Iron & Iron Binding 05/08/2017 [facility] Iron 65 g/dL N 50- [address] [place] [address] [phone] Unsaturated Iron Binding 271 g/dL N Total Iron Binding Capacity 336 g/dL N 250-450 % Iron Saturation 19 % N 15-55 Laboratory 05/08/2017 [facility] Magnesium 2.1 mg/dL N 1.9- 2.7 test finding [address] [place] [phone] Laboratory 05/08/2017 [facility] Hepatitis C Nonreactive N Nonreactive test finding [address] [place] [address] [place] [address] [phone] Vitamin B12 05/08/2017 [facility] Vitamin B12 759 pg/mL N 180- 914 30 And Folate 101 [facility] [place] [address] [phone] Folic Acid (Folate) > 20.00 ng/mL N >3.99 Lipid Profile 05/04/2017 [facility] Triglycerides 119 mg/dL N 31 (Trig/Chol/HDL) [address] [place] [address] [phone] Cholesterol 197 mg/dL N 32 HDL Cholesterol 60.9 mg/dL N 33 LDL Cholesterol 112 mg/dL N 34 Laboratory test 05/04/2017 [facility] Glucose 102 mg/dL High 70-100 [address] [place] [address] [phone] Laboratory test 04/26/2016 [facility] Glucose 83 mg/dL N 70- [address] [place] [address] [phone] Lipid Profile 04/26/2016 [facility] Triglycerides 127 mg/dL N 36 (Trig/Chol/HDL) [address] [place] [address] [phone] Cholesterol 195 mg/dL N 37 HDL Cholesterol 55.6 mg/dL N 38 LDL Cholesterol 114 mg/dL N 39 Laboratory test 02/02/2016 [facility] Erythrocyte Sed 16 mm/Hr N 0-[address] [place] [address] [phone] Comp Metabolic 02/02/2016 [facility] Sodium 136 mmol/L N 133- [address] [place] [address] [phone] Potassium 3.7 mmol/L N 3.5-5.0 Chloride 106 mmol/L N 101-111 Co2 Carbon Dioxide 23 mmol/L N 22-32 Anion Gap 7 mmol/L N 2-11 Glucose 119 mg/dL High 70-100 Blood Urea Nitrogen 9 mg/dL N 6-24 Creatinine 0.78 mg/dL N 0.51-0.95 BUN/Creatinine Ratio 11.5 N 8-20 Calcium 9.2 mg/dL N 8.6-10.3 Total Protein 6.2 g/dL Low 6.4-8.9 Albumin 3.9 g/dL N 3.2-5.2 Globulin 2.3 g/dL N 2-4 Albumin/Globulin Ratio 1.7 N 1-3 Total Bilirubin 0.40 mg/dL N 0.2-1.0 Alkaline Phosphatase 75 U/L N 34-104 Alt 10 U/L N 7-52 Ast 16 U/L N 13-39 Egfr Non- 72.8 N >60 Egfr 93.6 N >60 40 CBC Auto Diff 02/02/2016 [facility] White Blood 8.8 10^3/uL N 3.5-10.[address] [place] [address] [phone] Red Blood Count 4.42 10^6/uL N 4.0-5.4 Hemoglobin 12.8 g/dL N 12.0-16.0 Hematocrit 39 % N 35-47 Mean Corpuscular Volume 89 fL N 80-97 Mean Corpuscular Hemoglobin 29 pg N 27-31 Mean Corpuscular HGB Conc 33 g/dL N 31-36 Red Cell Distribution Width 14 % N 10.5-15 Platelet Count 176 10^3/uL N 150-450 Mean Platelet Volume 9 um3 N 7.4-10.4 Abs Neutrophils 5.2 10^3/uL N 1.5-7.7 Abs Lymphocytes 2.1 10^3/uL N 1.0-4.8 Abs Monocytes 1.1 10^3/uL High 0-0.8 Abs Eosinophils 0.3 10^3/uL N 0-0.6 Abs Basophils 0.1 10^3/uL N 0-0.2 Abs Nucleated RBC 0.01 10^3/uL N Granulocyte % 59.3 % N 38-83 Lymphocyte % 24.1 % Low 25-47 Monocyte % 12.3 % High 1-9 Eosinophil % 3.0 % N 0-6 Basophil % 1.3 % N 0-2 Nucleated Red Blood Cells % 0.1 N Urinalysis Profile 02/02/2016 [facility] Urine Color Yellow N [address] [place] [address] [phone] Urine Appearance Clear N Urine Specific [place] 1.009 Low 1.010-1.030 Urine pH 6.0 N 5-9 Urine Urobilinogen Negative N Negative Urine Ketones Negative N Negative Urine Protein Negative N Negative Urine Leukocytes Negative N Negative Urine Blood Negative N Negative Urine Nitrite Negative N Negative Urine Bilirubin Negative N Negative Urine Glucose Negative N Negative Basic Metabolic Panel 04/27/2015 [facility] Sodium 138 mmol/L N 133-145 [address] [place] [address] [phone] Potassium 4.4 mmol/L N 3.5-5.0 Chloride 103 mmol/L N 101-111 Co2 Carbon Dioxide 26 mmol/L N 22-32 Anion Gap 9 mmol/L N 2-11 Glucose 91 mg/dL N 70-100 Blood Urea Nitrogen 13 mg/dL N 6-24 Creatinine 0.87 mg/dL N 0.51-0.95 BUN/Creatinine Ratio 14.9 N 8-20 Calcium 9.4 mg/dL N 8.6-10.3 Egfr Non- 64.4 N >60 Egfr 82.8 N >60 41 Lipid Profile 04/27/2015 [facility] Triglycerides 140 mg/dL N 42 (Trig/Chol/HDL) [address] [place] [address] [phone] Cholesterol 189 mg/dL N 43 HDL Cholesterol 55.9 mg/dL N 44 LDL Cholesterol 105 mg/dL N 45 Lipid Panel 02/24/2014 [facility] Triglycerides 146 mg/dL N 46 [address] [place] [address] [phone] Cholesterol 193 mg/dL N 47 HDL Cholesterol 51.6 mg/dL N 48 LDL Cholesterol 112 mg/dL N 49 Laboratory test 02/24/2014 [facility] Glucose 99 mg/dL N 70- 100 finding [address] [place], [place] [address] [phone] Ua Routine 02/10/2013 [facility] Ua Specific 1.005 [place] Ua PH 7 Ua Color yellow Ua Appera clear Ua WBC trace Ua Protein neg Ua Glucose neg Ua Ketones neg Ua Bilirubin neg Ua Urobilinogen neg Ua Nitrite neg Ua Occult Blood neg Laboratory test 02/10/2013 [facility] Affirm Vaginal (SEE NOTE) 50 finding 101 [facility] [place] [address] [phone] Urine Culture And 02/10/2013 [facility] Urine Culture (SEE NOTE ) 51 Sensitivities [address] [place] [address] [phone] Urinalysis 07/06/2012 [facility] Urine Color Yellow [address] [place] [address] [phone] Urine Appearance Clear Urine Specific [place] 1.008 Low 1.010-1.030 Urine Esterase Trace Abnormal Negative Urine Nitrate Negative Negative Urine Urobilinogen Negative Negative Urine Protein Negative Negative Urine pH 7.5 5-9 Urine Blood Negative Negative Urine Ketones Negative Negative Urine Bilirubin Negative Negative Urine Glucose Negative Negative Urine Microscopic 07/06/2012 [facility] Urine WBC 1+ (<10 None Seen [address] /hpf) [place] [address] [phone] Urine RBC None Seen None Seen Urine Epithelial Cells 1+ Squamous /hpf None Seen Bacteria Urine 1+ None Seen CBC Auto Diff 07/06/2012 [facility] White Blood 9.6 10^3/uL 4.8-10.[address] [place] [address] [phone] Red Blood Count 4.70 10^6/uL 4.0-5.4 Hemoglobin [...] Cells % 0.1 Comp Metabolic Panel 07/06/2012 [facility] Sodium 137 mmol/L 133-[address] [place] [address] [phone] Potassium 4.5 mmol/L 3.5-5.0 Chloride 105 mmol/L 101-111 Co2 Carbon Dioxide 26.0 mmol/L 22-32 Anion Gap 6.0 mmol/L 2-11 Glucose 97 mg/dL 70-100 Blood Urea Nitrogen 13 mg/dL 6-24 Creatinine 0.70 mg/dL 0.50-1.40 BUN/Creatinine Ratio 18.6 8-20 Calcium 9.5 mg/dL 8.1-9.9 Total Protein 7.3 GM/DL 6.2-8.1 Albumin 4.2 GM/DL 3.2-5.2 Globulin 3.1 GM/DL 2-4 Albumin/Globulin Ratio 1.4 1-3 Total Bilirubin 0.8 mg/dL 0.1-1.0 52 Alkaline Phosphatase 85 U/L 30-110 Alt 17 U/L 14-54 Ast 22 U/L 12-42 Egfr Non- 83.5 >60 Egfr 107.3 >60 53 Laboratory test finding 07/06/2012 [facility] Amylase 37 U/L 20-120 [address] [place] [address] [phone] Lipase 29 U/L 22-51 C Reactive Protein 0.6 mg/dL High Less Than 0.5 Urine Culture & 06/03/2012 [facility] Urine Culture (SEE NOTE) 54 [address] [place] [address] [phone] Ua Routine 06/03/2012 [facility] Ua Specific 1.005 [place] Ua PH 6 Ua Color light yellow Ua Appera clear Ua WBC trace Ua Protein negative Ua Glucose negative Ua Ketones negative Ua Bilirubin negative Ua Urobilinogen negative Ua Nitrite negative Ua Occult Blood negative Laboratory test finding 06/02/2012 [facility] Amylase 37 U/L 20-120 55 [address] [place] [address] [phone] Lipase 30 U/L 22-51 Liver Function 06/02/2012 [facility] Total Protein 6.5 GM/DL 6.2-8.1 Panel [address] [place] [address] [phone] Albumin 4.3 GM/DL 3.2-5.2 Globulin 2.2 GM/DL 2-4 Albumin/Globulin Ratio 2.0 1-3 Bilirubin Total 0.9 mg/dL 0.4-1.5 56 Bilirubin Direct 0.1 mg/dL 0.1-0.5 Indirect Bilirubin 0.8 mg/dL 0.3-1.0 57 Alkaline Phosphatase 82 U/L 30-110 Alt (SGPT) 15 U/L 14-54 Ast (Sgot) 21 U/L 12-42 CBC No Diff 06/02/2012 [facility] White Blood Count 8.5 CUMM 4.8-10.8 [address] [place] [address] [phone] Red Cell Count 4.64 CUMM 4.2-5.4 Hemoglobin 14.2 g/dL 12.0-16.0 Hematocrit 43 % 35-47 Mean Corpuscular Volume 92 um3 79-97 Mean Corpuscular Hemoglob 31 pg 27-31 Mean Corpuscular HGB Cone 33 g/dL 32-36 Redcell Distribution WDTH 13 % 10.5-15 Platelet Count 205 CUMM 150-450 Mean Platelet Volume 9.3 um3 7.4-10.4 Vitamin D, 25 03/19/2012 [facility] 25-Hydroxy Vitamin <4.0 ng/ mL () Hydroxy [address] [address] [phone] 25-Hydroxy Vitamin D3 27 ng/mL () 25-Hydroxy Vitamin D Total 27 ng/mL () 58 Comp Metabolic Panel 02/12/2012 [facility] Sodium 135 mmol/L 135-[address] [place] [address] [phone] Potassium 4.2 mmol/L 3.5-5.0 Chloride 105 mmol/L 101-111 Co2 (Carbon Dioxide) 26.0 mmol/L 22-32 Anion Gap 4.0 mmol/L 2-11 59 Glucose 99 mg/dL 70-100 BUN 12 mg/dL 6-24 Creatinine 0.7 mg/dL 0.50-1.40 One Over Creatinine 1.42 BUN/Creatinine Ratio 17.1 8-20 Calcium 9.2 mg/dL 8.1-9.9 Total Protein 6.1 GM/DL Low 6.2-8.1 Albumin 3.9 GM/DL 3.2-5.2 Globulin 2.2 GM/DL 2-4 Albumin/Globulin Ratio 1.8 1-3 Bilirubin Total 0.7 mg/dL 0.4-1.5 60 Alkaline Phosphatase 83 U/L 30-110 Alt (SGPT) 15 U/L 14-54 Ast (Sgot) 19 U/L 12-42 eGFR Non- 83.5 > 60 eGFR 107.3 > 60 61 Lipid Profile 02/12/2012 [facility] Triglyceride 122 mg/dL 40 -200 (Trig/Chol/HDL) [address] [place] [address] [phone] Cholesterol 186 mg/dL Less Than 200 62 High Density Lipoprotein 50 mg/dL 40-60 63 Cholesterol/HDL Ratio 3.72 AVERAGE 1-4.44 Low Density Lipoprotein 112 mg/dL High Less Than 100 64 Urinalysis W/Microscopic 09/29/2011 [facility] Ua Color YELLOW Yellow [address] [place] [address] [phone] Appearance-Urine CLEAR Clear Specific [place]-Ur 1.013 1.010-1.030 Esterase-Urine TRACE Abnormal Negative Nitrite NEGATIVE Negative Bbvwwmqrtmtp-Lc-GCU NEGATIVE Negative Protein-Urine NEGATIVE Negative PH-Urine 6.0 5-9 Blood-Urine NEGATIVE Negative Ketones-Urine NEGATIVE Negative Bilirubin-Ur NEGATIVE Negative Glucose-Urine NEGATIVE Negative WBC-Urine RARE 0-5 RBC-Urine NONE SEEN 0-2 Epith Cells-Ur NONE SEEN None Comp Metabolic Panel 09/29/2011 [facility] Sodium 140 mmol/L 135-[address] [place] [address] [phone] Potassium 4.4 mmol/L 3.5-5.0 Chloride 106 mmol/L 101-111 Co2 (Carbon Dioxide) 27.0 mmol/L 22-32 Anion Gap 7.0 mmol/L 2-11 65 Glucose 83 mg/dL 70-100 BUN 13 mg/dL 6-24 Creatinine 0.9 mg/dL 0.50-1.40 One Over Creatinine 1.11 BUN/Creatinine Ratio 14.4 8-20 Calcium 9.9 mg/dL 8.1-9.9 Total Protein 6.9 GM/DL 6.2-8.1 Albumin 4.4 GM/DL 3.2-5.2 Globulin 2.5 GM/DL 2-4 Albumin/Globulin Ratio 1.8 1-3 Bilirubin Total 0.9 mg/dL 0.4-1.5 66 Alkaline Phosphatase 85 U/L 30-110 Alt (SGPT) 13 U/L Low 14-54 Ast (Sgot) 22 U/L 12-42 eGFR Non- 62.6 > 60 eGFR 80.6 > 60 67 CBC Auto Diff 09/29/2011 [facility] White Blood 11.6 CUMM High 4.8-10.[address] [place] [address] [phone] Red Cell Count 4.63 CUMM 4.2-5.4 Hemoglobin [...] 0-0.6 Abs Basophils 0.1 0-0.2 Laboratory test 09/29/2011 [facility] Erythrocyte Sed 1 MM/HR 0-[address] [place] [address] [phone] Sensitivities For 03/24/2011 [facility] Amikacin <=2 S Urine Culture [address] [place] [address] [phone] Ciprofloxacin <=0.25 S Ceftriaxone >=64 R Cefazolin >=64 R Nitrofurantoin 128 R Gentamicin <=1 S Imipenem <=1 S Levofloxacin <=0.12 S Trimeth-Sulfa <=20 S Ceftazidime >=64 R Tigecycline 1 S Piperacillin/Tazobactam >=128 R Piperacillin/Tazobactam KB 16 R Culture Urine 03/24/2011 [facility] Urine Culture ESCHERICHIA COLI [address] [place] [address] [phone] Urine Culture Sensitivi ENTEROBACTER EDDY <SEE NOTE> 69 Ua W/Microscopic 03/24/2011 [facility] Ua Color YELLOW Yellow [address] [place] [address] [phone] Appearance-Urine CLEAR Clear Specific [place]-Ur 1.006 Low 1.010-1.030 Esterase-Urine NEGATIVE Negative Nitrite NEGATIVE Negative Yrekqlwursdc-Ed-QXP NEGATIVE Negative Protein-Urine NEGATIVE Negative PH-Urine 5.5 5-9 Blood-Urine NEGATIVE Negative Ketones-Urine NEGATIVE Negative Bilirubin-Ur NEGATIVE Negative Glucose-Urine NEGATIVE Negative WBC-Urine 0-2 0-5 RBC-Urine 0-2 0-2 Epith Cells-Ur FEW None Culture 03/09/2011 [facility] Genital ESCHERICHIA COLI [address] [place] [address] [phone] Genital Culture NORMAL JANETH 71 Sensitivities For Gen Culture 03/09/2011 [facility] Ampicillin [address] [place] [address] [phone] Amikacin <=2 S Ciprofloxacin <=0.25 S Ceftriaxone <=1 S Cefazolin <=4 S Gentamicin <=1 S Imipenem <=1 S Levofloxacin <=0.12 S Trimeth-Sulfa <=20 S Ceftazidime <=1 S Tigecycline <=0.5 S Piperacillin/Tazobactam KB 27 S Urine Culture & 03/09/2011 [facility] Urine Culture ENTEROBACTERIACE [address] Sensitivi <SEE NOTE> [place] [address] [phone] Manual 08/06/2010 [facility] Polysegmented 64 % [address] Neutrophil -8 [place] [address] 3 [phone] Lymphocyte 24 % Low 25-47 Monocyte 10 % 0-13 Basophil 1 % 0-2 Atypical Lymph 1 % 0-6 Absolute Neutrophil Count 7.2 RBC Morphology NORMAL CBC With 08/06/2010 [facility] White Blood 11.3 CUMM High 4.8- 10.8 Electronic Diff [address] [place] [address] [phone] Red Cell Count 4.73 CUMM 4.2-5.4 Hemoglobin 14.5 g/dL 12.0-16.0 Hematocrit 43 % 35-47 Mean Corpuscular Volume 90 um3 79-97 Mean Corpuscular Hemoglob 31 pg 27-31 Mean Corpuscular HGB Cone 34 g/dL 32-36 Redcell Distribution WDTH 14 % 10.5-15 Platelet Count 212 CUMM 150-450 Mean Platelet Volume 8.3 um3 7.4-10.4 73 Lipid Profile 08/06/2010 [facility] Triglyceride 151 mg/dL 40 -200 (Trig/Chol/HDL) [address] [place] [address] [phone] Cholesterol 217 mg/dL High Less Than 200 74 High Density Lipoprotein 48 mg/dL 40-60 75 Cholesterol/HDL Ratio 4.52 AVERAGE High 1-4.44 Low Density Lipoprotein 139 mg/dL High Less Than [address] [facility] 08/06/2010 [facility] TSH 1.65 MIU/ML 0.34- 5.[address] [place] [address] [phone] Comp Metabolic 08/06/2010 [facility] Sodium 137 mmol/L 135- [address] [place] [address] [phone] Potassium 4.3 mmol/L 3.5-5.0 Chloride 106 mmol/L 101-111 Co2 (Carbon Dioxide) 23.0 mmol/L 22-32 Anion Gap 8.0 mmol/L 2-11 77 Glucose 102 mg/dL High 70-100 78 BUN 14 mg/dL 6-24 Creatinine 0.70 mg/dL 0.50-1.40 One Over Creatinine 1.40 BUN/Creatinine Ratio 20.0 8-20 Calcium 9.3 mg/dL 8.1-9.9 Total Protein 6.4 GM/DL 6.2-8.1 Albumin 4.2 GM/DL 3.2-5.2 Globulin 2.2 GM/DL 2-4 Albumin/Globulin Ratio 1.9 1-3 Bilirubin Total 0.8 mg/dL 0.4-1.5 79 Alkaline Phosphatase 86 U/L 30-110 Alt (SGPT) 18 U/L 14-54 Ast (Sgot) 21 U/L 12-42 eGFR Non- 89.3 > 60 eGFR 108.0 > 60 80 Surgical 10/20/2008 [facility] Surgical [address] Pathology <SEE NOTE> [place] [address] [phone] Laboratory 06/15/2008 [facility] Clotest N^NEGATIVE^EDDY test finding [address] [place] [address] [phone] Basic 06/08/2008 [facility] Sodium 140 mmol/L 135- Metabolic [address] 145 [place] [address] [phone] Potassium 3.8 mmol/L 3.5-5.0 Chloride 109 mmol/L 101-111 Co2 (Carbon Dioxide) 24.0 mmol/L 22-32 Anion Gap 7.0 mmol/L 2-11 82 Glucose 91 mg/dL 70-100 83 BUN 14 mg/dL 6-24 Creatinine 0.9 mg/dL 0.5-1.4 One Over Creatinine 1.11 BUN/Creatinine Ratio 15.6 8-20 Calcium 9.6 mg/dL 8.1-9.9 84 Laboratory test 11/30/2007 [facility] TSH 1.53 MIU/ML 0.34- 5.[address] [place] [address] [phone] Lipid Profile 11/30/2007 [facility] Cholesterol 4.26 AVERAGE 1-4.44 (Trig/Chol/HDL) [address] /[place] [address] [phone] Cholesterol 196 mg/dL Less Than 200 85 Triglyceride 100 mg/dL 40-200 High Density Lipoprotein 46 mg/dL 40-60 86 Low Density Lipoprotein 130 mg/dL High Less Than 100 87 Comp Metabolic Panel 11/30/2007 [facility] One Over Creatinine 1.[address] [place] [address] [phone] Anion Gap 0 mmol/L Low 2-11 88 Albumin/Globulin Ratio 1.3 1-3 Albumin 3.8 GM/DL [...] 8-20 Creatinine 0.8 mg/dL 0.5-1.4 CBC With 11/30/2007 [facility] White Blood 8.6 CUMM 4.8-10.8 Electronic Diff [address] [place] [address] [phone] Abs Basophils 0.1 0-0.2 Abs Eosinophils 0.4 [...] Redcell Distribution WDTH 13 % 10.5-15 1 [id number] 2 SEE RESULT BELOW Name: NOELLE EL : [address]: Dougie Cohen MD Acct: [id number] Unit: [id number] AGE: 73 Location: [facility] Re07/09/18 SEX: F Status: DEP REF SPEC: [id number] NIYA: 07/09/18- SUBM DR: Dougie Cohen MD REQ: [id number] RECD: 07/09/18-1236 STATUS: JF LORENZO DR: Rodney Jones III, MD _ ORDERED: LEVEL 4/3, IMMUNO-FIRST COMMENTS: [id number] Addendum: An immunohistochemical stain for Helicobacter pylori-like organisms was performed with appropriate controls on part 2 and is negative. Addendum Signed (signature on file) Maximo Lainez MD 0957 FINAL DIAGNOSIS 1. Small bowel, duodenum, biopsy: -- Small bowel mucosa with normal villous architecture and no significant pathologic abnormality. 2. Stomach, biopsy: -- Gastric antral-type mucosa with moderate diffuse chronic inflammation. -- No active gastritis nor Helicobacter pylori-like organisms identified on H E microscopy. See comment. 3. Gastroesophageal junction, biopsy: -- Gastroesophageal transition zone mucosa with no significant pathologic abnormality. -- No goblet cell/intestinal metaplasia or dysplasia identified. -- No definitive features of active reflux esophagitis identified. Comment: An immunohistochemical stain for Helicobacter pylori-like organisms is pending in part 2 and will be reported in an addendum. 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 Director [facility] # [id number] RUN DATE: 07/11/18 [facility] LAB LIVE PAGE 2 Patient: NOELLE EL [id number] (Continued) GROSS DESCRIPTION (Continued) GROSS DESCRIPTION 1. The specimen is received in formalin labeled, Duodenal Biopsy, and consists of two linares-pink irregular soft tissue fragments measuring 0.1 x 0.1 x 0.1 cm and 0.3 x 0.3 x 0.2 cm which are submitted entirely in one cassette. 2. The specimen is received in formalin labeled, Gastric Body Biopsy, and consists of a 0.3 x 0.2 x 0.2 cm linares-pink irregular soft tissue fragment which is submitted entirely in one cassette. 3. The specimen is received in formalin labeled, [place] Biopsy, and consists of a 0.8 by up to 0.3 x 0.1 cm linares irregular soft tissue fragment which is submitted entirely in one cassette. Signed by and Reported on: Maximo Lainez MD 03/20 1107 END OF REPORT DEPARTMENT OF PATHOLOGY, [address], [place], [place] [address] Maximo Lainez M.D. Director [facility] # [id number] 3 Please note: The following may produce a false positive D Dimer test: - Rheumatoid factor greater than 60 IU/ml - Plasma hemoglobin greater than 0.05 gm/dl - Bilirubin greater than 50 mg/dl - Lipids greater than 1000 mg/dl - FDP greater than 20 ug/ml 4 >100 to <200 pg/mL: likely compensated congestive heart failure (CHF) 200 to 400 pg/mL: likely moderate CHF >400 pg/mL: likely moderate to severe CHF 5 [facility] Severe Sepsis and Septic Shock Management Bundle Measure requires all lactic acids initially measuring >2.0 mmol/L be repeated. 6 Because ethnic data is not always readily [...] 15-29 5 Kidney failure <15 (or dialysis) 7 Normal Range 180 to 914 Indeterminate Range 145 to 180 Deficient Range <145 8 Desirable: <150 Borderline High: 150-199 High: 200-499 Very High: >500 9 Desirable: <200 Borderline High: 200-239 High: >239 10 Low: <40 Desirable: 40-60 High: >60 11 Desirable: <100 Near Optimal: 100-129 Borderline High: 130-159 High: 160-189 Very High: >189 12 SEE RESULT BELOW Name: NOELLE EL : [address]: Riaz Beckford MD Acct: [id number] Unit: [id number] AGE: 72 Location: THYROID Re10/04/17 SEX: F Status: REG REF SPEC: [id number] NIYA: 10/04/[address]: Riaz Beckford MD REQ: [id number] RECD: 10/04/17 STATUS: JF LORENZO DR: Elías Cerda MD _ ORDERED: FNA-IMG GUID BX, CYTO ADEQ-1ST P FINAL DIAGNOSIS Thyroid, left, ultrasound-guided fine needle aspiration: --Benign thyroid nodule- colloid/hyperplastic type ([place] Class II). The specimen demonstrates moderate watery [...] performed at Main Lab DEPARTMENT OF PATHOLOGY, [address] [place] [address] Maximo Lainez M.D. Director [facility] # [id number] RUN DATE: 10/04/17 [facility] LAB LIVE PAGE 2 Patient: RACHEAL ELNeel Mayorga [id number] (Continued) GROSS DESCRIPTION (Continued) GROSS DESCRIPTION 1 - alcohol fixed slide(s) 1- passes Signed (signature on file) Chante Canada MD 09/20 0952 END OF REPORT * ML=Testing performed at Main Lab DEPARTMENT OF PATHOLOGY, [address] [place] [address] Maximo Lainez M.D. Director [facility] # [id number] 13 Acute inflammation: >10.00 14 Test Performed by: [address] [address] 15 REFERENCE VALUE Not Applicable 16 RESULT: HLA-B27 antigen was not detected. ADDITIONAL INFORMATION Method: Flow Cytometry Performing Laboratory CLIA# [id number] Test Performed by: [facility] [place] [address] 17 RESULT: 03,05:01 REFERENCE VALUE Not Applicable 18 RESULT: 02:01,03:01 DQ Serologic Equivalent: 2,7 REFERENCE VALUE Not Applicable 19 These genes are permissive for celiac disease. The absence of HLA celiac permissive genes would make the presence of celiac disease unlikely. However, these genes can also be present in the normal population. ADDITIONAL INFORMATION Method: Molecular typing of HLA antigens performed using reverse SSOP and/or SSP methods, reported as serological equivalents and low to medium resolution molecular values. Performing Laboratory CLIA# [id number] Test Performed by: [place] [address] 20 Test Performed by: [place] [address] 21 Test Performed by: [place] [address] 22 Test Performed by: [place] [address] 23 Test Performed by: [facility] [place] [address] 24 ADDITIONAL INFORMATION This test was developed and its performance characteristics determined by [facility] in a manner consistent with CLIA requirements. This test has not been cleared or approved by the U.S. Food and Drug Administration. Test Performed by: [facility] - [facility] [address] [place] [address] 25 REFERENCE VALUE <1.0 (Negative) 26 REFERENCE VALUE <1.0 (Negative) Test Performed by: [facility] - [address] [address] 27 TNF-alpha is not to be used as [...] of this test have been determined by [employer] [facility]. This test should not be used for diagnosis without confirmation by other medically established means. Test Performed by: [employer]/[facility] [address] [place] [address] 28 REFERENCE VALUE <1.0 (Negative) Test Performed by: [facility] - [facility] [address] [place] [address] 29 <1:80 (Negative) REFERENCE VALUE <1:80 (Negative) Test Performed by: [facility] - [address] [address] 30 Normal Range 180 to 914 Indeterminate Range 145 to 180 Deficient Range <145 31 Desirable <150 Borderline high 150-199 High 200-499 Very High >500 32 Desirable <200 Borderline high 200-239 High >239 33 Low <40 Desirable: 40-60 High: >60 34 Desirable: <100 mg/dL Near Optimal: 100-129 mg/dL Borderline High: 130-159 mg/dL High: 160-189 mg/dL Very High: >189 mg/dL 35 FASTING 10 HOUR 36 Desirable <150 Borderline high 150-199 High 200-499 Very High >500 37 Desirable <200 Borderline high 200-239 High >239 38 Low <40 Desirable: 40-60 High: >60 39 Desirable: <100 mg/dL Near Optimal: 100-129 mg/dL Borderline High: 130-159 mg/dL High: 160-189 mg/dL Very High: >189 mg/dL 40 Because ethnic data is not always readily [...] 15-29 5 Kidney failure <15 (or dialysis) 41 Because ethnic data is not always readily [...] 15-29 5 Kidney failure <15 (or dialysis) 42 Desirable <150 Borderline high 150-199 High 200-499 Very High >500 43 Desirable <200 Borderline high 200-239 High >239 44 Low <40 Desirable: 40-60 High: >60 45 Desirable: <100 mg/dL Near Optimal: 100-129 mg/dL Borderline High: 130-159 mg/dL High: 160-189 mg/dL Very High: >189 mg/dL 46 Desirable <150 Borderline high 150-199 High 200-499 Very High >500 47 Desirable <200 Borderline high 200-239 High >239 48 Low <40 Desirable: 40-60 High: >60 49 Desirable <100 Near Optimal 100-129 Borderline high 130-159 High 160-189 Very High >189 50 RUN DATE: 02/11/13 [facility] LAB LIVE PAGE 1 RUN TIME: 1022 [address] [place], [place] [address] Specimen Inquiry Name: NOELLE EL : [address]: Lila Stein MD Acct: [id number] Unit: [id number] AGE: 68 Location: [facility] Re02/10/13 SEX: F Status: REG REF SPEC: [id number] NIYA: 02/10/13-[address]: Lila Stein MD REQ: [id number] RECD: 02/10/136 STATUS: COMP _ SOURCE: [facility]: ORDERED: Affirm QUERIES: Medent Number [id number] Procedure Result Verified Site Affirm Vaginal DNA [...] performed at Main Lab DEPARTMENT OF PATHOLOGY, [facility] [employer] [place], [place] [address] Maximo Lainez M.D. Director [facility] Permit #[id number] RUN DATE: 02/12/13 [facility] LAB LIVE PAGE 1 RUN TIME: 920 [facility] [employer] [place], [place] [address] Specimen Inquiry Name: NOELLE EL : [address]: Lila Stein MD Acct: [id number] Unit: [id number] AGE: 68 Location: [facility] Re02/10/13 SEX: F Status: REG REF SPEC: [id number] NIYA: 02/10/13-1235 [facility] DR: Lila Stein MD REQ: [id number] RECD: 02/10/13 STATUS: COMP _ SOURCE: URINE SPDESC: ORDERED: Urine Culture QUERIES: Medent Number [id number] Procedure Result Verified Site Urine Culture Final 02/12/13- 920 ML Organism 1 NORMAL JANETH Salinas Count 25-50,000 (Moderate) CFU/ML END OF REPORT * ML=Testing performed at Main Lab DEPARTMENT OF PATHOLOGY, [address] [place] [address] Maximo Lainez M.D. Director [facility] Permit #[id number] 52 A metabolite of Naproxen, O-desmethylnaproxen, has been shown to interfere with the Jendrassik-Kimberly method for measuring total bilirubin. Samples from patients who have taken Naproxen have shown spurious elevation in total bilirubin levels. 53 Because ethnic data is not always readily [...] 15-29 5 Kidney failure <15 (or dialysis) 54 RUN DATE: 06/05/12 [facility] LAB LIVE PAGE 1 RUN TIME: [address] [place] [address] Specimen Inquiry Name: NOELLE EL : [address]: Rodney Jones III, MD Acct: [id number] Unit: [id number] AGE: 67 Location: [facility] Re06/03/12 SEX: F Status: REG REF SPEC: [id number] NIYA: 06/03/12 [facility] DR: Rodney Jones III, MD REQ: [id number] RECD: 06/03/12 STATUS: COMP _ SOURCE: URINE SPDESC: ORDERED: Urine Culture QUERIES: Medent Number [id number] Procedure Result Verified Site Urine Culture Final 06/05/12- 1147 ML No Growth Day 2 (<1,000 CFU/mL) END OF REPORT * ML=Testing performed at Main Lab DEPARTMENT OF PATHOLOGY, [address] [place] [address] Maximo Lainez M.D. Director [facility] Permit #[id number] 55 PLEASE NOTE NEW REFERENCE RANGE. 56 A metabolite of Naproxen, O-desmethylnaproxen, has been shown to interfere with the Jendrassik-Oyehut method for measuring total bilirubin. Samples from patients who have taken Naproxen have shown spurious elevation in total bilirubin levels. 57 Please note updated reference range, effective 03/24/10 58 -- REFERENCE VALUE -- 25-HYDROXY D TOTAL (D2+D3) Optimum levels in the normal population are 25-80 Test Performed by: [address] [address] Web Designer Developer: Oswaldo Farias III, M.D. 59 Anion gap measurement may be of limited value in the presence of any alkalosis, especially in a combined acid base disorder. . 60 A metabolite of Naproxen, O-desmethylnaproxen, has been shown to interfere with the Jendrassik-Kimberly method for measuring total bilirubin. Samples from patients who have taken Naproxen have shown spurious elevation in total bilirubin levels. 61 Because ethnic data is not always readily [...] 15-29 5 Kidney failure <15 (or dialysis) 62 CHOLESTEROL INTERPRETATION: Desirable: Less than 200 MG/DL Borderline-High Risk: 200-239 MG/DL High-Risk: 240 MG/DL and over 63 HDL INTERPRETATION: Undesirable: High Risk: Less than 40 MG/DL Desirable: Low Risk: Greater than 60 MG/DL 64 LDL INTERPRETATION: Low Risk Optimal Level: LDL Less than 100 MG/DL Near or Above Optimal: LDL 100-129 MG/DL Borderline High Risk: LDL 130-159 MG/DL High Risk: LDL 160-189 MG/DL Very High Risk: LDL Greater than 189 MG/DL 65 Anion gap measurement may be of limited value in the presence of any alkalosis, especially in a combined acid base disorder. . 66 A metabolite of Naproxen, O-desmethylnaproxen, has been shown to interfere with the Jendrassik-Kimberly method for measuring total bilirubin. Samples from patients who have taken Naproxen have shown spurious elevation in total bilirubin levels. 67 Because ethnic data is not always readily [...] 15-29 5 Kidney failure <15 (or dialysis) 68 CORRECTED RESULT! WRONG RESULT WAS E.COLI VERBAL TO ASAD PEREZ/ELFEGO BY LRU at 1150 on 03/27/11. 69 ENTEROBACTER CLOACAE 50^25-50,000 ORGANISMS/ML (MODERATE)^CCU 70 F^FEW^QTY 71 F^FEW^QTY 72 ENTEROBACTERIACEAE 10^1-10,000 ORGANISMS/ML (FEW)^CCU Small quantity of enterobacteriaciae typically suggestive of fecal contamination. Suggest resubmission. Isolates will be saved for one week. Please call the Microbiology Laboratory if further identification and/or susceptibility testing is needed. 73 Basophilia % 74 CHOLESTEROL INTERPRETATION: Desirable: Less than 200 MG/DL Borderline-High Risk: 200-239 MG/DL High-Risk: 240 MG/DL and over 75 HDL INTERPRETATION: Undesirable: High Risk: Less than 40 MG/DL Desirable: Low Risk: Greater than 60 MG/DL 76 LDL INTERPRETATION: Low Risk Optimal Level: LDL Less than 100 MG/DL Near or Above Optimal: LDL 100-129 MG/DL Borderline High Risk: LDL 130-159 MG/DL High Risk: LDL 160-189 MG/DL Very High Risk: LDL Greater than 189 MG/DL 77 Anion gap measurement may be of limited value in the presence of any alkalosis, especially in a combined acid base disorder. . 78 Note change in reference range as of 04/23/08. The change was based on recommendations from the [place] [employer]. 79 A metabolite of Naproxen, O-desmethylnaproxen, has been shown to interfere with the Jendrassik-Kimberly method for measuring total bilirubin. Samples from patients who have taken Naproxen have shown spurious elevation in total bilirubin levels. 80 Because ethnic data is not always readily [...] 15-29 5 Kidney failure <15 (or dialysis) 81 ---- RUN DATE: 10/22/08 [facility] NMI LIVE PAGE 1 RUN TIME: 1215 Specimen Inquiry RUN USER: INTERFACE -- Name: NOELLE EL Acclilly#: [id number] Status: REG REF Re10/20/08 Age/Sex: 63/F Unit#: [id number] Location: NDO : 45 -- Specimen: [id number] SOUT Spec Date: 10/20/[address]: Dougie gould MD Spec Type: SURGICAL P Received: 10/21/084457 Copies to: Rodney Jones III, MD SPECIMEN BIOPSY COLON POLYP AT 70 CM. HISTORY CLINICAL INFORMATION: Abdominal pain, right side pain, diarrhea; brad hauser GROSS DESCRIPTION The specimen is received in formalin labelled Noelle MMonica El, Biopsy Colon Polyp at 70 cm., and consists of a linares, soft tissue fragment measuring 0.4 x 0.3 x 0.2 cm. Submitted entirely, one cassette. DIAGNOSIS Colon, 70 cm., biopsy: A) Tubular adenoma. B) No high grade dysplasia or malignancy identified. Signed Electronically by: MAXIMO LAINEZ MD 10/22/08 1215 -- -- DEPARTMENT OF PATHOLOGY, [address] [place] [address] [facility] Permit #[id number] Iqra Leon M.D. Returned Materials Inspector roland -- 82 Anion gap measurement may be of limited value in the presence of any alkalosis, especially in a combined acid base disorder. . 83 Note change in reference range as of 04/23/08. The change was based on recommendations from the [place] [employer]. 84 Please note change in reference range effective 08 . 85 CHOLESTEROL INTERPRETATION: Desirable: Less than 200 MG/DL Borderline-High Risk: 200-239 MG/DL High-Risk: 240 MG/DL and over 86 HDL INTERPRETATION: Undesirable: High Risk: Less than 40 MG/DL Desirable: Low Risk: Greater than 60 MG/DL 87 LDL INTERPRETATION: Low Risk Optimal Level: LDL Less than 100 MG/DL Near or Above Optimal: LDL 100-129 MG/DL Borderline High Risk: LDL 130-159 MG/DL High Risk: LDL 160-189 MG/DL Very High Risk: LDL Greater than 189 MG/DL 88 Anion gap measurement may be of limited value in the presence of any alkalosis, especially in a combined acid base disorder. . Procedures Date Code Description Status 07/04/2018 [id number] Mammogram Completed 07/04/2018 [id number] Bone Mineral Density Test Completed 06/18/2018 56599 Inject/Drain Joint/Bursa Major W/O US Completed 12/24/2017 504203624 Diabetic Foot Exam Completed 12/18/2017 400329539 Diabetic Foot Exam Completed 07/03/2017 63709019 Mammogram Completed 08/10/2016 87989 Closed trtmt prox humeral fx Completed 06/13/2016 954358120 Bone Mineral Density Test Completed 06/12/2016 66019342 Mammogram Completed 08/30/2015 65812 Nasal Endoscopy, Diagnostic Completed 08/02/2015 41787 Tympanometry Completed 06/09/2015 39530726 Mammogram Completed 08/11/2014 10939 Pulmonary Function><Bronchodil Completed 06/08/2014 23149509 Colonoscopy Completed 06/08/2014 039752788 Bone Mineral Density Test Completed 06/08/2014 45888437 Mammogram Completed 05/05/2014 95531 Nasal Endoscopy, Diagnostic Completed 04/06/2014 63798 Nasal Endoscopy, Diagnostic Completed 01/12/2014 28713 Nasal Endoscopy, Diagnostic Completed 12/31/2013 93484 Nasal Endoscopy/Ethmoidectomy/Total Completed 12/31/2013 51760 N/Endoscopy/Max Antrostomy Completed 11/28/2013 19857 Myocardial Perfusion Imaging Tomographic (Spect) Completed Multiple Studies 11/28/2013 65849 Stress Test Completed 11/22/2013 [id number] Colonoscopy Completed 11/19/2013 72370 EKG Tracing & Interpretation Completed 03/08/2012 86830055 Mammogram Completed 03/08/2012 453640381 Bone Mineral Density Test Completed 03/24/2011 34875297 Mammogram Completed 10/22/2008 20960593 Colonoscopy Completed 09/03/2001 464392762 Bone Mineral Density Test Completed Encounters Type Date Location Provider Dx Diagnosis Office Visit 06/18/2018 Rheumatology Elías Thomas, M70.62 Trochanteric 9:40a Services Of Elfego Escalona bursitis, left hip M25.542 Pain in joints of left hand Office Visit 05/22/2018 2:20p Elfego Pak Z00.00 Encntr for Ronaldo Jones M.D. general adult [facility] medical exam w/o abnormal findings Z23 Encounter for immunization E78.00 Pure hypercholesterolemia, unspecified I73.9 Peripheral vascular disease, unspecified R10.13 Epigastric pain K21.9 Gastro-esophageal reflux disease without esophagitis Z12.31 Encntr screen mammogram for malignant neoplasm of breast M85.89 Oth disrd of bone density and structure, multiple sites Office Visit 05/13/2018 10:00a Orthopedic Mukesh Du84.371D Stress Services Of MD vazquez right C.M.A. ankle, subs for fx w routn heal Office Visit 04/01/2018 11:30a Mukesh Houston84.371A Stress Services Of MD vazquez right C.M.A. ankle, initial encounter for fracture W22.8xxA Striking against or struck by other objects, init encntr Office Visit 03/20/2018 Mukesh Houston84.371A Stress fracture , 2:30p Services Of MD durand ankle, C.M.A. initial encounter for fracture Office Visit 03/15/2018 Elfego Hemphill NP L03.115 Cellulitis of 3:00p Medicine - right lower limb [place] Office Visit 02/20/2018 Elfego Pak R51 Headache 2:00p Medicine - Iqra Jones [facility] R41.82 Altered mental status, unspecified Office Visit 12/17/2017 10:20a Rheumatology Elías I73.9 Peripheral Services Of Elfego Thomas M.D. vascular disease, unspecified M16.9 Osteoarthritis of hip, unspecified Office Visit 12/07/2017 10:[address]a [facility] Trina Pak I73.9 Peripheral Ronaldo Jones M.D. 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 hearing loss, unspecified ear M54.5 Low back pain M25.559 Pain in unspecified hip H93.13 Tinnitus, bilateral R20.8 Other disturbances of skin sensation M79.1 Myalgia M54.2 Cervicalgia Office Visit 05/08/2017 10:40a [facility] Trina Pak Z00.00 Encntr for Ronaldo Jones M.D. general adult [facility] medical exam w/o abnormal findings J45.909 Unspecified asthma, uncomplicated K21.9 Gastro-esophageal reflux disease without esophagitis E78.00 Pure hypercholesterolemia, unspecified M85.9 Disorder of bone density and structure, unspecified M54.5 Low back pain Z11.59 Encounter for screening for other viral diseases R91.8 Other nonspecific abnormal finding of lung field Z23 Encounter for immunization Office Visit 12/12/2016 11:00a Orthopedic Radha Murphy, S42.212D Unsp disp fx Services Of Genoveva BOWLING of surg nk of irineo gould, subs for fx w routn heal Office Visit 08/22/2016 2:20p [facility] Trina Pak S42.212D Unsp disp fx Ronaldo Jones M.D. [facility], subs for fx w routn heal R91.8 Other nonspecific abnormal finding of lung field Office Visit 02/18/2016 9:40a [facility] Internal Rodney Jnoes, M54.2 Cervicalgia Medicine - Iqra [place] M54.89 Other dorsalgia M54.5 Low back pain Office Visit 02/01/2016 4:20p [facility] Internal Rodney Pak J06.9 Acute upper Medicine Rosemary Jones M.D. respiratory [place] infection, unspecified Office Visit 10/11/2015 2:45p ENT Services Of [facility] J31.0 Chronic rhinitis [facility] J32.0 Chronic maxillary sinusitis Office Visit 08/30/2015 2:00p ENT Services Of [facility] J31.0 Chronic C.M.A. AT [facility] Mayra rhinitis Tift H93.12 Tinnitus, left ear J32.0 Chronic maxillary sinusitis J06.9 Acute upper respiratory infection, unspecified J45.909 Unspecified asthma, uncomplicated H91.22 Sudden idiopathic hearing loss, left ear Office Visit 08/02/2015 2:15p ENT [facility] J31.0 Chronic [facility]. [facility] rhinitis Tift H93.12 Tinnitus, left ear J32.0 Chronic maxillary sinusitis Office Visit 05/21/2015 11:30a 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 [facility] Chronic [place] Maxillary 477.9 Rhinitis Allergic Cause Unspec 471.0 Polyp Nasal Cavity Office Visit 10/21/2014 11:[address]a [facility] Internal Rodney Pak 786.2 Cough Medicine Rosemary Jones M.D. [place] Office Visit 08/31/2014 2:00p [facility] Internal Trav Mak, CONVEYOR SYSTEM DISPATCHER 493.90 Asthma Unspec W/O Medicine - Status Asthmaticus [place] Office Visit 08/24/2014 3:00p ENT Services Of [facility] 493.92 Asthma Unspec W/ C.M.A. AT [facility], Acute Exacerbation [facility] 477.9 Rhinitis Allergic Cause Unspec Office Visit 08/11/2014 10:40a [facility] Internal Karlee Cabrera, 493.92 Asthma Unspec W/ Medicine - N.P. Acute Exacerbation [place] 381.81 Eustachian Tube Dysfunction Office Visit 08/03/2014 1:30p 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 AT [facility], [facility] 477.9 Rhinitis Allergic Cause Unspec Office Visit 05/25/2014 3:15p ENT Services Of Steve 478.0 Hypertrophy Nasal C.M.A. AT [facility] Kyle [facility] 477.9 Rhinitis Allergic Cause Unspec 473.0 Sinusitis Chronic Maxillary Office Visit 05/11/2014 3:15p ENT Services Of Steve 477.9 Rhinitis [facility]. [facility] Allergic Cause Tift Unspec 473.0 Sinusitis Chronic Maxillary 471.0 Polyp Nasal Cavity Office Visit 04/06/2014 1:15p ENT Services Of Steve 473.0 Sinusitis C.M.A. [facility] Chronic [place] Maxillary 471.0 Polyp Nasal Cavity 473.2 Sinusitis Chronic Ethmoidal 478.0 Hypertrophy Nasal Turbinates Office Visit 02/19/2014 9:40a [facility] Internal Rodney Pak 719.45 Pain Joint Medicine - Iqra Jones Pelvic Region & [place] Thigh Office Visit 02/02/2014 2:00p ENT Services Of Steve 473.0 Sinusitis C.M.A. AT Iqra Wilson Chronic [facility] Maxillary 471.0 Polyp Nasal Cavity Office Visit 01/05/2014 2:00p ENT Services Of Steve 473.0 Sinusitis C.M.A. AT Iqra Wilson Chronic [place] Maxillary 473.2 Sinusitis Chronic Ethmoidal Office Visit 12/22/2013 2:15p ENT Services Of Steve 473.0 Sinusitis C.M.A. AT Iqra Wilson Chronic [place] Maxillary 473.2 Sinusitis Chronic Ethmoidal Office Visit 12/16/2013 9:20a [facility] Internal Rodney Pak 786.50 Pain Chest Unspec Ronaldo Jones M.D. [place] Office Visit 11/19/2013 11:[address]a [facility] Internal Rodney Pak V72.84 Examination Ronaldo Jones M.D. Preoperative [place] Unspec 786.50 Pain Chest Unspec Office Visit 11/10/2013 2:45p ENT Services Of Steve 473.0 Sinusitis C.M.A. AT Iqra Wilson Chronic Hima Maxillary 473.2 Sinusitis Chronic Ethmoidal Office Visit 02/10/2013 12:10p [facility] Internal Medicine Lila Stein, 788.1 Dysuria - Inocencia [place] 627.3 Atrophic Vaginitis Postmenopausal 789.09 Pain Abdominal Other Spec Site Office Visit 12/10/2012 1:20p Elfego Pak 466.0 Bronchitis Acute Ronaldo Jones M.D. [place] Office Visit 06/03/2012 1:00p Elfego Pak 789.01 Pain Abdominal Ronaldo Jones M.D. Right Upper [place] Quadrant Office Visit 03/19/2012 9:40a Elfego Pak 733.90 Bone & Cartilage Medicine Rosemary Jones M.D. Disorder Unspec [place] 493.90 Asthma Unspec W/O Status Asthmaticus V03.82 Streptococcus Pneumoniae Vaccination Spec Other Office Visit 03/18/2012 9:45a ENT Services Of [place] 473.0 Sinusitis C.M.A. AT Iqra Wilson Chronic [place] Maxillary 472.0 Rhinitis Chronic 473.2 Sinusitis Chronic Ethmoidal Office Visit 03/11/2012 11:30a ENT Services Of Steve 473.0 Sinusitis C.M.A. AT Iqra Wilson Chronic [place] Maxillary 472.0 Rhinitis Chronic Office Visit 03/05/2012 9:[address]a [facility] Internal Lila V72.31 Routine Computer Aided Design Designer Ronaldo Stein M.D. Examination [place] 493.90 Asthma Unspec W/O Status Asthmaticus 473.0 Sinusitis Chronic Maxillary 781.91 Loss Of Height 627.3 Atrophic Vaginitis Postmenopausal 611.9 Breast Disorders Unspec v70.0 Examination General Medical Routine AT Health Care Facility Office Visit 09/29/2011 11:20a [facility] Internal Rodney E. 789.04 Pain Abdominal Medicine - Iqra Jones Left Lower [place] Quadrant Office Visit 07/20/2011 3:40p DO Not Use [facility] Rodney E. 473.0 Sinusitis Chronic AT Erin Jones M.D. Maxillary Office Visit 05/04/2011 2:20p DO Not Use [facility] Rodney E. 493.90 Asthma Unspec W/O AT Erin Jones M.D. Status Asthmaticus 790.21 Impaired Fasting Glucose 272.0 Hypercholesterolemia Pure 616.10 Vaginitis & Vulvovaginitis Unspec Office Visit 03/17/2011 4:15p DO Not Use [facility] Karlee Cabrera, 599.0 UTI Urinary AT Erin N.P. Tract Infection Site Not Spec V76.10 Screening For Malignant Neoplasm Breast 388.30 Tinnitus Unspecified Office Visit 01/04/2011 9:40a DO Not Use [employer] [facility] AT Rodney E. 382.9 Otitis Media Erin Jones M.D. Unspec Office Visit 09/13/2010 1:00p DO Not Use [employer] [facility] AT Rodney E. 472.0 Rhinitis Chronic Erin Jones M.D. 493.90 Asthma Unspec W/O Status Asthmaticus 530.81 Esophageal Reflux 796.2 Blood Pressure Reading Elevated W/O Hypertension 272.0 Hypercholesterolemia Pure 790.21 Impaired Fasting Glucose Office Visit 12/09/2009 9:20a DO Not Use [employer] AT Rodney E. 472.0 Rhinitis Chronic Erin Jones M.D. 530.81 Esophageal Reflux 493.90 Asthma Unspec W/O Status Asthmaticus Office Visit 08/25/2009 1:45p DO Not Use [facility] Rodney E. 388.70 Otalgia & Earache AT Erin Jones M.D. Unspec Office Visit 06/28/2009 10:45a DO Not Use [facility] Rodney E. 465.9 URI Upper AT Erin Jones M.D. Respiratory Infections Acute Unspec Sites Office Visit 11/19/2008 2:15p [facility] Rodney Pak 465.9 URI Upper Assoc LINETTE Jones M.D. Respiratory [place] Infections Acute Unspec Sites Office Visit 08/05/2008 3:00p [facility] Rodney E. 465.9 URI Upper Assoc AT Iqra Jones Respiratory [facility] [facility] Infections Acute Unspec Sites Office Visit 04/27/2008 10:30a [facility]. 789.00 Pain Abdominal Assoc AT Iqra Jones Unspec Site [facility] 796.2 Blood Pressure Reading Elevated W/O Hypertension 530.81 Esophageal Reflux Office Visit 02/06/2008 11:15a [facility] 923.21 Contusion Wrist Assoc AT Iqra Jones [facility] Office Visit 01/30/2008 3:00p [facility] 380.22 Otitis Externa Assoc AT Iqra Jones Other Acute [facility] 465.9 URI Upper Respiratory Infections Acute Unspec Sites Office Visit 12/04/2007 3:00p [facility] 461.9 Sinusitis Acute Assoc AT Iqra Jones Unspec [facility] Office Visit 10/28/2007 3:15p [facility] 796.2 Blood Pressure Assoc AT Iqra Jones Reading Elevated [facility] W/O Hypertension Office Visit 09/30/2007 3:00p [facility] 493.90 Asthma Unspec W /O Assoc AT Iqra Jones Status Asthmaticus [facility] 796.2 Blood Pressure Reading Elevated W/O Hypertension 530.81 Esophageal Reflux Plan of Treatment Future Appointment(s):05/23/2019 9:20 am - Rodney Jones M.D. at [facility] Internal Medicine [facility]09/12/2018 - Chuck Hemphill [id number] Postconcussional syndromeComments:The symptoms you are experiencing are consistent with post concussion syndrome. They may persist forseveral weeks to a couple of months. Try to get plenty of rest, stay well hydrated, and avoid screentime. If you develop a "thunderclap" headache, worsening dizziness, intractable vomiting or other concerning symptoms please seek medical attention.
[2018-10-06 08:06] VITALS: BP 130/67
--- NOTE | 2018-10-06 08:12 | UC ---
Respiratory Complaint HPI - HPI Summary HPI Summary: 73 y/o female presents to the urgent care c/o productive cough w/ clear phlegm, sore throat, nasal congestion w/ clear running nose for the past 5 days. She has been coughing so much at night time that she now developed mild wheezing last night. She has been doing the albuterol nebulizer treatment. Last done about 1 hr ago which helps her with the cough too. She also has mild mid back pain due to cough. Pt denies fever, SOB, chest pain, dizziness, abdominal pain, N/V/D, RODRIGUEZ. - History of Current Complaint Chief Complaint: UCRespiratory Stated Complaint: CONGESTION COUGH BACK/CHEST PAIN Time Seen by Provider: 10/06/18 08:10 Hx Obtained From: Patient ?: No - menopausal Onset/Duration: Gradual Onset, Lasting Weeks - 1 week Timing: Intermittent Episodes Severity Initially: Mild Severity Currently: Moderate Pain Intensity: 5 Pain Scale Used: 0-10 Numeric Character: Cough: Productive, Sputum Description: - yellowish Aggravating Factors: Recumbent Position Alleviating Factors: Bronchodilator - last nebulizer treatment done around 2 hrs ago, OTC Meds - Risk Factors Pulmonary Embolism Risk Factors: Negative Cardiac Risk Factors: Negative Pseudomonas Risk Factors: Negative Tuberculosis Risk Factors: Negative - Allergies/Home Medications Allergies/Adverse Reactions: Allergies Allergy/AdvReac Type Severity Reaction Status Date / Time dicyclomine Allergy Unknown Verified 10/06/18 08:11 Reaction Details Iodinated Contrast- Oral and Allergy Itching Verified 10/06/18 08:11 IV Dye latex Allergy Rash Verified 10/06/18 08:11 levofloxacin [From Levaquin] Allergy Asthma Verified 10/06/18 08:11 attack metronidazole [From Flagyl] Allergy Rash Verified 10/06/18 08:11 milk Allergy Shortness Verified 10/06/18 08:11 of Breath nabumetone Allergy Rash Verified 10/06/18 08:11 Sulfa (Sulfonamide Allergy Unknown Verified 10/06/18 08:11 Antibiotics) Reaction Details amoxicillin AdvReac Stomach Verified 10/06/18 08:11 Cramps ampicillin AdvReac GI Upset Verified 10/06/18 08:11 ciprofloxacin [From Cipro] AdvReac Stomach Verified 10/06/18 08:11 pain hydrocodone [From Vicodin] AdvReac Abdominal Verified 10/06/18 08:11 Pain nitrofurantoin AdvReac Abdominal Verified 10/06/18 08:11 [From Macrobid] Pain oxycodone AdvReac GI Upset Verified 10/06/18 08:11 Macrodanten Allergy Vomiting Uncoded 10/06/18 08:11 Relefin Allergy Rash Uncoded 10/06/18 08:11 Home Medications: Home Medications Albuterol 2.5MG/3ML (0.083%)* [Ventolin 2.5 MG/3 ML NEB.YASHIRA*] 2.5 mg INH Q4H PRN 10/06/18 [History Confirmed 10/06/18] Aspirin [Aspir-Low] 81 mg PO DAILY 10/06/18 [History Confirmed 10/06/18] PMH/Surg Hx/FS Hx/Imm Hx Previously Healthy: Yes Respiratory History: Asthma, Pneumonia GI/ History: Gastroesophageal Reflux Other GI/ History: constipation Other History Of: Negative For: HIV, Hepatitis B, Hepatitis C, Anticoagulant Therapy - Surgical History Surgical History: Yes Surgery Procedure, Year, and Place: hysterectomy 1988. Rt Oopherectomy. TONSILECTOMY, 1950. NASAL POLYP REMOVED WITH SEPTOPLASTY. RIGHT LEG VASCULAR SURGERY AT [facility] (NO STENTS) BALLOONING ONLY - Family History Known Family History: Positive: Hypertension Negative: Cardiac Disease, Diabetes Family History: Lung cancer - Social History Occupation: Unemployed Lives: With Family Alcohol Use: Occasionally Alcohol Amount: ONE PER MONTH Substance Use Type: None Smoking Status (MU): Former Smoker Amount Used/How Often: PACK A DAY Length of Time of Smoking/Using Tobacco: 1 PPD x 20 Years Have You Smoked in the Last Year: No When Did the Patient Quit Smoking/Using Tobacco: 1988 - Immunization History Most Recent Influenza Vaccination: May 2017 Review of Systems All Other Systems Reviewed And Are Negative: Yes Constitutional: Positive: Other - body aches Skin: Positive: Negative Eyes: Positive: Negative ENT: Positive: Sore Throat, Nasal Discharge - yellowish, Sinus Congestion, Sinus Pain/Tenderness Respiratory: Positive: Cough - productive yellowish phlegm, Other - wheezing and chest congestion Cardiovascular: Positive: Negative Gastrointestinal: Positive: Negative Genitourinary: Positive: Negative Motor: Positive: Negative Neurovascular: Positive: Negative Musculoskeletal: Positive: Other: - mid back pain from coughing Neurological: Positive: Negative Psychological: Positive: Negative Is Patient Immunocompromised?: No Physical Exam - Summary Physical Exam Summary: Vital Signs Reviewed: Yes General: well developed, well nourished female sitting in the examining table w/ o any apparent distress Eyes: Positive: Conjunctiva Clear - PERRLA, EOMI, fundi grossly normal ENT: Positive: Normal ENT inspection, Hearing grossly normal, Pharynx normal, Nasal congestion - edematous and erythematous nasal mucosa, Nasal drainage - yellowish drainage, TMs normal. Negative: Tonsillar swelling, Tonsillar exudate Neck: Positive: Supple, Nontender, No Lymphadenopathy Respiratory: no orthopnea or dyspnea. Able to speak in full sentences, no retractions or accessory muscle use, no tripod position, stridor, or head bobbing. Positive breath sounds bilaterally. RT upper posterior lung w/ mild scattered wheezing. no rhonchi, no crackles or rales. Cardiovascular: Positive: RRR, No Murmur, Pulses Normal, Brisk Capillary Refill Abdomen Description: Positive: Nontender, No Organomegaly, Soft. Negative: CVA Tenderness (R), CVA Tenderness (L) Bowel Sounds: Positive: Present Musculoskeletal Exam: Normal Musculoskeletal: Positive: Strength Intact, ROM Intact, No Edema Neurological Exam: Normal Psychological Exam: Normal Skin Exam: Normal Triage Information Reviewed: Yes Vital Signs: Initial Vital Signs Temp 98.1 F 10/06/18 08:01 Pulse 86 10/06/18 08:01 Resp 16 10/06/18 08:01 BP 130/67 10/06/18 08:01 Pulse Ox 99 10/06/18 08:01 UC Diagnostic Evaluation - Laboratory O2 Sat by Pulse Oximetry: 99 Respiratory Course/Dx - Course Course Of Treatment: 73 y/o female presents to the urgent care c/o productive cough w/ clear phlegm, sore throat, nasal congestion w/ clear running nose for the past 5 days. She has been coughing so much at night time that she now developed mild wheezing last night. She has been doing the albuterol nebulizer treatment. Last done about 1 hr ago which helps her with the cough too. She also has mild mid back pain due to cough. Pt denies fever, SOB, chest pain, dizziness, abdominal pain, N/V/D, RODRIGUEZ.Hx obtained. Pt w/ posterior upper lungs with mild wheezing, no rhonchi, good air entry B/L on examination. O2Sat:99%. Pt with URI on examination and begining of asthma exacerbation. Pt declined albuterol nebulizer Tx since she states she did one about 1 hr ago. Chest X-ray ordered to r/o any abdnormality. Impression: Rosenda cute cardiopulmonary disease observed as per radiologist. Patient prescribed Prednisone taper dose, and advised to continue w/ Albuterol neb. treatments to alleviate symptoms as directed below. The patient was recommended to increase fluid intake. Take medications as recommended. Pt advised to returned to the clinic or f/u w/ her PCP if symptoms do not improve. All D/C instructions explained. Patient understood and agree w/ plan of care. Pt left clinic hemodynamically stable , A& OX3 - Differential Dx/Diagnosis Differential Diagnosis/HQI/PQRI: Asthma, Bronchitis, Exacerbation Of COPD, Influenza, Lower Resp Infection, Sinusitis Provider Diagnosis: Upper respiratory infection, Asthma exacerbation Discharge - Sign-Out/Discharge Documenting (check all that apply): Patient Departure - D/c home All imaging exams completed and their final reports reviewed: Yes - Discharge Plan Condition: Stable Disposition: HOME Prescriptions: predniSONE TAB* [Deltasone 20 MG TAB*] 20 mg PO DAILY #11 tab Patient Education Materials: Asthma (ED), Upper Respiratory Infection (ED) Referrals: Rodney Jones MD [Primary Care Provider] - 3 Days Additional Instructions: 1- Take Prednisone PO taper dose as directed to alleviate wheezing, Influenza A& B is negative 2-Continue using the albuterol nebullizer treatments TID to alleviate SOB, and wheezing as directed. Increase fluid intake, rest and eat well. 3-If symptoms do not improve or worsen or your develop SOB with fever and severe wheezing please go immediately to the ER further evaluation and treatment. 4- F/u with your PCP in 2-3 days for further management on your Asthma - Billing Disposition and Condition Condition: STABLE Disposition: Home
[2018-10-06 08:45] LABS: Influenza A Molecular NEGATIVE (Negative); Influenza B Molecular NEGATIVE (Negative)
== END 2018-10-06 09:21 | disposition home or self-care (01) ==
LOC: UCCORT 07:52
DX: J06.9 Acute upper respiratory infection, unspecified (principal); J45.901 Unspecified asthma with (acute) exacerbation; M54.89 Other dorsalgia; Z88.5 Allergy status to narcotic agent; Z88.0 Allergy status to penicillin; Z88.2 Allergy status to sulfonamides; Z88.1 Allergy status to other antibiotic agents; Z91.041 Radiographic dye allergy status; Z91.011 Allergy to milk products; Z88.8 Allergy status to other drugs, medicaments and biological substances; Z87.01 Personal history of pneumonia (recurrent); Z79.82 Long term (current) use of aspirin; Z79.899 Other long term (current) drug therapy; Z87.891 Personal history of nicotine dependence
CPT/HCPCS: 71046; 99212; G0463

== ENCOUNTER 2019-01-11 09:13 | Emergency (ER) | payer MEDICARE ==
--- OUTSIDE RECORDS SUMMARY | 2019-01-11 09:47 | XMS REPORT | Continuity of Care Document ---
:1945 External Reference #:[id number] Author Name Dougie Cohen MD Address [facility] [place] [address] Care Team Providers Name Role Phone Rodney Jones MD Care Team Information Sleep Scientist Unavailable Rodney Jones MD Primary Care Physician Unavailable Payers Date Identification Numbers Payment Provider Subscriber Policy Number: [id number] Medicare Blue Ppo Noelle El PayID: [id number] [address] [address] [place] [address] Advance Directives Description No Information Available Problems Active Problems Provider Date Flatulence, eructation and gas pain Paulette Peterson, CNC SET UP OPERATOR-C Onset: 06/17/2012 Abdominal pain Paulette Pateion, CNC SET UP OPERATOR-C Onset: 06/17/2012 Asthma without status asthmaticus Paulette Pateion, CNC SET UP OPERATOR-C Onset: 06/17/2012 Constipation Paulette Peterson, CNC SET UP OPERATOR-C Onset: 07/08/2012 Diarrhea Carole Taveras PA-C Onset: 12/18/2018 Lawson's esophagus Carole Taveras PA-C Onset: 06/25/2018 Epigastric pain Carole Taveras PA-C Onset: 06/25/2018 Right upper quadrant pain ALHAJI Velázquez-Zenaida Onset: 06/25/2018 Gastroesophageal reflux disease Dougie Cohen MD Onset: 10/08/2014 Family History Date Family Member(s) Observation Comments Father No Current Problems Father Lung Cancer Social History Type Date Description Comments Sex Unknown ETOH Use Currently consumes alcohol Tobacco Use Start: Unknown End: Unknown Patient is a former smoker Smoking Status Reviewed: 12/18/18 Patient is a former smoker Allergies, Adverse Reactions, Alerts Active Allergies Reaction Severity Comments Date Levaquin 06/17/2012 Sulfa 06/17/2012 Latex 06/17/2012 Macrodantin 06/17/2012 Flagyl 06/17/2012 Relafen 06/17/2012 Dicyclomine 06/17/2012 Vicodin 06/17/2012 Milk-related Compounds 06/29/2015 Ampicillin 12/27/2017 Cipro 12/27/2017 Oxycodone 12/27/2017 Milk Protein 12/27/2017 Hair Dye 03/07/2018 Medications Active Medications SIG Qnty Indications Ordering Provider Date Xifaxan 1 tablet by 42tabs R14.0 Dougie Cohen, 12/18/2018 550mg Tablets mouth 3 times MD daily for 14 days Carafate 1 by mouth three 90tabs Dougie Cohen, 11/13/2018 1gm Tablets times a day Pantoprazole Sodium 1 by mouth twice 60tabs Dougie Cohen, 12/05/2017 40mg a day MD Tablets Flovent HFA 2 Puffs bid Unknown 110mcg/Act Aerosol Spiriva Handihaler Daily Unknown 18mcg Capsules Restasis Unknown 0.05% Emulsion Fluticasone Propionate Unknown 50mcg/Act Suspension History Medications Omeprazole Take One Capsule 60caps Carole Maldonado 03/18/2018 - 40mg Capsules By Mouth Twice A CLARICE Taveras 10/29/2018 DR Sagastume Aspirin Low Dose 1 by mouth every Dougie Cohen, 12/27/2017 - Tablets day 12/05/2018 Xifaxan 1 tab by mouth 28tabs Dougie Cohen, 08/04/2015 - 550mg Tablets twice a day 12/27/2017 Omeprazole Take One Capsule 60caps Dougie Cohen, 12/25/2014 - 40mg Capsules By Mouth Twice A 12/05/2017 DR Sagastume Dexilant 1 by mouth every 30caps Dougie Cohen, 12/01/2014 - 60mg Capsules DR collins BOWLING 06/29/2015 Carafate 1 by mouth three 90tabs Dougie Cohen, 10/08/2014 - 1gm Tablets times a day 12/27/2017 Omeprazole 1 by mouth twice 60caps Dougie Cohen, 03/30/2014 - 40mg Capsules a day 10/08/2014 DR Alejandra 1 by mouth twice 60caps Dougie Cohen, 02/14/2014 - 40mg Capsules DR a day 07/16/2015 Bird 1 by mouth twice 20tabs Dougie Cohen, 12/13/2012 - 550mg Tablets a day x10 days 08/21/2013 Omeprazole 1 po bid 30caps Dougie Cohen, 08/08/2012 - 20mg Capsules 10/08/2014 DR Pang 1 tab by mouth 28tabs Paulette Peterson, 06/24/2012 - 550mg Tablets twice a day CNC SET UP OPERATOR-C 08/21/2013 Fluconazole Unknown - 150mg Tablets 06/25/2018 Betamethasone Valerate Unknown - 12/27/2017 0.12% Foam Clopidogrel Bisulfate Daily Unknown - 03/17/2018 75mg Tablets Atorvastatin Calcium 1/2 Tablet AT hs Unknown - 10mg 06/25/2018 Tablets Immunizations Description No Information Available Vital Signs Date Vital Result Comment 12/18/2018 10:27am Height 67 inches 5'7" Weight 154.00 lb BP Systolic 148 mmHg BP Diastolic 62 mmHg Heart Rate 76 /min BMI (Body Mass Index) 24.1 kg/m2 12/05/2018 2:45pm Height 67 inches 5'7" Weight 160.00 lb BP Systolic 153 mmHg BP Diastolic 69 mmHg Heart Rate 76 /min BMI (Body Mass Index) 25.1 kg/m2 06/25/2018 8:43am Height 67 inches 5'7" Weight 166.00 lb BP Systolic 152 mmHg BP Diastolic 72 mmHg Heart Rate 78 /min BMI (Body Mass Index) 26.0 kg/m2 12/27/2017 2:57pm Height 67 inches 5'7" Weight 170.00 lb BP Systolic 148 mmHg BP Diastolic 79 mmHg Heart Rate 71 /min BMI (Body Mass Index) 26.6 kg/m2 08/04/2015 9:29am Height 67 inches 5'7" Weight 166.00 lb BMI (Body Mass Index) 26.0 kg/m2 06/29/2015 9:12am Height 67 inches 5'7" Weight 168.00 lb BP Systolic 124 mmHg BP Diastolic 72 mmHg Heart Rate 80 /min BMI (Body Mass Index) 26.3 kg/m2 10/08/2014 1:36pm Height 67 inches 5'7" Weight 174.00 lb BP Systolic 130 mmHg BP Diastolic 72 mmHg Heart Rate 78 /min BMI (Body Mass Index) 27.2 kg/m2 01/28/2014 10:23am Height 67 inches 5'7" Weight 175.00 lb BP Systolic 130 mmHg BP Diastolic 70 mmHg Heart Rate 78 /min BMI (Body Mass Index) 27.4 kg/m2 07/08/2012 7:58am Height 67 inches 5'7" Weight 170.00 lb BP Systolic 120 mmHg BP Diastolic 70 mmHg Heart Rate 72 /min BMI (Body Mass Index) 26.6 kg/m2 06/17/2012 10:54am Height 67 inches 5'7" Weight 172.00 lb BP Systolic 100 mmHg BP Diastolic 74 mmHg Heart Rate 72 /min BMI (Body Mass Index) 26.9 kg/m2 Results Test Date Facility Test Result H/L Range Note Laboratory test [facility] Breath Test NEGATIVE finding [address] [facility] (Gai) [place], [place] [id number] [phone] Laboratory [place] [facility] [place] SEE RESULT 1, 2 finding 8 Pathology BELOW SOB X 3 ([facility]) [facility] SOB 1St NEG [address] Sample (Gai) [place], [place] [id number] [phone] SOB 2ND Sample (Gai) NEG SOB 3RD Sample (Lai) NEG Xray 06/13/2018 [facility] [place] Abd/Pel W/O <pending> Xray 06/13/2018 [facility] [place], Gallbladder (29513) <pending> CBC W/Auto 06/13/2018 [facility] White Blood Count Ser <pending> Differential(!) Auto CNT RBC Red Blood Count <pending> Hemoglobin Blood <pending> Hematocrit <pending> MCV (Corpuscular Volume) <pending> MCH (Corpuscular Hemoglobin) <pending> MCHC (Corpuscular Hemog Conc) <pending> RDW <pending> Platelet Count Blood Auto CNT <pending> MPV <pending> Lymph% <pending> [place]% <pending> Neutrophil % <pending> Absolute Lymphocytes <pending> Absolute Monocytes <pending> Absolute Neutrophils <pending> Laboratory test 06/13/2018 [facility] D-Dimer Sensitive <pending> finding Laboratory test 06/13/2018 [facility] CPK-Creatinine <pending> finding Kinase(!) Troponin I <pending> C-Reative Protein <pending> Amylase & Lipase 06/13/2018 [facility] Amylase(!) <pending> Lipase Ser/Plas (!) <pending> CMP(!) 06/13/2018 [facility] Sodium(!) <pending> Potassium(!) <pending> Chloride Serum/Plasma(!) <pending> Carbon Dioxide Ser/Plasm(!) <pending> BUN - Urea Nitrogen(!) <pending> Calcium Ser/Plasma Mass/Vol(!) <pending> Creatinine Serum Mass/Vol(!) <pending> Glucose Serum(!) <pending> BUN/Creatinine Ratio(!) <pending> Albumin Serum/Plasma(!) <pending> Alkaline Phosphatase(!) <pending> Bilirubin Total Mass/Vol(!) <pending> Ast - Sgot <pending> Alt - SGPT <pending> Protein Total <pending> CMP, Magnesium, 06/13/2018 [facility] Magnesium Ser/Plasma <pending> Phosphorus Mass/Vol Phosphorus <pending> Laboratory test 06/13/2018 [facility] Lactic Acid Ser/Plas <pending> finding Mass/Vol Occult Blood 06/13/2018 [facility] Z#Other Observations <pending> Diagnos Vitamin B12 And 05/24/2018 [facility] Vitamin B12 Ser <pending> Folate Serum Mass/Vol Folate Serum <pending> Laboratory test 05/24/2018 [facility] C-Reactive Protein <pending> finding QN CBC W/Auto 05/24/2018 [facility] White Blood Count <pending> Differential(!) Ser Auto CNT RBC Red Blood Count <pending> Hemoglobin Blood <pending> Hematocrit <pending> MCV (Corpuscular Volume) <pending> MCH (Corpuscular Hemoglobin) <pending> MCHC (Corpuscular Hemog Conc) <pending> RDW <pending> Platelet Count Blood Auto CNT <pending> MPV <pending> Lymph% <pending> [place]% <pending> Neutrophil % <pending> Absolute Lymphocytes <pending> Absolute Monocytes <pending> Absolute Neutrophils <pending> Xray 05/23/2018 [facility] [place] Abdomen/KUB 1VW <pending> Laboratory test 07/01/2015 [facility] Breath Test Sb[facility] NEGATIVE finding [address] (Lai) [place] [address] [phone] Lipid Panel(!) 04/27/2015 [facility] Cholesterol Total <pending> Mass/Vol(!) HDL Cholesterol Mol/Vol <pending> 30-85 Triglycerides Ser/Plas(!) <pending> LDL Cholesterol Mass/Vol(!) <pending> BMP W/O Egfr(!) 04/27/2015 [facility] Sodium(!) <pending> Potassium(!) <pending> Chloride Serum/Plasma(!) <pending> Carbon Dioxide Ser/Plasm(!) <pending> BUN - Urea Nitrogen(!) <pending> Calcium Ser/Plasma Mass/Vol(!) <pending> Creatinine Serum Mass/Vol(!) <pending> Glucose Serum(!) <pending> Xray 03/19/2013 [facility] [place] Abd/Pel W/O <pending> Laboratory test 07/08/2012 [facility] T4 Free 1.08 PG.ML 0.70-1 finding [address] Thyroxine .80 [place] [address] Mass/Vol(!) [phone] TSH Thyroid Stim Hormone(!) 2.19 0.38-4.31 Xray 07/06/2012 [facility] [place] Abd/Pel W <pending> Laboratory test 06/18/2012 [facility] Breath Test Sbbo POSITIVE finding [address] (Gai) [place] [address] [phone] Xray 06/05/2012 [facility] [place] US, Abdomen, <pending> Complete ([id number]) Ralf 06/02/2012 [facility] Z#Other <pending> [address] [facility] [place] [place] [address] [phone] Ralf 06/02/2012 [facility] Z#Other <pending> Observations Ralf 02/12/2012 [facility] Z#Other <pending> Observations Xray 09/29/2011 [facility] [place] X-Ray, Abdomen <pending> Supine 1 [id number] SEE RESULT BELOW Name: NOELLE EL Mukesh : [address]: Dougie Cohen MD Acct: [id number] Unit: [id number] AGE: 73 Location: ENDOC Re07/09/18 SEX: F Status: DEP REF SPEC: [id number] NIYA: 07/09/18- SUBM DR: Dougie Cohen MD REQ: [id number] RECD: 07/09/18123 STATUS: JF LORENZO DR: Rodney Jones III, MD _ ORDERED: LEVEL 4/3 COMMENTS: [id number] FINAL DIAGNOSIS 1. Small bowel, duodenum, biopsy: [...] gastric - gastritis biopsy; duodenum - biopsy GROSS DESCRIPTION 1. The specimen is received in formalin labeled, Duodenal Biopsy, and consists of two linares-pink irregular soft tissue fragments measuring 0.1 x 0.1 x 0.1 cm and 0.3 x 0.3 x 0.2 cm which are submitted entirely in one cassette. 2. The specimen is received in formalin labeled, Gastric Body Biopsy, and consists of a CONTINUED ON NEXT PAGE DEPARTMENT OF PATHOLOGY, [address] [place] [address] Maximo Lainez M.D. Director [facility] # [id number] RUN DATE: 07/10/18 [facility] LAB LIVE PAGE 2 Patient: NOELLE EL [id number] (Continued) GROSS DESCRIPTION (Continued) GROSS DESCRIPTION (Continued) 0.3 x 0.2 x 0.2 cm linares-pink [...] 1107 END OF REPORT DEPARTMENT OF PATHOLOGY, [address] [place] [address] Maximo Lainez M.D. Director [facility] # [id number] SEE RESULT BELOW Name: NOELLE EL : [address]: Dougie Cohen MD Acct: [id number] Unit: [id number] AGE: 73 Location: [facility] Re07/09/18 SEX: F Status: DEP REF SPEC: [id number] NIYA: 07/09/18- SUBM DR: Dougie Cohen MD REQ: [id number] RECD: 07/09/186 STATUS: JF LORENZO DR: Rodney Jones III, MD _ ORDERED: LEVEL 4/3 COMMENTS: [id number] FINAL DIAGNOSIS 1. Small bowel, duodenum, biopsy: [...] gastric - gastritis biopsy; duodenum - biopsy GROSS DESCRIPTION 1. The specimen is received in formalin labeled, Duodenal Biopsy, and consists of two linares-pink irregular soft tissue fragments measuring 0.1 x 0.1 x 0.1 cm and 0.3 x 0.3 x 0.2 cm which are submitted entirely in one cassette. 2. The specimen is received in formalin labeled, Gastric Body Biopsy, and consists of a CONTINUED ON NEXT PAGE DEPARTMENT OF PATHOLOGY, [address] [place] [address] Maximo Lainez M.D. Director [facility] # [id number] RUN DATE: 07/10/18 [facility] LAB LIVE PAGE 2 Patient: NOELLE EL [id number] (Continued) GROSS DESCRIPTION (Continued) GROSS DESCRIPTION (Continued) 0.3 x 0.2 x 0.2 cm linares-pink [...] 1107 END OF REPORT DEPARTMENT OF PATHOLOGY, [address] [place] [address] Maximo Lainez M.D. Director [facility] # [id number] SEE RESULT BELOW Name: NOELLE EL : [address]: Dougie Cohen MD Acct: [id number] Unit: [id number] AGE: 73 Location: [facility] Re07/09/18 SEX: F Status: DEP REF SPEC: [id number] NIYA: 07/09/18- SUBM DR: Dougie Cohen MD REQ: [id number] RECD: 07/09/181236 STATUS: JF LORENZO DR: Rodney Jones III, MD _ ORDERED: LEVEL 4/3, IMMUNO-FIRST COMMENTS: [id number] Addendum: An immunohistochemical stain for Helicobacter pylori-like [...] CONTINUED ON NEXT PAGE DEPARTMENT OF PATHOLOGY, [address] [place] [address] Maximo Lainez M.D. Director [facility] # [id number] RUN DATE: 07/11/18 [facility] LAB LIVE PAGE 2 Patient: NOELLE EL [id number] (Continued) GROSS DESCRIPTION (Continued) GROSS DESCRIPTION 1. [...] 1107 END OF REPORT DEPARTMENT OF PATHOLOGY, [address] [place] [address] Maximo Lainez M.D. Director [facility] # [id number] SEE RESULT BELOW Name: NOELLE EL : [address]: Dougie Cohen MD Acct: [id number] Unit: [id number] AGE: 73 Location: [facility] Re07/09/18 SEX: F Status: DEP REF SPEC: [id number] NIYA: 07/09/18- SUBM DR: Dougie Cohen MD REQ: [id number] RECD: 07/09/181236 STATUS: JF LORENZO DR: Rodney Jones III, MD _ ORDERED: LEVEL 4/3, IMMUNO-FIRST COMMENTS: [id number] Addendum: An immunohistochemical stain for Helicobacter pylori-like [...] CONTINUED ON NEXT PAGE DEPARTMENT OF PATHOLOGY, [address] [place] [address] Maximo Lainez M.D. Director [facility] # [id number] RUN DATE: 07/11/18 [facility] LAB LIVE PAGE 2 Patient: NOELLE EL [id number] (Continued) GROSS DESCRIPTION (Continued) GROSS DESCRIPTION 1. [...] 1107 END OF REPORT DEPARTMENT OF PATHOLOGY, [address] [place] [address] Maximo Lainez M.D. Director [facility] # [id number] Procedures Date Code Description Status 08/02/2018 79003 Breath Hydrogen Completed 07/09/2018 06773 EGD+Biopsy Single Or Multiple Completed 07/01/2015 82303 Breath Hydrogen Completed 03/09/2014 72487 EGD+Biopsy Single Or Multiple Completed 06/18/2012 81526 Breath Hydrogen Completed 10/20/2008 17271 Colonscopy+Biopsy Completed 10/14/200865210 Breath Hydrogen Completed 06/15/2008 51390 EGD+Biopsy Single Or Multiple Completed Encounters Type Date Location Provider Dx Diagnosis Office Visit 12/18/2018 [facility]don[facility] K21.9 Gastro- esophageal 10:30a [facility] reflux disease without esophagitis R10.10 Upper abdominal pain, unspecified R14.0 Abdominal distension (gaseous) R19.7 Diarrhea, unspecified Office Visit 06/25/2018 [facility] Maldon[facility] R10.11 Right upper 8:45a [facility] quadrant pain R10.13 Epigastric pain K22.70 Lawson's esophagus without dysplasia K59.00 Constipation, unspecified R14.0 Abdominal distension (gaseous) Office 12/27/2017 [facility] Nune[facility] K21.9 Gastro-esophageal Visit 3:15p [facility] MD reflux disease without esophagitis Office 08/04/2015 Skyler Nunez R14.0 Abdominal distension Visit 9:30a [facility] MD (gaseous) Office 10/08/2014 Skyler Nunez 530.81 Esophageal Reflux Visit 2:00p [facility] MD Office 01/28/2014 [facility] Dougie Nunez 530.81 Esophageal Reflux Visit 10:30a [facility] Office 07/23/2012 [facility] Dougie Nunez 789.01 Pain Abdominal Right Visit 2:45p [facility] MD Upper Quadrant Office 07/08/2012 [facility] [place] 564.00 Constipation Visit 8:30a [facility], Unspecified CNC SET UP OPERATOR-C Office 06/17/2012 [facility] [place] 787.3 Flatulence Eructation Visit 11:15a [facility], & Gas Pain CNC SET UP OPERATOR-C 789.00 Pain Abdominal Unspec Site 493.90 Asthma Unspec W/O Status Asthmaticus Plan of Treatment 12/18/2018 - ALHAJI Velázquez-CK21.9 Gastro-esophageal reflux disease without nbrrhzjsoaeI73.10 Upper abdominal pain, gsrptslwskiA03.0 Abdominal distension (gaseous)New Medication:Xifaxan 550 mg - 1 tablet by mouth 3 times daily for 14 daysR19.7 Diarrhea, unspecified
--- OUTSIDE RECORDS SUMMARY | 2019-01-11 09:48 | XMS REPORT | Continuity of Care Document ---
:1945 External Reference #:[id number] Author Name Raad Wilson MD Address [address] [place] [address] Care Team Providers Name Role Phone Janette Aragon FORESTRY PILOT Care Team Information Correspondence Transcriber Unavailable Rodney Jones MD Primary Care Physician Unavailable Payers Date Identification Numbers Payment Provider Subscriber Policy Number: [id number] [employer] [facility] Noelle Mayorga Nikko PayID: [id number] [address] [address] [place] [address] Advance Directives Description No Information Available Problems Active Problems Provider Date Chronic rhinitis Raad Wilson MD Onset: 10/31/2013 Unspecified sensorineural hearing loss Raad Wilson MD Onset: 08/05/2015 Sensorineural hearing loss, bilateral Raad Wilson MD Onset: 08/19/2015 Sensorineural hearing loss, bilateral Raad Wilson MD Onset: 06/14/2017 Sensorineural hearing loss Raad Wilson MD Onset: 06/14/2017 Gastroesophageal reflux disease Raad Wilson MD Onset: 11/08/2018 Acute laryngitis Raad Wilson MD Onset: 11/08/2018 Family History Date Family Member(s) Observation Comments General Allergies General Cancer General Thyroid Disease General Lung Cancer Social History Type Date Description Comments Sex Unknown Occupation Retired Tobacco Use Start: Unknown End: Former Cigarette Smoker 1 X 25 YEARS. QUIT 1988 Unknown Pack Daily Tobacco Use Start: Unknown Never Smoked Cigars Tobacco Use Start: Unknown Never Smoked A Pipe Smokeless Tobacco Never Used Smokeless Tobacco ETOH Use Currently rarely consumes alcohol Tobacco Use Start: Unknown End: Patient is a former Unknown smoker Smoking Status Reviewed: 06/25/18 Patient is a former smoker Allergies, Adverse Reactions, Alerts Active Allergies Reaction Severity Comments Date Latex 10/30/2013 sulfa 10/30/2013 Flagyl 10/30/2013 Levaquin 10/30/2013 Macrodantin 10/30/2013 Ciprofloxacin 10/30/2013 Oxycodone 10/30/2013 Ampicillin 10/30/2013 Vicodin 10/30/2013 Haie Dye 10/30/2013 Milk 10/30/2013 Relador 06/25/2018 Dicyclomine 06/25/2018 Zithromax 06/25/2018 Contrast Dye 06/25/2018 Medications Active Medications SIG Qnty Indications Ordering Provider Date Bird Taveras P.A., 550mg Tablets Carole Vitamin B12 1 by mouth every Unknown 100mcg day Tablets Citracal +D3 Unknown [phone]-mg-Unit [facility] Albuterol Sulfate Rodney Jones MD (2.5mg/3ML) 0.083% Nebulizer Clopidogrel Bisulfate Take One Tablet Unknown By Mouth Every 75mg Tablets Day Ranitidine HCL Janette Aragon NP 150mg Tablets Vitamin D3 Adult daily Unknown Gummies 1000Unit [facility]wt[facility] Multi-Vitamin one po qd Unknown ? Restasis Eye once daily Unknown 0.05% Fluticasone Propionate One PO qd Unknown 50mg Omeprazole One PO qd Unknown 40mg Flovent Diskus 2 Puffs Twice Unknown 110mg Daily Spiriva Handihaler use once in the Unknown 18mcg Am History Medications Cefuroxime Axetil Take 1 pill 2 20tabs H92.03 Elías Sanchez 06/25/2018 - 250mg times a day for Iqra Hernandez 11/07/2018 Tablets 10 days. Prednisone 40mg by mouth 15tabs H90.3 Raad Wilson MD 06/14/2017 - 20mg Tablets once per day in 06/25/2018 in the morning x 5days 20 mg by mouth once per dayx 5days then d/c Clindamycin HCL 1 by mouth 4 40caps Mejia Resendiz, 10/01/2015 - 300mg times a day for 06/25/2018 Capsules 10 days Prednisone 50mg by mouth 10tabs H90.5 Raad Wilson MD 08/05/2015 - 50mg Tablets once per day in 08/18/2015 in the morning x 5days 20 mg by mouth once per dayx 5days then d/c Zithromax one by mouth 5tabs Raad Wilson MD 04/16/2014 - 500mg Tablets one per day 08/05/2015 Clobetasol Shampoo as directed Unknown - 06/24/2018 Betamethasone Velarte as directed Unknown - Foam 06/24/2018 Finacea as directed Unknown - 15% 06/24/2018 Albuterol as needed Unknown - ? 06/24/2018 Probiotic one po qd Unknown - ? 11/07/2018 Xafaxan as directed Dougie Cohen M.D. - 08/18/2015 Citracal +D3 daily Unknown - 11/07/2018 [phone]-mg-Unit [facility]wt[facility] Immunizations CPT Code Status Date Vaccine Lot # 92409 Given Unknown Pneumococcal Vaccine 2Yrs Or Older 24643 Given Unknown Influenza Virus Vaccine, 3 Years Of Age And Above, Intramuscular Vital Signs Date Vital Result Comment 12/23/2018 10:39am Weight 166.00 lb Weight 75.298 kg Height 66 inches 5'6" Height in cm's 167.6 cm BMI (Body Mass Index) 26.8 kg/m2 11/08/2018 10:28am Weight 166.00 lb Weight 75.298 kg Height 66 inches 5'6" Height in cm's 167.6 cm BMI (Body Mass Index) 26.8 kg/m2 06/25/2018 2:39pm Weight 162.00 lb Weight 73.483 kg Height 66 inches 5'6" Height in cm's 167.6 cm BMI (Body Mass Index) 26.1 kg/m2 08/19/2015 8:59am BP Systolic 105 mmHg BP Diastolic 67 mmHg Heart Rate 84 /min Respiratory Rate 17 /min Weight 140.00 lb Weight 63.504 kg Height 67 inches 5'7" Height in cm's 170.2 cm BMI (Body Mass Index) 21.9 kg/m2 08/05/2015 8:53am BP Systolic 126 mmHg BP Diastolic 76 mmHg Heart Rate 78 /min Respiratory Rate 17 /min Weight 140.00 lb Weight 63.504 kg Height 67 inches 5'7" Height in cm's 170.2 cm BMI (Body Mass Index) 21.9 kg/m2 06/05/2014 10:57am BP Systolic 156 mmHg BP Diastolic 86 mmHg Heart Rate 85 /min Respiratory Rate 17 /min Weight 176.00 lb Weight 79.834 kg Height 67 inches 5'7" Height in cm's 170.2 cm BMI (Body Mass Index) 27.6 kg/m2 10/30/2013 9:18am BP Systolic 162 mmHg BP Diastolic 85 mmHg Heart Rate 82 /min Respiratory Rate 16 /min Weight 176.00 lb Weight 79.834 kg Height 67 inches 5'7" Height in cm's 170.2 cm BMI (Body Mass Index) 27.6 kg/m2 Results Test Date Facility Test Result H/L Range Note Wound 06/25/2018 [facility] Wound/Misc SEE RESULT 1 Culture/Sensi c/o Department of Laboratories [place] [address] Stain [phone] Sudden 06/14/2017 [facility] Lyme Disease Negative N Negative 2 Hearing Loss c/o Department of Laboratories Serology Panel [place], [place] [id number] [phone] Erythrocyte Sed Rate 11 mm/Hr N 0-40 Complement C3 115 mg/dL N 75 - 175 3 Complement C4 27 mg/dL N 14 - 40 4 Rheumatoid Factor <15 IU/mL N <15 5 TSH (Thyroid Stim Horm) 1.67 mcIU/mL N 0.34-5.60 Free T4 (Free Thyroxine) 1.17 ng/dL High 0.61-1.12 T3 Total 0.92 ng/mL N 0.87-1.78 Syphillis Igg W/Reflex RPR Nonreactive N Nonreactive 6 CBC Auto 06/14/2017 [facility] White Blood 11.3 10^3/ uL High 3.5-10.8 Diff c/o Department [place] [address] [phone] Red Blood Count 4.36 10^6/uL N 4.0-5.4 Hemoglobin 12.8 g/dL N 12.0-16.0 Hematocrit 39 % N 35-47 Mean Corpuscular Volume 89 fL N 80-97 Mean Corpuscular Hemoglobin 30 pg N 27-31 Mean Corpuscular HGB Conc 33 g/dL N 31-36 Red Cell Distribution Width 14 % N 10.5-15 Platelet Count 247 10^3/uL N 150-450 Mean Platelet Volume 9 um3 N 7.4-10.4 Abs Neutrophils 6.8 10^3/uL N 1.5-7.7 Abs Lymphocytes 3.2 10^3/uL N 1.0-4.8 Abs Monocytes 0.8 10^3/uL N 0-0.8 Abs Eosinophils 0.4 10^3/uL N 0-0.6 Abs Basophils 0.1 10^3/uL N 0-0.2 Abs Nucleated RBC 0.01 10^3/uL N Granulocyte % 60.3 % N 38-83 Lymphocyte % 28.2 % N 25-47 Monocyte % 6.9 % N 1-9 Eosinophil % 3.5 % N 0-6 Basophil % 1.1 % N 0-2 Nucleated Red Blood Cells % 0.1 N Basic Metabolic 06/14/2017 [facility] Sodium 141 mmol/ L N 133-145 Panel c/o [place] [address] [phone] Potassium 3.9 mmol/L N 3.5-5.0 Chloride 106 mmol/L N 101-111 Co2 Carbon Dioxide 27 mmol/L N 22-32 Anion Gap 8 mmol/L N 2-11 Glucose 95 mg/dL N 70-100 Blood Urea Nitrogen 13 mg/dL N 6-24 Creatinine 1.13 mg/dL High 0.51-0.95 BUN/Creatinine Ratio 11.5 N 8-20 Calcium 9.8 mg/dL N 8.6-10.3 Egfr Non- 47.3 N >60 Egfr 60.9 N >60 7 Ssa/SSB Abs Igg 06/14/2017 [facility] SS-A/Ro Antibody <0.2 U N 8 c/o [place] [address] [phone] SS-B/La Antibody <0.2 U N 9 Connective Tissue 06/14/2017 [facility] Anti-Nuclear 0.1 U N 10 Panel c/o Department [place] [address] [phone] Cyclic Citrullinated Peptide <15.6 U N 11 Interpretation the N 12 Creatinine 08/19/2015 [facility] Creatinine 0.95 mg/ dL N 0.51-0.95 c/o [place] [address] [phone] Egfr Non- 58.2 N >60 Egfr 74.8 N >60 13 Laboratory test 08/19/2015 [facility] Blood Urea 16 mg /dL N 6-24 finding c/o Department [place] [address] [phone] Wound 05/05/2014 [facility] Wound/Misc (SEE NOTE) 14 Culture/Sensi c/o Department of [place] [address] Stain [phone] 1 SEE RESULT BELOW Name: NOELLE EL : [address]: Komal Souza PA-C Acct: [id number] Unit: [id number] AGE: 73 Location: [facility] Re06/26/18 SEX: F Status: REG REF SPEC: [id number] NIYA: 06/25/18 [facility]: Komal Estevez REQ: [id number] RECD: 06/26/18 STATUS: RES _ SOURCE: MISC SOUR SPDESC: ORDERED: Culture Stain COMMENTS: [id number] left sinus Specimen Description Left sinus Procedure Result Reported Site Wound/Misc Gram Stain Final 06/26/18- 1830 ML 1+ Neutrophils No Organisms Seen Wound/Misc Culture Preliminary 06/28/18- 1352 ML Organism 1 STAPHYLOCOCCUS EPIDERMIDIS Quantity 1+ * ML - Main Lab . END OF REPORT DEPARTMENT OF PATHOLOGY, [address] [place] [address] Maximo Lainez M.D. Director [facility] # [id number] 2 Serologic response to B. burgdorferi infection is not detected, but cannot rule out early infection during which low or undetectable antibody levels to B. burgdorferi may be present. If clinically indicated, a new serum specimen should be submitted in 7-14 days. Test Performed by: [facility] [address] [place] [address] 3 Test Performed by: [facility] - [facility] [address] [place] [address] 4 Test Performed by: [facility] [address] [place] [address] 5 Test Performed by: [facility] [address] [place] [address] 6 Warning: A positive result is not useful for establishing a diagnosis of syphilis. In most situations, such a result may reflect a prior treated infection; a negative result can exclude a diagnosis of syphilis except for incubating or early primary disease. 7 Because ethnic data is not always readily [...] 15-29 5 Kidney failure <15 (or dialysis) 8 REFERENCE VALUE <1.0 (Negative) 9 REFERENCE VALUE <1.0 (Negative) Test Performed by: [facility] - [facility] [address] [place] [address] 10 REFERENCE VALUE <=1.0 (Negative) 11 REFERENCE VALUE <20.0 (Negative) 12 Tests for antibodies to dsDNA and DALE antigens are not performed automatically unless the COLIN result is > or= 3.0 U. Studies performed at [facility] indicate that positive COLIN results <3.0 U are rarely accompanied by positive second order tests. Test Performed by: [facility] - [address] [address] 13 Because ethnic data is not always readily [...] 15-29 5 Kidney failure <15 (or dialysis) 14 RUN DATE: 05/08/14 [facility] LAB LIVE PAGE 1 RUN TIME: [address] [place] [address] Specimen Inquiry Name: NOELLE EL : [address]: Mejia Resendiz MD Acct: [id number] Unit: [id number] AGE: 69 Location: [facility] Re05/05/14 SEX: F Status: REG REF SPEC: [id number] NIYA: 05/05/14-1405 [facility] DR: Mejia Resendiz MD REQ: [id number] RECD: 05/05/14 STATUS: COMP _ SOURCE: NOSE INTER SPDESC: ORDERED: Culture Stain QUERIES: Medent Number [id number] Specimen Description LEFT MAXILLARY SINUS Procedure Result Verified Site Wound/Misc Gram Stain Final 05/06/14- 0804 ML 1+ Epithelial Cells 1+ Polys 1+ Nucleated Cells No Organisms Seen Wound/Misc Culture Final 05/08/14- 42 ML Organism 1 STAPHYLOCOCCUS SIMULANS Quantity 2+ 1. STAPHYLOCOCCUS SIMULANS M.I.C. RX --------- ------ Penicillin <=0.03 S Clindamycin R This isolate is presumed to be resistant based on detection of inducible Clindamycin resistance. Clindamycin may still be effective in some patients. Erythromycin >=8 R Gentamicin <=0.5 S Linezolid 2 S Nitrofurantoin <=16 S Oxacillin <=0.25 S * Quinupristin/Dalfopristin <=0.25 S Rifampin <=0.5 S Tetracycline <=1 S Doxycycline - Deduced S CONTINUED ON NEXT PAGE * ML=Testing performed at Main Lab DEPARTMENT OF PATHOLOGY, [facility] [address], [place] [address] Maximo Lainez M.D. Director [facility] # [id number] RUN DATE: 05/08/14 [facility] LAB LIVE PAGE 2 RUN TIME: [address] [facility] [employer] [place], [place] [address] Specimen Inquiry Patient: NOELLE EL [id number] (Continued) Specimen: [id number] Collected: 05/05/14-1404 Received: 05/05/14-1927 (Continued) Procedure Result Verified Site Wound/Misc Culture Final (continued) 05/08/14- 841 1. STAPHYLOCOCCUS SIMULANS (continued) M.I.C. RX --------- ------ * Minocycline - Deduced S Tigecycline <=0.12 S Vancomycin <=0.5 S Imipenem-Deduced S * Ampicillin/Sulbactam-Deduced S Cefazolin-Deduced S * These antibiotics are not available in the [facility] Formulary Contact the Microbiology Department for any additional antibiotic reporting. END OF REPORT * ML=Testing performed at Main Lab DEPARTMENT OF PATHOLOGY, [address] [place] [address] Maximo Lainez M.D. Director [facility] # [id number] Procedures Date Code Description Status 11/08/2018 04120 Fiberoptic Laryngoscopy Completed 06/25/2018 24547 Nasal Endoscopy, Diagnostic Completed 06/28/2017 50891 Tympanometry Completed 06/28/2017 50043 Comprehensive Audiogram Completed 06/14/2017 45903 Tympanometry Completed 06/14/2017 11567 Comprehensive Audiogram Completed 08/19/2015 58707 Pure Tone - Air Conduction Only Completed 08/04/2015 94173 Tympanometry Completed 08/04/2015 61430 Comprehensive Audiogram Completed 06/05/2014 14053 Submuccous Resection Turbinate, Partial Or Complete Completed Encounters Type Date Location Provider Dx Diagnosis Office Visit 12/23/2018 [facility] Raad Wilson J31.0 Chronic rhinitis 10:30a 09/03/07 K21.9 Gastro-esophageal reflux disease without esophagitis J04.0 Acute laryngitis Office Visit 11/08/2018 10:15a [facility] 09/03/07 Raad Wilson J31.0 Chronic MD rhinitis J04.0 Acute laryngitis K21.9 Gastro-esophageal reflux disease without esophagitis Office Visit 06/25/2018 2:30p [facility] 09/03/07 Komal Luna J01.80 Other acute Harley PA-Zenaida sinusitis H92.03 Otalgia, bilateral Office Visit 06/28/2017 [facility] Raad Wilson H90.3 Sensorineural 2:00p 09/03/07 MD hearing loss, bilateral Office Visit 06/14/2017 [facility] Raad Wilson H90.3 Sensorineural 3:45p 09/03/07 hearing loss, bilateral H90.5 Unspecified sensorineural hearing loss Office Visit 08/19/2015 [facility] Raad Wilson H90.3 Sensorineural 9:00a 09/03/07 MD hearing loss, bilateral H90.5 Unspecified sensorineural hearing loss Office Visit 08/05/2015 [facility] Raad Wilson H90.5 Unspecified 9:00a 09/03/07 MD sensorineural hearing loss Office Visit 10/30/2013 [facility] Raad Wilson 472.0 Rhinitis, Chronic 9:30a 09/03/07 781.1 Anosmia/Parageusia/Parosmia 473.0 Sinusitis, Chronic Maxillary Plan of Treatment Future Appointment(s):06/26/2019 10:15 am - Raad Wilson MD at [facility] - Raad Wilson MDJ31.0 Chronic tlrxtjsbO59.9 Gastro- esophageal reflux disease without esophagitisComments:Continue on her LPR medication recheck back in 6 jqyqvrK72.0 Acute laryngitis
--- OUTSIDE RECORDS SUMMARY | 2019-01-11 09:48 | XMS REPORT | Continuity of Care Document ---
:1945 External Reference #:[id number] Author Name Carole Taveras PA-C Address [address] [place] [address] [place] [address] Care Team Providers Name Role Phone Rodney Jones MD Care Team Information [employer] Clerk Unavailable Rodney Jones MD Primary Care Physician Unavailable Payers Date Identification Numbers Payment Provider Subscriber Policy Number: [id number] Medicare Blue Ppo Noelle El PayID: [id number] [address] [address] [place] [address] Advance Directives Description No Information Available Problems Active Problems Provider Date Flatulence, eructation and gas pain Paulette Peterson, GRAPHIC TECHNICIAN-C Onset: 06/17/2012 Abdominal pain Paulette Peterson, GRAPHIC TECHNICIAN-C Onset: 06/17/2012 Asthma without status asthmaticus Paulette Peterson GRAPHIC TECHNICIAN-C Onset: 06/17/2012 Constipation Paulette Peterson, GRAPHIC TECHNICIAN-C Onset: 07/08/2012 Diarrhea Carole Taveras PA-C Onset: 12/18/2018 Lawson's esophagus Carole Taveras PA-C Onset: 06/25/2018 Epigastric pain Carole Taveras PA-C Onset: 06/25/2018 Right upper quadrant pain Carole Taveras PA-C Onset: 06/25/2018 Gastroesophageal reflux disease Dougie Cohen [...] Cohen, 12/05/2017 40mg a day MD Tablets DR Granadosvent HFA 2 Puffs bid Unknown 110mcg/Act Aerosol [...] 06/24/2012 - 550mg Tablets twice a day GRAPHIC TECHNICIAN-C 08/21/2013 Fluconazole Unknown - 150mg Tablets 06/25/2018 [...] Breath Test NEGATIVE finding [address] [employer] (Gai) [place], [place] [id number] [phone] Laboratory test [facility] Surgical SEE RESULT 1, 2 finding 8 Pathology BELOW SOB X 3 ([facility]) [facility] SOB 1St NEG 8 [address] Sample (Gai) [place], [place] [id number] [phone] SOB 2ND Sample (Gai) NEG SOB 3RD Sample (Gai) NEG Xray 06/13/2018 [facility] Radiology CT Abd/Pel W/O <pending> Xray 06/13/2018 [facility] Radiology US, Gallbladder (48130) <pending> CBC W/Auto 06/13/2018 [facility] White Blood Count Ser <pending> Differential(!) Auto CNT RBC Red Blood Count <pending> Hemoglobin Blood <pending> Hematocrit <pending> MCV (Corpuscular Volume) <pending> MCH (Corpuscular Hemoglobin) <pending> MCHC (Corpuscular Hemog Conc) <pending> RDW <pending> Platelet Count Blood Auto CNT <pending> MPV <pending> Lymph% <pending> [place]% <pending> Neutrophil % <pending> Absolute Lymphocytes <pending> [...] Auto CNT <pending> MPV <pending> Lymph% <pending> [place]% <pending> Neutrophil % <pending> Absolute Lymphocytes <pending> Absolute Monocytes <pending> Absolute Neutrophils <pending> Xray 05/23/2018 [facility] Radiology Abdomen/KUB 1VW <pending> Laboratory test 07/01/2015 [facility] Breath Test Sb[facility] NEGATIVE finding [address] ([facility] [place] [address] [phone] Lipid Panel(!) 04/27/2015 [facility] Cholesterol Total <pending> Mass/Vol(!) HDL Cholesterol Mol/Vol <pending> 30-85 Triglycerides Ser/Plas(!) <pending> LDL Cholesterol Mass/Vol(!) <pending> BMP W/O Egfr(!) 04/27/2015 [facility] Sodium(!) <pending> Potassium(!) <pending> Chloride Serum/Plasma(!) <pending> Carbon Dioxide Ser/Plasm(!) <pending> BUN - Urea Nitrogen(!) <pending> Calcium Ser/Plasma Mass/Vol(!) <pending> Creatinine Serum Mass/Vol(!) <pending> Glucose Serum(!) <pending> Xray 03/19/2013 [facility] Radiology CT Abd/Pel W/O <pending> Laboratory test 07/08/2012 [facility] T4 Free 1.08 PG.ML 0.70-1 finding [address] [facility] Thyroxine .[address] [place] [address] Mass/Vol(!) [phone] TSH Thyroid Stim Hormone(!) 2.19 0.38-4.31 Xray 07/06/2012 [facility] Radiology CT Abd/Pel W <pending> Laboratory test 06/18/2012 [facility] Breath Test Sb[facility] POSITIVE finding [address] (Ali) [place] [address] [phone] Xray 06/05/2012 [facility] Radiology US, Abdomen, <pending> Complete (99176) Ralf 06/02/2012 [facility] Z#Other <pending> [address] [facility] [place] [address] [phone] Ralf 06/02/2012 [facility] Z#Other <pending> Observations Ralf 02/12/2012 [facility] Z#Other <pending> Observations Xray 09/29/2011 [facility] Radiology X-Ray, Abdomen <pending> Supine 1 [id number] SEE RESULT BELOW Name: NOELLE EL Mukesh : [address]: Dougie Cohen MD Acct: [id number] Unit: [id number] AGE: 73 Location: [facility] Re07/09/18 SEX: F Status: DEP REF SPEC: [id number] NIYA: 07/09/18- [facility] DR: Dougie Coehn MD REQ: [id number] RECD: 07/09/181236 STATUS: JF LORENZO DR: Rodney Jones III, MD _ ORDERED: LEVEL 4/3 COMMENTS: [id number] FINAL DIAGNOSIS 1. Small bowel, duodenum, biopsy: [...] CONTINUED ON NEXT PAGE DEPARTMENT OF PATHOLOGY, [address] [place] [address] Maximo Lainez M.D. Director [facility] # [id number] RUN DATE: 07/10/18 [facility] LAB LIVE PAGE 2 Patient: NOELLE EL [id number] (Continued) GROSS DESCRIPTION (Continued) GROSS DESCRIPTION (Continued) [...] 1107 END OF REPORT DEPARTMENT OF PATHOLOGY, [address] [place] [address] Maximo Lainez M.D. Director [facility] # [id number] SEE RESULT BELOW Name: NOELLE EL : [address]: Dougie Cohen MD Acct: [id number] Unit: [id number] AGE: 73 Location: [facility] Re07/09/18 SEX: F Status: DEP REF SPEC: [id number] NIYA: 07/09/18- SUBM DR: Dougie Cohen MD REQ: [id number] RECD: 07/09/18 STATUS: JF LORENZO DR: Rodney Jones III, MD _ ORDERED: LEVEL 4/3 COMMENTS: [id number] FINAL DIAGNOSIS 1. Small bowel, duodenum, biopsy: [...] CONTINUED ON NEXT PAGE DEPARTMENT OF PATHOLOGY, [address] [place] [address] Maximo Lainez M.D. Director [facility] # [id number] RUN DATE: 07/10/18 [facility] LAB LIVE PAGE 2 Patient: NOELLE EL [id number] (Continued) GROSS DESCRIPTION (Continued) GROSS DESCRIPTION (Continued) [...] 1107 END OF REPORT DEPARTMENT OF PATHOLOGY, [address] [place] [address] Maximo Lainez M.D. Director [facility] # [id number] SEE RESULT BELOW Name: NOELLE EL : [address]: Dougie Cohen MD Acct: [id number] Unit: [id number] AGE: 73 Location: [facility] Re07/09/18 SEX: F Status: DEP REF SPEC: [id number] NIYA: 07/09/18- SUBM DR: Dougie Cohen MD REQ: [id number] RECD: 07/09/186 STATUS: JF LORENZO DR: Rodney Jones III, MD _ ORDERED: LEVEL 4/3, IMMUNO-FIRST COMMENTS: [id number] Addendum: An immunohistochemical stain for Helicobacter pylori-like [...] CONTINUED ON NEXT PAGE DEPARTMENT OF PATHOLOGY, [address] [place] [address] Maximo Lainez M.D. Director [facility] # [id number] RUN DATE: 07/11/18 [facility] LAB LIVE PAGE 2 Patient: NOELLE EL [id number] (Continued) GROSS DESCRIPTION (Continued) GROSS DESCRIPTION 1. [...] 1107 END OF REPORT DEPARTMENT OF PATHOLOGY, [address] [place] [address] Maximo Lainez M.D. Director [facility] # [id number] SEE RESULT BELOW Name: NOELLE EL : [address]: Dougie Cohen MD Acct: [id number] Unit: [id number] AGE: 73 Location: [facility] Re07/09/18 SEX: F Status: DEP REF SPEC: [id number] NIYA: 07/09/18- SUBM DR: Dougie Cohen MD REQ: [id number] RECD: 07/09/181236 STATUS: JF LORENZO DR: Rodney Jones III, MD _ ORDERED: LEVEL 4/3, IMMUNO-FIRST COMMENTS: [id number] Addendum: An immunohistochemical stain for Helicobacter pylori-like [...] CONTINUED ON NEXT PAGE DEPARTMENT OF PATHOLOGY, [address] [place] [address] Maximo Lainez M.D. Director [facility] # [id number] RUN DATE: 07/11/18 [facility] LAB LIVE PAGE 2 Patient: NOELLE EL [id number] (Continued) GROSS DESCRIPTION (Continued) GROSS DESCRIPTION 1. [...] 1107 END OF REPORT DEPARTMENT OF PATHOLOGY, [address] [place] [address] Maximo Lainez M.D. Director [facility] # [id number] Procedures Date Code Description Status 08/02/2018 77935 Breath Hydrogen Completed 07/09/2018 79453 EGD+Biopsy Single Or Multiple Completed 07/01/2015 24779 Breath Hydrogen Completed 03/09/2014 81502 EGD+Biopsy Single Or Multiple Completed 06/18/2012 18587 Breath Hydrogen Completed 10/20/2008 88370 Colonscopy+Biopsy Completed 10/14/200805411 Breath Hydrogen Completed 06/15/2008 40780 EGD+Biopsy Single Or Multiple Completed Encounters Type Date Location Provider Dx Diagnosis Office Visit 06/25/2018 [facility] Maldonado R10.11 Right upper 8:45a [facility] Office 01/28/2014 Skyler Nunez 530.81 Esophageal Reflux Visit 10:30a [facility] Office 07/23/2012 [facility] 789.01 Pain Abdominal Right Visit 2:45p [facility] [place] Office 07/08/2012 [facility] [place] 564.00 Constipation Visit 8:30a [facility], Unspecified GRAPHIC TECHNICIAN-C Office 06/17/2012 [facility] [place] 787.3 Flatulence Eructation Visit 11:15a [facility] 789.00 Pain Abdominal Unspec Site 493.90 Asthma Unspec W/O Status Asthmaticus Plan of Treatment 12/18/2018 - ALHAJI Velázquez-CK21.9 Gastro-esophageal reflux disease without xgryzyvlvwcW45.10 Upper abdominal pain, swrkerupiokC68.0 Abdominal distension (gaseous)New Medication:Xifaxan 550 mg - 1 tablet by mouth 3 times daily for 14 daysR19.7 Diarrhea, unspecified
[2019-01-11 10:10] VITALS: BP 118/52
--- NOTE | 2019-01-11 10:19 | UC ---
Ear Complaint HPI - HPI Summary HPI Summary: 73 y/o female presents to the urgent care c/o left ear pain, chills, and fever since yesterday. Pt reports she developed sinus congestion w/ clear nasal discharge about 3 days ago. Yesterday she had sinus pain and took Mucinex D and Tylenol. Pt has Hx of lower extremity surgery and she has been taking Plavix PO since then. Fever yesterday ws of 100.9F and resolved w/ Tylenol PO. Pain yesterday was 8/10 and today is 4/1o after taking the Tylenol. Pt is allergic to multiple antibiotics. Pt denies RODRIGUEZ, cough, or wheezing, dizziness, SOB, chest pain, abdominal pain, N/V/D. She has Hx of seasonal allergies and Asthma. - History of Current Complaint Chief Complaint: UCEar Stated Complaint: FEVER,HEADACHE,EAR CONCERN Time Seen by Provider: 01/11/19 10:16 Hx Obtained From: Patient Onset/Duration: Gradual Onset, Lasting Days - 3 days, Still Present, Worse Since - yesterday w/ mild fever and left ear pain Severity Initially: Mild Severity Currently: Mild Pain Intensity: 4 Pain Scale Used: 0-10 Numeric Alleviating Factors: OTC Meds Associated Signs/Symptoms: Positive: URI Symptoms - Allergies/Home Medications Allergies/Adverse Reactions: Allergies Allergy/AdvReac Type Severity Reaction Status Date / Time dicyclomine Allergy Unknown Verified 10/06/18 08:11 Reaction Details Iodinated Contrast- Oral and Allergy Itching Verified 10/06/18 08:11 IV Dye latex Allergy Rash Verified 10/06/18 08:11 levofloxacin [From Levaquin] Allergy Asthma Verified 10/06/18 08:11 attack metronidazole [From Flagyl] Allergy Rash Verified 10/06/18 08:11 milk Allergy Shortness Verified 10/06/18 08:11 of Breath nabumetone Allergy Rash Verified 10/06/18 08:11 Sulfa (Sulfonamide Allergy Unknown Verified 10/06/18 08:11 Antibiotics) Reaction Details amoxicillin AdvReac Stomach Verified 10/06/18 08:11 Cramps ampicillin AdvReac GI Upset Verified 10/06/18 08:11 ciprofloxacin [From Cipro] AdvReac Stomach Verified 10/06/18 08:11 pain hydrocodone [From Vicodin] AdvReac Abdominal Verified 10/06/18 08:11 Pain nitrofurantoin AdvReac Abdominal Verified 10/06/18 08:11 [From Macrobid] Pain oxycodone AdvReac GI Upset Verified 10/06/18 08:11 Macrodanten Allergy Vomiting Uncoded 10/06/18 08:11 Relefin Allergy Rash Uncoded 10/06/18 08:11 Home Medications: Home Medications Clopidogrel TAB* [Plavix TAB*] 75 mg PO DAILY 01/11/19 [History Confirmed ] Cyanocobalamin (Vitamin B-12) [Vitamin B12] 2,500 mcg PO DAILY 01/11/19 [ History Confirmed 01/11/19] Tiotropium CAP.INH* [Spiriva CAP.INH*] 1 cap.inh INH DAILY 01/11/19 [History Confirmed 01/11/19] PMH/Surg Hx/FS Hx/Imm Hx Previously Healthy: Yes Cardiovascular History: Deep Vein Thrombosis Respiratory History: Asthma GI/ History: Gastroesophageal Reflux Other History Of: Negative For: HIV, Hepatitis B, Hepatitis C, Anticoagulant Therapy - Surgical History Surgical History: Yes Surgery Procedure, Year, and Place: hysterectomy 1988. Rt Oopherectomy. TONSILECTOMY, . NASAL POLYP REMOVED WITH SEPTOPLASTY. RIGHT LEG VASCULAR SURGERY AT [facility] (NO STENTS) B[place] ONLY - Family History Known Family History: Positive: Hypertension Negative: Cardiac Disease, Diabetes Family History: Lung cancer - Social History Occupation: Retired Lives: With Family Alcohol Use: Occasionally Alcohol Amount: ONE PER MONTH Substance Use Type: None Smoking Status (MU): Former Smoker Amount Used/How Often: PACK A DAY Length of Time of Smoking/Using Tobacco: 1 PPD x 20 Years Have You Smoked in the Last Year: No When Did the Patient Quit Smoking/Using Tobacco: 1988 - Immunization History Most Recent Influenza Vaccination: May 2017 Review of Systems All Other Systems Reviewed And Are Negative: Yes Constitutional: Positive: Fever Skin: Positive: Negative Eyes: Positive: Negative ENT: Positive: Ear Ache - left ear pain, Nasal Discharge - clear, Sinus Congestion Respiratory: Positive: Negative Cardiovascular: Positive: Negative Gastrointestinal: Positive: Negative Genitourinary: Positive: Negative Motor: Positive: Negative Neurovascular: Positive: Negative Musculoskeletal: Positive: Negative Neurological: Positive: Negative Psychological: Positive: Negative Is Patient Immunocompromised?: No Physical Exam - Summary Physical Exam Summary: Vitals: reviewed General: Well developed, well-nourished female patient with NAD. Head and face: Normocephalic and atraumatic, Positive tenderness over the frontal and maxillary sinuses.. Eyes: PERRLA, EOMI x 2. Normal conjunctiva. No eye discharge. ENT: RT external ear canl clear and RT TM WNL. Left external ear canla clear, LF TM mildly injected, no drainage or perforation. Nose: edematous and erythematous nasal mucosa with with yellowish discharge and erythematous mucosa. Pharynx with erythema, no exudate. clear PND Neck: Supple, no JVD, no carotid bruits and no lymphadenopathy. Lungs: clear, no rales, no rhonchi, no wheezes. CVS: RRR, S1 and S2 present no murmurs or gallops appreciated. Abdomen: soft nontender with positive bowel sounds. Extremities: no edema noted. Neuro: WNL. Skin: warm and dry Triage Information Reviewed: Yes Vital Signs: Initial Vital Signs Temp 98.4 F 01/11/19 10:04 Pulse 78 01/11/19 10:04 Resp 16 01/11/19 10:04 BP 118/52 01/11/19 10:04 Pulse Ox 100 01/11/19 10:04 Ear Complaint Course/Dx - Course Course Of Treatment: 73 y/o female presents to the urgent care c/o left ear pain, chills, and fever since yesterday. Pt reports she developed sinus congestion w/ clear nasal discharge about 3 days ago. Yesterday she had sinus pain and took Mucinex D and Tylenol. Pt has Hx of lower extremity surgery and she has been taking Plavix PO since then. Fever yesterday ws of 100.9F and resolved w/ Tylenol PO. Pain yesterday was 8/10 and today is 4/1o after taking the Tylenol. Pt is allergic to multiple antibiotics. Pt denies RODRIGUEZ, cough, or wheezing, dizziness, SOB, chest pain, abdominal pain, N/V/D. She has Hx of seasonal allergies and Asthma. Hx obtained. Pt w/ viral sinusitis and mild left otitis Media on examination. Since symptoms started only 3 days ago, Pt advised symptomatic treatment w/ Zyrtec PO and advised to use saline drops and flonase nasal spray she has at home to clear her sinuses, increase hydration and rest. Strongly recommended to f/u w/ her PCP of her ENT Dr Cooper if not improvement of symptoms for further evaluation and treatment. D/C instructions explained. Pt understood and agreed w/ plan of care. - Differential Dx/Diagnosis Differential Diagnosis/HQI/PQRI: Cerumen Impaction, Otitis Externa, Otitis Media , Perforated TM, URI, Other - sinusitis Provider Diagnosis: Acute viral sinusitis, Left acute otitis media Discharge - Sign-Out/Discharge Documenting (check all that apply): Patient Departure - D/C home All imaging exams completed and their final reports reviewed: No Studies - Discharge Plan Condition: Stable Disposition: HOME Prescriptions: Cetirizine HCl/Pseudoephedrine [Zyrtec-D Tablet] 1 each PO BID #14 tab.er.12h Patient Education Materials: Sinusitis (ED), Ear Infection (ED) Referrals: Rodney Jones MD [Primary Care Provider] - 2 Days Raad Wilson MD [Medical Doctor] - 2 Days Additional Instructions: 1- Please increase fluid intake and rest. Use the Flonase nasal spray as directed to help drain fluid. Also buy saline drops to clear your sinuses 2-Take Claritin PO to alleviates sinus congestion 3- Continue taking Tylenol PO q6hrs prn to alleviate pain. 3- Please f/u w/ your PCP or ENT Dr Cooper if no improvement of symptoms for further management and treatment - Billing Disposition and Condition Condition: STABLE Disposition: Home
== END 2019-01-11 10:56 | disposition home or self-care (01) ==
LOC: UCCORT 09:13
DX: J01.90 Acute sinusitis, unspecified (principal); B97.89 Other viral agents as the cause of diseases classified elsewhere; H66.92 Otitis media, unspecified, left ear; Z79.01 Long term (current) use of anticoagulants; Z87.891 Personal history of nicotine dependence
CPT/HCPCS: 99212; G0463

== ENCOUNTER 2019-02-16 11:19 | Emergency (ER) | payer MEDICARE ==
--- OUTSIDE RECORDS SUMMARY | 2019-02-16 11:32 | XMS REPORT | Continuity of Care Document ---
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 [address] [place] [address] Problems Active Problems Provider Date Chronic rhinitis [...] Medications SIG Qnty Indications Ordering Provider Date Prednisone 10mg by mouth one 7tabs J01.80 [facility] 01/23/2019 10mg Tablets per day Omeprazole one by mouth 90caps [facility] 2019 40mg twice per day MD Capsules Azithromycin 1 by mouth every 5tabs [facility] 2019 500mg day for 5 days MD Tablets Saline Flush ZR as directed Unknown 0.9% Solution Zyrtec Allergy 1 by mouth every Unknown 10mg night at bedtime Capsules Xifaxan Swanstrom P.A., 550mg Tablets Carole Vitamin B12 1 by mouth every Unknown 100mcg day Tablets Citracal +D3 Unknown [phone]-mg-Unit Chewtabs Albuterol Sulfate Rodney Jones MD (2.5mg/3ML) 0.083% Nebulizer Clopidogrel Bisulfate Take One Tablet Unknown By Mouth Every 75mg Tablets Day Ranitidine HCL Janette Aragon NP 150mg Tablets Vitamin D3 Adult daily Unknown Gummies 1000Unit Chewtabs Multi-Vitamin one po qd Unknown ? Restasis Eye once daily Unknown 0.05% Fluticasone One PO qd Unknown Propionate 50mg Omeprazole One PO qd Unknown 40mg Flovent Diskus 2 Puffs Twice Unknown 110mg Daily Spiriva Handihaler use once in the Unknown Am 18mcg History Medications Cefuroxime Axetil Take 1 pill [...] 08/18/2015 Citracal +D3 daily Unknown - 11/07/2018 [phone]-mg-Unit Chewtabs Immunizations CPT Code Status Date Vaccine Lot # 78023 Given Unknown Pneumococcal Vaccine 2Yrs Or Older 41007 Given Unknown Influenza Virus Vaccine, 3 Years Of Age And Above, Intramuscular Vital Signs Date Vital Result Comment 2019 10:38am Weight 166.00 lb Weight 75.298 kg Height 66 inches 5'6" Height in cm's 167.6 cm BMI (Body Mass Index) 26.8 kg/m2 12/23/2018 10:39am Weight 166.00 lb Weight 75.298 [...] Test Result H/L Range Note Wound 06/25/2018 [facility] Wound/Misc SEE RESULT 1 Culture/Sensi c/o Department of Laboratories [place] [address] Stain [phone] Sudden 06/14/2017 [facility] Lyme Disease Negative N Negative 2 Hearing Loss c/o Department [place] [address] [phone] Erythrocyte Sed Rate 11 mm/Hr N 0-40 [...] Nonreactive N Nonreactive 6 CBC Auto 06/14/2017 [facility] White Blood 11.3 10^3/ uL High 3.5-10.8 Diff c/o Department [place] [address] [phone] Red Blood Count 4.36 10^6/uL N 4.0-5.4 [...] Cells % 0.1 N Basic Metabolic 06/14/2017 [facility] Sodium 141 mmol/ L N 133-145 Panel c/o [place] [address] [phone] Potassium 3.9 mmol/L N 3.5-5.0 Chloride 106 [...] N >60 7 Ssa/SSB Abs Igg 06/14/2017 [facility] SS-A/Ro Antibody <0.2 U N 8 c/o [place] [address] [phone] SS-B/La Antibody <0.2 U N 9 Connective Tissue 06/14/2017 [facility] Anti-Nuclear 0.1 U N 10 Panel c/o Department [place] [address] [phone] Cyclic Citrullinated Peptide <15.6 U N 11 Interpretation the N 12 Creatinine 08/19/2015 [facility] Creatinine 0.95 mg/ dL N 0.51-0.95 c/o Department [place] [address] [phone] Egfr Non- 58.2 N >60 Egfr 74.8 N >60 13 Laboratory test 08/19/2015 [facility] Blood Urea 16 mg /dL N 6-24 finding c/o Department of [place] [address] [phone] Wound 05/05/2014 [facility] Wound/Misc (SEE NOTE) 14 Culture/Sensi c/o Department [place] [address] Stain [phone] 1 SEE RESULT BELOW Name: NOELLE EL : [address]: Komal Souza PA-C Acct: [id number] Unit: [id number] AGE: 73 Location: [facility] Re06/26/18 SEX: F Status: REG REF SPEC: [id number] NIYA: 06/25/[address] [facility] DR: Komal Esteevz REQ: [id number] RECD: 06/26/18 STATUS: RES _ SOURCE: MISC SOURC SPDESC: ORDERED: Culture Stain COMMENTS: [id number] left sinus Specimen Description Left sinus Procedure Result Reported Site Wound/Misc Gram Stain Final 06/26/18- 1830 ML 1+ Neutrophils No Organisms Seen Wound/Misc Culture Preliminary 06/28/18- 1352 ML Organism 1 STAPHYLOCOCCUS EPIDERMIDIS Quantity 1+ * - [facility] . END OF REPORT DEPARTMENT OF PATHOLOGY, [address] [place] [address] Maximo Lainez M.D. Director [facility] # [id number] 2 Serologic response to B. burgdorferi infection is not detected, but cannot rule out early infection during which low or undetectable antibody levels to B. burgdorferi may be present. If clinically indicated, a new serum specimen should be submitted in 7-14 days. Test Performed by: [facility] [address] [place] [address] 3 Test Performed by: [facility] [address] [place] [address] 4 Test Performed by: [facility] [address] [place] [address] 5 Test Performed by: [facility] [address] [place] [address] 6 Warning: A positive result is not [...] REFERENCE VALUE <1.0 (Negative) Test Performed by: [facility] [address] [place] [address] 10 REFERENCE VALUE <=1.0 (Negative) 11 REFERENCE VALUE <20.0 (Negative) 12 Tests for antibodies to dsDNA and DALE antigens are not performed automatically unless the COLIN result is > or= 3.0 U. Studies performed at [facility] indicate that positive COLIN results <3.0 U are rarely accompanied by positive second order tests. Test Performed by: [facility] [address] [place] [address] 13 Because ethnic data is not always [...] <15 (or dialysis) 14 RUN DATE: 05/08/14 [facility] LIVE PAGE 1 RUN TIME: [address] [place] [address] Specimen Inquiry Name: NOELLE EL Mukesh : [address]: Mejia Resendiz MD Acct: [id number] Unit: [id number] AGE: 69 Location: [facility] Re05/05/14 SEX: F Status: REG REF SPEC: [id number] NIYA: 05/05/14-[address] [facility] DR: Mejia Resendiz MD REQ: [id number] RECD: 05/05/14 STATUS: COMP _ SOURCE: NOSE INTER SPDESC: ORDERED: Culture Stain QUERIES: Medent Number [id number] Specimen Description LEFT MAXILLARY SINUS Procedure Result Verified Site Wound/Misc Gram Stain Final 05/06/14- 0804 ML 1+ Epithelial Cells 1+ Polys 1+ Nucleated Cells No Organisms Seen Wound/Misc Culture Final 05/08/14- 0842 ML Organism 1 STAPHYLOCOCCUS SIMULANS Quantity 2+ [...] performed at Main Lab DEPARTMENT OF PATHOLOGY, [facility] [employer] [place] [address] Maximo Lainez M.D. Director [facility] # [id number] RUN DATE: 05/08/14 [facility] LIVE PAGE 2 RUN TIME: [address] [place] [address] Specimen Inquiry Patient: NOELLE EL [id number] (Continued) Specimen: [id number] Collected: 05/05/14 Received: 05/05/14 (Continued) Procedure Result Verified Site Wound/Misc Culture Final (continued) 05/08/14- 841 1. STAPHYLOCOCCUS SIMULANS (continued) M.I.C. RX --------- ------ * Minocycline - Deduced S Tigecycline <=0.12 S Vancomycin <=0.5 S Imipenem-Deduced S * Ampicillin/Sulbactam-Deduced S Cefazolin-Deduced S * These antibiotics are not available in the [facility] Formulary Contact the Microbiology Department for any additional antibiotic reporting. END OF REPORT * ML=Testing performed at Main Lab DEPARTMENT OF PATHOLOGY, [address] [place] [address] Maximo Lainez M.D. Director [facility] # [id number] Procedures Date Code Description Status 11/08/2018 63720 Fiberoptic Laryngoscopy Completed 06/25/2018 27451 Nasal Endoscopy, Diagnostic Completed 06/28/2017 06984 Tympanometry Completed 06/28/2017 17343 Comprehensive Audiogram Completed 06/14/2017 90810 Tympanometry Completed 06/14/2017 57142 Comprehensive Audiogram Completed 08/19/2015 93699 Pure Tone - Air Conduction Only Completed 08/04/2015 86931 Tympanometry Completed 08/04/2015 83718 Comprehensive Audiogram Completed 06/05/2014 99374 Submuccous Resection Turbinate, Partial Or Complete Completed Encounters Type Date Location Provider Dx Diagnosis Office Visit 2019 [place] Steve Raad J31.0 Chronic rhinitis 10:45a 09/03/07 MD K21.9 Gastro-esophageal reflux disease without esophagitis H92.03 Otalgia, bilateral Office Visit 12/23/2018 10:30a [place] 09/03/07 Ruparelia, Raad J31.0 Chronic MD rhinitis K21.9 Gastro-esophageal reflux disease without esophagitis J04.0 Acute laryngitis Office Visit 11/08/2018 10:15a [place] 09/03/07 Ruparelia, Raad J31.0 Chronic MD rhinitis J04.0 Acute laryngitis K21.9 Gastro-esophageal reflux disease without esophagitis Office Visit 06/25/2018 2:30p [place] 09/03/07 oKmal Luna J01.80 Other acute ALHAJI Souza-Zenaida sinusitis H92.03 Otalgia, bilateral Office Visit 06/28/2017 [place] Steve Raad H90.3 Sensorineural 2:00p 09/03/07 hearing loss, bilateral Office Visit 06/14/2017 [place] Steve Raad H90.3 Sensorineural 3:45p 09/03/07 MD hearing loss, bilateral H90.5 Unspecified sensorineural hearing loss Office Visit 08/19/2015 [place] Steve Raad H90.3 Sensorineural 9:00a 09/03/07 hearing loss, bilateral H90.5 Unspecified sensorineural hearing loss Office Visit 08/05/2015 [place] Raad Wilson H90.5 Unspecified 9:00a 09/03/07 sensorineural hearing loss Office Visit 10/30/2013 [place] Raad Wilson 472.0 Rhinitis, Chronic 9:30a 09/03/07 781.1 Anosmia/Parageusia/Parosmia 473.0 Sinusitis, Chronic Maxillary Plan of Treatment Future Appointment(s):02/24/2019 10:45 am - Raad Wilson MD at [place] 1:30 pm - Komal Sozua PA-C at [place] 09/03/804 - Raad Wilson MDJ31.0 Chronic wftqfkueR13.80 Other acute sinusitisNew Medication:Prednisone 10 mg - 10mg by mouth one per day
[2019-02-16 11:38] VITALS: BP 127/53
--- NOTE | 2019-02-16 11:56 | UC ---
Skin Complaint HPI - HPI Summary HPI Summary: 74-year-old female who uses steroid inhalers for her asthma who started having symptoms of thrush 2 or 3 days ago with white spots in her mouth and coated tongue. She has been using some homeopathic medication/lozenges with some improvement but she continues to have oral burning and a coated tongue. She has not been on any antibiotics recently however in the past 2 months she has had dental work. - History of Current Complaint Chief Complaint: UCDentalProblem Time Seen by Provider: 02/16/19 11:52 Stated Complaint: ORAL COMPLAINT Hx Obtained From: Patient ?: No Onset/Duration: Gradual Onset Skin Exposure Onset/Duration: Days Ago Timing: Constant Onset Severity: Mild Current Severity: Mild Pain Intensity: 0 Location: Other - Mouth and tongue, more of a burning sensation. Aggravating Factor(s): Nothing Alleviating Factor(s): Other - Patient has been using some homeopathic throat lozenges with some improvement Associated Signs & Symptoms: Positive: Negative - Allergy/Home Medications Allergies/Adverse Reactions: Allergies Allergy/AdvReac Type Severity Reaction Status Date / Time dicyclomine Allergy Unknown Verified 02/16/19 11:48 Reaction Details Iodinated Contrast- Oral and Allergy Itching Verified 02/16/19 11:48 IV Dye latex Allergy Rash Verified 02/16/19 11:48 levofloxacin [From Levaquin] Allergy Asthma Verified 02/16/19 11:48 attack metronidazole [From Flagyl] Allergy Rash Verified 02/16/19 11:48 milk Allergy Shortness Verified 02/16/19 11:48 of Breath nabumetone Allergy Rash Verified 02/16/19 11:48 Sulfa (Sulfonamide Allergy Unknown Verified 02/16/19 11:48 Antibiotics) Reaction Details amoxicillin AdvReac Stomach Verified 02/16/19 11:48 Cramps ampicillin AdvReac GI Upset Verified 02/16/19 11:48 ciprofloxacin [From Cipro] AdvReac Stomach Verified 02/16/19 11:48 pain hydrocodone [From Vicodin] AdvReac Abdominal Verified 02/16/19 11:48 Pain nitrofurantoin AdvReac Abdominal Verified 02/16/19 11:48 [From Macrobid] Pain oxycodone AdvReac GI Upset Verified 02/16/19 11:48 Macrodanten Allergy Vomiting Uncoded 02/16/19 11:48 Relefin Allergy Rash Uncoded 02/16/19 11:48 Home Medications: Home Medications Calcium Citrate/Vitamin D3 [Citracal + D3 Maximum] 1 tab PO DAILY 02/16/19 [ History Confirmed 02/16/19] Erica Hernandezmichael [[facility]] 1 each PO DAILY 02/16/19 [History Confirmed 02/16/19] PMH/Surg Hx/FS Hx/Imm Hx Previously Healthy: Yes Endocrine History: Thyroid Disease Respiratory History: Asthma GI/ History: Gastroesophageal Reflux Other History Of: Negative For: HIV, Hepatitis B, Hepatitis C, Anticoagulant Therapy - Surgical History Surgical History: Yes Surgery Procedure, Year, and Place: hysterectomy 1988. Rt Oopherectomy. TONSILECTOMY, . NASAL POLYP REMOVED WITH SEPTOPLASTY. RIGHT LEG VASCULAR SURGERY AT [facility] (NO STENTS) BALLOONING ONLY - Family History Known Family History: Positive: Hypertension Negative: Cardiac Disease, Diabetes Family History: Lung cancer - Social History Occupation: Retired Alcohol Use: Rare Alcohol Amount: ONE PER MONTH Substance Use Type: None Smoking Status (MU): Former Smoker Amount Used/How Often: PACK A DAY Length of Time of Smoking/Using Tobacco: 1 PPD x 20 Years Have You Smoked in the Last Year: No When Did the Patient Quit Smoking/Using Tobacco: 1988 - Immunization History Most Recent Influenza Vaccination: May 2017 Review of Systems All Other Systems Reviewed And Are Negative: Yes ENT: Positive: Other - Patient states she has had a coated tongue with some burning of her oral mucosa and saw what she thought was possible thrush over the past couple of days of her cheeks in the back of her mouth. Is Patient Immunocompromised?: No Physical Exam Triage Information Reviewed: Yes Appearance: Well-Appearing, No Pain Distress, Well-Nourished Vital Signs: Initial Vital Signs Temp 98.2 F 02/16/19 11:32 Pulse 74 02/16/19 11:32 Resp 16 02/16/19 11:32 BP 127/53 02/16/19 11:32 Pulse Ox 99 02/16/19 11:32 Vital Signs Reviewed: Yes Eyes: Positive: Conjunctiva Clear ENT: Positive: Uvula midline, Other - Patient does have a coated tongue however I don't find any lesions or evidence of thrush in her posterior pharynx or on her buccal mucosa. Neck: Positive: Supple, Nontender, No Lymphadenopathy Respiratory: Positive: Lungs clear, Normal breath sounds, No respiratory distress, No accessory muscle use Cardiovascular: Positive: RRR, No Murmur, Pulses Normal, Brisk Capillary Refill Musculoskeletal Exam: Normal Neurological Exam: Normal Psychological Exam: Normal Course/Dx - Course Course Of Treatment: The patient's tongue is coated and I am going to treat her with Diflucan 150 mg one time dose. I was going to treat with nystatin however she has gastric reflux and was concerned that that may aggravate the gastric reflux. She is to follow-up with her primary care provider as needed. After use of her inhaler she is to rinse her mouth well to avoid recurrence of the thrush. - Diagnoses Provider Diagnosis: Thrush, oral Discharge - Sign-Out/Discharge Documenting (check all that apply): Patient Departure All imaging exams completed and their final reports reviewed: No Studies - Discharge Plan Condition: Fair Disposition: HOME Prescriptions: Fluconazole 150 MG TAB* [Diflucan 150 MG TAB*] 150 mg PO UC ONCE 1 Days #1 tablet Patient Education Materials: Oral Candidiasis (ED) Referrals: Rodney Jones MD [Primary Care Provider] - Additional Instructions: Follow-up with your primary care provider if no improvement in 3 or 4 days. - Billing Disposition and Condition Condition: FAIR Disposition: Home - Attestation Statements Provider Attestation: I was available for consult. This patient was seen by the ENMANUEL. The patient was not presented to , seen by or examined by ri -Silas See MD
== END 2019-02-16 12:08 | disposition home or self-care (01) ==
LOC: UCCORT 11:19
DX: B37.0 Candidal stomatitis (principal); J45.909 Unspecified asthma, uncomplicated; Z79.51 Long term (current) use of inhaled steroids; Z88.1 Allergy status to other antibiotic agents; Z88.0 Allergy status to penicillin; Z87.891 Personal history of nicotine dependence
CPT/HCPCS: 99212; G0463

== ENCOUNTER 2020-10-01 10:30 | Inpatient (IN) ==
[2020-10-01 12:09] LABS: ABS Lymphocytes 0.3 10^3/ul (1.0-4.8); ABS Monocytes 0.4 10^3/ul (0-0.8); ABS Neutrophils 6.1 10^3/ul (1.5-7.7); Hematocrit 37 % (35-47); Hemoglobin 12.6 g/dL (12.0-16.0); Lymphocyte % 4.9 %; Mean Corpuscular HGB Conc 34 g/dL (31-36); Mean Corpuscular Hemoglobin 30 pg (27-31); Mean Corpuscular Volume 88 fL (80-97); Mean Platelet Volume 8.3 fL (7.4-10.4); Platelet Count 196 10^3/uL (150-450); Red Blood Count 4.17 10^6 /uL (3.70-4.87); Red Cell Distribution Width 14 % (10-15); White Blood Count 6.9 10^3/uL (3.5-10.8)
[2020-10-01 12:13] LABS: Urine Appearance Clear; Urine Bilirubin Negative (Negative); Urine Blood Negative (Negative); Urine Color Straw; Urine Glucose Negative (Negative); Urine Ketones Negative (Negative); Urine Nitrite Negative (Negative); Urine Protein Negative (Negative); Urine Specific Gravity 1.004 (1.010-1.030); Urine Urobilinogen Negative (Negative)
[2020-10-01 12:30] LABS: ALT 45 U/L (7-52); AST 69 U/L (13-39); Albumin 3.4 g/dL (3.2-5.2); Albumin/Globulin Ratio 1.2 (1-3); Alkaline Phosphatase 70 U/L (34-104); Anion Gap 5 mmol/L (2-11); BUN/Creatinine Ratio 18.1 (8-20); Blood Urea Nitrogen 15 mg/dL (6-24); C Reactive Protein 43.75 mg/L (<8.01); CO2 Carbon Dioxide 27 mmol/L (22-32); Calcium 10.1 mg/dL (8.6-10.3); Chloride 102 mmol/L (101-111); EGFR African American 81.1 (>60); Globulin 2.8 g/dL (2-4); Glucose 138 mg/dL (70-100); Potassium 4.9 mmol/L (3.5-5.0); Sodium 134 mmol/L (135-145); Total Protein 6.2 g/dL (6.4-8.9)
[2020-10-01 12:31] LABS: Troponin I 0.01 ng/mL (<0.03)
[2020-10-01 12:38] LABS: Activated Partial Thrombo Time 23.3 seconds (26.0-38.0); INR 0.87 (0.82-1.09)
[2020-10-01] MEDS ORDERED: NS 0.9% 500 ml BAG 500 ML IV ONE (12:44)
[2020-10-01 13:04] LABS: Ferritin 1297.2 ng/mL (11-307)
[2020-10-01 13:11] LABS: Influenza A Molecular Negative (Negative); Influenza B Molecular Negative (Negative)
[2020-10-01] MEDS ORDERED: Fluticasone NASAL SPRAY 50MCG 16 gm SPRAY BTL INTRANASAL PRN (14:06)
[2020-10-01] MEDS ORDERED: Remdesivir 100 mg Vial 200 MG in NS 0.9% 250 ml 210 ML IV ONE (14:09)
[2020-10-01] MEDS ORDERED: FDGARD PO SCH (14:15)
[2020-10-01] MEDS ORDERED: Enoxaparin 40 MG/0.4 ML SYR SUBCUT SCH (15:00)
[2020-10-01] MEDS: Enoxaparin 40 MG/0.4 ML SYR SUBCUT SCH (17:06)
[2020-10-01] MEDS: CMC:Cyclosporine 0.05% OPHTH (NF) 0.4 ML VIAL BOTH EYES SCH (21:00)
[2020-10-01] MEDS: Mometasone 220 MCG MDI INH SCH (22:38)
[2020-10-02] MEDS: Albuterol HFA INHALER 8 gm MDI INH PRN (04:24)
[2020-10-02 07:00] LABS: INR 0.87 (0.82-1.09)
[2020-10-02] MEDS: SPIRIVA Respimat (tiotropium) 2.5 mcg/inh Inhaler INH SCH (08:00)
[2020-10-02 08:20] LABS: ABS Lymphocytes 0.6 10^3/ul (1.0-4.8); ABS Monocytes 0.6 10^3/ul (0-0.8); ABS Neutrophils 4.6 10^3/ul (1.5-7.7); Hematocrit 37 % (35-47); Hemoglobin 12.5 g/dL (12.0-16.0); Lymphocyte % 10.2 %; Mean Corpuscular HGB Conc 33 g/dL (31-36); Mean Corpuscular Hemoglobin 29 pg (27-31); Mean Corpuscular Volume 88 fL (80-97); Mean Platelet Volume 8.4 fL (7.4-10.4); Nucleated Red Blood Cells % 0.1; Platelet Count 231 10^3/uL (150-450); Red Blood Count 4.25 10^6 /uL (3.70-4.87); Red Cell Distribution Width 14 % (10-15); White Blood Count 5.8 10^3/uL (3.5-10.8)
[2020-10-02] MEDS: Cholecalciferol (VIT D3) 1,000 unit TAB PO SCH (09:34)
[2020-10-02] MEDS: Vitamin THERAPEUTIC TAB PO SCH (09:36)
[2020-10-02] MEDS: LACTOBACILLUS RHAMNOSUS GG PO SCH (11:57)
[2020-10-02] MEDS: Polyethylene Glycol 3350 17 GM PACKET PO SCH (12:41)
[2020-10-02] MEDS: CMC:Cyclosporine 0.05% OPHTH (NF) 0.4 ML VIAL BOTH EYES SCH ×2 (12:41→20:37)
[2020-10-02] MEDS: Calcium Polycarbophil 625mg TB PO SCH (12:42)
[2020-10-02] MEDS: GuaiFENesin DM sugar free 100mg/10mg 5 ML UDC PO PRN (12:58)
[2020-10-02] MEDS: Enoxaparin 40 MG/0.4 ML SYR SUBCUT SCH (16:58)
[2020-10-02] MEDS: Mometasone 220 MCG MDI INH SCH (19:35)
[2020-10-02] MEDS: Remdesivir 100 mg Vial 100 MG in NS 0.9% 250 ml 230 ML IV SCH (20:26)
[2020-10-03] MEDS: Albuterol HFA INHALER 8 gm MDI INH PRN (00:18)
[2020-10-03] MEDS: GuaiFENesin DM sugar free 100mg/10mg 5 ML UDC PO PRN (00:18)
[2020-10-03 05:25] LABS: ABS Lymphocytes 1.1 10^3/ul (1.0-4.8); ABS Neutrophils 8.5 10^3/ul (1.5-7.7); Hematocrit 38 % (35-47); Hemoglobin 12.6 g/dL (12.0-16.0); Lymphocyte % 10.6 %; Mean Corpuscular HGB Conc 33 g/dL (31-36); Mean Corpuscular Hemoglobin 30 pg (27-31); Mean Corpuscular Volume 89 fL (80-97); Mean Platelet Volume 8.8 fL (7.4-10.4); Platelet Count 258 10^3/uL (150-450); Red Blood Count 4.26 10^6 /uL (3.70-4.87); Red Cell Distribution Width 14 % (10-15); White Blood Count 10.6 10^3/uL (3.5-10.8)
[2020-10-03 05:28] LABS: ALT 58 U/L (7-52); AST 57 U/L (13-39); Albumin 3.1 g/dL (3.2-5.2); Albumin/Globulin Ratio 1.2 (1-3); Alkaline Phosphatase 70 U/L (34-104); Anion Gap 8 mmol/L (2-11); BUN/Creatinine Ratio 28.7 (8-20); Blood Urea Nitrogen 27 mg/dL (6-24); CO2 Carbon Dioxide 23 mmol/L (22-32); Chloride 106 mmol/L (101-111); EGFR African American 70.2 (>60); EGFR Non-African American 58.1 (>60); Globulin 2.6 g/dL (2-4); Glucose 101 mg/dL (70-100); Potassium 4.1 mmol/L (3.5-5.0); Sodium 137 mmol/L (135-145); Total Protein 5.7 g/dL (6.4-8.9)
[2020-10-03] MEDS: SPIRIVA Respimat (tiotropium) 2.5 mcg/inh Inhaler INH SCH (07:23)
[2020-10-03] MEDS: Vitamin THERAPEUTIC TAB PO SCH (08:16)
[2020-10-03] MEDS: Polyethylene Glycol 3350 17 GM PACKET PO SCH (08:16)
[2020-10-03] MEDS: Cholecalciferol (VIT D3) 1,000 unit TAB PO SCH (08:16)
[2020-10-03] MEDS: Aspirin EC 81 mg TAB.EC (enteric coated) PO SCH (08:16)
[2020-10-03] MEDS: Calcium Polycarbophil 625mg TB PO SCH (09:20)
[2020-10-03] MEDS: CMC:Cyclosporine 0.05% OPHTH (NF) 0.4 ML VIAL BOTH EYES SCH ×2 (09:21→21:31)
[2020-10-03] MEDS: GuaiFENesin DM sugar free 100mg/10mg 5 ML UDC PO SCH ×3 (09:22→21:32)
[2020-10-03] MEDS: LACTOBACILLUS RHAMNOSUS GG PO SCH (09:23)
[2020-10-03 09:41] LABS: Magnesium 2.1 mg/dL (1.9-2.7); Phosphorus 2.8 mg/dL (2.5-5.0)
[2020-10-03] MEDS: Enoxaparin 40 MG/0.4 ML SYR SUBCUT SCH (17:08)
[2020-10-03] MEDS: Mometasone 220 MCG MDI INH SCH (20:39)
[2020-10-03] MEDS: Remdesivir 100 mg Vial 100 MG in NS 0.9% 250 ml 230 ML IV SCH (21:32)
[2020-10-04] MEDS: GuaiFENesin DM sugar free 100mg/10mg 5 ML UDC PO SCH ×4 (03:30→20:42)
[2020-10-04] MEDS: Cholecalciferol (VIT D3) 1,000 unit TAB PO SCH (08:26)
[2020-10-04] MEDS: Calcium Polycarbophil 625mg TB PO SCH (08:27)
[2020-10-04] MEDS: Vitamin THERAPEUTIC TAB PO SCH (08:28)
[2020-10-04] MEDS: Polyethylene Glycol 3350 17 GM PACKET PO SCH (08:29)
[2020-10-04] MEDS: CMC:Cyclosporine 0.05% OPHTH (NF) 0.4 ML VIAL BOTH EYES SCH ×2 (08:30→20:42)
[2020-10-04] MEDS ORDERED: Albuterol HFA INHALER 8 gm MDI INH PRN (09:25)
[2020-10-04] MEDS: Albuterol HFA INHALER 8 gm MDI INH SCH ×3 (09:38→21:54)
[2020-10-04] MEDS: SPIRIVA Respimat (tiotropium) 2.5 mcg/inh Inhaler INH SCH (09:38)
[2020-10-04] MEDS ORDERED: Albuterol HFA INHALER 8 gm MDI INH SCH (10:00)
[2020-10-04] MEDS: Enoxaparin 60 MG/0.6 ML SYR SUBCUT SCH ×2 (10:55→20:43)
[2020-10-04] MEDS: NS 0.9% 1000 ml BAG 1,000 ML IV SCH ×2 (10:56→20:37)
[2020-10-04 11:36] LABS: Albumin/Globulin Ratio 1.2 (1-3); BUN/Creatinine Ratio 34.1 (8-20); Calcium 8.9 mg/dL (8.6-10.3); EGFR African American 78.9 (>60); EGFR Non-African American 65.2 (>60); Globulin 2.5 g/dL (2-4); Potassium 3.5 mmol/L (3.5-5.0); Total Bilirubin 0.6 mg/dL (0.2-1.0); Total Protein 5.5 g/dL (6.4-8.9)
[2020-10-04] MEDS: Mometasone 220 MCG MDI INH SCH (21:55)
[2020-10-04] MEDS: Remdesivir 100 mg Vial 100 MG in NS 0.9% 250 ml 230 ML IV SCH (22:47)
[2020-10-05] MEDS: GuaiFENesin DM sugar free 100mg/10mg 5 ML UDC PO SCH ×2 (03:02→09:04)
[2020-10-05] MEDS: Albuterol HFA INHALER 8 gm MDI INH SCH ×7 (03:03→20:50)
[2020-10-05] MEDS: NS 0.9% 1000 ml BAG 1,000 ML IV SCH (04:46)
[2020-10-05 07:09] LABS: Albumin 2.7 g/dL (3.2-5.2); Albumin/Globulin Ratio 1.2 (1-3); BUN/Creatinine Ratio 33.8 (8-20); Calcium 7.8 mg/dL (8.6-10.3); EGFR African American 92.6 (>60); EGFR Non-African American 76.5 (>60); Globulin 2.3 g/dL (2-4); Potassium 3.7 mmol/L (3.5-5.0); Total Bilirubin 0.5 mg/dL (0.2-1.0)
[2020-10-05] MEDS: SPIRIVA Respimat (tiotropium) 2.5 mcg/inh Inhaler INH SCH (08:21)
[2020-10-05] MEDS: Enoxaparin 60 MG/0.6 ML SYR SUBCUT SCH ×2 (09:05→20:29)
[2020-10-05] MEDS: Polyethylene Glycol 3350 17 GM PACKET PO SCH (09:05)
[2020-10-05] MEDS: Aspirin EC 81 mg TAB.EC (enteric coated) PO SCH (09:06)
[2020-10-05] MEDS: Calcium Polycarbophil 625mg TB PO SCH (09:07)
[2020-10-05] MEDS: Cholecalciferol (VIT D3) 1,000 unit TAB PO SCH (09:10)
[2020-10-05] MEDS: Vitamin THERAPEUTIC TAB PO SCH (09:11)
[2020-10-05] MEDS: CMC:Cyclosporine 0.05% OPHTH (NF) 0.4 ML VIAL BOTH EYES SCH ×2 (09:12→20:29)
[2020-10-05] MEDS: GuaiFENesin DM 100 mg/10 mg in 5 ML UDC PO SCH ×3 (12:26→23:24)
[2020-10-05] MEDS: Remdesivir 100 mg Vial 100 MG in NS 0.9% 250 ml 230 ML IV SCH (20:25)
[2020-10-05] MEDS: Mometasone 220 MCG MDI INH SCH (20:51)
[2020-10-06] MEDS: NS 0.9% 1000 ml BAG 1,000 ML IV SCH (01:31)
[2020-10-06] MEDS: Albuterol HFA INHALER 8 gm MDI INH SCH ×6 (01:33→20:09)
[2020-10-06] MEDS: GuaiFENesin DM 100 mg/10 mg in 5 ML UDC PO SCH ×4 (04:24→22:19)
[2020-10-06] MEDS: SPIRIVA Respimat (tiotropium) 2.5 mcg/inh Inhaler INH SCH (07:28)
[2020-10-06 09:09] LABS: Albumin 2.5 g/dL (3.2-5.2); Albumin/Globulin Ratio 1.1 (1-3); Calcium 7.3 mg/dL (8.6-10.3); EGFR African American 127.7 (>60); EGFR Non-African American 105.5 (>60); Globulin 2.3 g/dL (2-4); Potassium 3.3 mmol/L (3.5-5.0); Total Bilirubin 0.4 mg/dL (0.2-1.0); Total Protein 4.8 g/dL (6.4-8.9)
[2020-10-06] MEDS: Polyethylene Glycol 3350 17 GM PACKET PO SCH (09:24)
[2020-10-06] MEDS: Enoxaparin 60 MG/0.6 ML SYR SUBCUT SCH ×2 (09:24→22:21)
[2020-10-06] MEDS: Calcium Polycarbophil 625mg TB PO SCH (09:26)
[2020-10-06] MEDS: Vitamin THERAPEUTIC TAB PO SCH (09:26)
[2020-10-06] MEDS: Cholecalciferol (VIT D3) 1,000 unit TAB PO SCH (09:27)
[2020-10-06 09:47] LABS: C Reactive Protein 108.38 mg/L (<8.01); Magnesium 1.9 mg/dL (1.9-2.7)
[2020-10-06] MEDS: CMC:Cyclosporine 0.05% OPHTH (NF) 0.4 ML VIAL BOTH EYES SCH ×2 (11:14→22:25)
[2020-10-06] MEDS: Mometasone 220 MCG MDI INH SCH (19:37)
[2020-10-06] MEDS ORDERED: Calcium Carb (TUMS) 500 mg CHEW TAB ONE (22:12)
[2020-10-06] MEDS: Calcium Carb (TUMS) 500 mg CHEW TAB PO SCH (23:52)
[2020-10-07] MEDS: Albuterol HFA INHALER 8 gm MDI INH SCH ×4 (05:30→19:50)
[2020-10-07] MEDS: GuaiFENesin DM 100 mg/10 mg in 5 ML UDC PO SCH ×4 (05:38→21:01)
[2020-10-07] MEDS: SPIRIVA Respimat (tiotropium) 2.5 mcg/inh Inhaler INH SCH (07:42)
[2020-10-07] MEDS: Calcium Polycarbophil 625mg TB PO SCH (09:58)
[2020-10-07] MEDS: Vitamin THERAPEUTIC TAB PO SCH (09:58)
[2020-10-07] MEDS: Calcium Carb (TUMS) 500 mg CHEW TAB PO SCH ×2 (09:58→20:05)
[2020-10-07] MEDS: Cholecalciferol (VIT D3) 1,000 unit TAB PO SCH (10:00)
[2020-10-07] MEDS: Aspirin EC 81 mg TAB.EC (enteric coated) PO SCH (10:00)
[2020-10-07] MEDS: Enoxaparin 60 MG/0.6 ML SYR SUBCUT SCH ×2 (10:01→20:05)
[2020-10-07] MEDS: Polyethylene Glycol 3350 17 GM PACKET PO SCH (10:01)
[2020-10-07] MEDS: CMC:Cyclosporine 0.05% OPHTH (NF) 0.4 ML VIAL BOTH EYES SCH ×2 (10:10→20:07)
[2020-10-07] MEDS: Mometasone 220 MCG MDI INH SCH (16:49)
[2020-10-08] MEDS: Albuterol HFA INHALER 8 gm MDI INH SCH ×5 (00:07→19:50)
[2020-10-08] MEDS: GuaiFENesin DM 100 mg/10 mg in 5 ML UDC PO SCH ×4 (04:27→21:00)
[2020-10-08 05:44] LABS: Calcium 8.5 mg/dL (8.6-10.3); Potassium 4.1 mmol/L (3.5-5.0)
[2020-10-08 05:48] LABS: BUN/Creatinine Ratio 25.7 (8-20); EGFR African American 98.7 (>60); EGFR Non-African American 81.6 (>60)
[2020-10-08] MEDS: Calcium Carb (TUMS) 500 mg CHEW TAB PO SCH ×2 (08:28→20:49)
[2020-10-08] MEDS: Calcium Polycarbophil 625mg TB PO SCH (08:28)
[2020-10-08] MEDS: Cholecalciferol (VIT D3) 1,000 unit TAB PO SCH (08:28)
[2020-10-08] MEDS: Vitamin THERAPEUTIC TAB PO SCH (08:29)
[2020-10-08] MEDS: Polyethylene Glycol 3350 17 GM PACKET PO SCH (08:29)
[2020-10-08] MEDS: Potassium Chlor 20 meq TAB.ER PO SCH (08:30)
[2020-10-08] MEDS: CMC:Cyclosporine 0.05% OPHTH (NF) 0.4 ML VIAL BOTH EYES SCH ×2 (08:31→20:50)
[2020-10-08] MEDS: Enoxaparin 60 MG/0.6 ML SYR SUBCUT SCH ×2 (08:31→20:50)
[2020-10-08] MEDS: SPIRIVA Respimat (tiotropium) 2.5 mcg/inh Inhaler INH SCH ×2 (10:10→10:15)
[2020-10-08] MEDS: Mometasone 220 MCG MDI INH SCH (19:48)
[2020-10-09] MEDS: Albuterol HFA INHALER 8 gm MDI INH SCH ×4 (01:19→19:36)
[2020-10-09] MEDS: GuaiFENesin DM 100 mg/10 mg in 5 ML UDC PO SCH ×4 (05:43→21:03)
[2020-10-09] MEDS: SPIRIVA Respimat (tiotropium) 2.5 mcg/inh Inhaler INH SCH (08:00)
[2020-10-09] MEDS: Calcium Carb (TUMS) 500 mg CHEW TAB PO SCH ×2 (08:10→20:43)
[2020-10-09] MEDS: Aspirin EC 81 mg TAB.EC (enteric coated) PO SCH (08:10)
[2020-10-09] MEDS: Vitamin THERAPEUTIC TAB PO SCH (08:10)
[2020-10-09] MEDS: Calcium Polycarbophil 625mg TB PO SCH (08:10)
[2020-10-09] MEDS: Potassium Chlor 20 meq TAB.ER PO SCH (08:10)
[2020-10-09] MEDS: Cholecalciferol (VIT D3) 1,000 unit TAB PO SCH (08:11)
[2020-10-09] MEDS: Enoxaparin 60 MG/0.6 ML SYR SUBCUT SCH ×2 (08:11→20:43)
[2020-10-09] MEDS: Polyethylene Glycol 3350 17 GM PACKET PO SCH (10:20)
[2020-10-09] MEDS: CMC:Cyclosporine 0.05% OPHTH (NF) 0.4 ML VIAL BOTH EYES SCH ×2 (11:25→20:47)
[2020-10-09] MEDS: Mometasone 220 MCG MDI INH SCH (19:35)
[2020-10-10] MEDS: Albuterol HFA INHALER 8 gm MDI INH SCH ×3 (01:10→13:00)
[2020-10-10] MEDS: GuaiFENesin DM 100 mg/10 mg in 5 ML UDC PO SCH ×2 (05:50→09:10)
[2020-10-10] MEDS: SPIRIVA Respimat (tiotropium) 2.5 mcg/inh Inhaler INH SCH (08:01)
[2020-10-10] MEDS: Cholecalciferol (VIT D3) 1,000 unit TAB PO SCH (09:11)
[2020-10-10] MEDS: Calcium Carb (TUMS) 500 mg CHEW TAB PO SCH (09:11)
[2020-10-10] MEDS: Vitamin THERAPEUTIC TAB PO SCH (09:11)
[2020-10-10] MEDS: Potassium Chlor 20 meq TAB.ER PO SCH (09:11)
[2020-10-10] MEDS: Calcium Polycarbophil 625mg TB PO SCH (09:11)
[2020-10-10] MEDS: Enoxaparin 60 MG/0.6 ML SYR SUBCUT SCH (09:12)
[2020-10-10] MEDS: CMC:Cyclosporine 0.05% OPHTH (NF) 0.4 ML VIAL BOTH EYES SCH (09:12)
[2020-10-10] MEDS: Polyethylene Glycol 3350 17 GM PACKET PO SCH (09:17)
[2020-10-10 12:15] VITALS: BP 131/54
== END 2020-10-10 15:15 | disposition home or self-care (01) | DRG 177 ==
LOC: ED 10:30 → MED 14:00 → ICU 10-02 09:17 → MED 10-03 20:57
PROVIDERS: ADMIT Internal Medicine; ATTEND Internal Medicine

== ENCOUNTER 2021-02-24 16:32 | Inpatient (IN) ==
[2021-02-24 17:55] LABS: Urine Appearance Cloudy; Urine Bilirubin Negative (Negative); Urine Blood 2+ (Negative); Urine Color Yellow; Urine Glucose Negative (Negative); Urine Ketones Negative (Negative); Urine Nitrite Negative (Negative); Urine Protein Negative (Negative); Urine Specific Gravity 1.004 (1.002-1.030); Urine Urobilinogen Negative (Negative)
[2021-02-24 18:05] LABS: Urine Bacteria 1+ (Absent); Urine Red Blood Cell 1+(3-5/hpf) (Absent); Urine Squamous Epithelial Cell Present (Absent); Urine White Blood Cell 3+(>20/hpf) (Absent)
[2021-02-24] MEDS ORDERED: cefTRIAXone 1 gm/50 mL NS BAG 1 GM/50 ML BAG IV ONE (18:46)
[2021-02-24] MEDS ORDERED: MEPERIDINE 50 MG PO ONE (20:30)
[2021-02-24] MEDS ORDERED: NS 0.9% 500 ml BAG 500 ML IV ONE (20:31)
[2021-02-24 22:39] LABS: ABS Lymphocytes 1.1 10^3/ul (1.0-4.8); ABS Monocytes 1.3 10^3/ul (0-0.8); ABS Neutrophils 13.7 10^3/ul (1.5-7.7); Eosinophil % 0.1 %; Hematocrit 38 % (35-47); Hemoglobin 12.6 g/dL (12.0-16.0); Lymphocyte % 7.1 %; Mean Corpuscular HGB Conc 33 g/dL (31-36); Mean Corpuscular Hemoglobin 29 pg (27-31); Mean Corpuscular Volume 88 fL (80-97); Mean Platelet Volume 8.5 fL (7.4-10.4); Platelet Count 196 10^3/uL (150-450); Red Blood Count 4.34 10^6 /uL (3.70-4.87); Red Cell Distribution Width 14 % (10-15); White Blood Count 16.2 10^3/uL (3.5-10.8)
[2021-02-24 22:59] LABS: Albumin 3.6 g/dL (3.2-5.2); Albumin/Globulin Ratio 1.3 (1-3); C Reactive Protein 95.24 mg/L (<8.01); Calcium 8.9 mg/dL (8.6-10.3); EGFR African American 56.1 (>60); EGFR Non-African American 46.3 (>60); Globulin 2.7 g/dL (2-4); Potassium 4.1 mmol/L (3.5-5.0); Total Bilirubin 0.7 mg/dL (0.2-1.0); Total Protein 6.3 g/dL (6.4-8.9)
[2021-02-24 23:02] LABS: Troponin I 0.02 ng/mL (<0.03)
[2021-02-25] MEDS ORDERED: Albuterol HFA INHALER 8 gm MDI INH PRN (00:27)
[2021-02-25] MEDS ORDERED: Fluticasone NASAL SPRAY 50MCG 16 gm SPRAY BTL INTRANASAL PRN (00:27)
[2021-02-25] MEDS: NS 0.9% 1000 ml BAG 1,000 ML IV SCH ×2 (00:55→10:36)
[2021-02-25 01:22] LABS: Activated Partial Thrombo Time 24.7 seconds (26.0-38.0); INR 1.08 (0.82-1.09)
[2021-02-25] MEDS ORDERED: Heparin 5000 UNITS/ML 1 mL VIAL SUBCUT SCH (06:00)
[2021-02-25] MEDS: Aspirin EC 81 mg TAB.EC (enteric coated) PO SCH (07:47)
[2021-02-25] MEDS: CMC:Cyclosporine 0.05% OPHTH (NF) 0.4 ML VIAL BOTH EYES SCH ×2 (07:48→21:55)
[2021-02-25 07:54] LABS: ABS Basophils 0.1 10^3/ul (0-0.2); ABS Lymphocytes 1.3 10^3/ul (1.0-4.8); ABS Monocytes 1.4 10^3/ul (0-0.8); ABS Neutrophils 16.4 10^3/ul (1.5-7.7); Eosinophil % 0.1 %; Hematocrit 39 % (35-47); Lymphocyte % 6.6 %; Mean Corpuscular HGB Conc 33 g/dL (31-36); Mean Corpuscular Hemoglobin 29 pg (27-31); Mean Corpuscular Volume 89 fL (80-97); Mean Platelet Volume 8.1 fL (7.4-10.4); Platelet Count 163 10^3/uL (150-450); Red Blood Count 4.46 10^6 /uL (3.70-4.87); Red Cell Distribution Width 15 % (10-15); White Blood Count 19.2 10^3/uL (3.5-10.8)
[2021-02-25 08:10] LABS: Calcium 8.5 mg/dL (8.6-10.3); EGFR African American 56.1 (>60); EGFR Non-African American 46.3 (>60); Potassium 4.3 mmol/L (3.5-5.0)
[2021-02-25] MEDS: SPIRIVA Respimat (tiotropium) 2.5 mcg/inh Inhaler INH SCH (08:16)
[2021-02-25] MEDS: Mometasone 220 MCG MDI INH SCH (08:16)
[2021-02-25] MEDS: Enoxaparin 40 MG/0.4 ML SYR SUBCUT SCH (11:53)
[2021-02-25] MEDS ORDERED: Ondansetron 4 mg VIAL 2 MG/ML 2 ml VIAL IV PRN (18:12)
[2021-02-25] MEDS ORDERED: NS 0.9% 1000 ml BAG 1,000 ML IV SCH (18:15)
[2021-02-25] MEDS ORDERED: Ondansetron 4 mg VIAL 2 MG/ML 2 ml VIAL ONE (18:21)
[2021-02-25] MEDS ORDERED: Acetaminophen IV 1 GM/100ML 100 ML IVPB ONE (20:00)
[2021-02-25] MEDS: cefTRIAXone 1 gm/50 mL NS BAG 1 GM/50 ML BAG IVPB SCH (20:55)
[2021-02-26 05:31] LABS: Hematocrit 34 % (35-47); Hemoglobin 11.2 g/dL (12.0-16.0); Mean Corpuscular HGB Conc 33 g/dL (31-36); Mean Corpuscular Hemoglobin 30 pg (27-31); Mean Corpuscular Volume 89 fL (80-97); Mean Platelet Volume 8.4 fL (7.4-10.4); Platelet Count 130 10^3/uL (150-450); Red Blood Count 3.78 10^6 /uL (3.70-4.87); Red Cell Distribution Width 15 % (10-15)
[2021-02-26 05:45] LABS: C Reactive Protein 222.43 mg/L (<8.01); Calcium 7.7 mg/dL (8.6-10.3); EGFR Non-African American 45.4 (>60); Magnesium 2.2 mg/dL (1.9-2.7); Potassium 4.1 mmol/L (3.5-5.0)
[2021-02-26 06:30] LABS: Erythrocyte Sed Rate 34 mm/Hr (0-29)
[2021-02-26] MEDS: Mometasone 220 MCG MDI INH SCH (07:27)
[2021-02-26] MEDS: SPIRIVA Respimat (tiotropium) 2.5 mcg/inh Inhaler INH SCH (07:28)
[2021-02-26] MEDS: NS 0.9% 1000 ml BAG 1,000 ML IV SCH ×2 (08:23→14:12)
[2021-02-26] MEDS: Aspirin EC 81 mg TAB.EC (enteric coated) PO SCH (08:24)
[2021-02-26] MEDS: CMC:Cyclosporine 0.05% OPHTH (NF) 0.4 ML VIAL BOTH EYES SCH ×3 (08:24→21:43)
[2021-02-26 09:46] LABS: ABS Eosinophils 0.1 10^3/ul (0-0.6); ABS Lymphocytes 1.1 10^3/ul (1.0-4.8); ABS Monocytes 1.3 10^3/ul (0-0.8); ABS Neutrophils 14.6 10^3/ul (1.5-7.7); Eosinophil % 0.5 %; Lymphocyte % 6.2 %
[2021-02-26] MEDS: Enoxaparin 40 MG/0.4 ML SYR SUBCUT SCH (12:13)
[2021-02-26 12:27] LABS: Troponin I 0.03 ng/mL (<0.03)
[2021-02-26] MEDS: cefTRIAXone 1 gm/50 mL NS BAG 1 GM/50 ML BAG IVPB SCH (21:43)
[2021-02-27 05:17] LABS: Calcium 7.5 mg/dL (8.6-10.3); Potassium 3.9 mmol/L (3.5-5.0)
[2021-02-27 05:22] LABS: EGFR African American 60.3 (>60); EGFR Non-African American 49.9 (>60)
[2021-02-27] MEDS: SPIRIVA Respimat (tiotropium) 2.5 mcg/inh Inhaler INH SCH (07:40)
[2021-02-27] MEDS: Mometasone 220 MCG MDI INH SCH (07:40)
[2021-02-27 08:28] LABS: Hematocrit 33 % (35-47); Hemoglobin 11.2 g/dL (12.0-16.0); Mean Corpuscular HGB Conc 34 g/dL (31-36); Mean Corpuscular Hemoglobin 29 pg (27-31); Mean Corpuscular Volume 87 fL (80-97); Mean Platelet Volume 8.9 fL (7.4-10.4); Platelet Count 143 10^3/uL (150-450); Red Blood Count 3.83 10^6 /uL (3.70-4.87); Red Cell Distribution Width 15 % (10-15); White Blood Count 11.7 10^3/uL (3.5-10.8)
[2021-02-27] MEDS ORDERED: Cholecalciferol (VIT D3) 1,000 unit TAB PO SCH (09:00)
[2021-02-27] MEDS: Aspirin EC 81 mg TAB.EC (enteric coated) PO SCH (09:09)
[2021-02-27] MEDS: CMC:Cyclosporine 0.05% OPHTH (NF) 0.4 ML VIAL BOTH EYES SCH (09:11)
[2021-02-27 11:52] VITALS: BP 157/44
== END 2021-02-27 12:40 | disposition home or self-care (01) | DRG 690 ==
LOC: ED 16:32 → MEDTELE 02-25 03:58
PROVIDERS: ADMIT Internal Medicine; ATTEND Internal Medicine